=== PATIENT | female | born 1950 | race Caucasian/White ===

== ENCOUNTER → 2018-02-15 14:21 | Outpatient (CLI) | payer MEDICARE, OTHER, SELFPAY ==
[2018-02-15 14:43] LABS: Add Manual Diff / Slide Review NO; Basophils Percent Auto 0.3 % (0-2); Hematocrit 35.8 % (36-46); Hemoglobin 12.5 g/dL (12.0-16.0); Lymphocytes Percent Auto 12.2 % (25-40); Mean Corpuscular Hemoglobin 29.9 PG (26-34); Mean Corpuscular Volume 85.5 fL (80-100); Monocytes Percent Auto 3.3 % (3-14); Neutrophils Absolute Auto 7600 /uL (3000-5900); Neutrophils Percent Auto 84.2 % (50-75); Platelet Count 224 X10^3/uL (150-400); Red Blood Cell Count 4.19 X10^6/uL (4.0-5.2); Red Cell Distribution Width 15.2 % (11.6-14.8)
[2018-02-15 15:23] LABS: HEMOLYSIS < 15 (0-50); Iron 88 ug/dL (37-170)
[2018-02-15 15:34] LABS: Percent Iron Saturation 30 % (15-50); Total Iron Binding Capacity 291 ug/mL (265-497); Transferrin 241 mg/dL (206-381)
== END ==
PROVIDERS: Family Provider Internal Medicine; PCP Internal Medicine; Visit Provider Internal Medicine Hematology & Oncology
DX: D47.2 Monoclonal gammopathy (principal)
CPT/HCPCS: 36415; 82728; 83540; 83550; 85025

== ENCOUNTER 2018-03-09 08:31 | Outpatient (CLI) | payer MEDICARE, OTHER, SELFPAY ==
[2018-03-09] VITALS (13 sets, daily range): BP systolic 116–145; BP diastolic 66–88; PULSE 55–128; RESP 11–17; TEMP 36.1; O2SAT 98–100
--- NOTE | 2018-03-09 08:34 | DI.RAD.S_ITS ---
PROCEDURE: PAIN C/T INTERLAMINAR INJECT INDICATIONS: C6/7 TL DEYANIRA due to Cervical Stenosis FINDINGS: Fluoroscopic spot filming was performed to verify placement of spinal needles at the C6-7 level(s), as labeled on the films. Appropriate location(s) of the needle tip(s) was confirmed by injection of iodinated contrast. IMPRESSION: Image documentation of needle injection at the C6-7 level. Dictated by: Paulo Reza M.D. on 03/09/2018 at 16:19 Approved by: Paulo Reza M.D. on 03/09/2018 at 16:20
--- NOTE | 2018-03-09 09:08 | PM.PROC.1 ---
Procedures Date/Time Date of procedure: 03/09/18 Time of procedure: 09:08 General Procedure description: PREOP DIAGNOSIS 1. CERVICAL STENOSIS, 2. CERVICAL HNP WITH UPPER EXTREMITY RADICULAR FEATURES, POST OP DIAGNOSIS 1. CERVICAL STENOSIS, 2. CERVICAL HNP WITH UPPER EXTREMITY RADICULAR FEATURES, PROCEDURES 1. FLUORSCOPICALLY GUIDED CONTRAST CONTROLLED INTERLAMINAR EPIDURAL STEROID INJECTION - C6/7 TL DEYANIRA PHYSICIAN: Stewart Irwin, DO ABDIRASHID Helms is referred by Dr. Hauser for treatment of Cervical HNP with Upper Extremity Paresthesias. FINDINGS Cervical Stenosis due to disc deterioration and nerve root irritation and nerve root irritation DESCRIPTION OF PROCEDURE Fluoroscopically guided, contrast-controlled C6/7 translaminar epidural steroid injection with conscious sedation. Following denial of allergy and review of potential side effects and complications, including, but not necessarily limited to, infection, allergic reaction, local tissue breakdown, temporary as well as permanent nerve injury, stroke, paralysis, and possible , the patient indicated that patient understood and agreed to proceed. An informed consent document was signed by the patient, witnessed by a nurse, and placed in the patient's chart. Additionally, other treatment options including modalities, medications, and physical therapy were reviewed with the patient. Per the patient request, IV conscious sedation was administered via 5mg of Versed and 50mcg of Fentanyl to patient comfort. The patient's vital signs were monitored throughout the procedure by both the nurse and the physician without significant fluctuation. The patient remained conversant throughout the procedure. In the prone position, following sterile prep and drape of the cervical region, the C6/7 translaminar space was identified fluoroscopically. The skin was anesthetized via a 25-gauge 1.5-inch needle with 1% lidocaine solution. At this point, a 25-gauge, 2.5-inch short bevel spinal needle was atraumatically introduced and advanced under fluoroscopic guidance into epidural space at the C6/7 translaminar space. Depth was confirmed on lateral view. Radiological data, including multiple fluoroscopic views of the cervical spine, reveal a spinal needle at the C6/7 translaminar space. Lateral views then show placement of the needle in the epidural space. Subsequent views show contrast material flowing superiorly and inferiorly in the epidural space. DSA fluoroscopy with live contrast injection, once again, confirmed no vascular or intrathecal uptake. At this point, using loss of resistance technique with saline and air, the epidural space was entered. Following negative aspiration, injection of approximately 1.5 cc of Isovue-200 with live fluoroscopy in the AP view confirmed epidural flow in the epidural space without vascular or intrathecal uptake observed. Subsequently, a test dose of 1 cc of 1% lidocaine solution was injected and patient was observed for two minutes without signs or symptoms of complications, including abdominal pain, shortness of breath, bilateral upper or lower extremity weakness, nausea and vomiting, prior to steroid injection. At this point, 3 cc or 30 mg of dexamethasone was then injected without incident. The patient was then transferred to the recovery area where they were observed for an appropriate period of time after the injection. The patient reported a VAS score of 6 prior to the procedure and a post-procedure VAS of 0. Total Fluoroscopy Time: 37.0 seconds Total Conscious Time: 24min POST OP INSTRUCTIONS The patient was provided a Pain Log to continue to record their response to the target-specific procedure prior to follow-up visit with the referring provider. Additionally, specific post-injection care instructions and a contact number to our office were provided if concerns arise regarding possible complications associated with the procedure are suspected. Stewart Irwin, DO Complications: none
[2018-03-09] MEDS: MIDAZOLAM 5 MG/5 ML VIAL IV (09:30)
[2018-03-09] MEDS: DEXAMETHASONE 10 MG/ML VIAL 30 MG INJ (09:30)
[2018-03-09] MEDS: fentaNYL 100 MCG/2 ML INJ 50 MCG IV (09:30)
[2018-03-09] MEDS: LIDOCAINE 1% 20 ML INJ INJ (09:30)
[2018-03-09] MEDS: IOPAMIDOL 15 ML VIAL 3 ML INJ (09:30)
== END 2018-03-09 10:47 ==
LOC: RAD 08:33
PROVIDERS: PCP Internal Medicine; Visit Provider Physical Medicine & Rehabilitation
DX: M48.02 Spinal stenosis, cervical region (principal)
CPT/HCPCS: 62321; 99152; J1040; J1100; J2250; J3010

== ENCOUNTER → 2018-05-06 08:54 | Outpatient (CLI) | payer MEDICARE, OTHER, SELFPAY ==
--- NOTE | 2018-05-06 | DI.ECHO.S_ITS ---
[place] [facility]---------+ [facility] +---------+ : : [address] : : : : [id number] : : : : Phone: [phone] Echocardiogram Report + + :Name: MEAGAN HALL Study Date: 05/06/2018 Height: 67.5 in: :[facility] Exam Location: IS Weight: 137 lb : : Gender: Female BSA: 1.7 m2 : :: 1950 Age: 67 yrs BP: 160/80 mmHg: :Reason For Study: CERVICAL STENOSIS : :Ordering Physician: Kianna : :Murtaza Performed By: Nimo Freeman : :Referring: KIANNA MURCIA : + + Interpretation Summary The left ventricle is normal in size, wall thickness, and systolic function without any focal wall motion abnormalities. The ejection fraction is estimated to be 55-60%. Assessment of diastolic parameters indicates a relaxation abnormality of the left ventricle, consistent with normal filling pressures. The right ventricle is normal in size and function. The right ventricular systolic pressure is estimated at 24 mmHg assuming a right atrial pressure of 8 mm Hg. The left atrium is moderately dilated. The right atrium is severely dilated. There is mild to moderate pulmonic regurgitation. The ascending aorta is mildly enlarged. Procedure: A two-dimensional transthoracic echocardiogram with color flow and Doppler was performed. The study quality was technically adequate. There is no prior echocardiogram noted for this patient. The patient was in sinus bradycardia with heart rates between 48 and 58 bpm during the exam. Left Ventricle: The left ventricle is normal in size, wall thickness, and systolic function without any focal wall motion abnormalities. The ejection fraction is estimated to be 55-60%. Assessment of diastolic parameters indicates a relaxation abnormality of the left ventricle, consistent with normal filling pressures. Right Ventricle: The right ventricle is normal in size and function. Atria: The left atrium is moderately dilated. The right atrium is severely dilated. There is no Doppler evidence for an interatrial shunt. Mitral Valve: The mitral valve is normal. There is trace mitral regurgitation. Aortic Valve: The aortic valve is normal in structure and function. There is trace aortic regurgitation. Tricuspid Valve: The tricuspid valve is normal. There is trace tricuspid regurgitation. The right ventricular systolic pressure is estimated at 24 mmHg assuming a right atrial pressure of 8 mm Hg. Pulmonic Valve: The pulmonic valve leaflets are thin and pliable; valve motion is normal. There is mild to moderate pulmonic regurgitation. Great Vessels: The aortic root is normal size. The ascending aorta is mildly enlarged. The aortic arch is normal in size. The pulmonary is not well visualized. The IVC is dilated (diameter is greater than 2.1 cm) yet it collapses greater than 50% with a sniff. This suggests a right atrial pressure of 8 mm Hg. Pericardium/ Pleura There is no pericardial effusion. There is no pleural effusion. MMode/2D Measurements & Calculations LVIDd: 4.4 cm LVOT diam: 2.3 cm LVIDs: 2.7 cm Ao root diam: 3.4 cm FS: 39.7 % asc Aorta Diam: 3.8 cm EPSS: 0.80 cm Ao Arch Diam (Prox Trans): 2.9 cm IVSd: 1.0 cm LVPWd: 1.00 cm LV kilpatrick. diameter/BSA (cm/m^2): 2.6 LV sys. diameter/BSA (cm/m^2): 1.5 LA A2 area: 21.4 cm2 RA long axis: 5.6 cm LA A4 area: 24.9 cm2 RA area: 24.4 cm2 LA length (vol): 5.5 cm RA vol: 91.4 ml LA vol: 81.7 ml RA : 52.8 ml/m2 LA vol index: 47.2 ml/m2 IVC diam: 2.2 cm RVD1 (basal): 3.8 cm RVD2 (mid): 2.9 cm TAPSE: 3.0 cm Doppler Measurements & Calculations Ao V2 max: 117.0 cm/sec LVOT Max Ko: 90.6 cm/sec Ao V2 mean: 83.1 cm/sec LV V1 max P.3 mmHg Ao max P.5 mmHg LV V1 VTI: 23.6 cm Ao mean P.1 mmHg FERNANDO(I,D): 2.7 cm2 Ao V2 VTI: 35.5 cm FERNANDO(V,D): 3.1 cm2 sev ratio: 0.67 FERNANDO indexed to BSA (cm^2/m^2): 1.5 MV E max ko: 72.0 cm/sec TR max ko: 198.9 cm/sec MV A max ko: 76.8 cm/sec TR max P.8 mmHg MV E/A: 0.94 PA V2 max: 54.3 cm/sec Med Peak E' Ko: 6.8 cm/sec PA V2 mean: 42.7 cm/sec E/E' med: 10.5 PA mean P.78 mmHg Lat Peak E' Ko: 9.3 cm/sec PA pr(Accel): 2.5 mmHg E/E' lat: 7.8 E/e' average: 9.1 MV dec time: 0.22 sec MV P1/2t: 65.9 msec MV /2t max ko: 72.8 cm/sec MVA(2t): 3.3 cm2 Reading Physician:REMINGTON
--- NOTE | 2018-05-06 08:58 | DI.MRI.S_ITS ---
PROCEDURE: MR CERVICAL SPINE WO CON INDICATIONS: cervical stenosis TECHNIQUE: Noncontrast sagittal T1 spin echo and T2 fast spin echo, sagittal STIR, foraminal oblique sagittal T2 fast spin echo, and axial gradient echo or T2 fast spin echo through the cervical spine. COMPARISON: [facility], MR, C-SPINE WITHOUT CONTRAST, 03/16/2016, 7:41. FINDINGS: Image quality: Excellent. Alignment and Curvature: There is normal bony alignment. Bone Marrow: Marrow demonstrates normal overall signal. Spinal Cord: Visualized spinal cord has normal size and signal. No cerebellar tonsillar herniation. Paraspinous Soft Tissues: No paravertebral masses. Prevertebral soft tissues are normal in thickness. C2-C3: Loss of the signal. No central stenosis. No neural foraminal narrowing. C3-C4: Loss of the signal and height. Mild, diffuse disc bulge. Mild narrowing of the central canal. Mild bilateral neural foraminal narrowing. No neural impingement. C4-C5: Loss of disc signal and height. Moderate, diffuse disc bulge. Moderate to severe central canal. Mild bilateral uncovertebral joint hypertrophy. Moderate bilateral neural foraminal narrowing. No neural impingement. C5-C6: Loss of disc signal and height. Moderate, diffuse disc bulge. Moderate narrowing of the central canal. Moderate right and mild left uncovertebral joint hypertrophy. Moderate right and mild left neural foraminal narrowing. No neural impingement. C6-C7: Loss of disc signal and height. Mild, diffuse disc bulge. Mild central canal narrowing. Mild bilateral neural foraminal narrowing. No neural impingement. C7-T1: Loss of the signal. No central stenosis. No neural foraminal narrowing. No neural impingement. IMPRESSION: 1. Multilevel degenerative disease. 2. Multilevel uncovertebral joint hypertrophy. 3. Moderate to severe C4-C5 central canal narrowing. Moderate C5-C6 central canal narrowing. Mild C3-C4 and C6-C7 central canal narrowing. 4. Moderate bilateral C4-C5 neural foraminal narrowing. Moderate right and mild left C5-C6 neural foraminal narrowing. Mild bilateral C3-C4 and C6-C7 neural foraminal narrowing. Dictated by: Wendy Lee MD, PhD on 05/06/2018 at 11:13 Approved by: Wendy Lee MD, PhD on 05/06/2018 at 11:35
== END ==
PROVIDERS: Family Provider Physical Medicine & Rehabilitation; PCP Internal Medicine; Visit Provider Internal Medicine
DX: M50.31 Other cervical disc degeneration, high cervical region (principal); M48.02 Spinal stenosis, cervical region; I51.7 Cardiomegaly; I37.1 Nonrheumatic pulmonary valve insufficiency
CPT/HCPCS: 72141; 93306

== ENCOUNTER 2018-05-18 12:20 | Emergency (ER) | payer MEDICARE, OTHER, SELFPAY ==
[2018-05-18 12:40] VITALS: BP 136/78; PULSE 53; RESP 18; TEMP 36.2; O2SAT 100; BMI 21.2
--- NOTE | 2018-05-18 12:41 | ED.GENADULT ---
HPI - General Adult General Chief complaint: Weakness Stated complaint: LOW PULSE/HIGH BP Time Seen by Provider: 05/18/18 12:46 Source: patient Mode of arrival: ambulatory Limitations: no limitations History of Present Illness HPI narrative: 67-year-old female with history of hypertension here for complaint of having low blood pressure and low heart rate this morning. She was recently put on amlodipine to treat her hypertension she states she is also taking Accupril and hydrochlorothiazide to treat the blood pressure. She states that with her heart rate and blood pressure being low this morning she felt weak earlier today. She states she feels better at this time. She did talk to her primary care provider the told her to hold on the amlodipine for now until follow up with primary care. She denies any shortness of breath no chest pain. She is ambulatory into the emergency room. She denies any other concerns or complaints at this time. Related Data Home Medications Medication Instructions Recorded Confirmed VITAMIN D (Vitamin D3) 1,000 units PO QDAY #0 11/04/16 05/13/18 mfvzwkj-viooaayuwrnem-kilunoex 2 tab PO QDAY #0 11/04/16 05/13/18 [Excedrin Migraine] calcium citrate-vitamin D3 1 PO QDAY #0 11/04/16 05/13/18 [Citracal Regular] cyanocobalamin (vitamin B-12) 1,000 mcg PO QDAY #0 11/04/16 05/13/18 fluticasone [Flovent Diskus] 50 mcg INH HS #0 11/04/16 05/13/18 magnesium 1,500 mg PO QDAY #0 11/04/16 05/13/18 tizanidine 12 mg PO HS #0 11/04/16 05/13/18 vitamin B complex [B 1 tab PO QDAY #0 11/04/16 05/13/18 Complex-Vitamin B12] zinc gluconate 50 mg PO QDAY #0 11/04/16 05/13/18 quinapril [Accupril] 40 mg PO QDAY #0 11/10/16 05/13/18 denosumab [Prolia] 60 mg SQ #0 06/21/17 05/13/18 gabapentin enacarbil [Horizant] 300 mg OR QDAY #0 07/06/17 05/13/18 pantoprazole 40 mg PO BID #0 12/13/17 05/13/18 Previous Rx's Medication Instructions Recorded mirabegron [Myrbetriq] 50 mg PO Q DAY #30 tab-cap 07/08/17 estradiol [Estrace] 1 mg PO DAILY #90 tab 11/17/17 trospium 20 mg PO BID #60 tab-cap 01/27/18 meloxicam 15 mg tablet 15 mg PO DAILY #30 tab 05/13/18 Allergies Allergy/AdvReac Type Severity Reaction Status Date / Time Sulfa (Sulfonamide Allergy Intermediate don't Verified 05/13/18 08:49 Antibiotics) remember [SULFA (SULFONAMIDE ANTIBIOTICS)] tetracycline [TETRACYCLINE] Allergy Intermediate don't Verified 05/13/18 08:49 remember celecoxib [From CELEBREX] Allergy Mild Verified 05/13/18 08:49 Penicillins [PENICILLINS] Allergy Mild Hives Verified 05/13/18 08:49 Review of Systems Constitutional Denies chills, Denies fever(s), Denies lethargy and Reports weakness ENT Ears, Nose, Mouth, and Throat: Denies change in voice, Denies neck pain and Denies sore throat Cardiovascular Denies dyspnea, Denies dyspnea on exertion and Reports slow heart rate Comments: Low blood pressure Respiratory Denies cough, Denies dyspnea, Denies dyspnea on exertion and Denies wheezing Genitourinary Denies hematuria, Denies flank pain, Denies urinary incontinence and Denies urinary urgency Musculoskeletal Denies neck pain Integumentary/Breasts Denies pruritus, Denies erythema, Denies rash and Denies wounds Neurologic Denies confusion and Reports weakness Psychiatric Denies anxiety, Denies confusion, Denies depression, Denies homicidal ideation and Denies suicidal ideation Hematologic/Lymphatic Denies easy bruising Allergic/Immunologic Denies wheezing [facility] Medical History DJD (degenerative joint disease) of knee (Chronic) Greater trochanteric bursitis (Chronic) Cervical spondylosis with radiculopathy (Chronic) Cervical stenosis of spinal canal (Chronic) DDD (degenerative disc disease), cervical (Acute) Monoclonal gammopathy (Acute) Chronic pain syndrome (Acute) Generalized osteoarthritis (Acute) History of osteoporosis (Acute) Constipation (Acute) Surgical History History of tonsillectomy Status post appendectomy Status post hysterectomy Social History Smoking Status: Never smoker Exam Initial Vital Signs Initial Vital Signs: Vital Signs Temperature 97.2 F L 05/18/18 12:40 Pulse Rate 53 L 05/18/18 12:40 Respiratory Rate 18 05/18/18 12:40 Blood Pressure 136/78 H 05/18/18 12:40 Pulse Oximetry 100 05/18/18 12:40 Const General: cooperative and well developed Nutritional Appearance: well nourished Orientation: alert, awake, oriented x3 and not confused [facility] Mouth: oral mucosae normal, oropharynx normal and moist mucous membranes Eyes General: appearance normal, both eyes and all related structures Conjunctivae: conjunctivae normal Sclera: sclerae normal Pupils: PERRL EOM: EOM intact bilaterally Resp Effort & Inspection: normal respiratory effort, able to speak in complete sentences, no respiratory distress and no use of accessory muscles Auscultation: clear to auscultation bilaterally, no rales, no rhonchi and no wheezes Cardio Rate: bradycardic Rhythm: regular rhythm Heart Sounds: no click, no gallops, no murmurs and no rubs Pulses: normal peripheral pulses Skin General: no rashes or lesions noted, No jaundice and No petechiae Neuro General: alert, oriented x3, gait normal and no focal motor deficits Speech: speech normal Course Orders Ordered: ED Orders 05/18/18 12:55 B Type Natriuretic Peptide Stat Complete Blood Count AUTO DIFF Stat Comprehensive Metabolic Panel Stat Troponin & CK Cardiac Panel Stat 05/18/18 13:01 XR chest 1V Stat EKG-12 Lead Stat Vital Signs - 8 hr 05/18/18 13:47 05/18/18 14:46 Pulse Rate 54 L 59 L Respiratory Rate 14 14 Blood Pressure 123/71 H Blood Pressure [Left Arm] 129/74 H Pulse Oximetry 100 98 Medical Decision Making [facility] Narrative Medical decision making narrative: Since this morning her blood pressure normalized. Pulse was 54. CBC and Chem panel were obtained and were unremarkable. Troponin was obtained and was negative. EKG showed sinus bradycardia with no ectopy or ST elevation or depression. BNP was elevated 164 although her chest x-ray was negative for any acute findings. Believe her symptoms are due to the amlodipine and will have her hold this for now as it may be working with the tizanidine that she takes for muscle spasms and causing her to have low blood pressure and heart rate. She will follow up with primary care provider in the next couple days for re-evaluation. For any worsening symptoms return emergency room. Lab Data Result diagrams: 05/18/18 12:55 05/18/18 12:55 Lab Results 05/18/18 05/18/18 Range/Units 12:55 12:55 WBC 5.4 (4.5-11.0) X10^3/uL RBC 4.10 (4.0-5.2) X10^6/uL Hgb 12.5 (12.0-16.0) g/dL Hct 37.0 (36-46) % MCV 90.3 (80-100) fL MCH 30.4 (26-34) PG MCHC 33.6 (30-36) % RDW 13.9 (11.6-14.8) % Plt Count 232 (150-400) X10^3/uL Neut % (Auto) 63.8 (50-75) % Lymph % (Auto) 24.8 L (25-40) % Cameron % (Auto) 7.0 (3-14) % Eos % (Auto) 1.7 L (2-4) % Baso % (Auto) 2.7 H (0-2) % Neut # (Auto) 3500 (9880-3756) /uL Sodium 133 L (137-145) mmol/L Potassium 5.0 (3.4-5.1) mmol/L Chloride 94 L (98-107) mmol/L Carbon Dioxide 30 (22-32) mmol/L BUN 18 H (7-17) mg/dL Creatinine 0.70 (0.52-1.04) mg/dL Estimated GFR > 60.0 (>60) mL/min BUN/Creatinine Ratio 25.7 H (6-22) Glucose 98 (80-110) mg/dL Calcium 9.4 (8.4-10.2) mg/dL Total Bilirubin 0.6 (0.2-1.3) mg/dL AST 44 H (14-36) IU/L ALT 34 (9-52) IU/L Alkaline Phosphatase 84 (38-126) U/L Total Creatine Kinase 35 (30-135) U/L Troponin I < 0.012 (0.01-0.034) ng/mL B-Natriuretic Peptide 164.0 H (<100) Total Protein 7.8 (6.3-8.2) g/dL Albumin 4.1 (3.5-5.0) g/dL Globulin 3.7 (1.7-4.1) g/dL Albumin/Globulin Ratio 1.1 (1.0-2.8) Imaging Data Chest x-ray: Radiologist's impression: PROCEDURE: XR CHEST 1V INDICATIONS: Weakness and bradycardia TECHNIQUE: One view of the chest was acquired. COMPARISON: [facility], , ABDOMEN ACUTE SERIES, 07/04/2017, 14:07. [facility], , CHEST 1 VIEW, 08/22/2016, 13:53. FINDINGS: Surgical changes and devices: Surgical anchors right humeral head Lungs and pleura: No pleural effusions or pneumothorax. Lungs are clear. Mediastinum: Mediastinal contours appear normal. Heart size is normal. Bones and chest wall: No suspicious bony lesions. Overlying soft tissues appear unremarkable. IMPRESSION: No acute cardiopulmonary abnormality Dictated by: Paulo Reza M.D. on 05/18/2018 at 13:31 Approved by: Paulo Reza M.D. on 05/18/2018 at 13:31 ECG Data Interpretation: EKG shows sinus bradycardia no ST elevation or depression. No ectopy. Ventricular rate of 52. Pr interval of 193. QRS duration of 87. QTC of 477 Discharge Plan Departure Patient Disposition: Home, Self-Care Clinical Impression: Hypotension Discharge Date/Time: 05/18/18 14:46 Interventions: ED Discharge Assessment Last Done: 05/18/18 14:46 Instructions: Amlodipine Activity Restrictions/Additional Instructions: Laboratory results today and chest x-ray and EKG were unremarkable. Suspect that low blood pressure is due to amlodipine and use which may be working in conjunction with the tizanidine and causing low blood pressure and low heart rate. Stop taking amlodipine at this point. Follow up with her primary care provider in the next few days for re-evaluation and discussion of blood pressure medication regimen. For any worsening symptoms return to the emergency room. Prescriptions: No Action tizanidine 4 MG tablet 12 mg PO HS Qty: 0 RF: 0 cyanocobalamin (vitamin B-12) 1,000 MCG tablet extended release 1,000 mcg PO QDAY Qty: 0 RF: 0 [id number]-nlepdazfowvig-cgsdfutn [Excedrin Migraine] 1 EACH tablet 2 tab PO QDAY Qty: 0 RF: 0 vitamin B complex [B Complex-Vitamin B12] 1 EACH tablet 1 tab PO QDAY Qty: 0 RF: 0 magnesium 200 MG tablet 1,500 mg PO QDAY Qty: 0 RF: 0 calcium citrate-vitamin D3 [Citracal Regular] 250 MG/200 IU tablet 1 PO QDAY Qty: 0 RF: 0 VITAMIN D (Vitamin D3) 1,000 units PO QDAY Qty: 0 RF: 0 zinc gluconate 50 MG tablet 50 mg PO QDAY Qty: 0 RF: 0 fluticasone [Flovent Diskus] 50 MCG blister with device 50 mcg INH HS Qty: 0 RF: 0 quinapril [Accupril] 40 MG tablet 40 mg PO QDAY Qty: 0 RF: 0 denosumab [Prolia] 60 MG/1 ML syringe 60 mg SQ Qty: 0 RF: 0 gabapentin enacarbil [Horizant] 300 MG tablet extended release 300 mg OR QDAY Qty: 0 RF: 0 mirabegron [Myrbetriq] 50 MG tablet extended release 24 hr 50 mg PO Q DAY Qty: 30 RF: 5 estradiol [Estrace] 1 MG tablet 1 mg PO DAILY Qty: 90 RF: 3 pantoprazole 40 MG tablet,delayed release (DR/EC) 40 mg PO BID Qty: 0 RF: 0 trospium 20 MG tablet 20 mg PO BID Qty: 60 RF: 5 meloxicam 15 mg tablet 15 mg PO DAILY Qty: 30 RF: 2 Referrals: Liseth Hauser MD [Primary Care Provider] -
--- NOTE | 2018-05-18 13:01 | DI.RAD.S_ITS ---
PROCEDURE: XR CHEST 1V INDICATIONS: Weakness and bradycardia TECHNIQUE: One view of the chest was acquired. COMPARISON: [facility], , ABDOMEN ACUTE SERIES, 07/04/2017, 14:07. [facility], , CHEST 1 VIEW, 08/22/2016, 13:53. FINDINGS: Surgical changes and devices: Surgical anchors right humeral head Lungs and pleura: No pleural effusions or pneumothorax. Lungs are clear. Mediastinum: Mediastinal contours appear normal. Heart size is normal. Bones and chest wall: No suspicious bony lesions. Overlying soft tissues appear unremarkable. IMPRESSION: No acute cardiopulmonary abnormality Dictated by: Paulo Reza M.D. on 05/18/2018 at 13:31 Approved by: Paulo Reza M.D. on 05/18/2018 at 13:31
[2018-05-18 13:13] LABS: Add Manual Diff / Slide Review NO; Basophils Percent Auto 2.7 % (0-2); Eosinophils Percent Auto 1.7 % (2-4); Hemoglobin 12.5 g/dL (12.0-16.0); Lymphocytes Percent Auto 24.8 % (25-40); Mean Corpuscular HGB Conc 33.6 % (30-36); Mean Corpuscular Hemoglobin 30.4 PG (26-34); Mean Corpuscular Volume 90.3 fL (80-100); Neutrophils Absolute Auto 3500 /uL (3000-5900); Neutrophils Percent Auto 63.8 % (50-75); Platelet Count 232 X10^3/uL (150-400); Red Cell Distribution Width 13.9 % (11.6-14.8); White Blood Cell Count 5.4 X10^3/uL (4.5-11.0)
[2018-05-18 13:18] LABS: Alanine Aminotransferase 34 IU/L (9-52); Albumin 4.1 g/dL (3.5-5.0); Albumin Globulin Ratio 1.1 (1.0-2.8); Alkaline Phosphatase 84 U/L (38-126); Aspartate Aminotransferase 44 IU/L (14-36); BUN Creatinine Ratio 25.7 (6-22); Bilirubin Total 0.6 mg/dL (0.2-1.3); Blood Urea Nitrogen 18 mg/dL (7-17); Calcium 9.4 mg/dL (8.4-10.2); Carbon Dioxide 30 mmol/L (22-32); Chloride 94 mmol/L (98-107); Creatine Kinase 35 U/L (30-135); Estimated Glomerular Filt Rate > 60.0 mL/min (>60); Globulin 3.7 g/dL (1.7-4.1); Glucose 98 mg/dL (80-110); HEMOLYSIS < 15 (0-50); Sodium 133 mmol/L (137-145); Total Protein 7.8 g/dL (6.3-8.2)
[2018-05-18 13:30] LABS: Troponin I < 0.012 ng/mL (0.01-0.034)
[2018-05-18 13:47] VITALS: BP 129/74; PULSE 54; RESP 14; O2SAT 100
[2018-05-18 14:46] VITALS: BP 123/71; PULSE 59; RESP 14; O2SAT 98
== END 2018-05-18 14:46 | disposition home or self-care (01) ==
PROVIDERS: Emergency Provider Nurse Practitioner Family; Family Provider Physical Medicine & Rehabilitation; PCP Internal Medicine
DX: I95.9 Hypotension, unspecified (principal)
CPT/HCPCS: 71045; 80053; 82550; 82553; 83880; 84484; 85025; 93005; 93010; 93041; 99283; 99285

== ENCOUNTER → 2018-06-07 13:41 | Outpatient (CLI) | payer MEDICARE, OTHER, SELFPAY ==
--- NOTE | 2018-06-07 | DI.CT.S_ITS ---
PROCEDURE: CT CHEST WO CON INDICATIONS: DISORDER OF ARTERY AND ARTERIOLE TECHNIQUE: Noncontrast 5 mm thick sections acquired from the pulmonary apices to the posterior costophrenic angles. 7 mm thick coronal and sagittal MIP reformats were then acquired. For radiation dose reduction, the following was used: automated exposure control, adjustment of mA and/or kV according to patient size. COMPARISON: [facility], CR, XR CHEST 1V, 05/18/2018, 13:09. FINDINGS: Image quality: Excellent. Lungs and pleura: No acute air space opacities. No pleural effusions or pneumothorax. Central and peripheral airways are patent and normal in caliber. Mediastinum: Heart size is normal. No pericardial effusion. No mediastinal adenopathy by size criteria. Thoracic aorta and central pulmonary arteries are normal in size. Esophagus is normal in caliber. No hiatal hernia. Bones and chest wall: No suspicious bony lesions. No vertebral body compression fractures. No axillary or supraclavicular adenopathy by size criteria. Thyroid gland is not well-seen but appears normal where well visualized. Abdomen: Visualized upper abdominal solid organs and bowel loops appear normal in the absence of contrast. IMPRESSION: Mild to moderate atherosclerotic calcification noted of the coronary arteries. No aneurysm found. No acute pulmonary disease seen. Dictated by: Jose David Rey M.D. on 06/07/2018 at 14:21 Approved by: Jose David Rey M.D. on 06/07/2018 at 14:23
== END ==
PROVIDERS: Family Provider Physical Medicine & Rehabilitation; PCP Internal Medicine; Visit Provider Hospitalist
DX: I25.10 Atherosclerotic heart disease of native coronary artery without angina pectoris (principal); I77.9 Disorder of arteries and arterioles, unspecified
CPT/HCPCS: 71250

== ENCOUNTER 2018-06-21 10:31 | Outpatient (CLI) | payer MEDICARE, OTHER, SELFPAY ==
[2018-06-21] VITALS (11 sets, daily range): BP systolic 127–180; BP diastolic 66–82; PULSE 57–69; RESP 16–18; TEMP 36.4; O2SAT 99–100
--- NOTE | 2018-06-21 10:32 | DI.RAD.S_ITS ---
PROCEDURE: PAIN C/T FACET INJ/BLK 1ST L INDICATIONS: SPINAL STENOSIS FINDINGS: Fluoroscopic spot filming was performed to verify placement of spinal needles at the C5-C6, C6 and C7 and C7-T1 level(s), as labeled on the films. Appropriate location(s) of the needle tip(s) was confirmed by injection of iodinated contrast. IMPRESSION: Fluoroscopy for pain management. Dictated by: Kristian Lozada M.D. on 06/21/2018 at 15:16 Approved by: Kristian Lozada M.D. on 06/21/2018 at 15:16
[2018-06-21] MEDS: MIDAZOLAM 5 MG/5 ML VIAL IV (11:41)
[2018-06-21] MEDS: BUPIVACAINE 0.5% (PF) VIAL 2 ML INJ (11:52)
[2018-06-21] MEDS: IOPAMIDOL 15 ML VIAL 3 ML INJ (11:52)
[2018-06-21] MEDS: DEXAMETHASONE 10 MG/ML VIAL 30 MG INJ (11:53)
--- NOTE | 2018-06-21 11:57 | P.PCN_ITS ---
Procedures Date/Time Date of procedure: 06/21/18 Time of procedure: 11:55 General Procedure description: PREOP DIAGNOSIS 1. FACET ARTHROPATHY 2. AXIAL NECK PAIN POST OP DIAGNOSIS 1. FACET ARTHROPATHY 2. AXIAL NECK PAIN PROCEDURES 1. FLUOROSCOPICALLY GUIDED, CONTRAST-CONTROLLED RIGHT C5/6 AND C6/7 FACET JOINT INJECTIONS WITH CONSCIOUS SEDATION. PHYSICIAN: Stewart Irwin DO INDICATION: Analia is referred by Dr. Hauser for treatment of Axial Neck Pain DESCRIPTION OF PROCEDURE Fluoroscopically guided, contrast-controlled Right C5/6 and C6/7 facet joint injections with conscious sedation. Following denial of allergy and review of potential side effects and complications, including, but not necessarily limited to, infection, allergic reaction, local tissue breakdown, stroke, temporary or permanent nerve injury and paralysis, the patient indicated that the patient understood and agreed to proceed. An informed consent document was signed by the patient, witnessed by a nurse, and placed in the patient's chart. Additionally, other treatment options including medications, modalities, and physical therapy were reviewed with the patient. After review of previous anaesthesic history and IV conscious sedation the patient was deemed safe to proceed with todays procedure with IV conscious sedation as ASA class II designation. Safety time-out was performed to confirm patient ID, procedure to be performed and site of procedure. IV sedation was accomplished with a combination of 5mg was administered by the RN after DO order , titrated to patient comfort during the course of the procedure while the patient remained responsive to all verbal commands In the prone position, following sterile prep and drape of the cervical spine region, the posterior aspect of the right C5/6 and C6/7 facet joints were identified fluoroscopically. The skin was anesthetized via a 25-gauge 1.5-inch needle with 1% lidocaine solution into the corresponding facet joints. At this point, a 25-gauge 2.5-inch spinal needle was atraumatically introduced and advanced under fluoroscopic guidance into the corresponding facet joints. Following negative aspiration, injections of approximately 0.2-cc of Isovue 200 confirmed interarticular placement without vascular uptake. At this point, a total of 1 cc including 0.5 cc or 5 mg of dexamethasone combined with 0.5 cc of 1% lidocaine solution was injected without complication into each of the corresponding facet joints. The procedure tolerated the procedure well without signs or symptoms of complications prior to transfer to the recovery area continued monitoring without incident. The patient was then transferred to the recovery area where they were observed for an appropriate period of time after the injection. The patient reported a VAS score of 7 prior to the procedure and a post- procedure VAS of 0. Total Fluoroscopy Time: 20.5 seconds Total Conscious Sedation Time: 24 min POST OP INSTRUCTIONS They were provided a Pain Log to continue to record their response to the target -specific procedure prior to their follow-up visit with their referring physician. Additionally, specific post-injection care instructions and a contact number to our office were provided if concerns arise regarding possible complications associated with the procedure are suspected. Stewart Irwin, Complications: none
--- NOTE | 2018-06-22 13:20 | PC.NURSE ---
post follow up call made and pt reported not feeling very good, she is dizzy and nauseated. I let Dr. Irwin know so he is going to follow up with her.
== END 2018-06-21 13:20 ==
LOC: RAD 10:32
PROVIDERS: PCP Internal Medicine; Visit Provider Physical Medicine & Rehabilitation
DX: M47.812 Spondylosis without myelopathy or radiculopathy, cervical region (principal); M54.2 Cervicalgia
CPT/HCPCS: 64490; 64491; 99152; J1100; J2250

== ENCOUNTER → 2018-07-08 12:24 | Outpatient (CLI) | payer MEDICARE, OTHER, SELFPAY ==
[2018-07-08 14:49] LABS: Cholesterol 230 mg/dL (140-199); HDL Cholesterol 89 mg/dL (40-60); LDL Cholesterol Calculated 127 mg/dL (<100); Triglycerides 70 mg/dL (35-150)
[2018-07-08 15:46] LABS: Free T4, Direct Thyroxine 1.27 ng/dL (0.78-2.19)
[2018-07-13 14:54] LABS: Catecholamines, Total 419 pg/mL
== END ==
PROVIDERS: PCP Internal Medicine; Visit Provider Hospitalist
DX: I10 Essential (primary) hypertension (principal); E78.2 Mixed hyperlipidemia
CPT/HCPCS: 36415; 80061; 82384; 82570; 84439; 84443

== ENCOUNTER → 2018-07-14 13:24 | Outpatient (CLI) | payer MEDICARE, OTHER, SELFPAY ==
[2018-07-14 15:27] LABS: Vitamin B12 > 1000 pg/mL (239-931)
== END ==
PROVIDERS: PCP Internal Medicine; Visit Provider Internal Medicine
DX: D51.9 Vitamin B12 deficiency anemia, unspecified (principal)
CPT/HCPCS: 36415; 82607

== ENCOUNTER → 2018-07-16 09:39 | Outpatient (CLI) | payer MEDICARE, OTHER, SELFPAY ==
--- NOTE | 2018-07-16 09:41 | DI.MRI.S_ITS ---
PROCEDURE: MR KNEE LT WO CON INDICATIONS: Left knee DJD status post arthroscopy TECHNIQUE: Noncontrast sagittal PD fast spin echo and T2 fast spin echo with fat saturation, sagittal 3-D FLASH with fat saturation; coronal T1 spin echo and PD fast spin echo with fat saturation, and axial PD fast spin echo with fat saturation through the knee. COMPARISON: [facility], MR, KNEE WITH CONTRAST, 11/08/2015, 14:17. [facility], CR, XR KNEE ARTHRITIC SERIES BI, 04/19/2018, 10:54. [facility], MR, KNEE WITHOUT CONTRAST, 06/05/2015, 12:14. FINDINGS: Image quality: Excellent. Menisci: The medial and lateral menisci demonstrate moderately degenerated morphology and internal signal, more prominently at the medial than the lateral compartment. A small nondisplaced horizontally oriented linear tear involves the posterior horn of the lateral meniscus, but a medial meniscal tear is not seen. The meniscal root ligaments appear intact. Cruciate ligaments: The anterior and posterior cruciate ligaments appear intact. Medial structures: The medial collateral ligament appears intact. The posterior oblique ligament, semimembranosus tendon insertions, oblique popliteal ligament, and meniscocapsular junction appear intact. Visualized portions of the pes anserinus tendons appear normal. No abnormal bursal fluid. Lateral structures: The lateral collateral ligament, long and short heads of the biceps femoris tendon appear intact. The popliteus tendon appears normal; the popliteofibular ligament appears intact. The posterosuperior and anteroinferior popliteomeniscal fascicles appear intact. The arcuate and fabellofibular ligaments appear intact, on either side of the lateral inferior geniculate artery. Iliotibial band appears normal. Anterior structures: The quadriceps and patellar tendons appear intact. Patellar alignment is normal. No femoral trochlear dysplasia or ventral trochlear prominence. No edema in the infrapatellar fat pad. Bones and cartilage: No bone marrow contusions or fractures. The cartilage of the medial and lateral femorotibial compartments, as well as the patellofemoral compartment, appears reduced in thickness and this is most prominent at the medial compartment and present to a slightly lesser degree at the lateral compartment. It is moderately severe at the lateral facet of the patellofemoral joint and thinning of the patellar articular cartilage is associated with several areas of posterior marrow edema related to the chondromalacia present. Additionally, a previously identified ovoid 1.1 x 1.5 cm chondroid matrix lesion within the fibular head anteriorly is again seen, present on prior plain film and MR imaging without growth over time. Joint space: There is a moderate excess of knee joint fluid. There is a small posterior medial Light's cyst. Normal appearing synovial plicae are incidentally noted. IMPRESSION: 1. 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 2. Stable appearing horizontally oriented linear tear involving the posterior horn of the lateral meniscus. Moderate meniscal degeneration, no displaced meniscal fragment. 3. Small joint effusion. Small posterior medial Light's cyst without evidence of cyst rupture. 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 Dictated by: Jose David Rey M.D. on 07/18/2018 at 13:07 Approved by: Jose David Rey M.D. on 07/18/2018 at 13:18
== END ==
PROVIDERS: PCP Internal Medicine; Visit Provider Physical Medicine & Rehabilitation
DX: S83.282A Other tear of lateral meniscus, current injury, left knee, initial encounter (principal); M17.12 Unilateral primary osteoarthritis, left knee; M25.462 Effusion, left knee; M71.22 Synovial cyst of popliteal space [Baker], left knee
CPT/HCPCS: 73721

== ENCOUNTER → 2018-08-08 13:59 | Outpatient (CLI) | payer MEDICARE, OTHER, SELFPAY ==
[2018-08-08 14:34] LABS: Add Manual Diff / Slide Review NO; Basophils Percent Auto 1.5 % (0-2); Eosinophils Percent Auto 2.2 % (2-4); Hemoglobin 13.6 g/dL (12.0-16.0); Lymphocytes Percent Auto 34.7 % (25-40); Mean Corpuscular HGB Conc 33.9 % (30-36); Mean Corpuscular Hemoglobin 29.4 PG (26-34); Mean Corpuscular Volume 86.8 fL (80-100); Monocytes Percent Auto 7.3 % (3-14); Neutrophils Absolute Auto 3000 /uL (3000-5900); Neutrophils Percent Auto 54.3 % (50-75); Platelet Count 238 X10^3/uL (150-400); Red Blood Cell Count 4.61 X10^6/uL (4.0-5.2); Red Cell Distribution Width 13.8 % (11.6-14.8); White Blood Cell Count 5.5 X10^3/uL (4.5-11.0)
--- NOTE | 2018-08-08 14:43 | PC.NURSE ---
CBC stable, chemistry and immunology pending. New MD follow up on 08/18
[2018-08-10 12:57] LABS: Immunoglobulin A 133 mg/dL (81-463); Immunoglobulin G, Quantitative 1592 mg/dL (694-1618)
[2018-08-10 14:26] LABS: Free Kappa/ Lambda Ratio 0.44 (0.26-1.65); Free Lambda 38.5 mg/L (5.7-26.3)
[2018-08-10 19:27] LABS: Beta-2-Microglobulin 3.26 mg/L (< 2.52)
[2018-08-12 15:01] LABS: Abnormal Protein Band 1 0.9 g/dL (NONE DETECTED); Albumin 3.9 g/dL (3.8-4.8); Alpha 1 Globulin 0.4 g/dL (0.2-0.3); Alpha 2 Globulin 0.9 g/dL (0.5-0.9); Beta 1 Globulin 0.4 g/dL (0.4-0.6); Gamma Globulin 1.6 g/dL (0.8-1.7); Protein, Total 7.5 g/dL (6.1-8.1)
== END ==
PROVIDERS: PCP Internal Medicine; Visit Provider Internal Medicine Hematology & Oncology
DX: D47.2 Monoclonal gammopathy (principal); K58.9 Irritable bowel syndrome, unspecified
CPT/HCPCS: 36415; 82232; 82784; 83883; 84155; 84165; 85025

== ENCOUNTER 2018-10-18 10:28 | Outpatient (CLI) | payer MEDICARE, OTHER, SELFPAY ==
[2018-10-18] VITALS (7 sets, daily range): BP systolic 135–169; BP diastolic 65–77; PULSE 48–54; RESP 11–18; TEMP 36.2; O2SAT 100
--- NOTE | 2018-10-18 10:34 | DI.RAD.S_ITS ---
PROCEDURE: PAIN L/S FACET INJ/BLK 1ST SAGAR COMPARISON: None. INDICATIONS: SPONDYLOSIS FINDINGS: These images demonstrate spinal needles on the right and on the left at the L4-L5 level, as labeled on the images. Appropriate needle positions are demonstrated with injection of a small amount of iodinated contrast. IMPRESSION: Intraprocedural examination within normal limits. Dictated by: Gomez Graf M.D. on 10/19/2018 at 9:00 Approved by: Gomez Graf M.D. on 10/19/2018 at 9:01
[2018-10-18] MEDS: MIDAZOLAM 5 MG/5 ML VIAL IV (11:05)
[2018-10-18] MEDS: BUPIVACAINE 0.5% (PF) VIAL 2 ML INJ (11:13)
[2018-10-18] MEDS: IOPAMIDOL 15 ML VIAL 3 ML INJ (11:14)
[2018-10-18] MEDS: BETAMETHASONE 30 MG/5 ML MDV 12 MG INJ (11:14)
[2018-10-18] MEDS: LIDOCAINE 1% 20 ML INJ INJ (11:14)
--- NOTE | 2018-10-18 11:24 | P.PCN_ITS ---
Procedures Date/Time Date of procedure: 10/18/18 Time of procedure: 11:22 General Procedure description: PREOP DIAGNOSIS 1. FACET ARTHROPATHY 2. AXIAL LBP 3. MULTILEVEL DDD POST OP DIAGNOSIS 1. FACET ARTHROPATHY 2. AXIAL LBP 3. MULTILEVEL DDD PROCEDURES 1. FLUORSCOPICALLY GUIDED CONTRAST CONTROLLED FACET JOINT INJECTIONS BILATERAL L4/5 PHYSICIAN: Stewart Irwin, DO INDICATIONS Analia is referred by Dr. Mcconnell for treatment of Axial LBP FINDINGS Multilevel Facet Arthropathy with Clinically significant axial LBP DESCRIPTION OF PROCEDURE Fluoroscopically guided, contrast-controlled bilateral L4/5 facet joint injections. Following denial of allergy and review of potential side effects and complications, including, but not necessarily limited to, infection, allergic reaction, local tissue breakdown, stroke, temporary or permanent nerve injury, paralysis, and possible , the patient indicated that the patient understood and agreed to proceed. An informed consent document was signed by the patient, witnessed by a nurse, and placed in the patient's chart. Additionally, other treatment options including medications, modalities, and physical therapy were reviewed with the patient. After review of previous anaesthesic history and IV conscious sedation the patient was deemed safe to proceed with todays procedure with IV conscious sedation as ASA class II designation. Safety time-out was performed to confirm patient ID, procedure to be performed and site of procedure. IV sedation was accomplished with a combination of 3mg was administered by the RN after DO order , titrated to patient comfort during the course of the procedure while the patient remained responsive to all verbal commands In the prone position, following sterile prep and drape of the lumbar region, the posterior aspect of the L4/5 facet joint were identified fluoroscopically. The skin was anesthetized via a 25-gauge 1.5-inch needle with 1% lidocaine solution into the corresponding facet joints. At this point, a 22-gauge 3.5- inch spinal needle was atraumatically introduced and advanced under fluoroscopic guidance into the corresponding facet joints. Following negative aspiration, injections of approximately 0.2-cc of Isovue 200 confirmed interarticular placement without vascular uptake. The identical procedure was then performed at the L4/5 facet joint on the left. Radiological data, including multiple fluoroscopic views of the lumbosacral spine, reveal a spinal needle at the L4/5 facet joints bilaterally. Subsequent views show flow of contrast material both superiorly and inferiorly within the joint space without vascular or intrathecal uptake. At this point, a total of 0.5 cc including a mixture of 0.25cc Marcaine and 0.25cc betamethasone was injected without complication into each of the corresponding facet joints. The patient tolerated the procedure well without signs or symptoms of complications prior to transfer to the recovery area continued monitoring without incident. The patient was then transferred to the recovery area where they were observed for an appropriate period of time after the injection. The patient reported a VAS score of 7 prior to the procedure and a post- procedure VAS of 0. Total Fluoroscopy Time: 20.3 seconds Total Conscious Sedation Time: 24min POST OP INSTRUCTIONS The patient was provided a Pain Log to continue to record their response to the target-specific procedure prior to follow-up visit with their referring physician. Additionally, specific post-injection care instructions and a contact number to our office were provided if concerns arise regarding possible complications associated with the procedure are suspected. Stewart Irwin DO Complications: none
--- NOTE | 2018-10-18 11:30 | PC.NURSE ---
Procedure finished 111, pt tolerated procedure well. Able to get off table with stand by assist. Transferred pt to pre procedure room via W/C for continued monitoring with Vibha HERBERT.
--- NOTE | 2018-10-18 11:30 | PC.NURSE ---
TAKING OVER CARE IN POST PROC AREA WITH PT IN STABLE CONDITON
--- NOTE | 2018-10-19 16:27 | PC.NURSE ---
FOLLOW UP CALL MADE, MSG LEFT WITH CLINIC # FOR QUESTIONS/CONCERNS.
== END 2018-10-18 12:08 | disposition home or self-care (01) ==
LOC: RAD 10:33
PROVIDERS: Family Provider Internal Medicine; PCP Internal Medicine; Visit Provider Physical Medicine & Rehabilitation
DX: M47.816 Spondylosis without myelopathy or radiculopathy, lumbar region (principal); M51.36 Other intervertebral disc degeneration, lumbar region; M54.5 Low back pain
CPT/HCPCS: 64493; 99152; J0702; J2250

== ENCOUNTER → 2018-12-05 08:25 | Outpatient (CLI) | payer MEDICARE, OTHER, SELFPAY ==
[2018-12-05 10:39] LABS: Cortisol AM (Before 10AM) 16.6 ug/dL (4.46-22.7)
== END ==
PROVIDERS: Family Provider Internal Medicine; PCP Internal Medicine; Visit Provider Hospitalist
DX: R09.89 Other specified symptoms and signs involving the circulatory and respiratory systems (principal)
CPT/HCPCS: 36415; 82533

== ENCOUNTER 2018-12-13 09:31 | Outpatient (CLI) | payer MEDICARE, OTHER, SELFPAY ==
[2018-12-13] VITALS (10 sets, daily range): BP systolic 122–188; BP diastolic 64–82; PULSE 58–67; RESP 16–18; TEMP 36.4; O2SAT 98–100
--- NOTE | 2018-12-13 09:33 | DI.RAD.S_ITS ---
PROCEDURE: PAIN C/T INTERLAMINAR INJECT INDICATIONS: Cervical stenosis FINDINGS: Fluoroscopic spot filming was performed to verify placement of spinal needles at the C6-C7 level(s), as labeled on the films. Appropriate location(s) of the needle tip(s) was confirmed by injection of iodinated contrast. IMPRESSION: Fluoroscopy for pain management. Dictated by: Kristian Lozada M.D. on 12/13/2018 at 16:22 Approved by: Kristian Lozada M.D. on 12/13/2018 at 16:22
[2018-12-13] MEDS: MIDAZOLAM 5 MG/5 ML VIAL IV (10:50)
[2018-12-13] MEDS: DEXAMETHASONE 10 MG/ML VIAL 20 MG INJ (10:54)
[2018-12-13] MEDS: IOPAMIDOL 15 ML VIAL 3 ML INJ (10:54)
[2018-12-13] MEDS: LIDOCAINE 1% 20 ML INJ 5 ML INJ (10:54)
--- NOTE | 2018-12-13 11:00 | PC.NURSE ---
assisting pt off table and transporting to post proc area in stable condition
--- NOTE | 2018-12-13 11:05 | PM.PROC.1 ---
Procedures Date/Time Date of procedure: 12/13/18 Time of procedure: 11:05 General Procedure description: PREOP DIAGNOSIS 1. CERVICAL STENOSIS, 2. CERVICAL HNP WITH UPPER EXTREMITY RADICULAR FEATURES, POST OP DIAGNOSIS 1. CERVICAL STENOSIS, 2. CERVICAL HNP WITH UPPER EXTREMITY RADICULAR FEATURES, PROCEDURES 1. FLUORSCOPICALLY GUIDED CONTRAST CONTROLLED INTERLAMINAR EPIDURAL STEROID INJECTION - C6/7 TL DEYANIRA PHYSICIAN: Stewart Irwin, INDICATIONS Analia is referred for treatment of Cervical HNP with Upper Extremity Paresthesias. FINDINGS Cervical Stenosis due to disc deterioration and nerve root irritation and nerve root irritation DESCRIPTION OF PROCEDURE Fluoroscopically guided, contrast-controlled C6/7 translaminar epidural steroid injection with conscious sedation. Following denial of allergy and review of potential side effects and complications, including, but not necessarily limited to, infection, allergic reaction, local tissue breakdown, temporary as well as permanent nerve injury, stroke, paralysis, and possible , the patient indicated that patient understood and agreed to proceed. An informed consent document was signed by the patient, witnessed by a nurse, and placed in the patient's chart. Additionally, other treatment options including modalities, medications, and physical therapy were reviewed with the patient. After review of previous anaesthesic history and IV conscious sedation the patient was deemed safe to proceed with todays procedure with IV conscious sedation as ASA class II designation. Safety time-out was performed to confirm patient ID, procedure to be performed and site of procedure. IV sedation was accomplished with a combination of 4mg of Versed administered by the RN after DO order, titrated to patient comfort during the course of the procedure while the patient remained responsive to all verbal commands. In the prone position, following sterile prep and drape of the cervical region, the C6/7 translaminar space was identified fluoroscopically. The skin was anesthetized via a 25-gauge 1.5-inch needle with 1% lidocaine solution. At this point, a 25-gauge, 2.5-inch short bevel spinal needle was atraumatically introduced and advanced under fluoroscopic guidance into epidural space at the C6/7 translaminar space. Depth was confirmed on lateral view. Radiological data, including multiple fluoroscopic views of the cervical spine, reveal a spinal needle at the C6/7 translaminar space. Lateral views then show placement of the needle in the epidural space. Subsequent views show contrast material flowing superiorly and inferiorly in the epidural space. DSA fluoroscopy with live contrast injection, once again, confirmed no vascular or intrathecal uptake. At this point, using loss of resistance technique with saline and air, the epidural space was entered. Following negative aspiration, injection of approximately 1.5 cc of Isovue-200 with live fluoroscopy in the AP view confirmed epidural flow in the epidural space without vascular or intrathecal uptake observed. Subsequently, a test dose of 1 cc of 1% lidocaine solution was injected and patient was observed for two minutes without signs or symptoms of complications, including abdominal pain, shortness of breath, bilateral upper or lower extremity weakness, nausea and vomiting, prior to steroid injection. At this point, 2cc or 20mg of dexamethasone was then injected without incident. The patient tolerated the procedure well without signs or symptoms of complications prior to being transferred to the recovery area for further monitoring, The patient was then transferred to the recovery area where they were observed for an appropriate period of time after the injection. The patient reported a VAS score of 6 prior to the procedure and a post-procedure VAS of 0. Total Fluoroscopy Time: 37.0 seconds Total Conscious Time: 24min POST OP INSTRUCTIONS The patient was provided a Pain Log to continue to record their response to the target-specific procedure prior to follow-up visit with the referring provider. Additionally, specific post-injection care instructions and a contact number to our office were provided if concerns arise regarding possible complications associated with the procedure are suspected. Stewart Irwin DO Complications: none
--- NOTE | 2018-12-13 11:17 | PC.NURSE ---
pt returned at 1105 via wheelchair from procedure, awake and alert able to move from w/c to chair. Resumed monitoring from Vibha HERBERT.
--- NOTE | 2018-12-14 13:30 | PC.NURSE ---
Follow up call post procedure cervical translaminar epidural injection. Left message as pt did not answer the phone.
== END 2018-12-13 12:21 ==
LOC: RAD 09:33
PROVIDERS: PCP Internal Medicine; Visit Provider Physical Medicine & Rehabilitation
DX: M48.02 Spinal stenosis, cervical region (principal); M50.123 Cervical disc disorder at C6-C7 level with radiculopathy; M47.22 Other spondylosis with radiculopathy, cervical region; R20.2 Paresthesia of skin; G89.4 Chronic pain syndrome
CPT/HCPCS: 62321; 99152; J1100; J2250; J3010

== ENCOUNTER → 2019-01-04 17:02 | Outpatient (CLI) | payer MEDICARE, OTHER, SELFPAY ==
--- NOTE | 2019-01-04 | DI.MRI.S_ITS ---
PROCEDURE: MR FOOT LT WO/W CON INDICATIONS: PRIMARY OSTEOARTHRITIS ANKLE AND FOOT TECHNIQUE: Noncontrast sagittal T1 spin echo and T2 fast spin echo with fat saturation, long-axis T1 spin echo and T2 fast spin echo with fat saturation; short-axis T1 spin echo, proton density fast spin echo, and T2 fast spin echo with fat saturation through the forefoot. Post-contrast short axis, long axis, and sagittal T1 spin echo with fat saturation through the forefoot. COMPARISON: [facility], CR, XR FOOT 3+ VIEWS LEFT, 12/06/2018, 15:27. FINDINGS: Image quality: Excellent. Bones and joints: There is moderate hallux valgus. Moderate osteoarthritic changes involving first MTP joint are seen. Hammertoe deformity involving second toe is also noted. No acute fracture or dislocation. No suspicious osseous enhancement. No bone marrow contusions or metatarsal stress fractures. The sesamoid bones appear in expected positions, without internal edema. No intraosseous lesions. Soft tissues: Soft tissue swelling and edema over the dorsal aspect of midfoot and forefoot is seen. No abnormal enhancement is noted. No discrete drainable fluid collection. The visualized plantar foot muscles demonstrate normal signal and bulk. Visualized flexor and extensor tendons appear intact, without tenosynovitis. The distal insertions of the peroneus brevis and longus tendons appear intact. The principal Lisfranc ligament appears intact. No soft tissue ganglion cysts or bursal fluid collections. Sagittal images demonstrate no evidence for plantar plate tears. IMPRESSION: #1. Moderate hallux valgus deformity and moderate first MTP joint osteoarthritis. #2. Hammertoe deformity involving second toe. Mild osteoarthritic changes throughout second through fifth PIP and DIP joints. No marrow edema. No fracture or dislocation. No gross bone erosion. #3. Subcutaneous soft tissue edema and swelling over dorsum of midfoot and forefoot, which may represent mild cellulitis. No discrete drainable fluid collection. Tendons and ligaments are grossly intact. Dictated by: Devon Galeano M.D. on 01/05/2019 at 10:21 Approved by: Devon Galeano M.D. on 01/05/2019 at 11:33
== END ==
PROVIDERS: Family Provider Internal Medicine; PCP Internal Medicine; Visit Provider Internal Medicine Rheumatology
DX: M19.072 Primary osteoarthritis, left ankle and foot (principal); M20.12 Hallux valgus (acquired), left foot; M20.42 Other hammer toe(s) (acquired), left foot; R60.0 Localized edema
CPT/HCPCS: 73720; A9579

== ENCOUNTER → 2019-01-27 14:41 | Outpatient (CLI) | payer MEDICARE, OTHER, SELFPAY ==
--- NOTE | 2019-01-27 | DI.MG.S_ITS ---
BILATERAL DIGITAL SCREENING MAMMOGRAM 3D/2D WITH CAD: 01/27/2019 CLINICAL: Routine screening. Family history of breast cancer. Comparison is made to exams dated: 04/19/2017 mammogram, 05/02/2015 mammogram - [facility], and 03/21/2012 mammogram - [facility]. The tissue of both breasts is heterogeneously dense. This may lower the sensitivity of mammography. Current study was also evaluated with a Computer Aided Detection (CAD) system. No significant masses, calcifications, or other findings are seen in either breast. There has been no significant interval change. IMPRESSION: NEGATIVE There is no mammographic evidence of malignancy. A 1 year screening mammogram is recommended. This exam was interpreted at Station ID: [id number]. NOTE: For mammograms, a report in lay terms will be sent to the patient. Approximately 15% of breast malignancies will not be visualized mammographically. In the management of a palpable breast mass, a negative mammogram must not discourage biopsy of a clinically suspicious lesion. Electronically Signed By: Rubina quintana/shane:01/27/2019 16:33:28 copy to: Sheng Mason letter sent: Normal Exam ACR BI-RADS Category 1: Negative [id number]
== END ==
PROVIDERS: PCP Internal Medicine; Visit Provider Internal Medicine
DX: Z12.31 Encounter for screening mammogram for malignant neoplasm of breast (principal); Z80.3 Family history of malignant neoplasm of breast
CPT/HCPCS: 77063; 77067

== ENCOUNTER → 2019-01-30 15:44 | Outpatient (CLI) | payer MEDICARE, OTHER, SELFPAY ==
--- NOTE | 2019-01-30 15:47 | DI.MRI.S_ITS ---
PROCEDURE: MR CERVICAL SPINE WO CON INDICATIONS: Neck pain. Bilateral hand numbness TECHNIQUE: Noncontrast sagittal T1 spin echo and T2 fast spin echo, sagittal STIR, foraminal oblique sagittal T2 fast spin echo, and axial gradient echo or T2 fast spin echo through the cervical spine. COMPARISON: [facility], MR, C-SPINE WITHOUT CONTRAST, 03/16/2016, 7:41. [facility], MR, MR CERVICAL SPINE WO CON, 05/06/2018, 9:08. FINDINGS: Image quality: Diagnostic, with note made of motion artifact. Alignment and Curvature: There is straightening of the normal cervical lordosis. There is minimal retrolisthesis seen at the C4-C5, C5-C6, and C6-C7 levels. Bone Marrow: Marrow demonstrates normal overall signal. Scattered foci are seen, which are hyperintense on T1-weighted and T2-weighted imaging, which are most consistent with benign vertebral body hemangiomas. Spinal Cord: Visualized spinal cord has normal size and signal. No cerebellar tonsillar herniation. Paraspinous Soft Tissues: No paravertebral masses. Prevertebral soft tissues are normal in thickness. C2-C3: No significant abnormality is seen. C3-C4: Moderate loss of disc height is seen. Loss of disc signal is seen. Moderate generalized disc bulge is seen. Uncovertebral joint hypertrophy is seen at this level. There is moderate right-sided and minimal left-sided facet hypertrophy seen. Moderate bilateral neural foraminal narrowing is seen, right worse than left. Mild central canal narrowing is seen. These degenerative changes appear slightly progressed compared to the prior MRI. C4-C5: At least moderate loss of disc height and disc signal are seen. Moderate to prominent disc osteophyte complex is seen. There is a central/left disc osteophyte protrusion seen. Uncovertebral joint hypertrophy is seen at this level. There is moderate right-sided and mild left-sided facet hypertrophy seen. Moderate to severe bilateral neural foraminal narrowing is seen, right worse than left and at least moderate central canal narrowing is seen, with mass effect on the ventral spinal cord. When comparison is made with the prior examination, these findings are similar. C5-C6: Moderate to severe loss of disc height and disc signal are seen. Moderate generalized disc osteophyte complex is seen. Uncovertebral joint hypertrophy is seen at this level. There is moderate right-sided and at least moderate left-sided neural foraminal narrowing seen and moderate central canal narrowing is seen at this level. When comparison is made with the prior examination, these findings are similar. C6-C7: Moderate to severe loss of disc height and disc signal are seen. At least moderate disc osteophyte complex is seen. There is moderate bilateral neural foraminal narrowing seen, left worse than right. Mild central canal narrowing is seen. When comparison is made with the prior examination, these findings are similar. C7-T1: No significant abnormality is seen. IMPRESSION: Multiple levels of relatively prominent cervical spine degenerative changes are seen. These are similar to the prior MRI, yet slightly progressed at C3-C4 in the interval. Dictated by: Gomez Graf M.D. on 01/30/2019 at 16:40 Approved by: Gomez Graf M.D. on 01/30/2019 at 16:47
== END ==
PROVIDERS: Family Provider Internal Medicine; PCP Internal Medicine; Visit Provider Physical Medicine & Rehabilitation
DX: M54.2 Cervicalgia (principal); M47.22 Other spondylosis with radiculopathy, cervical region; R20.0 Anesthesia of skin
CPT/HCPCS: 72141

== ENCOUNTER → 2019-02-07 10:58 | Outpatient (REF) | payer MEDICARE, OTHER, SELFPAY ==
[2019-02-07 17:16] LABS: Add Manual Diff / Slide Review NO; Basophils Absolute Auto 100 /uL (0-100); Basophils Percent Auto 0.8 % (0-2); Eosinophils Absolute Auto 200 /uL (0-450); Eosinophils Percent Auto 2.1 % (2-4); Hematocrit 36.6 % (36-46); Hemoglobin 11.8 g/dL (12.0-16.0); Lymphocytes Absolute Auto 1900 /uL (1100-4500); Lymphocytes Percent Auto 26.1 % (25-40); Mean Corpuscular HGB Conc 32.3 % (30-36); Mean Corpuscular Hemoglobin 28.8 PG (26-34); Mean Corpuscular Volume 89.3 fL (80-100); Monocytes Absolute Auto 400 /uL (0-900); Monocytes Percent Auto 5.3 % (3-14); Neutrophils Absolute Auto 4700 /uL (1500-7000); Neutrophils Percent Auto 65.7 % (50-75); Platelet Count 233 X10^3/uL (150-400); Red Cell Distribution Width 13.9 % (11.6-14.8); White Blood Cell Count 7.2 X10^3/uL (4.5-11.0)
[2019-02-07 17:59] LABS: Alanine Aminotransferase 45 IU/L (9-52); Albumin Globulin Ratio 1.3 (1.0-2.8); Alkaline Phosphatase 76 U/L (38-126); Aspartate Aminotransferase 39 IU/L (14-36); BUN Creatinine Ratio 34.3 (6-22); Bilirubin Total 0.5 mg/dL (0.2-1.3); Blood Urea Nitrogen 24 mg/dL (7-17); Calcium 9.3 mg/dL (8.4-10.2); Carbon Dioxide 29 mmol/L (22-32); Chloride 96 mmol/L (98-107); Estimated Glomerular Filt Rate > 60.0 mL/min (>60); Globulin 3.2 g/dL (1.7-4.1); Glucose 82 mg/dL (80-110); HEMOLYSIS < 15 (0-50); Lactate Dehydrogenase 469 U/L (313-618); Potassium 3.6 mmol/L (3.4-5.1); Sodium 136 mmol/L (137-145); Total Protein 7.2 g/dL (6.3-8.2)
[2019-02-09 13:14] LABS: Beta-2-Microglobulin 3.71 mg/L (< 2.52)
[2019-02-09 13:38] LABS: Free Kappa Light Chain 19.9 mg/L (3.3-19.4); Free Lambda 40.1 mg/L (5.7-26.3)
[2019-02-09 14:16] LABS: Immunoglobulin G, Quantitative 1282 mg/dL (694-1618)
[2019-02-13 11:25] LABS: Abnormal Protein Band 1 0.7 g/dL (NONE DETECTED); Albumin 3.6 g/dL (3.8-4.8); Alpha 1 Globulin 0.4 g/dL (0.2-0.3); Alpha 2 Globulin 0.8 g/dL (0.5-0.9); Beta 1 Globulin 0.4 g/dL (0.4-0.6); Gamma Globulin 1.2 g/dL (0.8-1.7); Protein, Total 6.7 g/dL (6.1-8.1)
== END ==
LOC: LAB 10:58
PROVIDERS: Family Provider Internal Medicine; PCP Internal Medicine; Visit Provider Internal Medicine Hematology & Oncology
DX: D47.2 Monoclonal gammopathy (principal)
CPT/HCPCS: 36415; 80053; 82232; 82784; 83615; 83883; 84155; 84165; 85025; 86334

== ENCOUNTER → 2019-04-20 13:06 | Outpatient (CLI) | payer MEDICARE, OTHER, SELFPAY | PROVIDERS: Family Provider Internal Medicine; PCP Internal Medicine; Visit Provider Internal Medicine | DX: M85.88 Other specified disorders of bone density and structure, other site (principal); Z78.0 Asymptomatic menopausal state; Z82.62 Family history of osteoporosis | CPT/HCPCS: 77080 ==

== ENCOUNTER 2019-06-06 14:35 | Outpatient (CLI) | payer MEDICARE, OTHER, SELFPAY ==
[2019-06-06] VITALS (8 sets, daily range): BP systolic 109–159; BP diastolic 58–98; PULSE 64–72; RESP 16–18; TEMP 36.6; O2SAT 97–100
--- NOTE | 2019-06-06 14:38 | DI.RAD.S_ITS ---
PROCEDURE: PAIN L/S FACET INJ/BLK 1ST SAGAR COMPARISON: [facility], XA, PAIN L/S FACET INJ/BLK 1ST SAGAR, 10/18/2018, 12:13. INDICATIONS: SPONDYLOSIS FINDINGS: Intraoperative fluoroscopic images of lower lumbar spine shows needles placed posteriorly at bilateral L4, L5 and S1 levels. IMPRESSION: Fluoroscopy guidance was provided intraoperatively for bilateral L4, L5, S1 medial branch block. Dictated by: Devon Galeano M.D. on 06/06/2019 at 17:11 Approved by: Devon Galeano M.D. on 06/06/2019 at 17:12
[2019-06-06] MEDS: MIDAZOLAM 5 MG/5 ML VIAL IV (15:23)
[2019-06-06] MEDS: fentaNYL 100 MCG/2 ML INJ 50 MCG IV (15:24)
[2019-06-06] MEDS: IOPAMIDOL 15 ML VIAL 3 ML INJ (15:32)
[2019-06-06] MEDS: BUPIVACAINE 0.5% (PF) VIAL 5 ML INJ (15:33)
[2019-06-06] MEDS: LIDOCAINE 1% 20 ML 10 ML INJ (15:33)
[2019-06-06] MEDS: BETAMETHASONE 30 MG/5 ML MDV 12 MG INJ (15:33)
--- NOTE | 2019-06-06 15:37 | PC.NURSE ---
ASSISTING PT OFF TABLE AND TRANSPORTING TO POST PROC AREA IN STABLE CONDITION
--- NOTE | 2019-06-06 15:42 | P.PCN_ITS ---
Procedures Date/Time Date of procedure: 06/06/19 Time of procedure: 15:41 General Procedure description: Procedure description: 1. FACET ARTHROPATHY PROCEDURES: 1. BILATERAL- L4, L5 and S1 MB BLOCKS PHYSICIAN: DO ABDIRASHID Angelo Analia is referred by for treatment of Bilateral Axial LBP. DESCRIPTION OF PROCEDURE Fluoroscopically guided, contrast-controlled bilateral L4, L5 and S1 medial branch blocks with 0.5cc of 0.5% Marcaine. Following review of allergy and review of potential side effects and complications, including, but not necessarily limited to, infection, allergic reaction, local tissue breakdown, nerve injury, paralysis, stroke and possible , the patient indicated that the patient understood and agreed to proceed. An informed consent document was signed by the patient, witnessed by a nurse, and placed in the patient's chart. After review of previous anaesthesic history and IV conscious sedation the patient was deemed safe to proceed with todays procedure with IV conscious sedation as ASA class II designation. Safety time-out was performed to confirm patient ID, procedure to be performed and site of procedure. IV sedation was accomplished with a combination of 3mg of Versed and 50mcg of Fentanyl was administered by the RN after DO order, titrated to patient comfort during the course of the procedure while the patient remained responsive to all verbal commands In the prone position, following sterile prep and drape of the lumbar region, the right L4, L5 and S1 anatomical location of the medial branch of the dorsal ramus was identified fluoroscopically. Subsequently an anesthetic skin wheal using 1% lidocaine solution was initiated at each of the anatomical spots. Subsequently then a 22-gauge 3.5-inch spinal needle was atraumatically introduced and advanced under fluoroscopic guidance at each of the corresponding sites at the right L4, L5 and S1 MB. After negative aspiration, 0.2 cc of Isovue 200 was injected, confirming placement without vascular or intrathecal uptake. Subsequently then 0.5 cc of 0.5% Marcaine solution was injected at each of the corresponding sites at the right L4, L5 and S1 medial branch locations. The identical procedure was replicated on the left. The patient tolerated the procedure well without signs or symptoms of complications prior to transfer to the recovery area continued monitoring without incident. Post-procedure, the patient was monitored initiating provocative activities to measure the amount of relief from block of the facetogenic pain. The patient reported a VAS of 7 prior to the procedure and a post-procedure VAS of 1. It has been a pleasure to assist in the diagnostic and therapeutic care of your patient. Total Fluoroscopy Time: 24.8 seconds Total Conscious Sedation Time: 24min POST OP INSTRUCTIONS The patient was provided with a Pain Log to complete over the next several hours and subsequent days prior to the patient's follow up with the ordering physician. 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 The patient is aware, was provided, once again, with a Pain Log and will follow up with the referring physician for review and clinical correlation Stewart Irwin DO
--- NOTE | 2019-06-06 15:45 | PC.NURSE ---
Pt returned from procedure via wheelchair awake and alert and able to get from w/c to chair with standby assist. Resumed monitoring from Vibha HERBERT.
== END 2019-06-06 16:28 ==
LOC: RAD 14:36
PROVIDERS: Family Provider Internal Medicine; PCP Internal Medicine; Visit Provider Physical Medicine & Rehabilitation
DX: M47.817 Spondylosis without myelopathy or radiculopathy, lumbosacral region (principal)
CPT/HCPCS: 64493; 64494; 99152; J0702; J2250; J3010

== ENCOUNTER → 2019-06-26 12:36 | Outpatient (CLI) | payer MEDICARE, OTHER, SELFPAY ==
[2019-06-26 13:24] LABS: Add Manual Diff / Slide Review NO; Basophils Absolute Auto 100 /uL (0-100); Basophils Percent Auto 1.4 % (0-2); Eosinophils Absolute Auto 100 /uL (0-450); Eosinophils Percent Auto 1.4 % (2-4); Hematocrit 34.4 % (36-46); Lymphocytes Absolute Auto 1000 /uL (1100-4500); Lymphocytes Percent Auto 20.4 % (25-40); Mean Corpuscular HGB Conc 34.8 % (30-36); Mean Corpuscular Hemoglobin 30.3 PG (26-34); Monocytes Absolute Auto 400 /uL (0-900); Monocytes Percent Auto 7.1 % (3-14); Neutrophils Absolute Auto 3500 /uL (1500-7000); Neutrophils Percent Auto 69.7 % (50-75); Platelet Count 206 X10^3/uL (150-400); Red Blood Cell Count 3.96 X10^6/uL (4.0-5.2); Red Cell Distribution Width 14.9 % (11.6-14.8)
[2019-06-26 14:03] LABS: Alanine Aminotransferase 46 IU/L (9-52); Albumin 3.9 g/dL (3.5-5.0); Albumin Globulin Ratio 1.2 (1.0-2.8); Alkaline Phosphatase 68 U/L (38-126); Aspartate Aminotransferase 40 IU/L (14-36); BUN Creatinine Ratio 26.3 (6-22); Bilirubin Total 0.7 mg/dL (0.2-1.3); Blood Urea Nitrogen 21 mg/dL (7-17); Calcium 9.5 mg/dL (8.4-10.2); Carbon Dioxide 30 mmol/L (22-32); Chloride 99 mmol/L (98-107); Estimated Glomerular Filt Rate > 60.0 mL/min (>60); Globulin 3.3 g/dL (1.7-4.1); Glucose 95 mg/dL (80-110); HEMOLYSIS < 15 (0-50); Potassium 3.8 mmol/L (3.4-5.1); Sodium 139 mmol/L (137-145); Total Protein 7.2 g/dL (6.3-8.2)
[2019-06-26 14:53] LABS: Vitamin B12 546 pg/mL (239-931)
== END ==
PROVIDERS: PCP Internal Medicine; Visit Provider Physician Assistant
DX: L57.8 Other skin changes due to chronic exposure to nonionizing radiation (principal); X32.XXXA Exposure to sunlight, initial encounter; L71.8 Other rosacea; R23.3 Spontaneous ecchymoses; D18.01 Hemangioma of skin and subcutaneous tissue; L81.8 Other specified disorders of pigmentation
CPT/HCPCS: 36415; 80053; 82607; 85025

== ENCOUNTER → 2019-08-30 18:41 | Outpatient (ROUT) | payer MEDICARE, OTHER, SELFPAY ==
[2019-08-30 19:18] LABS: Cholesterol 165 mg/dL (140-199); HDL Cholesterol 75 mg/dL (40-60); LDL Cholesterol Calculated 68 mg/dL (<100); Triglycerides 112 mg/dL (35-150)
== END ==
PROVIDERS: PCP Internal Medicine; Visit Provider Internal Medicine
DX: E78.00 Pure hypercholesterolemia, unspecified (principal)
CPT/HCPCS: 80061

== ENCOUNTER → 2019-09-23 10:45 | Outpatient (CLI) | payer MEDICARE, OTHER, SELFPAY ==
--- NOTE | 2019-09-23 | DI.MRI.S_ITS ---
PROCEDURE: MR LUMBAR SPINE WO CON INDICATIONS: Spondylosis without myelopathy or radiculopathy, l TECHNIQUE: Noncontrast sagittal T1 spin echo and T2 fast echo, sagittal STIR, axial T1 and T2 fast spin echo through the lumbar spine. In cases with scoliosis, additional coronal T2 fast spin echo may be performed. COMPARISON: [facility], MR, L-SPINE WITHOUT CONTRAST, 03/23/2017, 9:11. [facility], MR, KNEE WITHOUT CONTRAST, 06/05/2015, 12:14. FINDINGS: Image quality: Diagnostic, with note made of motion artifact. Alignment and Curvature: There is normal bony alignment. Bone Marrow: Marrow is of normal overall signal. No acute vertebral body compression fractures. Spinal Cord: Conus medullaris terminates at the L1 level. Visualized cord demonstrates normal signal and size. Paraspinous Soft Tissues: No paravertebral masses. Bilateral renal cysts are seen, including a 2.7 cm cyst posteriorly on the left. T11-T12: Mild loss of disc height is seen. Loss of disc signal is seen. No significant neural foraminal or central canal narrowing can be seen. T12-L1: The disc height is well-preserved. Loss of disc signal is seen at this level. There is a central/right disc protrusion seen, as on series 5 image 9 and on series 2 image 7. No significant neural foraminal or central canal narrowing can be seen. L1-L2: The disc height is well-preserved. Loss of disc signal is seen at this level. L2-L3: Moderate loss of disc height is seen. Loss of disc signal is seen. Mild to moderate disc bulge is seen. Mild facet joint hypertrophy is seen. There is moderate right-sided and no left-sided neural foraminal narrowing seen. No significant central canal narrowing is seen. When comparison is made with the prior examination, these findings are similar. L3-L4: The disc height is well-preserved. Loss of disc signal is seen at this level. There is a focal annular fissure seen posteriorly. Mild generalized disc bulge is seen. No significant neural foraminal or central canal narrowing can be seen. L4-L5: Moderate loss of disc height is seen. Loss of disc signal is seen. Moderate generalized disc bulge is seen. Moderate facet joint hypertrophy is seen. There is mild right-sided and mild to moderate left-sided neural foraminal narrowing seen. No central canal narrowing is seen. When comparison is made with the prior examination, these findings are similar. L5-S1: The disc height and disc signal are relatively well-preserved. There is a faintly seen annular fissure present posteriorly, as on series 2 image 9. No significant disc bulge is seen. [id number] facet hypertrophy is seen. No significant neural foraminal or central canal narrowing can be seen. When comparison is made with the prior examination, these findings are similar. IMPRESSION: Multiple levels of lumbar spine degenerative change are seen, which are similar to the 2017 images. Dictated by: Gomez Graf M.D. on 09/25/2019 at 13:54 Approved by: Gomez Graf M.D. on 09/25/2019 at 13:59
== END ==
PROVIDERS: PCP Internal Medicine; Visit Provider Physical Medicine & Rehabilitation
DX: M47.816 Spondylosis without myelopathy or radiculopathy, lumbar region (principal)
CPT/HCPCS: 72148

== ENCOUNTER → 2019-10-16 14:44 | Outpatient (CLI) | payer MEDICARE, OTHER, SELFPAY ==
--- NOTE | 2019-10-16 | DI.CT.S_ITS ---
PROCEDURE: CT ABDOMEN WO/W CON INDICATIONS: RENAL CYST TECHNIQUE: Optional 5 mm thick noncontrast images acquired from the diaphragm to the iliac crests. After the administration of intravenous contrast, 5 mm thick images again acquired from the diaphragm to the iliac crests in the arterial and urographic phases. 5 mm thick coronal and sagittal reformats were then acquired. For radiation dose reduction, the following was used: automated exposure control, adjustment of mA and/or kV according to patient size. COMPARISON: [facility], MR, MR LUMBAR SPINE WO CON, 09/23/2019, 10:57. FINDINGS: Image quality: Excellent. Lung bases: Mild bibasilar atelectasis. Heart size is normal. Genitourinary: No obstructive uropathy. No urolithiasis. No perinephric inflammatory changes. Several subcentimeter bilateral renal hypodensities are too small to accurately characterize but likely represent cysts. There are 2 larger left renal cysts correlating with findings on recent MRI. These measure approximately 2.7 cm in size and measure fluid attenuation on both precontrast and postcontrast images. No internal solid component or septations. Findings are compatible with simple renal cysts. No suspicious solid mass lesions in the bilateral kidneys. Other solid organs: Liver is normal in size and enhancement. Small focus of focal fatty infiltration involving the anterior margin of the medial segment of the left hepatic lobe adjacent to the falciform fissure. Gallbladder is unremarkable. Biliary system is non dilated. There is moderate fatty infiltration of the pancreas. Spleen is normal in size and enhancement. No adrenal nodules. Peritoneum and bowel: Unenhanced bowel loops are normal in wall thickness and caliber. No free fluid or air. Nodes and vessels: No retroperitoneal or mesenteric adenopathy by size criteria. Aorta and inferior vena cava are normal in caliber. Bones: No suspicious bony lesions. No vertebral body compression fractures. Miscellaneous: No ventral hernias. IMPRESSION: 1. Simple left renal cysts measuring 2.7 cm in maximum dimension. These correlate with MRI findings. 2. Multiple subcentimeter bilateral renal hypodensities which are too small to accurately characterize but also likely represent renal cysts. Dictated by: Alfredo Ledesma M.D. on 10/16/2019 at 18:00 Approved by: Alfredo Ledesma M.D. on 10/16/2019 at 18:22
== END ==
PROVIDERS: PCP Internal Medicine; Visit Provider Physician Assistant
DX: N28.1 Cyst of kidney, acquired (principal)
CPT/HCPCS: 74170; Q9967

== ENCOUNTER 2019-11-21 09:14 | Emergency (ER) | payer MEDICARE, OTHER, SELFPAY ==
[2019-11-21 09:26] VITALS: BP 180/102; PULSE 93; RESP 14; TEMP 36.8; O2SAT 98; BMI 20.3
--- NOTE | 2019-11-21 09:57 | ED_ITS ---
HPI - General Adult General Chief complaint: Abdominal Pain Stated complaint: constipation Time Seen by Provider: 11/21/19 09:35 Source: patient Mode of arrival: Ambulatory Limitations: no limitations History of Present Illness HPI narrative: 69-year-old female. Has had a longstanding history of constipation. Normally takes senna at night in order to help her stay regular. She has been doing at the past couple nights but states that is not work for her. Has not had a bowel movement the past 2 and half days. She states that it feels like that she has a large stool burden down in her rectum. She feels that her abdomen is tender. No vomiting. No prior abdominal surgeries. States she cannot give herself an enema at home because of a rotator cuff issue. Related Data Home Medications Medication Instructions Recorded Confirmed Excedrin Migraine 2 tab PO QDAY #0 11/04/16 05/26/19 VITAMIN D (Vitamin D3) 1,000 units PO QDAY #0 11/04/16 02/27/19 calcium citrate-vitamin D3 1 PO QDAY #0 11/04/16 05/26/19 [Citracal Regular] magnesium 1,500 mg PO QDAY #0 11/04/16 05/26/19 tizanidine 12 mg PO BEDTIME #0 11/04/16 11/21/19 vitamin B complex [B 1 tab PO QDAY #0 11/04/16 02/27/19 Complex-Vitamin B12] zinc gluconate 50 mg PO QDAY #0 11/04/16 02/27/19 Prolia 60 mg SQ [id number] #0 06/21/17 05/26/19 pantoprazole 40 mg PO BID #0 12/13/17 05/26/19 atorvastatin 40 mg PO DAILY 08/18/18 11/21/19 cyclosporine [Restasis] 1 drp OPHTHALMIC (EYE) PRN PRN 08/18/18 05/26/19 gabapentin 600 mg PO DAILY 08/18/18 05/26/19 hydrochlorothiazide 25 mg tablet 25 mg PO DAILY 90 Days #90 tab 09/23/18 11/21/19 furosemide 20 mg PO DAILY 02/27/19 11/21/19 lisinopril 5 mg tablet 5 mg PO BID tab 05/26/19 05/26/19 cyclobenzaprine 5 mg tablet 5 - 10 mg PO TID tab 11/17/19 11/17/19 estradiol 1 mg PO DAILY 11/21/19 11/21/19 ivermectin [Soolantra] 1 applic TOPICAL DAILY 11/21/19 Previous Rx's Medication Instructions Recorded trospium 20 mg PO BID #60 tab-cap 01/27/18 Allergies Allergy/AdvReac Type Severity Reaction Status Date / Time Sulfa (Sulfonamide Allergy Intermediate don't Verified 11/21/19 09:26 Antibiotics) remember [SULFA (SULFONAMIDE ANTIBIOTICS)] tetracycline [TETRACYCLINE] Allergy Intermediate don't Verified 11/21/19 09:26 remember celecoxib [From CELEBREX] Allergy Mild Verified 11/21/19 09:26 Penicillins [PENICILLINS] Allergy Mild Hives Verified 11/21/19 09:26 Review of Systems Constitutional Constitutional: Denies fever(s) and Denies headache(s) ENT Ears, Nose, Mouth, and Throat: Denies headache(s) Cardiovascular Cardiovascular: Denies chest pain at rest Respiratory Respiratory: Denies cough Gastrointestinal Gastrointestinal: Reports abdominal pain, Reports constipation, Denies nausea and Denies vomiting Genitourinary Genitourinary: Denies dysuria Musculoskeletal Musculoskeletal: Denies myalgias and Denies arthralgias Integumentary/Breasts Skin/Breast: Denies rash Neurologic Neurologic: Denies behavioral changes and Denies headache(s) Psychiatric Psychiatric: Denies behavioral changes Hematologic/Lymphatic Hematologic/Lymphatic: Denies easy bleeding and Denies easy bruising Patient History Medical History Cervical spondylosis with radiculopathy (Chronic) Cervical stenosis of spinal canal (Chronic) Chronic pain syndrome (Acute) Constipation (Acute) DDD (degenerative disc disease), cervical (Acute) DJD (degenerative joint disease) of knee (Chronic) Generalized osteoarthritis (Acute) Greater trochanteric bursitis (Chronic) Herniated nucleus pulposus, L4-5 (Acute) History of osteoporosis (Acute) MGUS (monoclonal gammopathy of unknown significance) (Acute) Monoclonal gammopathy (Acute) Surgical History History of tonsillectomy Status post appendectomy Status post hysterectomy Social History Smoking Status: Never smoker Smoking Status: Never smoker alcohol intake frequency: holidays/special occasions only Substance Use Type: does not use Exam Initial Vital Signs Initial Vital Signs: Vital Signs Temperature 98.3 F 11/21/19 09:26 Pulse Rate 93 H 11/21/19 09:26 Respiratory Rate 14 11/21/19 09:26 Blood Pressure 180/102 H 11/21/19 09:26 Pulse Oximetry 98 11/21/19 09:26 Const General: cooperative, well developed and well groomed Limitations: mental status not altered Resp Effort & Inspection: normal respiratory effort Cardio Rate: regular rate GI Inspection: non-distended Palpation: soft and tender (Generalized tenderness) Skin Lesions: no lesions Rashes: no rashes Neuro General: alert, awake and oriented x3 Cognition: normal cognition Speech: speech normal Extrem General: normal to inspection and capillary refill normal Psych Appearance: grossly normal and well kempt Course Orders Ordered: Discontinued Medications Magnesium Citrate (Magnesium Citrate) 150 ml PO NOW ONE Stop: 11/21/19 09:58 Last Admin: 11/21/19 11:06 Dose: 150 ml Documented by: MJ Mineral Oil (Mineral Oil Enema) 1 each WA NOW ONE Stop: 11/21/19 12:06 Sodium Biphosphate/Sodium Phosphate (Fleet Enema) 1 each WA NOW ONE Stop: 11/21/19 09:58 Last Admin: 11/21/19 11:18 Dose: 1 each Documented by: MJ Vital Signs Vital signs: Vital Signs - 8 hr 11/21/19 09:26 Temperature 98.3 F Pulse Rate 93 H Respiratory Rate 14 Blood Pressure 180/102 H Pulse Oximetry 98 Medical Decision Making [facility] Narrative Medical decision making narrative: Patient received an enema and a oral Mag citrate dose. Had a small bowel movement afterwards. Her abdomen is soft. Currently I have low suspicion for I bowel obstruction given her history and physical exam. We did discuss the use of home laxatives. She initially stated that she wanted a 2nd enema however prior to its administration she decided to hold and to go home and treat this with [id number] we discussed return precautions and follow-up instructions. She expressed understanding and agreement plan. Discharge Plan Departure Patient Disposition: Home Clinical Impression: Constipation Qualifiers: Constipation type: unspecified constipation type Qualified Code(s): K59.00 - Constipation, unspecified Abdominal pain Qualifiers: Abdominal location: generalized Qualified Code(s): R10.84 - Generalized abdominal pain Instructions: Constipation (Alternative Therapy), Constipation Activity Restrictions/Additional Instructions: Take the laxatives like we discussed. Contact your primary provider for follow- up. Return to the emergency department for any new or worsening symptoms Prescriptions: No Action tizanidine 4 MG tablet 12 mg PO BEDTIME Qty: 0 RF: 0 Excedrin Migraine 1 EACH tablet 2 tab PO QDAY Qty: 0 RF: 0 vitamin B complex [B Complex-Vitamin B12] 1 EACH tablet 1 tab PO QDAY Qty: 0 RF: 0 magnesium 200 MG tablet 1,500 mg PO QDAY Qty: 0 RF: 0 calcium citrate-vitamin D3 [Citracal Regular] 250 MG/200 IU tablet 1 PO QDAY Qty: 0 RF: 0 VITAMIN D (Vitamin D3) 1,000 units PO QDAY Qty: 0 RF: 0 zinc gluconate 50 MG tablet 50 mg PO QDAY Qty: 0 RF: 0 Prolia 60 MG/1 ML syringe 60 mg SQ [id number] Qty: 0 RF: 0 pantoprazole 40 MG tablet,delayed release (DR/EC) 40 mg PO BID Qty: 0 RF: 0 trospium 20 MG tablet 20 mg PO BID Qty: 60 RF: 5 estradiol 1 mg tablet 1 mg PO DAILY RF: 0 ivermectin [Soolantra] 1 % Cream 1 applic TOPICAL DAILY RF: 0 atorvastatin 40 mg Tablet 40 mg PO DAILY RF: 0 gabapentin 100 mg Capsule 600 mg PO DAILY RF: 0 Restasis 0.05 % Dropperette 1 drp ophthalmic (eye) PRN PRN (Reason: Dry Eye(S)) RF: 0 furosemide 20 mg Tablet 20 mg PO DAILY RF: 0 hydrochlorothiazide 25 mg tablet 25 mg PO DAILY 90 Days Qty: 90 RF: 0 lisinopril 5 mg tablet 5 mg PO BID RF: 0 cyclobenzaprine 5 mg tablet 5 - 10 mg PO TID RF: 0 Referrals: Liseth Hauser MD [Primary Care Provider] -
[2019-11-21] MEDS: MAGNESIUM CITRATE 300 ML SOLUTION 150 ML PO (11:06)
[2019-11-21] MEDS: FLEETS ENEMA 1 EACH PR (11:18)
[2019-11-21] MEDS: MINERAL OIL 1 EACH ENEMA PR (13:21)
== END 2019-11-21 13:33 | disposition home or self-care (01) ==
PROVIDERS: Emergency Provider Emergency Medicine; PCP Internal Medicine
DX: K59.00 Constipation, unspecified (principal); R10.84 Generalized abdominal pain
CPT/HCPCS: 99283; 99284

== ENCOUNTER 2019-12-21 13:26 | Outpatient (CLI) | payer MEDICARE, OTHER, SELFPAY ==
[2019-12-21] VITALS (10 sets, daily range): BP systolic 127–159; BP diastolic 57–98; PULSE 53–71; RESP 16; TEMP 36.2; O2SAT 98–100
--- NOTE | 2019-12-21 13:27 | DI.RAD.S_ITS ---
PROCEDURE: PAIN L INTERLAMINAR/CAUDAL INJ INDICATIONS: INTERVERTEBRAL DISC DISPLACEMENT FINDINGS: Fluoroscopic spot filming was performed to verify placement of spinal needles at the L4-L5 level(s), as labeled on the films. Appropriate location(s) of the needle tip(s) was confirmed by injection of iodinated contrast. IMPRESSION: Fluoroscopy foca management. Dictated by: Kristian Lozada M.D. on 12/21/2019 at 18:57 Approved by: Kristian Lozada M.D. on 12/21/2019 at 18:57
[2019-12-21] MEDS: MIDAZOLAM 5 MG/5 ML VIAL IV (14:12)
[2019-12-21] MEDS: fentaNYL 100 MCG/2 ML INJ 50 MCG IV (14:12)
[2019-12-21] MEDS: BUPIVACAINE 0.25% (PF) VIAL 2 ML INJ (14:14)
[2019-12-21] MEDS: BETAMETHASONE 30 MG/5 ML MDV 6 MG INJ (14:15)
[2019-12-21] MEDS: DEXAMETHASONE 10 MG/ML VIAL 20 MG INJ (14:15)
[2019-12-21] MEDS: IOPAMIDOL 15 ML VIAL 3 ML INJ (14:15)
--- NOTE | 2019-12-21 14:17 | PC.NURSE ---
ASSISTING PT OFF TABLE AND TRANSPORTING TO POST PROC AREA IN STABLE CONDITION. PASSING RN CARE OF PT OFF TO ROSALBA Elliott RN.
--- NOTE | 2019-12-21 14:22 | P.PCN_ITS ---
Procedures Date/Time Date of procedure: 12/21/19 Time of procedure: 14:22 General Procedure description: PROVIDER: Stewart Irwin DO Operative Note PREOP DIAGNOSIS 1. HNP WITH RADICULAR FEATURES, 2. MULTILEVEL CENTRAL STENOSIS, POST OP DIAGNOSIS 1. HNP WITH RADICULAR FEATURES, 2. MULTILEVEL CENTRAL STENOSIS PROCEDURES 1. FLUORSCOPICALLY GUIDED CONTRAST CONTROLLED INTERLAMINAR EPIDURAL STEROID INJECTION -L4/5 PHYSICIAN: Stewart Irwin DO INDICATIONS: Analia is referred by for treatment of Bilateral Foraminal Stenosis R>L LE symptoms. FINDINGS Multilevel Central Spinal Stenosis with Nerve Root Compression DESCRIPTION OF PROCEDURE Fluoroscopically guided, contrast-controlled L4/5 translaminar epidural steroid injection. Following review of allergy and review of potential side effects and complications, including, but not necessarily limited to, infection, allergic reaction, local tissue breakdown, temporary as well as permanent nerve injury, paralysis, stroke and possible , the patient indicated that the patient understood and agreed to proceed. An informed consent document was signed by the patient, witnessed by a nurse, and placed in the patient's chart. Additionally, other treatment options including modalities, medications, and physical therapy were reviewed with the patient. After review of previous anaesthesic history and IV conscious sedation the patient was deemed safe to proceed with todays procedure with IV conscious sedation as ASA class II designation. Safety time-out was performed to confirm patient ID, procedure to be performed and site of procedure. IV sedation was acc omplished with a combination of 2mg of Versed and 50mcg of Fentanyl was administered by the RN after DO order, titrated to patient comfort during the course of the procedure while the patient remained responsive to all verbal commands In the prone position, following sterile prep and drape of the lumbar region, the L4/5 translaminar space was identified fluoroscopically. The skin was anesthetized via a 25-gauge, 1.5-inch needle with 1% lidocaine solution. At this point, a 22-gauge short bevel spinal needle was atraumatically introduced and advanced under fluoroscopic guidance into the region of the L4/5 translaminar space. Depth was confirmed on lateral view. Radiological data, including multiple fluoroscopic views of the lumbar spine, reveal a spinal needle at the L4/5 translaminar space. Lateral views then show placement of the needle in the epidural space. Subsequent views show contrast material flowing superiorly and inferiorly in the epidural space. No vascular or intrathecal uptake is observed. At this point, using loss of resistance technique with saline and air, the epidural space was entered. This was confirmed following negative aspiration with injection of approximately 1.5 cc of Isovue 200, showing excellent epidural flow without vascular or intrathecal uptake. At this point, 1 cc of 1% lidocaine solution combined with 3cc or 20mg of dexamethasone and 6mg betamethasone was injected without incident. The patient tolerated the procedure well without signs or symptoms of complications prior to transfer to the recovery area continued monitoring wit hout incident. The patient was then transferred to the recovery area where they were observed for an appropriate period of time after the injection. The patient reported a VAS score of 6 prior to the procedure and a post- procedure VAS of 0. Total Fluoroscopy Time: 6sec Total Conscious Sedation Time: 24min POST OP INSTRUCTIONS The patient was provided a Pain Log to continue to record their response to the target-specific procedure prior to follow-up visit with their referring physician. Additionally, specific post-injection care instructions and a contact number to our office were provided if concerns arise regarding possible complications associated with the procedure are suspected. Stewart Irwin DO Complications: none
== END 2019-12-21 14:52 | disposition home or self-care (01) ==
LOC: RAD 13:27
PROVIDERS: PCP Internal Medicine; Referring Provider Internal Medicine; Visit Provider Physical Medicine & Rehabilitation
DX: M51.16 Intervertebral disc disorders with radiculopathy, lumbar region (principal); M48.061 Spinal stenosis, lumbar region without neurogenic claudication
CPT/HCPCS: 62323; 99152; J0702; J1100; J2250; J3010

== ENCOUNTER → 2020-06-01 12:12 | Outpatient (CLI) | payer MEDICARE, OTHER, SELFPAY ==
--- NOTE | 2020-06-01 12:14 | DI.RAD.S_ITS ---
PROCEDURE: XR HIP W PEL IF DONE LT MIN 4V INDICATIONS: hip djd TECHNIQUE: AP pelvis with lateral view(s) of both hip(s). COMPARISON: None. FINDINGS: Bones: No fractures or dislocations. Pelvic ring appears intact. No suspicious bony lesions. There is nqci-hs-lpeycdyz superior joint space narrowing seen of both hips, with associated remodeling changes with subchondral sclerosis and osteophyte formation. Soft tissues: The visualized bowel gas pattern is normal. No suspicious soft tissue calcifications. IMPRESSION: Jicn-ej-kpvgmsmt degenerative change can be seen of both hips. Dictated by: Gomez Graf M.D. on 06/01/2020 at 11:37 Approved by: Gomez Graf M.D. on 06/01/2020 at 11:38
== END ==
PROVIDERS: PCP Internal Medicine; Referring Provider Physical Medicine & Rehabilitation; Visit Provider Physical Medicine & Rehabilitation
DX: M16.9 Osteoarthritis of hip, unspecified (principal); M25.559 Pain in unspecified hip; G89.29 Other chronic pain
CPT/HCPCS: 73522

== ENCOUNTER → 2020-06-10 09:43 | Outpatient (CLI) | payer MEDICARE, OTHER, SELFPAY ==
--- NOTE | 2020-06-10 10:17 | DI.MG.S_ITS ---
Patient Name: MEAGAN HALL date: 1950 Sex: F Attending Physician: Leona Indications: Date: 06/10/2020 10:13 At the request of: NENA PATEL Procedure: MM screening mammo BI BILATERAL DIGITAL SCREENING MAMMOGRAM 3D/2D WITH CAD: 06/10/2020 CLINICAL: Routine screening. Family history of breast cancer. Comparison is made to exams dated: 01/27/2019 mammogram, 04/19/2017 mammogram, and 05/02/2015 mammogram - [facility]. The tissue of both breasts is heterogeneously dense. This may lower the sensitivity of mammography. Current study was also evaluated with a Computer Aided Detection (CAD) system. There are multiple new high density/ calcified axillary nodes in both axillae. No significant masses, calcifications, or other findings are seen in either breast. IMPRESSION: INCOMPLETE: NEEDS ADDITIONAL IMAGING EVALUATION Development of bilateral high density/ calcified axillary nodes in the setting of otherwise negative mammograms is of uncertain origin. Clinical correlation recommended. Further imaging of the chest such as with CT may be useful. This exam was interpreted at Station ID: [id number]. NOTE: For mammograms, a report in lay terms will be sent to the patient. Approximately 15% of breast malignancies will not be visualized mammographically. In the management of a palpable breast mass, a negative mammogram must not discourage biopsy of a clinically suspicious lesion. Electronically Signed By: Darling islas/:06/10/2020 10:58:43 letter sent: Clinical Evaluation ACR BI-RADS Category 0: Incomplete [id number]
== END ==
PROVIDERS: PCP Student in an Organized Health Care Education/Training Program; Referring Provider Student in an Organized Health Care Education/Training Program; Visit Provider Student in an Organized Health Care Education/Training Program
DX: Z12.31 Encounter for screening mammogram for malignant neoplasm of breast (principal); Z80.3 Family history of malignant neoplasm of breast; Z13.820 Encounter for screening for osteoporosis; M85.88 Other specified disorders of bone density and structure, other site; Z78.0 Asymptomatic menopausal state; Z82.62 Family history of osteoporosis
CPT/HCPCS: 77063; 77067; 77080

== ENCOUNTER → 2020-06-19 13:09 | Outpatient (CLI) | payer MEDICARE, OTHER, SELFPAY ==
--- NOTE | 2020-06-19 13:10 | DI.CT.S_ITS ---
PROCEDURE: CT CHEST WO CON INDICATIONS: abnormal mammogram TECHNIQUE: Noncontrast 5 mm thick sections acquired from the pulmonary apices to the posterior costophrenic angles. 1 mm lung window, 5 mm thick coronal and sagittal and 7 mm axial MIP reformats were then acquired. For radiation dose reduction, the following was used: automated exposure control, adjustment of mA and/or kV according to patient size. COMPARISON: [facility], CT, CT CHEST WO CON, 06/07/2018, 13:41. FINDINGS: Image quality: Excellent. Lungs and pleura: No acute air space opacities. Note is made of a small angular radiodensity at the anterior border of the right lower lobe, previously present in May of [address] scanning at that time, 4 x 5 mm in maximal dimension, requiring no follow-up. No pleural effusions or pneumothorax. Central and peripheral airways are patent and normal in caliber. Mediastinum: Heart size is normal. No pericardial effusion. No mediastinal adenopathy by size criteria. Thoracic aorta and central pulmonary arteries are normal in size. Esophagus is normal in caliber. No hiatal hernia. Bones and chest wall: No suspicious bony lesions. No vertebral body compression fractures. No axillary or supraclavicular adenopathy by size criteria. Several bilateral small partially calcified axillary lymph nodes can be seen, nonspecific Thyroid gland is not well visualized by this noncontrast technique but no fibroid mass is suspected.. Abdomen: Visualized upper abdominal solid organs and bowel loops appear normal in the absence of contrast. IMPRESSION: 1. Small previously present 4 x 5 mm anterior lateral right lower lobe angular lung radiodensity is present, seen also in 2018, requiring no follow-up. 2. Several small scattered partially calcified lymph nodes are seen at each axilla. No enlarged nodes are found. Dictated by: Jose David Rey M.D. on 06/19/2020 at 17:16 Approved by: Jose David Rey M.D. on 06/19/2020 at 17:20
== END ==
PROVIDERS: PCP Student in an Organized Health Care Education/Training Program; Referring Provider Student in an Organized Health Care Education/Training Program; Visit Provider Student in an Organized Health Care Education/Training Program
DX: R92.8 Other abnormal and inconclusive findings on diagnostic imaging of breast (principal); R91.8 Other nonspecific abnormal finding of lung field
CPT/HCPCS: 71250

== ENCOUNTER → 2020-08-03 13:11 | Outpatient (CLI) | payer MEDICARE, OTHER, SELFPAY ==
[2020-08-05 01:58] LABS: COVID19 Sendout Not Detected (Not Detect)
== END ==
PROVIDERS: PCP Student in an Organized Health Care Education/Training Program; Visit Provider Student in an Organized Health Care Education/Training Program
DX: Z11.59 Encounter for screening for other viral diseases (principal)
CPT/HCPCS: 87635

== ENCOUNTER 2020-08-06 12:27 | Outpatient (CLI) | payer MEDICARE, OTHER, SELFPAY ==
[2020-08-06] VITALS (9 sets, daily range): BP systolic 121–171; BP diastolic 63–83; PULSE 50–59; RESP 13–32; O2SAT 97–100
--- NOTE | 2020-08-06 12:33 | DI.RAD.S_ITS ---
PROCEDURE: PAIN SI JOINT INJECTION INDICATIONS: SACROCOCCYGEAL DISORDER COMPARISON: None. FINDINGS: Fluoroscopic spot filming was performed to verify placement of spinal needles at the inferior right SI joint level(s), as labeled on the films. Appropriate location(s) of the needle tip(s) was confirmed by injection of iodinated contrast. IMPRESSION: Right SI joint inferior margin needle tip localization for steroid injection. Dictated by: Jose David Rey M.D. on 08/06/2020 at 13:59 Approved by: Jose David Rey M.D. on 08/06/2020 at 13:59
[2020-08-06] MEDS: fentaNYL 100 MCG/2 ML INJ 50 MCG IV (13:23)
[2020-08-06] MEDS: MIDAZOLAM 5 MG/5 ML VIAL IV (13:23)
[2020-08-06] MEDS: IOPAMIDOL 15 ML VIAL 3 ML INJ (13:26)
[2020-08-06] MEDS: BUPIVACAINE 0.5% (PF) VIAL 2 ML INJ (13:26)
[2020-08-06] MEDS: BETAMETHASONE 30 MG/5 ML MDV 6 MG INJ (13:26)
--- NOTE | 2020-08-06 13:39 | PM.PROC.IR.1 ---
Date/Time/Diagnoses Date of procedure: 08/06/20 Time of procedure: 13:39 Pre-procedure diagnosis: Sacroiliac joint pain/DJD Post-procedure diagnosis: same Procedure Notes Procedure: Fluoroscopically guided contrast controlled right sacroiliac joint injection Indications: Analia is referred by Dr. Delgadillo for treatment of right sacroiliac joint DJD Physician: Stewart Irwin Total Fluoroscopy time (seconds): 8 Total sedation minutes: 9 Complications: none Procedure in detail & Post-procedure care: DESCRIPTION OF PROCEDURE Fluoroscopically guided, contrast controlled right sacroiliac joint injection Following review of allergies and review of potential side effects and complications, including, but not necessarily limited to, infection, allergic reaction, local tissue breakdown, temporary as well as permanent nerve injury, paralysis, stroke and possible , the patient indicated that they understood and agreed to proceed. An informed consent was signed by the patient, witnessed by a nurse, and placed in the patient's chart. Additionally, other treatment options including modalities, medications, and physical therapy were reviewed with the patient. After review of previous anaesthesic history and IV conscious sedation the patient was deemed safe to proceed with today?s procedure with IV conscious sedation as ASA class II designation. Safety time-out was performed to confirm patient ID, procedure to be performed and site of procedure. IV sedation was accomplished with a combination of 2mg of Versed and 50mcg of Fentanyl was administered by the RN after DO order, titrated to patient comfort during the course of the procedure while the patient remained responsive to all verbal commands In the prone position following sterile prep and drape of the pelvic region, the hyper lucency on in the inferior aspect of the sacroiliac joint was identified fluoroscopically the skin was anesthetized be a 25 gauge 1 eventual with approximately 2cc of 1% lidocaine solution. At this point, a 22 gauge 3in spinal needle was atraumatically introduced and advanced under fluoroscopic guidance into the inferior aspect of the right sacroiliac joint. Following negative aspiration, approximately 0.3cc of Isovue-300 was injected confirming intra-articular placement without vascular uptake. Radiographic data, including multiple fluoroscopic views of the pelvis, reveals a spinal needle in the sacroiliac joint hyper lucent zone. Subsequent view show flow contrast tear superiorly and inferiorly within the joint capsule without vascular intrathecal uptake. At this point a total of 1cc of 0.5% Marcaine was combined with 1cc of 6mg of betamethasone was injected without incident. The procedure tolerated the procedure well without signs or symptoms of complications prior to transfer to the recovery area continued monitoring without incident. The patient was then transferred to the recovery area with a bur observed for an appropriate time after the injection. The patient reverted a vas score of 7 prior to the procedure and post-procedure vas of 1. POSTOP INSTRUCTIONS The patient was provided with a pain like to continue to record the patient's response to the target specific procedure prior to the patient's follow-up visit with the referring physician. Additionally, specific post injection care instructions and a contact number to our office were provided if concerns arise regarding the possible complications associated with procedure are suspected.
== END 2020-08-06 13:55 | disposition home or self-care (01) ==
PROVIDERS: PCP Student in an Organized Health Care Education/Training Program; Referring Provider Physical Medicine & Rehabilitation; Visit Provider Physical Medicine & Rehabilitation
DX: M53.3 Sacrococcygeal disorders, not elsewhere classified (principal); M46.1 Sacroiliitis, not elsewhere classified
CPT/HCPCS: 27096; J0702; J2250; J3010

== ENCOUNTER 2020-09-26 12:15 | Outpatient (RCR) | payer MEDICARE, OTHER, SELFPAY ==
--- NOTE | 2020-09-23 15:36 | PT.OIE ---
Current Diagnoses Impacted cerumen, bilateral (09/23/20) Sensorineural hearing loss, bilateral (09/23/20) Sicca syndrome, unspecified (09/23/20) Other abnormalities of gait and mobility (09/23/20) Past Medical History (Last Updated 07/31/20 @ 13:22 by Stewart Irwin DO) Bursitis Cervical spondylosis with radiculopathy Cervical stenosis of spinal canal Chicken pox Chronic back pain Chronic hip pain Chronic pain syndrome Constipation DDD (degenerative disc disease), cervical DJD (degenerative joint disease) of knee Endometriosis (~1979) Fibromyalgia Generalized osteoarthritis GERD (gastroesophageal reflux disease) Greater trochanteric bursitis Hearing loss Herniated nucleus pulposus, L4-5 History of osteoporosis Irritable bowel syndrome Measles MGUS (monoclonal gammopathy of unknown significance) Monoclonal gammopathy Osteoarthritis Osteopenia Osteoporosis Rosacea Sacral back pain Shoulder pain Sjogren's syndrome Tendinitis Tinnitus Vision disorder Past Surgical History (Last Updated 06/11/20 @ 19:32 by Lata Real) Anesthesia History of elbow surgery History of repair of right rotator cuff History of tonsillectomy Status post appendectomy Status post hysterectomy Visit Care Team Role Provider Type Fawad Delgadillo MD Primary Care Provider Physician Specialty: Internal Medicine Address: [address] [place] [address], [facility] Email: [email or web address] Frankie Mccoy MD Attending Provider Physician Referring Provider Specialty: Ear, Nose, Throat Address: [address] [place] [address], [facility] Email: [email or web address] Physical Therapy Initial Evaluation PT-OP-A Visit Information Start: 09/23/20 07:28 Freq: Status: Active Protocol: Document 09/23/20 10:31 MB (Rec: 09/23/20 10:56 MB [id number]) Out-Patient Physical Therapy Visit Information Visit Information Visit Type Initial Evaluation Visit Start Time 10:31 Visit Stop Time 11:15 Total Visit Minutes 44 Visit Number 1 Evaluation Information Evaluation Date 09/23/20 PT-OP-B Current Condition Start: 09/23/20 07:28 Freq: Status: Active Protocol: Document 09/23/20 10:31 MB (Rec: 09/23/20 10:56 MB [id number]) Current Condition History of Current Condition Onset Date Many years Current Complaints Imbalance and running into things History of Current Condition Pt does not have dizziness. She had a routine appointment with Dr. Mccoy and one or two nights before, she ran into the door jam hard. She runs into it a lot. She injured her right elbow and it bled a lot . She always runs into things and always have. Her last fall was a couple of years ago. Pt has trouble when she closes her eyes in the shower. It causes imbalance. Pt's DHI score is very low. She states that she has always had severe sickness and difficulty with heights and looking up. She had motion sickness in the car. Pt has left knee, calf, ankle, spine and right hip and shoulder pain. She has had many surgeries. She needs reverse shoulder replacement on the right shoulder. 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 She has a blood disorder that could be a precursor to myeloma but it is not myeloma. She has prisms in her glasses. She will see double or stacked double without glasses. Pt complains of being off balance. Pt reports: numbness/tingling in hands and feet going on for a while, vision changes, weakness d/t OA and fibromyalgia, hearing change and she wears hearing aides, sinus/allergy issues, trouble swallowing and pt states that testing was negative, roaring/ ringing in the ears long-term, TMJ on left and she wears overnight babysitter and headaches ( chronic) Pt denies: ear pressure, history of concussion, whiplash, performance of sit- ups, anemia, recent overhead lifting, B12 deficiency, eye pressure changes, chiropractor care Prior Treatments and Tests Left knee injection 1 week ago and pt reports she is supposed to have a MRI of her left knee Treatment Goals Patient/Caregiver Goals To learn tactics to help me stop running into things PT-OP-C Subjective Start: 09/23/20 07:28 Freq: Status: Active Protocol: Document 09/23/20 10:31 MB (Rec: 09/23/20 10:56 MB [id number]) OP-PT Subjective Patient Comments Patient Comments See history of current condition PT-OP-D Balance Start: 09/23/20 07:30 Freq: Status: Active Protocol: Document 09/23/20 10:31 MB (Rec: 09/23/20 15:35 MB [id number]) Balance Tests Other Other Balance Tests Performed CTSIB positions: Romberg EO stable surface normal; Romberg EC stable surface, LOB posterior after 5 sec; Romberg EO unstable surface no LOB, increased sway; Romberg EC unstable surface LOB posterior to the right within 2 seconds PT-OP-G Mobility & Gait Start: 09/23/20 07:30 Freq: Status: Active Protocol: Document 09/23/20 10:31 MB (Rec: 09/23/20 15:35 MB [id number]) OP Gait Assessment Gait Gait Assistance Required: Independent Distance (Feet) 75 Able to Maintain Weight Bearing Status Yes During Gait Assistive Devices Assistive Device None Orthotic/Prosthetic Devices or Brace: No Gait Deviations General Gait Pattern Antalgic,Decreased Stride Length,Decreased Feet Clearance,Step-to Gait Factors Limiting Gait Function Factors Limiting Gait Function Decreased Strength,Limited Range of Motion,Pain,Poor Balance Comments Gait Comments Pt with slow, antalgic gait favoring her left knee, decreased step-length and foot clearance PT-OP-K Range of Motion Start: 09/23/20 07:28 Freq: Status: Active Protocol: Document 09/23/20 10:31 MB (Rec: 09/23/20 15:35 MB [id number]) Cervical Spine Range of Motion Cervical Spine Active Testing Position Sitting Flexion 30 Extension 29 Rotation Left 50 Rotation Right 36 Shoulder Goniometric Range of Motion Shoulder Left Active Shoulder ROM WFL Yes Testing Position Sitting Right Active Shoulder ROM WFL No Testing Position Sitting Flexion 20 Comments Pt states that she cannot more her right shoulder d/t changes and need for further surgery and she does not want to flare up her shoulder with further ROM testing PT-OP-O Vestibular Start: 09/23/20 07:30 Freq: Status: Active Protocol: Document 09/23/20 10:31 MB (Rec: 09/23/20 15:35 MB [id number]) Vestibular Assessment Visual Testing Smooth Pursuits Horizontal Smooth movement, but trouble looking outward, greater right eye Smooth Pursuits Vertical As above Saccades Horizontal Mostly normal Saccades Vertical Mostly normal Gaze Evoked Nystagmus With Fixation Negative Thrust Head Pt startle Comments Vestibular Comments Pt does not tolerate VOR head thrust today. She has trouble with rapid supination and pronation, greater with the right hand d/t reports of right shoulder issues PT-OP-Q Treatments Start: 09/23/20 07:28 Freq: Status: Active Protocol: Document 09/23/20 10:31 MB (Rec: 09/23/20 13:42 MB [id number]) Self-Care/Home Management Treatment Education Other Education Role of PT for vestibular assessment and rehab and provided [employer] vestibular sig handouts for Why See a PT for Dizziness, How the Balance System Works and PT and the VOR. Ed in plan to perform further VOR testing and provide HEP and then defer future PT to after she gets her left knee pain addressed given it's contributions to her balance issues PT-OP-T Assessment and Plan Start: 09/23/20 07:28 Freq: Status: Active Protocol: Document 09/23/20 10:31 MB (Rec: 09/23/20 13:45 MB [id number]) Physical Therapy Assessment Rehab Potential Rehabilitation Potential Fair Evaluation Complexity Number of Personal Factors/Comorbidities 3 or More Number of Body Systems Impaired 3 Clinical Presentation at Evaluation Evolving Impairments Impairments Activity Tolerance,Balance, Coordination,Functional Activities,Functional Mobility ,Gait,Pain,Posture,ROM, Sensation,Soft Tissue Mobility ,Strength,Vestibular,Visual Motor Other Impairments Personal factors include low vision. Body systems affected include musculoskeletal, vision, vestibular. Her clinical presentation is evolving in setting of multiple medical co- morbidities. Other Concerns Fall Risk Yes Goals 1 Custodial Goal (LTG) Pt will perform progressive HEP with I including self- massage, cervical ROM and VOR exercises to improve imbalance by 10/10/2020. LTG Duration 4 weeks Assessment Summary Assessment Pt is a 69 y/o female presenting with antalgic gait, decreased balance, history of running into objects and falls, pain and multiple medical comorbidities. Pt routinely has her ears cleaned by Dr. Mccoy but has not received any vestibular/VOR testing with ENT. Today, she has trouble tolerating VOR head thrust, presents with B pupils with decreased reactivity to pen light, poor balance and limited shoulder and cervical ROM. She has trouble performing rapid supination and pronation d/t chronic right shoulder changes . Oculomotor screen (eye ROM) is abnormal in setting of cranial nerve palsy per pt and she states that her glasses have prisms in them. Pt reports that she is awaiting a MRI for her left knee. Since her LE presentation affects her balance and tolerance for balance exercises, will initiate 2 PT treatments to further assess VOR with DVA eye chart testing and provide eye chart exercise and gentle postural/self-myofascial exercises for her neck. Will defer any further balance treatment to a later PT course after her left knee pain/ injury is address. Her clinical presentation is difficult given many medical co-morbidities and chronicity of symptoms. Physical Therapy Plan Frequency and Duration Frequency of Treatment 2 treatments Duration of Treatment 2 weeks Plan of Care Start Date 09/23/20 Plan of Care End Date 10/10/20 Therapeutic Interventions Therapeutic Interventions Balance Training,Canalithic Repositioning,Gait Training, Home Exercise Program, Neuromuscular Re-education, Patient/Caregiver Education, Self-Care/Home Management,Soft Tissue Mobilization, Therapeutic Exercises, Vestibular Rehabilitation Modalities Cold Pack/Ice Massage,Electric Stimulation,Hot Packs, Ultrasound Next Visit Focus/Plan Next Note Type Treatment Note Next Visit Plan DVA testing for the VOR, consider racquet ball massage
--- NOTE | 2020-09-23 15:36 | PT.OPPOC ---
Physical, Occupational & Speech Therapy At [facility] Current Diagnoses Impacted cerumen, bilateral (09/23/20) Sensorineural hearing loss, bilateral (09/23/20) Sicca syndrome, unspecified (09/23/20) Other abnormalities of gait and mobility (09/23/20) Visit Care Team Role Provider Type Fawad Delgadillo MD Primary Care Provider Physician Specialty: Internal Medicine Address: [address] [place] [address], [address], [place], [address] Email: [email or web address] Frankie Mccoy MD Attending Provider Physician Referring Provider Specialty: Ear, Nose, Throat Address: [address] [place] [address], [id number] Email: [email or web address] Plan Of Care PT-OP-T Assessment and Plan Start: 09/23/20 07:28 Freq: Status: Active Protocol: Document 09/23/20 10:31 MB (Rec: 09/23/20 13:45 MB [id number]) Physical Therapy Assessment Rehab Potential Rehabilitation Potential Fair Evaluation Complexity Number of Personal Factors/Comorbidities 3 or More Number of Body Systems Impaired 3 Clinical Presentation at Evaluation Evolving Impairments Impairments Activity Tolerance,Balance, Coordination,Functional Activities,Functional Mobility ,Gait,Pain,Posture,ROM, Sensation,Soft Tissue Mobility ,Strength,Vestibular,Visual Motor Other Impairments Personal factors include low vision. Body systems affected include musculoskeletal, vision, vestibular. Her clinical presentation is evolving in setting of multiple medical co- morbidities. Other Concerns Fall Risk Yes Goals 1 Prison Goal (LTG) Pt will perform progressive HEP with I including self- massage, cervical ROM and VOR exercises to improve imbalance by 10/10/2020. LTG Duration 4 weeks Assessment Summary Assessment Pt is a 69 y/o female presenting with antalgic gait, decreased balance, history of running into objects and falls, pain and multiple medical comorbidities. Pt routinely has her ears cleaned by Dr. Mccoy but has not received any vestibular/VOR testing with ENT. Today, she has trouble tolerating VOR head thrust, presents with B pupils with decreased reactivity to pen light, poor balance and limited shoulder and cervical ROM. She has trouble performing rapid supination and pronation d/t chronic right shoulder changes . Oculomotor screen (eye ROM) is abnormal in setting of cranial nerve palsy per pt and she states that her glasses have prisms in them. Pt reports that she is awaiting a MRI for her left knee. Since her LE presentation affects her balance and tolerance for balance exercises, will initiate 2 PT treatments to further assess VOR with DVA eye chart testing and provide eye chart exercise and gentle postural/self-myofascial exercises for her neck. Will defer any further balance treatment to a later PT course after her left knee pain/ injury is address. Her clinical presentation is difficult given many medical co-morbidities and chronicity of symptoms. Physical Therapy Plan Frequency and Duration Frequency of Treatment 2 treatments Duration of Treatment 2 weeks Plan of Care Start Date 09/23/20 Plan of Care End Date 10/10/20 Therapeutic Interventions Therapeutic Interventions Balance Training,Canalithic Repositioning,Gait Training, Home Exercise Program, Neuromuscular Re-education, Patient/Caregiver Education, Self-Care/Home Management,Soft Tissue Mobilization, Therapeutic Exercises, Vestibular Rehabilitation Modalities Cold Pack/Ice Massage,Electric Stimulation,Hot Packs, Ultrasound Next Visit Focus/Plan Next Note Type Treatment Note Next Visit Plan DVA testing for the VOR, consider racquet ball massage Plan of Care Dates Plan of Care Start Date 09/23/20 Plan of Care End Date 10/10/20 Electronically Signed by: Nimo Blanco, PT 09/23/20 [id number] Please Sign and Return: I have reviewed this Plan of Care and certify that the skilled therapy services above are required to meet the patient?s needs. Physician Signature Date Printed Name and Credentials Clinical Instructor Signature Printed Name and Credentials
--- NOTE | 2020-09-26 13:10 | PT.OTN ---
Current Diagnoses Impacted cerumen, bilateral (09/26/20) Sensorineural hearing loss, bilateral (09/26/20) Sicca syndrome, unspecified (09/26/20) Other abnormalities of gait and mobility (09/26/20) Physical Therapy Treatment Note PT-OP-A Visit Information Start: 09/23/20 07:28 Freq: Status: Active Protocol: Document 09/26/20 12:24 MB (Rec: 09/26/20 13:10 MB [id number]) Out-Patient Physical Therapy Visit Information Visit Information Visit Type Treatment Note Visit Note Pt arrives late to appointment Visit Start Time 12:24 Visit Stop Time 13:02 Total Visit Minutes 38 Visit Number 2 PT-OP-B Current Condition Start: 09/23/20 07:28 Freq: Status: Active Protocol: Document 09/23/20 10:31 MB (Rec: 09/23/20 10:56 MB [id number]) Current Condition History of Current Condition Onset Date Many years Current Complaints Imbalance and running into things History of Current Condition Pt does not have dizziness. She had a routine appointment with Dr. Mccoy and one or two nights before, she ran into the door jam hard. She runs into it a lot. She injured her right elbow and it bled a lot . She always runs into things and always have. Her last fall was a couple of years ago. Pt has trouble when she closes her eyes in the shower. It causes imbalance. Pt's DHI score is very low. She states that she has always had severe sickness and difficulty with heights and looking up. She had motion sickness in the car. Pt has left knee, calf, ankle, spine and right hip and shoulder pain. She has had many surgeries. She needs reverse shoulder replacement on the right shoulder. 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 She has a blood disorder that could be a precursor to myeloma but it is not myeloma. She has prisms in her glasses. She will see double or stacked double without glasses. Pt complains of being off balance. Pt reports: numbness/tingling in hands and feet going on for a while, vision changes, weakness d/t OA and fibromyalgia, hearing change and she wears hearing aides, sinus/allergy issues, trouble swallowing and pt states that testing was negative, roaring/ ringing in the ears long-term, TMJ on left and she wears night assistant and headaches ( chronic) Pt denies: ear pressure, history of concussion, whiplash, performance of sit- ups, anemia, recent overhead lifting, B12 deficiency, eye pressure changes, chiropractor care Prior Treatments and Tests Left knee injection 1 week ago and pt reports she is supposed to have a MRI of her left knee Treatment Goals Patient/Caregiver Goals To learn tactics to help me stop running into things PT-OP-C Subjective Start: 09/23/20 07:28 Freq: Status: Active Protocol: Document 09/26/20 12:24 MB (Rec: 09/26/20 13:10 MB [id number]) OP-PT Subjective Patient Comments Patient Comments Pt got left knee MRI scheduled for 09/28/2020. PT-OP-D Balance Start: 09/23/20 07:30 Freq: Status: Active Protocol: Document 09/23/20 10:31 MB (Rec: 09/23/20 15:35 MB [id number]) Balance Tests Other Other Balance Tests Performed CTSIB positions: Romberg EO stable surface normal; Romberg EC stable surface, LOB posterior after 5 sec; Romberg EO unstable surface no LOB, increased sway; Romberg EC unstable surface LOB posterior to the right within 2 seconds PT-OP-G Mobility & Gait Start: 09/23/20 07:30 Freq: Status: Active Protocol: Document 09/23/20 10:31 MB (Rec: 09/23/20 15:35 MB [id number]) OP Gait Assessment Gait Gait Assistance Required: Independent Distance (Feet) 75 Able to Maintain Weight Bearing Status Yes During Gait Assistive Devices Assistive Device None Orthotic/Prosthetic Devices or Brace: No Gait Deviations General Gait Pattern Antalgic,Decreased Stride Length,Decreased Feet Clearance,Step-to Gait Factors Limiting Gait Function Factors Limiting Gait Function Decreased Strength,Limited Range of Motion,Pain,Poor Balance Comments Gait Comments Pt with slow, antalgic gait favoring her left knee, decreased step-length and foot clearance PT-OP-K Range of Motion Start: 09/23/20 07:28 Freq: Status: Active Protocol: Document 09/23/20 10:31 MB (Rec: 09/23/20 15:35 MB [id number]) Cervical Spine Range of Motion Cervical Spine Active Testing Position Sitting Flexion 30 Extension 29 Rotation Left 50 Rotation Right 36 Shoulder Goniometric Range of Motion Shoulder Left Active Shoulder ROM WFL Yes Testing Position Sitting Right Active Shoulder ROM WFL No Testing Position Sitting Flexion 20 Comments Pt states that she cannot more her right shoulder d/t changes and need for further surgery and she does not want to flare up her shoulder with further ROM testing PT-OP-O Vestibular Start: 09/23/20 07:30 Freq: Status: Active Protocol: Document 09/23/20 10:31 MB (Rec: 09/23/20 15:35 MB [id number]) Vestibular Assessment Visual Testing Smooth Pursuits Horizontal Smooth movement, but trouble looking outward, greater right eye Smooth Pursuits Vertical As above Saccades Horizontal Mostly normal Saccades Vertical Mostly normal Gaze Evoked Nystagmus With Fixation Negative Thrust Head Pt startle Comments Vestibular Comments Pt does not tolerate VOR head thrust today. She has trouble with rapid supination and pronation, greater with the right hand d/t reports of right shoulder issues PT-OP-Q Treatments Start: 09/23/20 07:28 Freq: Status: Active Protocol: Document 09/26/20 12:24 MB (Rec: 09/26/20 13:10 MB [id number]) Therapeutic Exercises Standing Exercises Children's ball for thoracic mobilization, grade I Comments Behind thoracic spine and gentle mobility over the ball PT demonstrates racquet ball massage Side right Comments Pt states that she does not think she can tolerate at home , did not give Neuro Re-Education Treatment Vestibular Rehabilitation DVA Eye Chart testing and exercise Comments DVA eye chart testing: pt cannot tolerate PT moving her head right and left and up and down and so she performs by herself. She wears her prism bifocals and can read to line 9 with changes with head turns and up and down. Provided pt eye chart and she to use this at home. She has touble performing head turns right and left d/t double letter. Tried letter E second line from bottom. Tried letter A and still hard, pt to con't at home PT-OP-T Assessment and Plan Start: 09/23/20 07:28 Freq: Status: Active Protocol: Document 09/26/20 12:24 MB (Rec: 09/26/20 13:10 MB [id number]) Physical Therapy Assessment Rehab Potential Rehabilitation Potential Fair Evaluation Complexity Number of Personal Factors/Comorbidities 3 or More Number of Body Systems Impaired 3 Clinical Presentation at Evaluation Evolving Impairments Impairments Activity Tolerance,Balance, Coordination,Functional Activities,Functional Mobility ,Gait,Pain,Posture,ROM, Sensation,Soft Tissue Mobility ,Strength,Vestibular,Visual Motor Other Impairments Personal factors include low vision. Body systems affected include musculoskeletal, vision, vestibular. Her clinical presentation is evolving in setting of multiple medical co- morbidities. Other Concerns Fall Risk Yes Goals 1 Naval Architect Goal (LTG) Pt will perform progressive HEP with I including self- massage, cervical ROM and VOR exercises to improve imbalance by 10/10/2020. LTG Duration Met Progress Towards Goals Progress Towards Goals Goals Met Assessment Summary Assessment Pt arrives for treatment to initiate VOR testing and HEP. Provided eye chart for VOR exercise and pt experiences double vision within a few seconds of vertical and horizontal head turns with smaller and then larger letters on the eye chart. This may be related to her vision changes as well as a VOR hypofunction. She cannot tolerate racquet ball massage d/t fibromyalgia but does tolerate gentle thoracic mobs with light [employer]'s Walldress ball. Performing this at home may help decrease pain and improve cervical and thoracic mobility. Pt is awaiting left knee MRI 09/28/2020 and then may have further recommendations from orthopedist. PT ed pt that this therapist can assist her with balance and gentle exercise and Counterstrain as needed in the future in order to further help decrease her falls. PT verbalizes understanding. Will d/c PT at this time as pt verbalizes understanding of exercises. Physical Therapy Plan Frequency and Duration Frequency of Treatment 2 treatments Duration of Treatment 2 weeks Plan of Care Start Date 09/23/20 Plan of Care End Date 10/10/20 Therapeutic Interventions Therapeutic Interventions Balance Training,Canalithic Repositioning,Gait Training, Home Exercise Program, Neuromuscular Re-education, Patient/Caregiver Education, Self-Care/Home Management,Soft Tissue Mobilization, Therapeutic Exercises, Vestibular Rehabilitation Modalities Cold Pack/Ice Massage,Electric Stimulation,Hot Packs, Ultrasound Discharge Physical Therapy Discharge Reasons Goals Met
== END 2020-09-27 13:06 | disposition home or self-care (01) ==
LOC: PHYS 12:15
PROVIDERS: PCP Student in an Organized Health Care Education/Training Program; Referring Provider Otolaryngology; Visit Provider Otolaryngology
DX: R26.89 Other abnormalities of gait and mobility (principal); H61.23 Impacted cerumen, bilateral; H90.3 Sensorineural hearing loss, bilateral; M35.00 Sjogren syndrome, unspecified
CPT/HCPCS: 97110; 97112; 97162; 97535

== ENCOUNTER → 2020-09-28 08:46 | Outpatient (CLI) | payer MEDICARE, OTHER, SELFPAY ==
--- NOTE | 2020-09-28 | DI.MRI.S_ITS ---
PROCEDURE: MR KNEE LT WO CON INDICATIONS: Unspecified internal derangement of left knee TECHNIQUE: Noncontrast sagittal PD fast spin echo and T2 fast spin echo with fat saturation, sagittal 3-D FLASH with fat saturation; coronal T1 spin echo and PD fast spin echo with fat saturation, and axial PD fast spin echo with fat saturation through the knee. COMPARISON: [facility], MR, MR KNEE LT WO CON, 07/16/2018, 9:48. FINDINGS: Image quality: Excellent. Menisci: There is linear oblique high signal intensity traversing the medial meniscal body and posterior horn, demonstrating inferior articular surface extension. Amorphous high signal intensity within the lateral meniscal body is present, demonstrating superior and inferior articular surface extension. Cruciate ligaments: The anterior and posterior cruciate ligaments appear intact. Medial structures: The medial collateral ligament appears intact. Visualized portions of the pes anserinus tendons appear normal. No abnormal bursal fluid. Lateral structures: The lateral collateral ligament demonstrates mild T2 signal elevation at the femoral origin. deana and short heads of the biceps femoris tendon appear intact. The popliteus tendon appears normal. Iliotibial band appears normal. Anterior structures: The quadriceps and patellar tendons appear intact. There is moderate lateral patellar subluxation. No femoral trochlear dysplasia or ventral trochlear prominence. Moderate edema in the superolateral aspect the infrapatellar fat pad. Bones and cartilage: No bone marrow contusions or fractures. The mixed high and low T2 intensity focus within the fibular head measuring roughly 14 mm is unchanged. There is moderate ill-defined T2 signal elevation within the posterior nonweightbearing aspect of the lateral femoral condyle. Subchondral cysts and intraosseous ganglia within the patellar apex and lateral facet as well as the central and lateral femoral trochlea. There is moderate tricompartmental periarticular osteophyte formation. There is moderate articular cartilage loss diffusely overlying the weight-bearing aspects of the medial femoral condyle and medial tibial plateau. Severe articular cartilage loss overlies the weight-bearing aspects of the lateral femoral condyle and lateral tibial plateau. Severe articular cartilage loss overlies the lateral patellar facet and lateral apex. Severe articular cartilage loss overlies the lateral femoral trochlea. Joint space: There is a small knee joint effusion and a small Light's cyst. Normal appearing synovial plicae are incidentally noted. IMPRESSION: 1. Tricompartmental osteoarthritis with associated articular cartilage loss. 2. Findings consistent with lateral patellofemoral friction syndrome in the appropriate clinical setting. 3. Medial and lateral meniscal tearing. 4. Knee joint effusion and Light's cyst. 5. Low-grade partial thickness lateral collateral ligament tear. 6. Contusion within the lateral femoral condyle posteriorly. No displaced fracture. 7. No change in low-grade cartilaginous lesion within the fibular head. Dictated by: Tanmay García M.D. on 09/30/2020 at 8:54 Approved by: Tanmay García M.D. on 09/30/2020 at 9:26
== END ==
PROVIDERS: PCP Student in an Organized Health Care Education/Training Program; Referring Provider Orthopaedic Surgery; Visit Provider Orthopaedic Surgery
DX: S83.242A Other tear of medial meniscus, current injury, left knee, initial encounter (principal); S83.282A Other tear of lateral meniscus, current injury, left knee, initial encounter; S83.422A Sprain of lateral collateral ligament of left knee, initial encounter; S80.02XA Contusion of left knee, initial encounter; M17.12 Unilateral primary osteoarthritis, left knee; M25.462 Effusion, left knee; M71.22 Synovial cyst of popliteal space [Baker], left knee
CPT/HCPCS: 73721

== ENCOUNTER → 2020-11-04 12:28 | Outpatient (CLI) | payer MEDICARE, OTHER, SELFPAY ==
[2020-11-04 13:10] LABS: Add Manual Diff / Slide Review NO; Basophils Absolute Auto 0 /uL (0-100); Basophils Percent Auto 0.3 % (0-2); Eosinophils Absolute Auto 100 /uL (0-450); Eosinophils Percent Auto 1.6 % (2-4); Hematocrit 36.1 % (36-46); Hemoglobin 11.4 g/dL (12.0-16.0); Lymphocytes Absolute Auto 600 /uL (1100-4500); Lymphocytes Percent Auto 7.6 % (25-40); Mean Corpuscular HGB Conc 31.7 % (30-36); Mean Corpuscular Hemoglobin 27.2 PG (26-34); Mean Corpuscular Volume 85.8 fL (80-100); Monocytes Absolute Auto 500 /uL (0-900); Neutrophils Absolute Auto 6600 /uL (1500-7000); Neutrophils Percent Auto 84.5 % (50-75); Platelet Count 196 X10^3/uL (150-400); Red Blood Cell Count 4.21 X10^6/uL (4.0-5.2); Red Cell Distribution Width 14.6 % (11.6-14.8); White Blood Cell Count 7.9 X10^3/uL (4.5-11.0)
[2020-11-04 13:28] LABS: Carbon Dioxide 32 mmol/L (22-32); Chloride 100 mmol/L (98-107); HEMOLYSIS < 15 (0-50); Sodium 135 mmol/L (137-145)
[2020-11-04 14:11] LABS: Hemoglobin A1C% w Est Avg Glu 5.4 % (4.0-6.0)
== END ==
PROVIDERS: PCP Student in an Organized Health Care Education/Training Program; Referring Provider Orthopaedic Surgery Adult Reconstructive Orthopaedic Surgery; Visit Provider Orthopaedic Surgery Adult Reconstructive Orthopaedic Surgery
DX: Z01.818 Encounter for other preprocedural examination (principal); R73.9 Hyperglycemia, unspecified; Z01.812 Encounter for preprocedural laboratory examination
CPT/HCPCS: 36415; 80051; 83036; 85025; 93005

== ENCOUNTER → 2020-11-18 14:23 | Outpatient (CLI) | payer MEDICARE, OTHER, SELFPAY ==
[2020-11-18 16:25] LABS: COVID19 -Nasal RAPID Negative (Negative)
== END ==
PROVIDERS: PCP Student in an Organized Health Care Education/Training Program; Visit Provider Physician Assistant
DX: Z01.812 Encounter for preprocedural laboratory examination (principal); Z20.822 Contact with and (suspected) exposure to COVID-19
CPT/HCPCS: 87635; C9803

== ENCOUNTER 2020-11-22 11:00 | Observation (INO) | payer MEDICARE, OTHER, SELFPAY ==
[2020-11-20] VITALS (16 sets, daily range): BP systolic 95–145; BP diastolic 51–75; PULSE 55–71; RESP 11–20; TEMP 36.4–37.4; O2SAT 94–99; BMI 20.5
--- NOTE | 2020-11-20 | DI.RAD.S_ITS ---
PROCEDURE: XR KNEE LT 1TO2V INDICATIONS: LEFT TOTAL KNEE TECHNIQUE: 2 views of the knee acquired. COMPARISON: [facility], CR, XR KNEE ARTHRITIC SERIES LT, 10/15/2020, 15:00. FINDINGS: Bones: Patient is status post knee joint arthroplasty. Hardware components are in expected positions. Visualized bony structures are intact. Probable enchondroma noted in the fibular head. Soft tissues: Overlying postoperative changes are noted. IMPRESSION: Status post left total knee arthroplasty with expected postoperative findings. Dictated by: Ryan Stark M.D. on 11/20/2020 at 13:09 Approved by: Ryan Stark M.D. on 11/20/2020 at 13:10
[2020-11-20] MEDS: LACTATED RINGERS 1,000 ML 42 ML IV (10:47)
[2020-11-20] MEDS: CEFAZOLIN 2 GM/100 ML FROZ.PIGGY IV ×2 (10:51→18:27)
--- NOTE | 2020-11-20 11:17 | SUR.OPER ---
Supine on padded OR bed. Pillow under head, arms secured on padded armboards <90 degree abduction. Safety belt across torso. Non-operative leg secured with tape over blanket over lower leg. Foam padded brace at thigh of operative leg under control of surgeon.
[2020-11-20] MEDS: ROPIVACAINE 0.5% PF 5 MG/ML 20ML VIAL 40 ML INJ (11:24)
[2020-11-20] MEDS: KETOROLAC 30 MG/ML VIAL INJ (11:25)
[2020-11-20] MEDS: MORPHINE 4 MG/ML INJ INJ (11:25)
[2020-11-20] MEDS: SODIUM CHLORIDE IRRIG SOLUTION 250 ML, POVIDONE-IODINE SPONGE STICKS 1 APPLIC IRR (11:33)
--- NOTE | 2020-11-20 12:32 | PM.PREOP ---
Pre-operative Note COVID-19 COVID-19 status: Negative Result date/Date tested (Pos, Neg/Pending): 11/18/20 Interval Note History & Physical reviewed/Exam performed by Physician: Yes Changes to H&P: No H&P completed within 30 days and has changed as indicated here:: Plan for left TKA
--- NOTE | 2020-11-20 12:39 | P.OP_ITS ---
Operative Date/Time/Diagnoses Date of procedure: 11/20/20 Time of procedure: 12:39 Pre-op diagnosis: left knee OA Post-op diagnosis: same Procedure & Clinicians Procedure: Left total knee arthroplasty Same procedure as scheduled: Yes Indications: Left knee osteoarthritis Surgeon: Saad Lopez Manager [employer]: Mervin Ruby Anesthesia Type: General and Spinal Operative Notes Findings: Valgus deformity of the left knee with osteoarthritis mainly affecting the lateral compartment and patellofemoral compartments. Closure Type: primary Prosthetic devices, grafts, tissues, transplants, or devices: Dia and nephew Journey 2 size 5 left CR femur Size 5 left Journey a tibial base plate 29 mm oval Lydia 2 patellar button Size 5-6 left 9 mm thick Journey 2 deep dished polyethylene Estimated Blood Loss (mL): 100 Tourniquet time (min): 52 Procedure in detail: Patient was met in the preoperative holding area where the site and side of surgery were marked by . Informed consent had been reviewed and signed in clinic but was also reviewed the preoperative holding area. All last minute questions were answered. Patient was then brought back in the operating room where she received a set spinal anesthetic. She was then placed supine on operating room table and received general anesthetic. A nonsterile tourniquet was then placed on the left thigh and the left lower extremity then prepped and draped in normal sterile fashion. Surgical time-out was performed verifying site and side of surgery as well as the name of the patient. The left lower extremity was exsanguinated using an Esmarch. The tourniquet was inflated to 250 mm of mercury. A longitudinal incision over the anterior aspect for knee was made with a 10. Blade. Medial lateral flaps were then elevated with a new 10. Blade. A medial parapatellar arthrotomy was then performed. Hoffa's fat pad was then removed and a medial peel was then performed. The ACL was then removed and Whitesides line was then marked. A drill was then used to enter the femoral canal and the tibial canal. The intramedullary sam for the femur was then placed in the jig was placed and pinned in the proper alignment. This was then initially cut at to less than neutral however this was not enough bone we went back and took 2 more. We then placed intramedullary guide inside the femur at the tibial guide was then placed and pinned to the tibia drop sam was used to verify varus valgus. Tibial cut was then made using oscillating saw making sure to preserve the PCL. Bony fragment was then removed. The knee was then brought into full extension and extension block was then used to verify gap balance as well as extension space. The knee was brought into flexion gap ice cream machine operator was then used to bettye rotation this was then compared against Whitesides line and the epicondylar axis. This femur sized to size 5. This was then pinned into place and the 5 in 1 cutting block was then used to make the cuts. A size 4 tibia base plate with a 9 mm thick polyethylene was then used and the knee was brought through range of motion with good balance throughout. We used a floating technique 2 marked the tibial rotation. At this point I then freehand cut the tibia marked to size 29 mm patella button. This was then drilled and a trial patella button was placed. The knee was brought through range of motion no patellar liftoff was noted. At this point the trial components removed the tibial base plate was placed back onto the tibia and externally rotated to our anderson. It was noted that the tibia could accommodate a size 5 tibial base plate and this was selected. The tibia was then pinned into place and the keel drill and punch were then used. Bone fragments then placed inside the tibial canal as well as the femoral canal. Local anesthetic was infiltrated into the periarticular soft tissues including the back of the knee. The cut surface of the knee were then pulse lavaged with copious normal saline. The cut surfaces were then thoroughly dried. Cement was then finger packed onto the cut surface of the tibia as well as into the keel hole. As well as being placed on the back of the tibial tray. This was then malleted into place excess cement was then removed. Cement was then finger packed onto the cut surfaces of the femur with exception of the posterior condylar cut. Cement was placed on the femoral component feet. This was malleted into place and excess cement was removed. A 9 mm thick polyethylene was then selected and placed the knee was brought into full extension ankles hold internal rotation. Cement was then placed onto the cut surface of the patella as well as between the pegs on the patellar button and this was clamped into place and excess cement was removed. Betadine solution was then placed into the knee and the tourniquet was let down at 52 minutes of time. The cement was allowed to fully cure with the knee in full extension prior to moving the knee after several minutes the Betadine was then pulse lavage away with copious normal saline. Hemostasis was achieved using electrocautery. The trial was then removed and a size 5-6 left deep dished articular insert was then selected and placed verifying the medial lateral tabs were seated. The medial parapatellar arthrotomy was then closed using 1. Vicryl interrupted fashion followed by running Quill suture followed by 2-0 Vicryl in the subcutaneous layer followed by 3-0 Stratafix in the subcuticular layer followed by Dermabond and Aquacel dressing.. Complications: none Post-operative Condition: stable Disposition: PACU Plan for aftercare: 24 hours post-op abx, ASA 81mg BID for 6 weeks for DVT prophylaixs, WBAT LLE
[2020-11-20] MEDS: LACTATED RINGERS 1,000 ML 100 ML IV (14:54)
[2020-11-20] MEDS: ACETAMINOPHEN 325 MG TABLET 650 MG PO ×2 (14:55→20:27)
[2020-11-20] MEDS: ONDANSETRON 4 MG/2 ML INJ IV ×2 (14:57→20:27)
[2020-11-20 15:07] LABS: Add Manual Diff / Slide Review NO; Basophils Absolute Auto 100 /uL (0-100); Basophils Percent Auto 1.1 % (0-2); Eosinophils Absolute Auto 100 /uL (0-450); Eosinophils Percent Auto 0.9 % (2-4); Hematocrit 34.7 % (36-46); Hemoglobin 11.1 g/dL (12.0-16.0); Lymphocytes Absolute Auto 700 /uL (1100-4500); Lymphocytes Percent Auto 9.6 % (25-40); Mean Corpuscular Hemoglobin 27.7 PG (26-34); Mean Corpuscular Volume 86.7 fL (80-100); Monocytes Absolute Auto 100 /uL (0-900); Monocytes Percent Auto 1.4 % (3-14); Neutrophils Absolute Auto 6300 /uL (1500-7000); Platelet Count 227 X10^3/uL (150-400); Red Cell Distribution Width 14.3 % (11.6-14.8); White Blood Cell Count 7.2 X10^3/uL (4.5-11.0)
--- NOTE | 2020-11-20 15:40 | PT.IIE ---
Current Diagnoses Unilateral primary osteoarthritis, left knee (11/20/20) Surgery Performed Operation Date: 11/20/20 10:45 Actual Procedures p Total Knee Arthroplasty(Left) - Saad Lopez MD Surgical History (Last Updated 11/19/20 @ 07:22 by Amairani Friedman, RN) Anesthesia History of elbow surgery History of repair of right rotator cuff History of tonsillectomy S/P epidural steroid injection Status post appendectomy Status post hysterectomy Medical History (Last Updated 11/19/20 @ 09:47 by Amairani Friedman, RN) Bursitis Cervical spondylosis with radiculopathy Cervical stenosis of spinal canal Chicken pox DDD (degenerative disc disease), cervical DJD (degenerative joint disease) of knee Endometriosis (~1979) Esophagitis Fibromyalgia GERD (gastroesophageal reflux disease) Greater trochanteric bursitis Headache, migraine Hearing loss Herniated nucleus pulposus, L4-5 Hypertension Internal derangement of left knee Irritable bowel syndrome Leg edema Measles MGUS (monoclonal gammopathy of unknown significance) Osteoarthritis Osteoporosis Primary osteoarthritis of left knee Rosacea Sacral back pain Shoulder pain, right Sjogren's syndrome Spinal stenosis Tendinitis Tortuous colon Vision disorder Physical Therapy Inpatient Evaluation/Re-Eval M1 PT/OT-IP Prior Functional Status Start: 11/20/20 16:19 Freq: NEEDED Status: Active Protocol: Document 11/20/20 15:40 AB (Rec: 11/20/20 16:52 AB [id number]) Medical Review Prior Functional Status Medical History Reviewed Yes Communication able to make needs known Mobility and Gait pt stated that she is independent with all mobilities and ambulation without AD Social History Household Members none Living Arrangements House Number of Floors (Floors) One Floor Number of Stairs To Enter/Railing? 1 step to enter has 1 step to get into the bed Home Environment Standard Height Toilet,Walk in Shower Home Equipment Front Wheel Walker,Four Wheel Walker,Raised Toilet Seat w/ Armrests,Grab Bars Near Toilet Employment Status Retired Additional Social History Comment pt stated that she will have Nahomi South (friend's friend) to stay with her for 48 hours but can stay longer if needed and ~ 5 hours afterwards to check on her but can be longer as well if needed M2 PT-IP Current Condition Start: 11/20/20 16:19 Freq: NEEDED Status: Active Protocol: Document 11/20/20 15:40 AB (Rec: 11/20/20 16:52 [id number]) Physical Therapy Current Condition Current Condition Evaluation Date 11/20/20 Treatment Diagnosis s/p L TKA; difficulty in walking Onset Date 11/20/20 Weight Bearing Status Weight Bearing Status Weight Bear as Tolerated Allowed Weight Bearing Amount (enter % LLE WBAT or #) (%) M3 PT-IP Subjective Start: 11/20/20 16:19 Freq: NEEDED Status: Active Protocol: Document 11/20/20 15:40 AB (Rec: 11/20/20 16:52 [id number]) Subjective Physical Therapy Visit Type Type Initial Evaluation Visit Start Time 15:40 Visit Stop Time 16:15 Total Visit Minutes 35 Number of ANODIC OPERATOR Visits 0 Physical Therapy Visit Comments Patient Comments pt is agreeable to do PT but c /o nausea Therapy Pain Assessment Pain When Pain Assessed At Rest Pain Present Pain Present Pain Reported Location Lower Knee Intensity 4 Scale Used Numeric (0 - 10) Pain Management Techniques Apply Cold,Modification of Treatment,Re-positioning, Timing of Activity with Medications M4 PT-IP Mobility and Gait Start: 11/20/20 16:19 Freq: NEEDED Status: Active Protocol: Document 11/20/20 15:40 AB (Rec: 11/20/20 16:52 [id number]) PT-Bed Mobility Assessment Supine to Sit Supine to Sit Standby Assistance Sit to Supine Sit to Supine Standby Assistance PT-Transfer Assessment Sit to and From Stand Sit to and from Stand Moderate Assistance,1 Person Assistance,Use of Upper Extremities Equipment Transfer Assistive Device Gait Belt,Front Wheeled Walker Orthotic/Prosthetic Devices or Brace: No Comments Mobility Comments c/o nausea but agreed to do PT . BP in supine: 125/73. completed heel slides prior to mobility. completed supine to sit SBA. pt was able to sit on EOB SBA. completed sit to stand mod A and cues. c/o dizziness. instructed to take side steps to get closer to HOB and completed using FWW mod A and cues. completed sit to supine SBA. positioned in bed. BP checked again: 138/75. call light and table placed within reach. ice pack provided. pt stated that she has a step stool to get up to to get into the bed. asked pt for dimensions and stated that she will ask her friend to measure. Gait Assessment Gait Gait Assistance Required: Moderate Assistance Distance (Feet) 2 Able to Maintain Weight Bearing Status Yes During Gait Assistive Devices Assistive Device Gait Belt,Front Wheeled Walker Orthotic/Prosthetic Devices or Brace: No Gait Deviations General Gait Pattern Antalgic,Decreased Stride Length,Decreased Feet Clearance Factors Limiting Gait Function Factors Limiting Gait Function Decreased Activity Tolerance, Decreased Strength,Limited Range of Motion,Pain,Poor Balance,Poor Safety Awareness Comments Gait Comments side steppping to position to HOB PT-Balance Assessment Sitting Balance and Reactions Static Sitting Balance Ability Good Dynamic Sitting Balance Ability Good Standing Balance and Reactions Static Standing Balance Ability Fair Dynamic Standing Balance Ability Fair Device Used FWW M5 PT-IP Objective Assessments Start: 11/20/20 16:19 Freq: NEEDED Status: Active Protocol: Document 11/20/20 15:40 AB (Rec: 11/20/20 16:52 AB [id number]) Orientation Orientation/Cognition Level of Alertness Alert Orientation Name,Place,Situation Language Function Ability No Deficits Noted Safety Awareness Decreased Safety Awareness Gross Range of Motion Lower Extremity ROM Assessment Left Impaired Impairments L knee flexion: ~ 70 degrees Strength Lower Extremity Strength Assessment Left Impaired Knee 4-/5 Coordination Assessment Gross Coordination Gross Coordination WNL Muscle Tone Muscle Tone WNL Yes M6 PT-IP Treatment Start: 11/20/20 16:19 Freq: NEEDED Status: Active Protocol: Document 11/20/20 15:40 AB (Rec: 11/20/20 16:52 AB [id number]) Physical Therapy Treatment Exercises Exercises Heel Slides Education Education Provided Precautions,Weight Bearing Status,Post-Op Packet,Safety M7 PT-IP Assessment and Plan Start: 11/20/20 16:19 Freq: NEEDED Status: Active Protocol: Document 11/20/20 15:40 AB (Rec: 11/20/20 16:52 AB [id number]) PT Summary Assessment and Plan Potential Rehabilitation Potential Good Status of Condition at Evaluation Evolving Summary Impairments Pain,ROM,Strength,Balance, Coordination,Sensation, Cognition,Bed Mobility, Transfers,Gait,Activity Tolerance Assessment Summary pt requiring mod A with mobility ad unable to tolerate much due to c/o nausea/ dizziness. pt plans to go home with assist at home and is set up for outpt PT. will conduct caregiver training when appropriate as well as stair climbing. will continue to assess progress. Goals Bed Mobility Goal Independent Transfer Goal Independent,Front Wheeled Walker Gait Goal Independent,Front Wheel Walker Gait Distance 150 Other Goals up/down 1 step using FWW to enter the house up/down 1 step stool to get to bed Days to Meet Goals 5 Frequency of Treatment Frequency Of Treatment Twice a Day Treatment Plan Physical Therapy Treatment Plan Bed Mobility Training,Transfer Training,Gait Training, Therapeutic Exercise,Balance Retraining,Post Op Education, Discharge Planning,Hot or Cold Pack,Neuromuscular Re-ed, Coordination Retraining,Manual Therapy Recommendations To Nursing Amount of Assist Needed 1 Person Assist Discharge Recommendations PT Discharge Recommendations Home with Assistance, Outpatient PT Transportation Needs at Discharge Private Vehicle
[2020-11-20] MEDS: NALOXONE 0.4 MG/ML VIAL IV (18:35)
[2020-11-20] MEDS: DOCUSATE 100 MG CAPSULE PO (20:27)
[2020-11-20] MEDS: SENNOSIDES 8.6 MG TABLET 43 MG PO (20:27)
[2020-11-20] MEDS: ASPIRIN EC 81 MG TABLET PO (20:28)
[2020-11-20] MEDS: NAPROXEN 250 MG TABLET PO (20:29)
[2020-11-21] VITALS (8 sets, daily range): BP systolic 120–140; BP diastolic 66–77; PULSE 54–67; RESP 14–18; TEMP 36.1–37.1; O2SAT 94–99
--- NOTE | 2020-11-21 00:03 | PC.NURSE ---
Addendum entered by Alena Dorantes R.N. 11/21/20 04:09: Patient states pain is currently 6/10 and is reluctant to take the narcotic pain medications or Vistaril so medicated with a.m. dose of Tylenol. Original Note: patient is alert and oriented. Breath sounds CTA with RA sat of 98%; on continuous oximetry HRR with rate in 40's-50's; patient states she typically has low HR. Slight nausea but states is much better than earlier. BT present but denies flatus. Denies dysuria, frequency or urgency with urination. Able to move herself in bed. Up to [facility] with walker and 1 assist. Complains of 5/10 left knee pain but declines offer of pain meds or Vistaril so ice packs applied. Aquacel dressing covered with vanessa wrap to left knee is CDI. CMS is intact. Wearing bilateral calf SCD's. Reports having fallen in past 3 months so fall risk score is high and bed alarm is activated although patient does call appropriately.
[2020-11-21] MEDS: CEFAZOLIN 2 GM/100 ML FROZ.PIGGY IV (02:50)
[2020-11-21] MEDS: LACTATED RINGERS 1,000 ML 100 ML IV (02:52)
[2020-11-21] MEDS: ACETAMINOPHEN 325 MG TABLET 650 MG PO ×3 (04:07→20:51)
[2020-11-21 05:22] LABS: Hematocrit 31.6 % (36-46); Hemoglobin 10.1 g/dL (12.0-16.0)
[2020-11-21] MEDS: PANTOPRAZOLE 20 MG TABLET PO (05:54)
--- NOTE | 2020-11-21 09:11 | CM.DANOTE ---
Addendum entered by Jolie Roca LPN 11/22/20 13:54: Checked in today and noted pt was still here. She had ongoing nausea yesterday afternoon, the d/c was cancelled, she had another PT session today and left for home early afternoon. Addendum entered by Jolie Roca LPN 11/21/20 12:30: Met with pt as planned and introduced self and role. Was joined by Ortho JACOB Ruby and CIARAN Nielsen as pt was unclear re the information she had received from Dr. Lopez and his office nurse Nancy. Mervin stated that pt did not need [facility]. She has her paid caregiver in place (friend Nahomi Dia). He encouraged Nahomi to be part of a PT session before pt went home and that other than the exercises PT will give her to do at home she would not need OUTPT therapy until she is post op day 10. Pt said she was planning OUTPT PT at and was set up for 14 days from now. She will call to see is she can get in earlier. Mervin stated that would be fine. P: d/c order is in place with pt expected to d/c home later this afternoon after a final PT session to include Nahomi. Pt expressed thankfulness to Mervin for clarifying her d/c plan needs, noting I must have misunderstood what Dr. Lopez was telling me. She says that in addition to Nahomi she has lots of others who are offering help and would drive her to OUTPT PT is she cannot drive herself. Original Note: Discharge Planning/Care Management DCP: assessment: case received, ERM reviewed. PT is a 70 year old female who admitted yesterday for a scheduled L TKA. Surgeon: Dr. Lopez PCP: Fawad Delgadillo Payer: Medicare and [employer] D Admission status: SDC: confirmed by UR RN PT did see pt yesterday and noted she was proceeding toward her goal of home with OUTPT PT. P: discuss further in Team Rounds, meet with pt and follow prn for any d/c needs that may arise. CM Discharge Assessment Start: 11/21/20 09:09 Freq: Status: Active Protocol: Document 11/21/20 09:09 ITV (Rec: 11/21/20 09:10 ITV [id number]) Discharge Planning Assessment Advance Directives? Yes Advance Directives on File Yes History Provided By Medical Record Prior Living Arrangements House Household Members none Independent with ADL's Yes Is patient alert and oriented? Yes Community Services used prior to Physical Therapy admission: Comment at OUTPT Therapy clinic Review Status In Process Pre-Anesthesia Assessment Start: 11/19/20 07:19 Freq: Status: Complete Protocol: Document 11/19/20 07:19 MEGAN (Rec: 11/19/20 07:43 [facility] [id number]) Pre-Anesthesia Assessment Preferred Name Analia Patient Information Reviewed Via Chart Review,Phone Assessment Assessment Completed With Patient H&P Completed Within 30 Days Yes Diagnostic Results BMP/CMP,CBC,EKG,Other Comment A1c, Covid negative 11/18/20 Primary Care Provider Fawad Delgadillo Seen Specialist in Last 12 Months Yes Specialist Seen ENT,Orthopedist,Other Comment Rheumatology Primary Language Russian Preferred Language Russian Inspector Watch Train Required No Height 170.18 cm Hearing Ability Use of Hearing Aid Visual Assist Glasses Barriers to Learning Auditory,Visual Other Aids No Hx Anesthesia Reactions Yes: Extremely sick for 3 days, N&V, headache; Additional comment desires spinal Hx Family Anesthesia Reaction No Hx Malignant Hyperthermia No Hx Blood Transfusions No Hx Blood Transfusion Reaction No Anesthesia Review Requested No Surveyor No alcohol intake current alcohol intake frequency holidays/special occasions only Smoking Status Never smoker Substance Use Type does not use Pain Present Pain Reported Comment Multiple joints/fibromyalgia/ severe arthritis Musculoskeletal Symptoms Abnormal Gait,Back Pain, Difficulty Walking,Joint Pain, Joint Stiffness,Joint Swelling ,Limited Range of Motion, Muscle Cramps,Muscle Spasms, Muscle Weakness,Neck Pain, Numbness,Tingling History of Falling (Recent or History of No ) Comment numbness/tingling in hand & feet depending on position Patient is completely paralyzed or No completely immobile Ambulatory Aid None/bed rest/nurse assist Gait/Transferring Normal/bedrest/immobile Mental Status Oriented to own ability Comment Walks 6 miles/day Is patient on oxygen? No Does patient have HENRY/SOB No Hx Sleep Apnea No CPAP/BIPAP use not prescribed Currently Taking a Beta Ghazala No Can You Climb a Flight of Stairs Without No: knee pain prohibitive; pt SOB unsure Hx Chest Pain No Hx SOB No Hx Syncope or Dizziness No Anti-Coagulant Therapy No Has a Retail Support Specialist Yes: Ghazenfari r/t murmur Hx Pacemaker/ICD No Cardiac Clearance Received Not Applicable Diet Type At Home Gluten Free,Low Sodium, Vegetarian,Other Gastrointestinal Symptoms Constipation,Reflux Comment lactose intolerant, gluten sensitive, FODMAP diet Bladder Pattern Nocturia Urinary Catheter Present No Hx Urinary Self Catheterization No Diabetes No HgbA1C 5.4 Date 11/04/20 Patient No Lactating No Hx Drug Resistant Organism No 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 Are you experiencing any of these No symptoms symptoms? Evaluation/Screening for possible COVID- Yes 19 infection completed? Comment Covid negative 11/18/20 Marital Status / Lives With none Prior Living Arrangements House Number of Floors (Floors) One Floor Number of Stairs To Enter/Railing? 1 step into house Support System Friend(s) Does the Patient Have Assistance After Yes Surgery Patient Discharge Plan Description Return Home Feels Safe in Current Environment Yes Been Physically Hurt or Threatened By a No Person in Current Environment Do you have thoughts of harming yourself None or others? Are you currently considering suicide? No Do you have a plan to hurt yourself or No Plan others? Do You Have Any Spiritual Beliefs That No May Affect Your HC Choices? Do You Have Any Cultural Practices That No May Affect Your HC Choices? Who Can We Speak to About Patient's Care Family & Friends Identifying Code for Release of Patient Declined Information Health Care Proxy/Next of Kin Friend Barry Fierro Health Care Proxy Emergency Contact Name Friend Barry Fierro Emergency Contact Advance Directives? Yes Requested Patient Bring Advanced Yes Directives DOS Power of Legal Department Manager Yes Power of Legal Department Manager Name Friend Barry Fierro Power of Legal Department Manager PAC Instructions Assistance for 24 hours post- op,Do not shave/clip surgical site,Durable medical equipment ,Medications to take/avoid, Nasal antibiotic,No ETOH/ petroleum product on skin DOS, NPO,Post-op transportation,Pre -op antibiotic,Pre-surgical wash,Sensory aids,Sturdy shoes /comfortable clothes,Do not bring valuables and remove jewelry
[2020-11-21] MEDS: OXYCODONE IR 5 MG TABLET PO (09:50)
[2020-11-21] MEDS: NAPROXEN 250 MG TABLET PO ×2 (09:54→20:51)
[2020-11-21] MEDS: PANTOPRAZOLE 40 MG TABLET PO (09:54)
[2020-11-21] MEDS: ASPIRIN EC 81 MG TABLET PO ×2 (09:54→20:51)
[2020-11-21] MEDS: estradioL 1 MG TABLET PO (09:54)
[2020-11-21] MEDS: lisinopriL 5 MG TABLET PO (09:54)
[2020-11-21] MEDS: hydroCHLOROthiazide 25 MG TABLET PO (09:54)
[2020-11-21] MEDS: ATORVASTATIN 20 MG TABLET 40 MG PO (09:55)
[2020-11-21] MEDS: FUROSEMIDE 20 MG TABLET PO (09:55)
[2020-11-21] MEDS: LORATADINE 10 MG TABLET PO (09:55)
--- NOTE | 2020-11-21 10:42 | P.DS_ITS ---
History of Present Illness History of Present Illness Date Patient Seen: 11/21/20 Time Patient Seen: 10:42 Chief complaint: LEFT TKA *OPB* Narrative: Patient's pain is [id number]. Denies fever or chills. No nausea or vomiting. Patient does live alone but is ranged the caregiver to be home with her for least 48 hours if needed they can stay longer. Otherwise without complaints. Discharge Providers Provider Discharge Date: 11/21/20 Primary care physician: Fawad Delgadillo MD Consults: 11/20/20 13:44 Consult to Discharge Planning Routine Comment: Consult to Physical Therapy Evaluate & Treat Comment: Physician Instructions: postop TKA protocol Consult to Respiratory Therapy Evaluate & Treat Comment: Physician Instructions: Evaluate and treat Discharge provider: Mervin Ruby PA-C Summary Hospital Course Discharge Diagnosis: left knee OA Hospital Course: Left total knee arthroplasty Same procedure as scheduled: Yes Indications: Left knee osteoarthritis Surgeon: Saad Lopez Shipping Coordinator: Mervin Ruby Anesthesia Type: General and Spinal Operative Notes Findings: Valgus deformity of the left knee with osteoarthritis mainly affecting the lateral compartment and patellofemoral compartments. Closure Type: primary Prosthetic devices, grafts, tissues, transplants, or devices: Dia and nephew Journey 2 size 5 left CR femur Size 5 left Journey a tibial base plate 29 mm oval Lydia 2 patellar button Size 5-6 left 9 mm thick Journey 2 deep dished polyethylene Estimated Blood Loss (mL): 100 Tourniquet time (min): 52 Patient admitted to the hospital for left total knee arthroplasty. Patient consented to the same. Patient taken the operating room underwent left total knee arthroplasty yesterday. Patient back in her room recovering well as in stable condition. Patient was able to walk down the camp with physical therapy. Discharge home today in stable condition. Status at Discharge Cognitive/behavioral status at discharge: at baseline, oriented Functional status at discharge: uses cane/walker Overall status at discharge: patient is progressing back to baseline Time Spent with Patient Time spent: Less than 30 minutes Exam Vital Signs (past 8 hours): - 11/21/20 03:00 11/21/20 07:58 11/21/20 09:54 Temperature 97.0 F L 97.9 F Pulse Rate 54 L 54 L Respiratory Rate 16 18 Blood Pressure 140/77 128/69 128/69 Pulse Oximetry 98 99 Oxygen Delivery Method Room Air Oxygen Flow Rate 0 Narrative Exam Narrative: 70-year-old female resting comfortably in bed in no apparent distress. Dressing is clean, dry and intact. Motor functions intact distally. Sensation grossly intact to light touch bilateral lower extremities. Patient later working with physical therapy walking down the camp in no apparent distress. Objective Labs Result Diagrams: 11/21/20 05:09 Labs: Laboratory Results - last 24 hr 11/20/20 11/21/20 14:28 05:09 WBC 7.2 RBC 4.00 Hgb 11.1 L 10.1 L Hct 34.7 L 31.6 L MCV 86.7 MCH 27.7 MCHC 32.0 RDW 14.3 Plt Count 227 Neut % (Auto) 87.0 H Lymph % (Auto) 9.6 L [place] % (Auto) 1.4 L Eos % (Auto) 0.9 L Baso % (Auto) 1.1 Neut # (Auto) 6300 Lymph # (Auto) 700 L [place] # (Auto) 100 Eos # (Auto) 100 Baso # (Auto) 100 PFSH Medical History Bursitis Cervical spondylosis with radiculopathy Cervical stenosis of spinal canal Chicken pox DDD (degenerative disc disease), cervical DJD (degenerative joint disease) of knee Endometriosis (~1979) Esophagitis Fibromyalgia GERD (gastroesophageal reflux disease) Greater trochanteric bursitis Headache, migraine Hearing loss Herniated nucleus pulposus, L4-5 Hypertension Internal derangement of left knee Irritable bowel syndrome Leg edema Measles MGUS (monoclonal gammopathy of unknown significance) Osteoarthritis Osteoporosis Primary osteoarthritis of left knee Rosacea Sacral back pain Shoulder pain, right Sjogren's syndrome Spinal stenosis Tendinitis Tortuous colon Vision disorder Surgical History Anesthesia History of elbow surgery History of repair of right rotator cuff History of tonsillectomy S/P epidural steroid injection Status post appendectomy Status post hysterectomy Family History Father Heart disease Grandfather Heart disease Grandmother Stroke Mother Cancer Heart disease Hypertension Mental health problem Social History household members: none Smoking Status: Never smoker alcohol intake: current Discharge Assessment & Plan Assessment and Plan Assessment: Patient progressing as expected status post left total knee arthroplasty. Plan of Treatment: Discharge home today in stable condition. Discharge Plan Discharge Plan Patient Disposition: Home Discharge orders & Medications Discharge Orders: Discharge (Order); Ordered 11/21/20 Ordered By: Mervin Ruby Prescriptions: New acetaminophen 325 mg Tablet 650 mg PO TID Qty: 60 RF: 0 aspirin 81 mg Tablet,Delayed Release (Dr/Ec) 81 mg PO BID Qty: 60 RF: 0 polyethylene glycol 3350 17 gram Powder In Packet 17 gm PO DAILY PRN (Reason: Constipation) Qty: 20 RF: 0 oxycodone 5 mg Tablet 5 mg PO Q3HR PRN (Reason: Pain, Moderate (4-6)) Qty: 30 RF: 0 Continued vitamin B complex [B Complex-Vitamin B12] 1 EACH tablet 1 tab PO QDAY Qty: 0 RF: 0 magnesium 200 MG tablet 1,500 mg PO QDAY Qty: 0 RF: 0 calcium citrate-vitamin D3 [Citracal Regular] 250 MG/200 IU tablet 1 tab PO QDAY Qty: 0 RF: 0 VITAMIN D (Vitamin D3) 1,000 units PO QDAY Qty: 0 RF: 0 zinc gluconate 50 MG tablet 50 mg PO QDAY Qty: 0 RF: 0 lisinopril 5 mg tablet 5 mg PO DAILY Qty: 90 RF: 1 pantoprazole 40 mg tablet,delayed release (DR/EC) 40 mg PO DAILY Qty: 90 RF: 3 Prolia 60 mg/mL syringe 60 mg SUBCUT [id number] Qty: 1 RF: 1 estradiol 1 mg tablet 1 mg PO DAILY Qty: 90 RF: 3 ivermectin [Soolantra] 1 % Cream 1 applic TOPICAL BID RF: 0 lansoprazole [Prevacid] 15 mg Capsule,Delayed Release(Dr/Ec) 15 mg PO DAILY RF: 0 tizanidine 4 mg Capsule 0.25 mg PO SEEINSTR RF: 0 loratadine [Claritin] 10 mg Tablet 10 mg PO DAILY RF: 0 sennosides 8.6 mg Tablet 43 mg PO BEDTIME RF: 0 atorvastatin 40 mg Tablet 40 mg PO DAILY RF: 0 Restasis 0.05 % Dropperette 1 drp ophthalmic (eye) Q12H PRN (Reason: Dry Eye(S)) RF: 0 furosemide 20 mg Tablet 20 mg PO DAILY RF: 0 hydrochlorothiazide 25 mg tablet 25 mg PO DAILY 90 Days Qty: 90 RF: 0 naproxen sodium [Aleve] 220 mg capsule 220 mg PO Q8H RF: 0 Discontinued Excedrin Extra Strength 250-250-65 mg Tablet 2 tab PO QAM RF: 0 Follow up/Referrals: Fawad Delgadillo MD [Primary Care Provider] - Saad Lopez MD [Physician] - (2 weeks) Diet/Activity/Treatments Diet: Diet as Tolerated Activity: WBAT Cold/Heat Therapy: ice as needed Skin/Wound/Dressing Care Report to your healthcare provider any signs of infection, such as:: chills, fever, increased pain, unusual drainage and unusual redness Dressing: keep clean and dry Visit Report/Discharge Packet Instructions: DI for Knee Replacement Stand Alone Forms: Surgery Discharge Discharge Data Primary Care Provider: Fawad Delgadillo Attending Provider: Saad Lopez Quality VTE Deep Vein Thrombosis/Pulmonary Embolism Present on Admission: No
--- NOTE | 2020-11-21 10:50 | PT.IPTN ---
Current Diagnoses Unilateral primary osteoarthritis, left knee (11/20/20) Surgery Performed Operation Date: 11/20/20 10:45 Actual Procedures p Total Knee Arthroplasty(Left) - Saad Lopez MD Physical Therapy Treatment Note M2 PT-IP Current Condition Start: 11/20/20 16:19 Freq: NEEDED Status: Active Protocol: Document 11/20/20 15:40 AB (Rec: 11/20/20 16:52 AB [id number]) Physical Therapy Current Condition Current Condition Evaluation Date 11/20/20 Treatment Diagnosis s/p L TKA; difficulty in walking Onset Date 11/20/20 Weight Bearing Status Weight Bearing Status Weight Bear as Tolerated Allowed Weight Bearing Amount (enter % LLE WBAT or #) (%) M3 PT-IP Subjective Start: 11/20/20 16:19 Freq: NEEDED Status: Active Protocol: Document 11/21/20 12:38 CLB (Rec: 11/21/20 12:58 CLB [id number]) Subjective Physical Therapy Visit Type Type Treatment Note Visit Start Time 10:17 Visit Stop Time 10:50 Total Visit Minutes 33 Number of ORDER TRACER Visits 1 Physical Therapy Visit Comments Patient Comments Pt willing to get up with therapy. Therapy Pain Assessment Pain When Pain Assessed At Rest Pain Present Pain Present Pain Reported M4 PT-IP Mobility and Gait Start: 11/20/20 16:19 Freq: NEEDED Status: Active Protocol: Document 11/21/20 12:38 CLB (Rec: 11/21/20 12:58 CLB [id number]) PT-Bed Mobility Assessment Supine to Sit Supine to Sit Standby Assistance Sit to Supine Sit to Supine Standby Assistance PT-Transfer Assessment Sit to and From Stand Sit to and from Stand Contact Guard Assistance,1 Person Assistance,Use of Upper Extremities Equipment Transfer Assistive Device Gait Belt,Front Wheeled Walker Orthotic/Prosthetic Devices or Brace: No Comments Mobility Comments Pt in bed needing to use toilet. Pt required SBA to EOB and CGA for sit-stand, pt ambulated into BR SBA and with use of wall rail sat on toilet SBA. After toileting pt ambulated to sink requiring SBA for standing balance while washing hands. Pt ambulated in camp ~150ft w/FWW/SBA with good step length. Pt c/o minor nausea and needing to get back to bed but was able to perform supine ther ex. Left pt in bed with alarm on, and all needs within reach. Pt to call CG to come in afternoon for CG training. Gait Assessment Gait Gait Assistance Required: Standby Assistance,1 Person Assist Distance (Feet) 150 Able to Maintain Weight Bearing Status Yes During Gait Assistive Devices Assistive Device Gait Belt,Front Wheeled Walker Orthotic/Prosthetic Devices or Brace: No Gait Deviations General Gait Pattern Antalgic,Decreased Stride Length,Decreased Feet Clearance Factors Limiting Gait Function Factors Limiting Gait Function Decreased Activity Tolerance, Decreased Strength,Limited Range of Motion,Pain,Poor Balance,Poor Safety Awareness M5 PT-IP Objective Assessments Start: 11/20/20 16:19 Freq: NEEDED Status: Active Protocol: Document 11/20/20 15:40 AB (Rec: 11/20/20 16:52 AB [id number]) Orientation Orientation/Cognition Level of Alertness Alert Orientation Name,Place,Situation Language Function Ability No Deficits Noted Safety Awareness Decreased Safety Awareness Gross Range of Motion Lower Extremity ROM Assessment Left Impaired Impairments L knee flexion: ~ 70 degrees Strength Lower Extremity Strength Assessment Left Impaired Knee 4-/5 Coordination Assessment Gross Coordination Gross Coordination WNL Muscle Tone Muscle Tone WNL Yes M6 PT-IP Treatment Start: 11/20/20 16:19 Freq: NEEDED Status: Active Protocol: Document 11/21/20 12:38 CLB (Rec: 11/21/20 12:58 CLB [id number]) Physical Therapy Treatment Exercises Exercises Ankle Pumps,Quad Sets,Heel Slides,Straight Leg Raises, Short Arc Quads,Passive Knee Extension Hang,Seated Knee Flexion/Extension Knee ROM Measurement 0-40 Education Education Provided Precautions,Weight Bearing Status,Post-Op Packet,Safety M7 PT-IP Assessment and Plan Start: 11/20/20 16:19 Freq: NEEDED Status: Active Protocol: Document 11/21/20 12:38 CLB (Rec: 11/21/20 12:58 CLB [id number]) PT Summary Assessment and Plan Potential Rehabilitation Potential Good Status of Condition at Evaluation Evolving Summary Impairments Pain,ROM,Strength,Balance, Coordination,Sensation, Cognition,Bed Mobility, Transfers,Gait,Activity Tolerance Progress Towards Goals Progressing Toward Goals Assessment Summary Pt continues to c/o nausea with mobility but didn't feel she would vomit. Pt is SBA for all mobility today and ambulated ~150ft w/FWW/SBA. Pt will require CG training with Nahomi her friend before d/c. Goals Bed Mobility Goal Independent Transfer Goal Independent,Front Wheeled Walker Gait Goal Independent,Front Wheel Walker Gait Distance 150 Other Goals up/down 1 step using FWW to enter the house up/down 1 step stool to get to bed Days to Meet Goals 5 Frequency of Treatment Frequency Of Treatment Twice a Day Treatment Plan Physical Therapy Treatment Plan Bed Mobility Training,Transfer Training,Gait Training, Therapeutic Exercise,Balance Retraining,Post Op Education, Discharge Planning,Hot or Cold Pack,Neuromuscular Re-ed, Coordination Retraining,Manual Therapy Other Recommendations and Next Treatment CG training this afternoon: Focus stairs and stool to get into bed. Recommendations To Nursing Amount of Assist Needed 1 Person Assist Discharge Recommendations PT Discharge Recommendations Home with Assistance, Outpatient PT
[2020-11-21] MEDS: ONDANSETRON 4 MG ODT PO (14:46)
--- NOTE | 2020-11-21 15:21 | PT.IPTN ---
Current Diagnoses Unilateral primary osteoarthritis, left knee (11/20/20) Surgery Performed Operation Date: 11/20/20 10:45 Actual Procedures p Total Knee Arthroplasty(Left) - Saad Lopez MD Physical Therapy Treatment Note M2 PT-IP Current Condition Start: 11/20/20 16:19 Freq: NEEDED Status: Active Protocol: Document 11/20/20 15:40 AB (Rec: 11/20/20 16:52 AB [id number]) Physical Therapy Current Condition Current Condition Evaluation Date 11/20/20 Treatment Diagnosis s/p L TKA; difficulty in walking Onset Date 11/20/20 Weight Bearing Status Weight Bearing Status Weight Bear as Tolerated Allowed Weight Bearing Amount (enter % LLE WBAT or #) (%) M3 PT-IP Subjective Start: 11/20/20 16:19 Freq: NEEDED Status: Active Protocol: Document 11/21/20 13:28 CLB (Rec: 11/21/20 15:47 CLB [id number]) Subjective Physical Therapy Visit Type Type Treatment Note Visit Start Time 13:28 Visit Stop Time 15:21 Total Visit Minutes 52 Notes Split treat [id number]/returned to room for platform stair training [id number] Number of AEROSPACE PHYSIOLOGICAL TECHNICIAN Visits 2 Physical Therapy Visit Comments Patient Comments Pt willing to get up with therapy. Pt friend Nahomi present for CG training. Therapy Pain Assessment Pain When Pain Assessed At Rest Pain Present Pain Present Pain Reported M4 PT-IP Mobility and Gait Start: 11/20/20 16:19 Freq: NEEDED Status: Active Protocol: Document 11/21/20 13:28 CLB (Rec: 11/21/20 15:47 CLB [id number]) PT-Bed Mobility Assessment Supine to Sit Supine to Sit Standby Assistance Sit to Supine Sit to Supine Standby Assistance PT-Transfer Assessment Sit to and From Stand Sit to and from Stand Standby Assistance,1 Person Assistance,Use of Upper Extremities Equipment Transfer Assistive Device Gait Belt,Front Wheeled Walker Orthotic/Prosthetic Devices or Brace: No Comments Mobility Comments Pt performed ther ex in supine . Pt got out of bed with bed raised and use of stool. Pt then ambulated to BR able to sit with wall rail SBA. Pt then stated she was nauseous and needed to go back to bed. AEROSPACE PHYSIOLOGICAL TECHNICIAN educated and demonstrated climbing platform stair. Pt continued to c/o nausea and refused stair climbing. RN notified and after patient was given Zofran and Tylenol this AEROSPACE PHYSIOLOGICAL TECHNICIAN returned to pt room, pt able to get to EOB with assist of friend Nahomi and ambulated to platform stair at foot of bed, pt climbed one step with FWW CGA then refused further ambulation. Pt continues to c/ o nausea, Informed RN. Gait Assessment Gait Gait Assistance Required: Standby Assistance,1 Person Assist Distance (Feet) 30 Able to Maintain Weight Bearing Status Yes During Gait Assistive Devices Assistive Device Gait Belt,Front Wheeled Walker Orthotic/Prosthetic Devices or Brace: No Gait Deviations General Gait Pattern Antalgic,Decreased Stride Length,Decreased Feet Clearance Factors Limiting Gait Function Factors Limiting Gait Function Decreased Activity Tolerance, Decreased Strength,Limited Range of Motion,Pain,Poor Balance,Poor Safety Awareness Comments Gait Comments Pt ambulates in room w/FWW/SBA ~30ft. Stair Climbing Assessment Evaluation Level of Assist On Stairs Contact Guard Assistance Devices Stair Climbing Assistive Devices Front Wheel Walker Technique/Endurance Stair Climbing Direction Ascend and Descend Stair Climbing Technique Step to Step Number of Steps Climbed 1 Stair Climbing Set # Repetitions (reps) 1 Comments Stair Climbing Comments Pt able to climb one platform step CGA with FWW. M5 PT-IP Objective Assessments Start: 11/20/20 16:19 Freq: NEEDED Status: Active Protocol: Document 11/20/20 15:40 AB (Rec: 11/20/20 16:52 AB [id number]) Orientation Orientation/Cognition Level of Alertness Alert Orientation Name,Place,Situation Language Function Ability No Deficits Noted Safety Awareness Decreased Safety Awareness Gross Range of Motion Lower Extremity ROM Assessment Left Impaired Impairments L knee flexion: ~ 70 degrees Strength Lower Extremity Strength Assessment Left Impaired Knee 4-/5 Coordination Assessment Gross Coordination Gross Coordination WNL Muscle Tone Muscle Tone WNL Yes M6 PT-IP Treatment Start: 11/20/20 16:19 Freq: NEEDED Status: Active Protocol: Document 11/21/20 13:28 CLB (Rec: 11/21/20 15:47 CLB [id number]) Physical Therapy Treatment Exercises Exercises Ankle Pumps,Quad Sets,Heel Slides,Straight Leg Raises, Short Arc Quads Knee ROM Measurement 0-40 Education Education Provided Precautions,Weight Bearing Status,Post-Op Packet,Safety M7 PT-IP Assessment and Plan Start: 02/10/21 16:19 Freq: NEEDED Status: Active Protocol: Document 11/21/20 13:28 CLB (Rec: 11/21/20 15:47 CLB [id number]) PT Summary Assessment and Plan Potential Rehabilitation Potential Good Status of Condition at Evaluation Evolving Summary Impairments Pain,ROM,Strength,Balance, Coordination,Sensation, Cognition,Bed Mobility, Transfers,Gait,Activity Tolerance Progress Towards Goals Progressing Toward Goals Assessment Summary Pt continues to c/o nausea even 30 minutes after taking Zofran. Pt is SBA for all mobility with CGA for climbing platform step. Pt states she will have her friend Nahomi to assist her at home for a few days. Nahomi is able to assist pt with bed mobility, gait and toilet use. Goals Bed Mobility Goal Independent Transfer Goal Independent,Front Wheeled Walker Gait Goal Independent,Front Wheel Walker Gait Distance 150 Other Goals up/down 1 step using FWW to enter the house up/down 1 step stool to get to bed Days to Meet Goals 5 Frequency of Treatment Frequency Of Treatment Twice a Day Treatment Plan Physical Therapy Treatment Plan Bed Mobility Training,Transfer Training,Gait Training, Therapeutic Exercise,Balance Retraining,Post Op Education, Discharge Planning,Hot or Cold Pack,Neuromuscular Re-ed, Coordination Retraining,Manual Therapy Recommendations To Nursing Amount of Assist Needed 1 Person Assist Discharge Recommendations PT Discharge Recommendations Home with Assistance, Outpatient PT Transportation Needs at Discharge Private Vehicle
[2020-11-21] MEDS: OXYCODONE IR 10 MG TABLET PO ×3 (16:06→22:20)
[2020-11-21] MEDS: HYDROMORPHONE 0.5 MG INJ 0.2 MG IV (20:51)
[2020-11-21] MEDS: ONDANSETRON 4 MG/2 ML INJ IV (20:51)
[2020-11-22 04:15] VITALS: BP 139/87; PULSE 81; RESP 16; TEMP 36.7; O2SAT 97
[2020-11-22] MEDS: OXYCODONE IR 10 MG TABLET PO (05:40)
[2020-11-22] MEDS: hydrOXYzine pamoate 25 MG CAPSULE PO (05:40)
[2020-11-22] MEDS: PANTOPRAZOLE 20 MG TABLET PO (05:41)
[2020-11-22 08:01] VITALS: BP 126/72; PULSE 63; RESP 14; TEMP 36.4; O2SAT 96
--- NOTE | 2020-11-22 09:21 | PT.IPTN ---
Current Diagnoses Unilateral primary osteoarthritis, left knee (11/22/20) Surgery Performed Operation Date: 11/20/20 10:45 Actual Procedures p Total Knee Arthroplasty(Left) - Saad Lopez MD Physical Therapy Treatment Note M2 PT-IP Current Condition Start: 11/20/20 16:19 Freq: NEEDED Status: Active Protocol: Document 11/20/20 15:40 AB (Rec: 11/20/20 16:52 AB [id number]) Physical Therapy Current Condition Current Condition Evaluation Date 11/20/20 Treatment Diagnosis s/p L TKA; difficulty in walking Onset Date 11/20/20 Weight Bearing Status Weight Bearing Status Weight Bear as Tolerated Allowed Weight Bearing Amount (enter % LLE WBAT or #) (%) M3 PT-IP Subjective Start: 11/20/20 16:19 Freq: NEEDED Status: Active Protocol: Document 11/22/20 08:54 CLB (Rec: 11/22/20 11:53 CLB [id number]) Subjective Physical Therapy Visit Type Type Treatment Note Visit Start Time 08:54 Visit Stop Time 09:21 Total Visit Minutes 27 Number of PLANNING TECHNICIAN Visits 3 Physical Therapy Visit Comments Patient Comments Pt willing to get up with therapy. Therapy Pain Assessment Pain When Pain Assessed After Treatment Pain Present Pain Present Pain Reported Location Left Knee Intensity 6 Scale Used Numeric (0 - 10) Description Sharp Pain Behaviors Wincing Pain Management Techniques Apply Cold,Modification of Treatment,Timing of Activity with Medications M4 PT-IP Mobility and Gait Start: 11/20/20 16:19 Freq: NEEDED Status: Active Protocol: Document 11/22/20 08:54 CLB (Rec: 11/22/20 11:53 CLB [id number]) PT-Bed Mobility Assessment Supine to Sit Supine to Sit Standby Assistance Sit to Supine Sit to Supine Standby Assistance PT-Transfer Assessment Sit to and From Stand Sit to and from Stand Standby Assistance,Use of Upper Extremities Equipment Transfer Assistive Device Gait Belt,Front Wheeled Walker Orthotic/Prosthetic Devices or Brace: No Transfers Transfer Destination Bed,Toilet Transfer Technique Stand Step Pivot Transfer Ability Level of Assist Standby Assistance Comments Mobility Comments Pt used cane to assist with getting LLE off and on bed. Pt stood SBA and ambulated SBA to BR. Pt able to perform sit< >stand with use of wall rail SBA. Pt then ambulated in camp ~200ft w/FWW/SBA and climbed platform step with FWW. Pt returned to bed and performed ther ex. Left pt in bed with all needs within reach and alarm on. Informed RN of pt mobility. Gait Assessment Gait Gait Assistance Required: Standby Assistance,1 Person Assist Distance (Feet) 200 Able to Maintain Weight Bearing Status Yes During Gait Assistive Devices Assistive Device Gait Belt,Front Wheeled Walker Orthotic/Prosthetic Devices or Brace: No Gait Deviations General Gait Pattern Antalgic,Decreased Stride Length,Decreased Feet Clearance Factors Limiting Gait Function Factors Limiting Gait Function Decreased Activity Tolerance, Decreased Strength,Limited Range of Motion,Pain,Poor Balance,Poor Safety Awareness Comments Gait Comments Ambulated w/FWW/SBA ~200ft with antalgic gait. Stair Climbing Assessment Evaluation Level of Assist On Stairs Standby Assistance Devices Stair Climbing Assistive Devices Front Wheel Walker Technique/Endurance Stair Climbing Direction Ascend and Descend Stair Climbing Technique Step to Step Number of Steps Climbed 1 Stair Climbing Set # Repetitions (reps) 1 Comments Stair Climbing Comments Pt able to climb one platform step SBA with FWW. M5 PT-IP Objective Assessments Start: 11/20/20 16:19 Freq: NEEDED Status: Active Protocol: Document 11/20/20 15:40 AB (Rec: 11/20/20 16:52 AB [id number]) Orientation Orientation/Cognition Level of Alertness Alert Orientation Name,Place,Situation Language Function Ability No Deficits Noted Safety Awareness Decreased Safety Awareness Gross Range of Motion Lower Extremity ROM Assessment Left Impaired Impairments L knee flexion: ~ 70 degrees Strength Lower Extremity Strength Assessment Left Impaired Knee 4-/5 Coordination Assessment Gross Coordination Gross Coordination WNL Muscle Tone Muscle Tone WNL Yes M6 PT-IP Treatment Start: 11/20/20 16:19 Freq: NEEDED Status: Active Protocol: Document 11/22/20 08:54 CLB (Rec: 11/22/20 11:53 CLB [id number]) Physical Therapy Treatment Exercises Exercises Ankle Pumps,Quad Sets,Heel Slides,Straight Leg Raises, Short Arc Quads,Passive Knee Extension Hang Education Education Provided Precautions,Weight Bearing Status,Post-Op Packet,Safety M7 PT-IP Assessment and Plan Start: 11/20/20 16:19 Freq: NEEDED Status: Active Protocol: Document 11/22/20 08:54 CLB (Rec: 11/22/20 11:53 CLB [id number]) PT Summary Assessment and Plan Potential Rehabilitation Potential Good Status of Condition at Evaluation Evolving Summary Impairments Pain,ROM,Strength,Balance, Coordination,Sensation, Cognition,Bed Mobility, Transfers,Gait,Activity Tolerance Progress Towards Goals Progressing Toward Goals Assessment Summary Pt is SBA for all mobility including gait and stair climbing. Pt with no c/o nausea today was able to improve activity tolerance. Pt will d/c home with assist of friend. Goals Bed Mobility Goal Independent Transfer Goal Independent,Front Wheeled Walker Gait Goal Independent,Front Wheel Walker Gait Distance 150 Other Goals up/down 1 step using FWW to enter the house up/down 1 step stool to get to bed Days to Meet Goals 5 Frequency of Treatment Frequency Of Treatment Twice a Day Treatment Plan Physical Therapy Treatment Plan Bed Mobility Training,Transfer Training,Gait Training, Therapeutic Exercise,Balance Retraining,Post Op Education, Discharge Planning,Hot or Cold Pack,Neuromuscular Re-ed, Coordination Retraining,Manual Therapy Recommendations To Nursing Amount of Assist Needed 1 Person Assist Discharge Recommendations PT Discharge Recommendations Home with Assistance, Outpatient PT Transportation Needs at Discharge Private Vehicle
[2020-11-22] MEDS: DOCUSATE 100 MG CAPSULE PO (09:29)
[2020-11-22] MEDS: hydroCHLOROthiazide 25 MG TABLET PO (09:29)
[2020-11-22] MEDS: LORATADINE 10 MG TABLET PO (09:29)
[2020-11-22] MEDS: lisinopriL 5 MG TABLET PO (09:29)
[2020-11-22] MEDS: estradioL 1 MG TABLET PO (09:29)
[2020-11-22] MEDS: FUROSEMIDE 20 MG TABLET PO (09:30)
[2020-11-22] MEDS: NAPROXEN 250 MG TABLET PO (09:30)
[2020-11-22] MEDS: ATORVASTATIN 20 MG TABLET 40 MG PO (09:30)
[2020-11-22] MEDS: OXYCODONE IR 5 MG TABLET PO (09:30)
[2020-11-22] MEDS: ACETAMINOPHEN 325 MG TABLET 650 MG PO (09:30)
[2020-11-22] MEDS: PANTOPRAZOLE 40 MG TABLET PO (09:30)
[2020-11-22] MEDS: SODIUM CHLORIDE 0.9% FLUSH 10 ML IV (09:31)
[2020-11-22] MEDS: ASPIRIN EC 81 MG TABLET PO (09:31)
[2020-11-22 12:30] VITALS: BP 114/66; PULSE 66; RESP 16; TEMP 36.6; O2SAT 100
--- NOTE | 2020-11-22 12:57 | PC.NURSE ---
Assess- Patient is discharging to home, her dressing to knee is cdi. She has worked with physical therapy and given pain medication. Patient had a shower and will be going home shortly.
== END 2020-11-22 13:45 | disposition home or self-care (01) ==
LOC: OR 11:47 → AC 11:47
PROVIDERS: Admitting Provider Physician Assistant Medical; PCP Student in an Organized Health Care Education/Training Program; Referring Provider Orthopaedic Surgery Adult Reconstructive Orthopaedic Surgery; Visit Provider Orthopaedic Surgery Adult Reconstructive Orthopaedic Surgery
PROC: 0SRD0JZ Replacement of Left Knee Joint with Synthetic Substitute, Open Approach (ICD-10-PCS; CPT 27447; principal; 2020-11-20 10:45)
DX: M17.12 Unilateral primary osteoarthritis, left knee (principal); R11.0 Nausea
CPT/HCPCS: 27447; 36415; 73560; 85014; 85018; 85025; 97110; 97116; 97162; 97530; C1776; G0378; J0690; J1100; J1170; J1885; J2250; J2270; J2274; J2310; J2405; J2704; J3010

== ENCOUNTER → 2020-12-03 15:32 | Outpatient (CLI) | payer MEDICARE, OTHER, SELFPAY ==
[2020-11-20 14:02] VITALS: BMI 20.5
== END ==
PROVIDERS: PCP Student in an Organized Health Care Education/Training Program; Referring Provider Physician Assistant Surgical; Visit Provider Physician Assistant Surgical
DX: Z53.9 Procedure and treatment not carried out, unspecified reason (principal)

== ENCOUNTER → 2020-12-04 15:31 | Outpatient (CLI) | payer MEDICARE, OTHER, SELFPAY ==
[2020-11-20 14:02] VITALS: BMI 20.5
--- NOTE | 2020-12-04 15:34 | DI.US.S_ITS ---
PROCEDURE: US PERIPH VENOUS LOW EXTREM LT INDICATIONS: PRIMARY OSTEOARTHRITIS LEFT KNEE TECHNIQUE: Real-time imaging, as well as color and pulse Doppler interrogation, were performed of the lower extremity deep veins from the inguinal ligament to the popliteal fossa. COMPARISON: None. FINDINGS: The common femoral, femoral and popliteal veins are normally compressible, and free of intraluminal thrombus. Color and pulse Doppler demonstrate normal phasic intraluminal flow. There is normal augmentation response to distal compression maneuver. IMPRESSION: No deep venous thrombosis identified within the left lower extremity. Dictated by: Zachary Monsalve [facility] Interpreted: Devon Galeano MD on 12/04/2020 at 16:43 Approved by: Devon Galeano M.D. on 12/04/2020 at 16:56
== END ==
PROVIDERS: PCP Student in an Organized Health Care Education/Training Program; Referring Provider Physician Assistant Surgical; Visit Provider Physician Assistant Surgical
DX: M17.12 Unilateral primary osteoarthritis, left knee (principal)
CPT/HCPCS: 93971

== ENCOUNTER → 2021-01-03 15:04 | Outpatient (CLI) | payer MEDICARE, OTHER, SELFPAY ==
[2020-11-20 14:02] VITALS: BMI 20.5
--- NOTE | 2021-01-03 15:05 | DI.RAD.S_ITS ---
PROCEDURE: XR LUMBAR SPINE MIN 4V INDICATIONS: Lumbar rasdiculopathy TECHNIQUE: 5 views of the lumbar spine were acquired, including bilateral oblique views. COMPARISON: None. FINDINGS: Bones: 5 nonrib-bearing vertebrae are present. There is normal bony alignment. No vertebral body compression fractures. No suspicious bony lesions. Moderate L2-L3 and L4-L5 degenerative disc disease. Mild L4-L5 and L5-S1 facet arthropathy. Soft tissues: Overlying bowel gas pattern is normal. No suspicious soft tissue calcifications. Oblique images: No pars defects. IMPRESSION: 1. Multilevel degenerative disease. 2. Multilevel facet arthropathy. 3. No fracture. No acute osseous lesion. If symptoms and/or clinical suspicion for pathology persists, evaluation with MRI should be considered for further assessment. Dictated by: Wendy Lee MD, PhD on 01/03/2021 at 16:22 Approved by: Wendy Lee MD, PhD on 01/03/2021 at 16:23
== END ==
PROVIDERS: PCP Student in an Organized Health Care Education/Training Program; Referring Provider Physical Medicine & Rehabilitation; Visit Provider Physical Medicine & Rehabilitation
DX: M51.16 Intervertebral disc disorders with radiculopathy, lumbar region (principal); M47.26 Other spondylosis with radiculopathy, lumbar region; M47.27 Other spondylosis with radiculopathy, lumbosacral region
CPT/HCPCS: 72110

== ENCOUNTER 2021-01-07 13:00 | Outpatient (RCR) | payer MEDICARE, OTHER, SELFPAY ==
[2020-11-20 14:02] VITALS: BMI 20.5
--- NOTE | 2020-12-04 07:27 | PT-OP ANOTE ---
PT notes that pt had US scheduled yesterday and there are no results. Pt calls pt who states that she had calf pain before and after surgery and the doctor ordered the US after her follow-up yesterday. She went for it but could not wait and so did not get it done. She was given a muscle relaxer and took it last night and her calf may feel better. She does not think it is a blood clot. She would like to come to PT eval today and will reschedule US if PT thinks is necessary. PT will see patient and will also encourage US since the doctor ordered it.
--- NOTE | 2020-12-04 15:35 | PT.OIE ---
Current Diagnoses Unilateral primary osteoarthritis, left knee (12/04/20) Past Medical History (Last Reviewed 11/21/20 @ 10:45 by Mervin Ruby PA-C) Bursitis Cervical spondylosis with radiculopathy Cervical stenosis of spinal canal Chicken pox DDD (degenerative disc disease), cervical DJD (degenerative joint disease) of knee Endometriosis (~1979) Esophagitis Fibromyalgia GERD (gastroesophageal reflux disease) Greater trochanteric bursitis Headache, migraine Hearing loss Herniated nucleus pulposus, L4-5 Hypertension Internal derangement of left knee Irritable bowel syndrome Leg edema Measles MGUS (monoclonal gammopathy of unknown significance) Osteoarthritis Osteoporosis Primary osteoarthritis of left knee Rosacea Sacral back pain Shoulder pain, right Sjogren's syndrome Spinal stenosis Tendinitis Tortuous colon Vision disorder Past Surgical History (Last Reviewed 11/21/20 @ 10:45 by Mervin Ruby PA-C) Anesthesia History of elbow surgery History of repair of right rotator cuff History of tonsillectomy S/P epidural steroid injection Status post appendectomy Status post hysterectomy Visit Care Team Role Provider Type Fawad Delgadillo MD Primary Care Provider Physician Specialty: Internal Medicine Address: [address] [place] [address], [address], [address] Email: [email or web address] Saad Lopez MD Attending Provider Physician Referring Provider Specialty: Orthopedic Surgery Address: [address] [place] [address], [id number] Email: [email or web address] Physical Therapy Initial Evaluation PT-OP-A Visit Information Start: 12/02/20 08:56 Freq: Status: Active Protocol: Document 12/04/20 12:16 MB (Rec: 12/04/20 12:32 MB [id number]) Out-Patient Physical Therapy Visit Information Visit Information Visit Type Initial Evaluation Visit Note Medicare Visit Start Time 12:16 Visit Stop Time 13:00 Total Visit Minutes 44 Visit Number 1 Evaluation Information Evaluation Date 12/04/20 Precautions Precautions Easy bruising, fibromyaglia and stenosis and pt is very concerned about not flaring up her right piriformis and sciatica syndrome, right shoulder limitations d/t rotator cuff damage, pt taking a lot of NSAIDs a day PT-OP-B Current Condition Start: 12/02/20 08:56 Freq: Status: Active Protocol: Document 12/04/20 12:16 MB (Rec: 12/04/20 12:32 MB [id number]) Current Condition History of Current Condition Onset Date 11/20/20 Current Complaints L knee pain and multi-joint pain, imbalance History of Current Condition Pt is s/p left TKR 11/20/20. Pt has a history of imbalance, stenosis, fibromyalgia, left calf discomfort. She was ordered to have LE US and went for it yesterday and did not want to wait for it. She did not get it. She states that she will follow-up about getting the doppler. Pt reports neuropathy in her feet , OP. Pt reports 4/10 posterior neck pain, 6/10 right scapular pain, 6/10 LBP and 6/10 lateral right pain. Pt reports history of sciatica right leg and she does not want to exacerbate it, 7/10 left anterior and posterior knee pain. Pt taking a lot of NSAIDs and has trouble with opioids. She has a torturous bowel. She is taking a muscle relaxer before bed. Treatment Goals Patient/Caregiver Goals To decrease pain and improve walking PT-OP-C Subjective Start: 12/02/20 08:56 Freq: Status: Active Protocol: Document 12/04/20 12:16 MB (Rec: 12/04/20 12:32 MB [id number]) OP-PT Subjective Patient Comments Patient Comments See history of current complaints PT-OP-D Balance Start: 12/02/20 08:56 Freq: Status: Active Protocol: Document 12/04/20 12:16 MB (Rec: 12/04/20 15:35 MB [id number]) OP-PT Balance Assessment Sitting Balance Static Sitting Balance Ability Good Dynamic Sitting Balance Ability Good Standing Balance Static Standing Balance Ability Good Dynamic Standing Balance Ability Fair Standing Balance Comments Pt cannot tolerate further balance testing today Matthew Fall Scale Copyright Permission PT-OP-G Mobility & Gait Start: 12/02/20 08:56 Freq: Status: Active Protocol: Document 12/04/20 12:16 MB (Rec: 12/04/20 15:35 MB [id number]) OP Gait Assessment Gait Gait Assistance Required: Independent Distance (Feet) 75 Able to Maintain Weight Bearing Status No During Gait Assistive Devices Assistive Device None Orthotic/Prosthetic Devices or Brace: No Gait Deviations General Gait Pattern Antalgic,Decreased Stride Length,Flexed Trunk,Narrow Based Gait Factors Limiting Gait Function Factors Limiting Gait Function Decreased Strength,Pain,Poor Balance Comments Gait Comments Increased left knee flexion with gait, slow ruddy, narrow NARCISO. Pt holds herself gingerly in that she had pain in many areas of her body PT-OP-J Posture/Palpation/Skin Start: 12/02/20 08:56 Freq: Status: Active Protocol: Document 12/04/20 12:16 MB (Rec: 12/04/20 15:35 MB [id number]) Posture Evaluation Comments Posture Comments Socks and no shoes: Narrow NARCISO , rounded shoulders, right shoulder higher than the left, right thoracic convexity, increased thoracic kyphosis, left iliac crest mildly higher than the right, right knee valgus > left, left foot overpronation, left AC joint is 1/2 in front of left tragus. Pt wears hearing aides . Edema left calf, lateral malleolus, distal LE. Pt reports history of hyperextension and can hyperextend her wrists. Pt has TKR incision left knee with steri strips intact and not a lot of bruising noted. Skin Assessment Incisional Assessment Incision Appearance/Comments Steri strips intact over left total knee Other Assessments Skin Assessment Comments Edema distal left LE PT-OP-K Range of Motion Start: 12/02/20 08:56 Freq: Status: Active Protocol: Document 12/04/20 12:16 MB (Rec: 12/04/20 15:35 MB [id number]) Knee Goniometric Range of Motion Knee Left Patient Position Supine Flexion Active (degrees) 110 Extension Active (degrees) 9 Right Patient Position Supine Flexion Active (degrees) 125 Extension Active (degrees) 0 Ankle and Foot Goniometric Range of Motion Ankle and Foot ROM Limitations Comments Pt has edema and coolness to LLE and edema is great at lateral malleolus and this limits comfortable AROM ankle. Pt also reports calf tenderness with SLR. PT-OP-M Strength Start: 12/02/20 08:56 Freq: Status: Active Protocol: Document 12/04/20 12:16 MB (Rec: 12/04/20 15:35 MB [id number]) Hip Strength Hip Manual Muscle Testing Left Flexion (L2) 3- Fair- Abduction 3 Fair Right Comments Pt defers right hip and knee MMT d/t fear that her right sciatica may flare up Knee Strength Knee Manual Muscle Testing Left Flexion (S2) 3+ Fair+ Extension (L3) 4 Good Right Comments Pt defers right hip and knee MMT d/t fear that her right sciatica may flare up Ankle/Foot Strength Ankle and Foot Manual Muscle Testing Left Dorsiflexion (L4) 5 Normal Inversion 4 Good Eversion (S1) 4 Good Right Dorsiflexion (L4) 4 Good Inversion 4 Good Eversion (S1) 4 Good Toe Strength Toe Manual Muscle Testing Left Great Toe Extension 5 Normal Right Great Toe Extension 4 Good PT-OP-Q Treatments Start: 12/02/20 08:56 Freq: Status: Active Protocol: Document 12/04/20 12:16 MB (Rec: 12/04/20 15:35 MB [id number]) Therapeutic Exercises Supine Exercises AP, HS, QS, SAQ, LAQ, sitting HS, leg dangle Side left Comments Pt demonstrates supine exercises and PT verbally reviews others, has handou Self-Care/Home Management Treatment Education Other Education Use of Tubagrip, need to go ahead and get LLE US done per doctor order, ice and heat, elevation, benefits of AD, don 't pull steri strips off PT-OP-T Assessment and Plan Start: 12/02/20 08:56 Freq: Status: Active Protocol: Document 12/04/20 12:16 MB (Rec: 12/04/20 15:35 MB [id number]) Physical Therapy Assessment Rehab Potential Rehabilitation Potential Good Evaluation Complexity Number of Personal Factors/Comorbidities 1-2 Number of Body Systems Impaired 1-2 Clinical Presentation at Evaluation Evolving Impairments Impairments Activity Tolerance,Balance, Edema,Gait,Integument,Pain, Posture,ROM,Sensation,Soft Tissue Mobility,Strength, Vestibular Other Impairments Personal factors include pt lives at home alone and has some friend support only, multiple areas of pain and fear of provoking old right sciatic symptoms. Body systems affected include musculoskeletal, metabolic and vestibular (history imbalance and hearing loss). Other Concerns Fall Risk Yes Goals 4 Fdc Goal (LTG) Pt will gait train 1500 feet without AD in 6 minutes to improve community ambulation by 02/01/21. LTG Duration 8 weeks 3 Fdc Goal (LTG) Pt will perform reciprocal gait for 4 steps with use of rail to improve community ambulation by 02/01/21. LTG Duration 8 weeks 2 Air Plant Engineer Goal (LTG) Pt will perform progressive HEP with I including ROM, flexibility, strengthening, gait and balance exercises to improve strength and I by 02/01. LTG Duration 8 weeks 1 Air Plant Engineer Goal (LTG) Pt will present with improved AROM left knee 0-125 deg to improve functional range for sit to stands and gait by 02/01. LTG Duration 8 weeks Assessment Summary Assessment Pt is a 70 y/o female presenting s/p left TKR . Pt has a recent history of imbalance and referral to PT from ENT. She has a history of multi-joint pain, OP, fibromyalgia, right sciatica and stenosis. Pt is fearful of reproducing any right-sided pain with PT and so PT will keep this in mind during PT course and adjust treatment as needed. Her AROM left knee is pretty good today as far as first PT visit post-op: 9-110 deg. Pt will benefit from PT to improve ROM, strength, balance and gait. Barriers include multiple areas of pain and resulting self-limiting responses. Physical Therapy Plan Frequency and Duration Frequency of Treatment 2x/Week Duration of Treatment 8 weeks Plan of Care Start Date 12/04/20 Plan of Care End Date 02/03/21 Therapeutic Interventions Therapeutic Interventions Aquatic Therapy,Balance Training,Canalithic Repositioning,Gait Training, Home Exercise Program,Joint Mobilizations,Manual Therapy, Neuromuscular Re-education, Patient/Caregiver Education, Self-Care/Home Management,Soft Tissue Mobilization,Taping, Therapeutic Activities, Therapeutic Exercises Modalities Cold Pack/Ice Massage,Electric Stimulation,Hot Packs, Ultrasound Next Visit Focus/Plan Next Note Type Treatment Note Next Visit Plan Initiate stepper or bike, further exercises and consider Counterstrain
--- NOTE | 2020-12-04 15:35 | PT.OPPOC ---
Addendum entered and electronically signed by Nimo Blanco PT 12/04/20 15:35: Send to Dr. Lopez Original Note: Physical, Occupational & Speech Therapy At [facility] Current Diagnoses Unilateral primary osteoarthritis, left knee (12/04/20) Visit Care Team Role Provider Type Fawad Delgadillo MD Primary Care Provider Physician Specialty: Internal Medicine Address: [address] [place] [address], [address], [address] Email: [email or web address] Saad Lopez MD Attending Provider Physician Referring Provider Specialty: Orthopedic Surgery Address: [address] [place] [address], [id number] Email: [email or web address] Plan Of Care PT-OP-T Assessment and Plan Start: 12/02/20 08:56 Freq: Status: Active Protocol: Document 12/04/20 12:16 MB (Rec: 12/04/20 15:35 MB [id number]) Physical Therapy Assessment Rehab Potential Rehabilitation Potential Good Evaluation Complexity Number of Personal Factors/Comorbidities 1-2 Number of Body Systems Impaired 1-2 Clinical Presentation at Evaluation Evolving Impairments Impairments Activity Tolerance,Balance, Edema,Gait,Integument,Pain, Posture,ROM,Sensation,Soft Tissue Mobility,Strength, Vestibular Other Impairments Personal factors include pt lives at home alone and has some friend support only, multiple areas of pain and fear of provoking old right sciatic symptoms. Body systems affected include musculoskeletal, metabolic and vestibular (history imbalance and hearing loss). Other Concerns Fall Risk Yes Goals 4 Alf Goal (LTG) Pt will gait train 1500 feet without AD in 6 minutes to improve community ambulation by 02/01/21. LTG Duration 8 weeks 3 Wash Box Operator Goal (LTG) Pt will perform reciprocal gait for 4 steps with use of rail to improve community ambulation by 02/01/21. LTG Duration 8 weeks 2 Alf Goal (LTG) Pt will perform progressive HEP with I including ROM, flexibility, strengthening, gait and balance exercises to improve strength and I by 02/01. LTG Duration 8 weeks 1 Wash Box Operator Goal (LTG) Pt will present with improved AROM left knee 0-125 deg to improve functional range for sit to stands and gait by 02/01. LTG Duration 8 weeks Assessment Summary Assessment Pt is a 70 y/o female presenting s/p left TKR . Pt has a recent history of imbalance and referral to PT from ENT. She has a history of multi-joint pain, OP, fibromyalgia, right sciatica and stenosis. Pt is fearful of reproducing any right-sided pain with PT and so PT will keep this in mind during PT course and adjust treatment as needed. Her AROM left knee is pretty good today as far as first PT visit post-op: 9-110 deg. Pt will benefit from PT to improve ROM, strength, balance and gait. Barriers include multiple areas of pain and resulting self-limiting responses. Physical Therapy Plan Frequency and Duration Frequency of Treatment 2x/Week Duration of Treatment 8 weeks Plan of Care Start Date 12/04/20 Plan of Care End Date 02/03/21 Therapeutic Interventions Therapeutic Interventions Aquatic Therapy,Balance Training,Canalithic Repositioning,Gait Training, Home Exercise Program,Joint Mobilizations,Manual Therapy, Neuromuscular Re-education, Patient/Caregiver Education, Self-Care/Home Management,Soft Tissue Mobilization,Taping, Therapeutic Activities, Therapeutic Exercises Modalities Cold Pack/Ice Massage,Electric Stimulation,Hot Packs, Ultrasound Next Visit Focus/Plan Next Note Type Treatment Note Next Visit Plan Initiate stepper or bike, further exercises and consider Counterstrain Plan of Care Dates Plan of Care Start Date 12/04/20 Plan of Care End Date 02/03/21 Electronically Signed by: Nimo Blanco PT 12/04/20 [id number] Please Sign and Return: I have reviewed this Plan of Care and certify that the skilled therapy services above are required to meet the patient?s needs. Physician Signature Date Printed Name and Credentials Clinical Instructor Signature Printed Name and Credentials
--- NOTE | 2020-12-17 14:00 | PT.OTN ---
Current Diagnoses Unilateral primary osteoarthritis, left knee (12/17/20) Physical Therapy Treatment Note PT-OP-A Visit Information Start: 12/02/20 08:56 Freq: Status: Active Protocol: Document 12/17/20 12:58 MB (Rec: 12/17/20 13:59 MB [id number]) Out-Patient Physical Therapy Visit Information Visit Information Visit Type Treatment Note Visit Note Medicare Visit Start Time 12:58 Visit Stop Time 13:55 Total Visit Minutes 57 Visit Number 2 Precautions Precautions Easy bruising, fibromyaglia and stenosis and pt is very concerned about not flaring up her right piriformis and sciatica syndrome, right shoulder limitations d/t rotator cuff damage, pt taking a lot of NSAIDs a day PT-OP-B Current Condition Start: 12/02/20 08:56 Freq: Status: Active Protocol: Document 12/04/20 12:16 MB (Rec: 12/04/20 12:32 MB [id number]) Current Condition History of Current Condition Onset Date 11/20/20 Current Complaints L knee pain and multi-joint pain, imbalance History of Current Condition Pt is s/p left TKR 11/20/20. Pt has a history of imbalance, stenosis, fibromyalgia, left calf discomfort. She was ordered to have LE US and went for it yesterday and did not want to wait for it. She did not get it. She states that she will follow-up about getting the doppler. Pt reports neuropathy in her feet , OP. Pt reports 4/10 posterior neck pain, 6/10 right scapular pain, 6/10 LBP and 6/10 lateral right pain. Pt reports history of sciatica right leg and she does not want to exacerbate it, 7/10 left anterior and posterior knee pain. Pt taking a lot of NSAIDs and has trouble with opioids. She has a torturous bowel. She is taking a muscle relaxer before bed. Treatment Goals Patient/Caregiver Goals To decrease pain and improve walking PT-OP-C Subjective Start: 12/02/20 08:56 Freq: Status: Active Protocol: Document 12/17/20 12:58 MB (Rec: 12/17/20 13:59 MB [id number]) OP-PT Subjective Patient Comments Patient Comments Pt states that her left knee keeps her up at night. Her left foot is still swelling. She is wearing knee high compression hose. Her left knee is swollen. Pt states that her left calf is tight and hurts and occ spasms. PT-OP-D Balance Start: 12/02/20 08:56 Freq: Status: Active Protocol: Document 12/04/20 12:16 MB (Rec: 12/04/20 15:35 MB [id number]) OP-PT Balance Assessment Sitting Balance Static Sitting Balance Ability Good Dynamic Sitting Balance Ability Good Standing Balance Static Standing Balance Ability Good Dynamic Standing Balance Ability Fair Standing Balance Comments Pt cannot tolerate further balance testing today Matthew Fall Scale Copyright Permission PT-OP-G Mobility & Gait Start: 12/02/20 08:56 Freq: Status: Active Protocol: Document 12/04/20 12:16 MB (Rec: 12/04/20 15:35 MB [id number]) OP Gait Assessment Gait Gait Assistance Required: Independent Distance (Feet) 75 Able to Maintain Weight Bearing Status No During Gait Assistive Devices Assistive Device None Orthotic/Prosthetic Devices or Brace: No Gait Deviations General Gait Pattern Antalgic,Decreased Stride Length,Flexed Trunk,Narrow Based Gait Factors Limiting Gait Function Factors Limiting Gait Function Decreased Strength,Pain,Poor Balance Comments Gait Comments Increased left knee flexion with gait, slow ruddy, narrow NARCISO. Pt holds herself gingerly in that she had pain in many areas of her body PT-OP-J Posture/Palpation/Skin Start: 12/02/20 08:56 Freq: Status: Active Protocol: Document 12/04/20 12:16 MB (Rec: 12/04/20 15:35 MB [id number]) Posture Evaluation Comments Posture Comments Socks and no shoes: Narrow NARCISO , rounded shoulders, right shoulder higher than the left, right thoracic convexity, increased thoracic kyphosis, left iliac crest mildly higher than the right, right knee valgus > left, left foot overpronation, left AC joint is 1/2 in front of left tragus. Pt wears hearing aides . Edema left calf, lateral malleolus, distal LE. Pt reports history of hyperextension and can hyperextend her wrists. Pt has TKR incision left knee with steri strips intact and not a lot of bruising noted. Skin Assessment Incisional Assessment Incision Appearance/Comments Steri strips intact over left total knee Other Assessments Skin Assessment Comments Edema distal left LE PT-OP-K Range of Motion Start: 12/02/20 08:56 Freq: Status: Active Protocol: Document 12/04/20 12:16 MB (Rec: 12/04/20 15:35 MB [id number]) Knee Goniometric Range of Motion Knee Left Patient Position Supine Flexion Active (degrees) 110 Extension Active (degrees) 9 Right Patient Position Supine Flexion Active (degrees) 125 Extension Active (degrees) 0 Ankle and Foot Goniometric Range of Motion Ankle and Foot ROM Limitations Comments Pt has edema and coolness to LLE and edema is great at lateral malleolus and this limits comfortable AROM ankle. Pt also reports calf tenderness with SLR. PT-OP-M Strength Start: 12/02/20 08:56 Freq: Status: Active Protocol: Document 12/04/20 12:16 MB (Rec: 12/04/20 15:35 MB [id number]) Hip Strength Hip Manual Muscle Testing Left Flexion (L2) 3- Fair- Abduction 3 Fair Right Comments Pt defers right hip and knee MMT d/t fear that her right sciatica may flare up Knee Strength Knee Manual Muscle Testing Left Flexion (S2) 3+ Fair+ Extension (L3) 4 Good Right Comments Pt defers right hip and knee MMT d/t fear that her right sciatica may flare up Ankle/Foot Strength Ankle and Foot Manual Muscle Testing Left Dorsiflexion (L4) 5 Normal Inversion 4 Good Eversion (S1) 4 Good Right Dorsiflexion (L4) 4 Good Inversion 4 Good Eversion (S1) 4 Good Toe Strength Toe Manual Muscle Testing Left Great Toe Extension 5 Normal Right Great Toe Extension 4 Good PT-OP-Q Treatments Start: 12/02/20 08:56 Freq: Status: Active Protocol: Document 12/17/20 12:58 MB (Rec: 12/17/20 13:59 MB [id number]) Manual Therapy Treatment Other Other Manual Treatments Pt agrees to Counterstrain to assess and treat fascial tension. Pt presents with tension in the following fascial systems: standard row lymphatic venous, lymphatic spinal medullary, right ALL, LF, distal viscera. PT treats stacks in the lymphatic venous system and she tolerates well . Pt scans PLAN 1 left LE and followed standard chain up the body after treated spinal medullary. Pt reports improved pain after treatment. PT-OP-T Assessment and Plan Start: 12/02/20 08:56 Freq: Status: Active Protocol: Document 03/09/21 12:58 MB (Rec: 12/17/20 13:59 MB [id number]) Physical Therapy Assessment Rehab Potential Rehabilitation Potential Good Evaluation Complexity Number of Personal Factors/Comorbidities 1-2 Number of Body Systems Impaired 1-2 Clinical Presentation at Evaluation Evolving Impairments Impairments Activity Tolerance,Balance, Edema,Gait,Integument,Pain, Posture,ROM,Sensation,Soft Tissue Mobility,Strength, Vestibular Other Impairments Personal factors include pt lives at home alone and has some friend support only, multiple areas of pain and fear of provoking old right sciatic symptoms. Body systems affected include musculoskeletal, metabolic and vestibular (history imbalance and hearing loss). Other Concerns Fall Risk Yes Goals 4 Barrel Rifler Broach Goal (LTG) Pt will gait train 1500 feet without AD in 6 minutes to improve community ambulation by 02/01/21. LTG Duration 8 weeks 3 Barrel Rifler Broach Goal (LTG) Pt will perform reciprocal gait for 4 steps with use of rail to improve community ambulation by 02/01/21. LTG Duration 8 weeks 2 Chcf Goal (LTG) Pt will perform progressive HEP with I including ROM, flexibility, strengthening, gait and balance exercises to improve strength and I by 02/01. LTG Duration 8 weeks 1 Chcf Goal (LTG) Pt will present with improved AROM left knee 0-125 deg to improve functional range for sit to stands and gait by 02/01. LTG Duration 8 weeks Assessment Summary Assessment Doppler LLE was negative for DVT. Pt only tried big Tubagrip and did not try the smaller one. Ed her to try it. PT ed pt to not wear knee high compression hose. Edema is a problem. Counterstrain for the lymphatic venous system today. Will monitor response. Physical Therapy Plan Frequency and Duration Frequency of Treatment 2x/Week Duration of Treatment 8 weeks Plan of Care Start Date 12/04/20 Plan of Care End Date 02/03/21 Therapeutic Interventions Therapeutic Interventions Aquatic Therapy,Balance Training,Canalithic Repositioning,Gait Training, Home Exercise Program,Joint Mobilizations,Manual Therapy, Neuromuscular Re-education, Patient/Caregiver Education, Self-Care/Home Management,Soft Tissue Mobilization,Taping, Therapeutic Activities, Therapeutic Exercises Modalities Cold Pack/Ice Massage,Electric Stimulation,Hot Packs, Ultrasound Next Visit Focus/Plan Next Note Type Treatment Note Next Visit Plan Initiate recumbent stepper or bike, further exercises and consider further Counterstrain
--- NOTE | 2020-12-19 13:47 | PT.OTN ---
Current Diagnoses Unilateral primary osteoarthritis, left knee (12/19/20) Physical Therapy Treatment Note PT-OP-A Visit Information Start: 12/02/20 08:56 Freq: Status: Active Protocol: Document 12/19/20 13:05 MB (Rec: 12/19/20 13:29 MB [id number]) Out-Patient Physical Therapy Visit Information Visit Information Visit Type Treatment Note Visit Note Medicare Visit Start Time 13:05 Visit Stop Time 13:45 Total Visit Minutes 40 Visit Number 3 Precautions Precautions Easy bruising, fibromyaglia and stenosis and pt is very concerned about not flaring up her right piriformis and sciatica syndrome, right shoulder limitations d/t rotator cuff damage, pt taking a lot of NSAIDs a day PT-OP-B Current Condition Start: 12/02/20 08:56 Freq: Status: Active Protocol: Document 12/04/20 12:16 MB (Rec: 12/04/20 12:32 MB [id number]) Current Condition History of Current Condition Onset Date 11/20/20 Current Complaints L knee pain and multi-joint pain, imbalance History of Current Condition Pt is s/p left TKR 11/20/20. Pt has a history of imbalance, stenosis, fibromyalgia, left calf discomfort. She was ordered to have LE US and went for it yesterday and did not want to wait for it. She did not get it. She states that she will follow-up about getting the doppler. Pt reports neuropathy in her feet , OP. Pt reports 4/10 posterior neck pain, 6/10 right scapular pain, 6/10 LBP and 6/10 lateral right pain. Pt reports history of sciatica right leg and she does not want to exacerbate it, 7/10 left anterior and posterior knee pain. Pt taking a lot of NSAIDs and has trouble with opioids. She has a torturous bowel. She is taking a muscle relaxer before bed. Treatment Goals Patient/Caregiver Goals To decrease pain and improve walking PT-OP-C Subjective Start: 12/02/20 08:56 Freq: Status: Active Protocol: Document 12/19/20 13:05 MB (Rec: 12/19/20 13:29 MB [id number]) OP-PT Subjective Patient Comments Patient Comments It helped for a little while. Pt reports that Counterstrain was helpful and her left ankle edema is not improved though the Tubagrip helps her left knee. PT-OP-D Balance Start: 12/02/20 08:56 Freq: Status: Active Protocol: Document 12/04/20 12:16 MB (Rec: 12/04/20 15:35 MB [id number]) OP-PT Balance Assessment Sitting Balance Static Sitting Balance Ability Good Dynamic Sitting Balance Ability Good Standing Balance Static Standing Balance Ability Good Dynamic Standing Balance Ability Fair Standing Balance Comments Pt cannot tolerate further balance testing today Matthew Fall Scale Copyright Permission PT-OP-G Mobility & Gait Start: 12/02/20 08:56 Freq: Status: Active Protocol: Document 12/04/20 12:16 MB (Rec: 12/04/20 15:35 MB [id number]) OP Gait Assessment Gait Gait Assistance Required: Independent Distance (Feet) 75 Able to Maintain Weight Bearing Status No During Gait Assistive Devices Assistive Device None Orthotic/Prosthetic Devices or Brace: No Gait Deviations General Gait Pattern Antalgic,Decreased Stride Length,Flexed Trunk,Narrow Based Gait Factors Limiting Gait Function Factors Limiting Gait Function Decreased Strength,Pain,Poor Balance Comments Gait Comments Increased left knee flexion with gait, slow ruddy, narrow NARCISO. Pt holds herself gingerly in that she had pain in many areas of her body PT-OP-J Posture/Palpation/Skin Start: 12/02/20 08:56 Freq: Status: Active Protocol: Document 12/04/20 12:16 MB (Rec: 12/04/20 15:35 MB [id number]) Posture Evaluation Comments Posture Comments Socks and no shoes: Narrow NARCISO , rounded shoulders, right shoulder higher than the left, right thoracic convexity, increased thoracic kyphosis, left iliac crest mildly higher than the right, right knee valgus > left, left foot overpronation, left AC joint is 1/2 in front of left tragus. Pt wears hearing aides . Edema left calf, lateral malleolus, distal LE. Pt reports history of hyperextension and can hyperextend her wrists. Pt has TKR incision left knee with steri strips intact and not a lot of bruising noted. Skin Assessment Incisional Assessment Incision Appearance/Comments Steri strips intact over left total knee Other Assessments Skin Assessment Comments Edema distal left LE PT-OP-K Range of Motion Start: 12/02/20 08:56 Freq: Status: Active Protocol: Document 12/04/20 12:16 MB (Rec: 12/04/20 15:35 MB [id number]) Knee Goniometric Range of Motion Knee Left Patient Position Supine Flexion Active (degrees) 110 Extension Active (degrees) 9 Right Patient Position Supine Flexion Active (degrees) 125 Extension Active (degrees) 0 Ankle and Foot Goniometric Range of Motion Ankle and Foot ROM Limitations Comments Pt has edema and coolness to LLE and edema is great at lateral malleolus and this limits comfortable AROM ankle. Pt also reports calf tenderness with SLR. PT-OP-M Strength Start: 12/02/20 08:56 Freq: Status: Active Protocol: Document 12/04/20 12:16 MB (Rec: 12/04/20 15:35 MB [id number]) Hip Strength Hip Manual Muscle Testing Left Flexion (L2) 3- Fair- Abduction 3 Fair Right Comments Pt defers right hip and knee MMT d/t fear that her right sciatica may flare up Knee Strength Knee Manual Muscle Testing Left Flexion (S2) 3+ Fair+ Extension (L3) 4 Good Right Comments Pt defers right hip and knee MMT d/t fear that her right sciatica may flare up Ankle/Foot Strength Ankle and Foot Manual Muscle Testing Left Dorsiflexion (L4) 5 Normal Inversion 4 Good Eversion (S1) 4 Good Right Dorsiflexion (L4) 4 Good Inversion 4 Good Eversion (S1) 4 Good Toe Strength Toe Manual Muscle Testing Left Great Toe Extension 5 Normal Right Great Toe Extension 4 Good PT-OP-Q Treatments Start: 12/02/20 08:56 Freq: Status: Active Protocol: Document 12/19/20 13:05 MB (Rec: 12/19/20 13:29 MB [id number]) Therapeutic Exercises Sitting Exercises AAROM left knee flexion Comments See range findings today Manual Therapy Treatment Other Other Manual Treatments Lavage left foot to ankle, calf, knee and thigh to help with swelling Self-Care/Home Management Treatment Education Other Education PT measures pt for compression hose 42 cm left thigh, 32 cm left calf and 21 cm left ankle : Pt presents with globalized LLE edema, worse in the foot and greater today than previous treatment date. Pt presents with coolness left LE compared to the right. Ed pt to not get more than 20-25 mmHg today, benefits of thigh high compression and closed toe. Keep compression no more than those numbers d/t problems with her hands PT-OP-T Assessment and Plan Start: 12/02/20 08:56 Freq: Status: Active Protocol: Document 12/19/20 13:05 MB (Rec: 12/19/20 13:29 MB [id number]) Physical Therapy Assessment Rehab Potential Rehabilitation Potential Good Evaluation Complexity Number of Personal Factors/Comorbidities 1-2 Number of Body Systems Impaired 1-2 Clinical Presentation at Evaluation Evolving Impairments Impairments Activity Tolerance,Balance, Edema,Gait,Integument,Pain, Posture,ROM,Sensation,Soft Tissue Mobility,Strength, Vestibular Other Impairments Personal factors include pt lives at home alone and has some friend support only, multiple areas of pain and fear of provoking old right sciatic symptoms. Body systems affected include musculoskeletal, metabolic and vestibular (history imbalance and hearing loss). Other Concerns Fall Risk Yes Goals 4 Acquisition Advisor Goal (LTG) Pt will gait train 1500 feet without AD in 6 minutes to improve community ambulation by 02/01/21. LTG Duration 8 weeks 3 Acquisition Advisor Goal (LTG) Pt will perform reciprocal gait for 4 steps with use of rail to improve community ambulation by 02/01/21. LTG Duration 8 weeks 2 Acquisition Advisor Goal (LTG) Pt will perform progressive HEP with I including ROM, flexibility, strengthening, gait and balance exercises to improve strength and I by 02/01. LTG Duration 8 weeks 1 Prison Goal (LTG) Pt will present with improved AROM left knee 0-125 deg to improve functional range for sit to stands and gait by 02/01. 12/19/20: Sitting AAROM left knee flexion to 111 deg LTG Duration 8 weeks Assessment Summary Assessment Pt con't with edema and coolness in left LE and she will call Dr. Delgadillo's and ortho office. Lavage today to assist and re-ed on compression hose. Con't to monitor. Physical Therapy Plan Frequency and Duration Frequency of Treatment 2x/Week Duration of Treatment 8 weeks Plan of Care Start Date 12/04/20 Plan of Care End Date 02/03/21 Therapeutic Interventions Therapeutic Interventions Aquatic Therapy,Balance Training,Canalithic Repositioning,Gait Training, Home Exercise Program,Joint Mobilizations,Manual Therapy, Neuromuscular Re-education, Patient/Caregiver Education, Self-Care/Home Management,Soft Tissue Mobilization,Taping, Therapeutic Activities, Therapeutic Exercises Modalities Cold Pack/Ice Massage,Electric Stimulation,Hot Packs, Ultrasound Next Visit Focus/Plan Next Note Type Treatment Note Next Visit Plan Initiate recumbent stepper or bike, further exercises and consider further Counterstrain
--- NOTE | 2020-12-24 13:54 | PT.OTN ---
Current Diagnoses Unilateral primary osteoarthritis, left knee (12/24/20) Physical Therapy Treatment Note PT-OP-A Visit Information Start: 12/02/20 08:56 Freq: Status: Active Protocol: Document 12/24/20 13:02 MB (Rec: 12/24/20 13:14 MB [id number]) Out-Patient Physical Therapy Visit Information Visit Information Visit Type Treatment Note Visit Note Medicare Visit Start Time 13:02 Visit Stop Time 13:45 Total Visit Minutes 43 Visit Number 4 Precautions Precautions Easy bruising, fibromyaglia and stenosis and pt is very concerned about not flaring up her right piriformis and sciatica syndrome, right shoulder limitations d/t rotator cuff damage, pt taking a lot of NSAIDs a day PT-OP-B Current Condition Start: 12/02/20 08:56 Freq: Status: Active Protocol: Document 12/04/20 12:16 MB (Rec: 12/04/20 12:32 MB [id number]) Current Condition History of Current Condition Onset Date 11/20/20 Current Complaints L knee pain and multi-joint pain, imbalance History of Current Condition Pt is s/p left TKR 11/20/20. Pt has a history of imbalance, stenosis, fibromyalgia, left calf discomfort. She was ordered to have LE US and went for it yesterday and did not want to wait for it. She did not get it. She states that she will follow-up about getting the doppler. Pt reports neuropathy in her feet , OP. Pt reports 4/10 posterior neck pain, 6/10 right scapular pain, 6/10 LBP and 6/10 lateral right pain. Pt reports history of sciatica right leg and she does not want to exacerbate it, 7/10 left anterior and posterior knee pain. Pt taking a lot of NSAIDs and has trouble with opioids. She has a torturous bowel. She is taking a muscle relaxer before bed. Treatment Goals Patient/Caregiver Goals To decrease pain and improve walking PT-OP-C Subjective Start: 12/02/20 08:56 Freq: Status: Active Protocol: Document 12/24/20 13:02 MB (Rec: 12/24/20 13:14 MB [id number]) OP-PT Subjective Patient Comments Patient Comments Better. Pt states that she returned to Dr. Delgadillo and he told her that the anesthesia and medications may have messed up her GI system. She stopped ibuprofen and muscle relaxor and several other prescriptions and supplements. Her pain was worse last night . PT-OP-D Balance Start: 12/02/20 08:56 Freq: Status: Active Protocol: Document 12/04/20 12:16 MB (Rec: 12/04/20 15:35 MB [id number]) OP-PT Balance Assessment Sitting Balance Static Sitting Balance Ability Good Dynamic Sitting Balance Ability Good Standing Balance Static Standing Balance Ability Good Dynamic Standing Balance Ability Fair Standing Balance Comments Pt cannot tolerate further balance testing today Matthew Fall Scale Copyright Permission PT-OP-G Mobility & Gait Start: 12/02/20 08:56 Freq: Status: Active Protocol: Document 12/04/20 12:16 MB (Rec: 12/04/20 15:35 MB [id number]) OP Gait Assessment Gait Gait Assistance Required: Independent Distance (Feet) 75 Able to Maintain Weight Bearing Status No During Gait Assistive Devices Assistive Device None Orthotic/Prosthetic Devices or Brace: No Gait Deviations General Gait Pattern Antalgic,Decreased Stride Length,Flexed Trunk,Narrow Based Gait Factors Limiting Gait Function Factors Limiting Gait Function Decreased Strength,Pain,Poor Balance Comments Gait Comments Increased left knee flexion with gait, slow ruddy, narrow NARCISO. Pt holds herself gingerly in that she had pain in many areas of her body PT-OP-J Posture/Palpation/Skin Start: 12/02/20 08:56 Freq: Status: Active Protocol: Document 12/04/20 12:16 MB (Rec: 12/04/20 15:35 MB [id number]) Posture Evaluation Comments Posture Comments Socks and no shoes: Narrow NARCISO , rounded shoulders, right shoulder higher than the left, right thoracic convexity, increased thoracic kyphosis, left iliac crest mildly higher than the right, right knee valgus > left, left foot overpronation, left AC joint is 1/2 in front of left tragus. Pt wears hearing aides . Edema left calf, lateral malleolus, distal LE. Pt reports history of hyperextension and can hyperextend her wrists. Pt has TKR incision left knee with steri strips intact and not a lot of bruising noted. Skin Assessment Incisional Assessment Incision Appearance/Comments Steri strips intact over left total knee Other Assessments Skin Assessment Comments Edema distal left LE PT-OP-K Range of Motion Start: 12/02/20 08:56 Freq: Status: Active Protocol: Document 12/04/20 12:16 MB (Rec: 12/04/20 15:35 MB [id number]) Knee Goniometric Range of Motion Knee Left Patient Position Supine Flexion Active (degrees) 110 Extension Active (degrees) 9 Right Patient Position Supine Flexion Active (degrees) 125 Extension Active (degrees) 0 Ankle and Foot Goniometric Range of Motion Ankle and Foot ROM Limitations Comments Pt has edema and coolness to LLE and edema is great at lateral malleolus and this limits comfortable AROM ankle. Pt also reports calf tenderness with SLR. PT-OP-M Strength Start: 12/02/20 08:56 Freq: Status: Active Protocol: Document 12/04/20 12:16 MB (Rec: 12/04/20 15:35 MB [id number]) Hip Strength Hip Manual Muscle Testing Left Flexion (L2) 3- Fair- Abduction 3 Fair Right Comments Pt defers right hip and knee MMT d/t fear that her right sciatica may flare up Knee Strength Knee Manual Muscle Testing Left Flexion (S2) 3+ Fair+ Extension (L3) 4 Good Right Comments Pt defers right hip and knee MMT d/t fear that her right sciatica may flare up Ankle/Foot Strength Ankle and Foot Manual Muscle Testing Left Dorsiflexion (L4) 5 Normal Inversion 4 Good Eversion (S1) 4 Good Right Dorsiflexion (L4) 4 Good Inversion 4 Good Eversion (S1) 4 Good Toe Strength Toe Manual Muscle Testing Left Great Toe Extension 5 Normal Right Great Toe Extension 4 Good PT-OP-Q Treatments Start: 12/02/20 08:56 Freq: Status: Active Protocol: Document 12/24/20 13:02 MB (Rec: 12/24/20 13:14 MB [id number]) Manual Therapy Treatment Other Other Manual Treatments Lavage left foot to ankle, calf, knee and thigh to help with swelling. AAROM left knee flexion and extension, resisted abduction and adduction in supine PT-OP-T Assessment and Plan Start: 12/02/20 08:56 Freq: Status: Active Protocol: Document 12/24/20 13:02 MB (Rec: 12/24/20 13:14 MB [id number]) Physical Therapy Assessment Rehab Potential Rehabilitation Potential Good Evaluation Complexity Number of Personal Factors/Comorbidities 1-2 Number of Body Systems Impaired 1-2 Clinical Presentation at Evaluation Evolving Impairments Impairments Activity Tolerance,Balance, Edema,Gait,Integument,Pain, Posture,ROM,Sensation,Soft Tissue Mobility,Strength, Vestibular Other Impairments Personal factors include pt lives at home alone and has some friend support only, multiple areas of pain and fear of provoking old right sciatic symptoms. Body systems affected include musculoskeletal, metabolic and vestibular (history imbalance and hearing loss). Other Concerns Fall Risk Yes Goals 4 Rn Transport Goal (LTG) Pt will gait train 1500 feet without AD in 6 minutes to improve community ambulation by 02/01/21. LTG Duration 8 weeks 3 Rn Transport Goal (LTG) Pt will perform reciprocal gait for 4 steps with use of rail to improve community ambulation by 02/01/21. LTG Duration 8 weeks 2 Rn Transport Goal (LTG) Pt will perform progressive HEP with I including ROM, flexibility, strengthening, gait and balance exercises to improve strength and I by 02/01. LTG Duration 8 weeks 1 Rn Transport Goal (LTG) Pt will present with improved AROM left knee 0-125 deg to improve functional range for sit to stands and gait by 02/01. 12/19/20: Sitting AAROM left knee flexion to 111 deg LTG Duration 8 weeks Assessment Summary Assessment More manual work today as her leg is improving and her tape is falling off. Pt tolerates well. Pt reports that Dr. Delgadillo was not concerned about her LLE edema and it does look better today. Her nausea is better after stopping medication and she woke up hungry today. Physical Therapy Plan Frequency and Duration Frequency of Treatment 2x/Week Duration of Treatment 8 weeks Plan of Care Start Date 12/04/20 Plan of Care End Date 02/03/21 Therapeutic Interventions Therapeutic Interventions Aquatic Therapy,Balance Training,Canalithic Repositioning,Gait Training, Home Exercise Program,Joint Mobilizations,Manual Therapy, Neuromuscular Re-education, Patient/Caregiver Education, Self-Care/Home Management,Soft Tissue Mobilization,Taping, Therapeutic Activities, Therapeutic Exercises Modalities Cold Pack/Ice Massage,Electric Stimulation,Hot Packs, Ultrasound Next Visit Focus/Plan Next Note Type Treatment Note Next Visit Plan Initiate recumbent stepper or bike, further exercises and consider further Counterstrain
--- NOTE | 2020-12-26 13:50 | PT.OTN ---
Current Diagnoses Unilateral primary osteoarthritis, left knee (12/26/20) Physical Therapy Treatment Note PT-OP-A Visit Information Start: 12/02/20 08:56 Freq: Status: Active Protocol: Document 12/26/20 13:00 MB (Rec: 12/26/20 13:13 MB [id number]) Out-Patient Physical Therapy Visit Information Visit Information Visit Type Treatment Note Visit Note Medicare Visit Start Time 13:00 Visit Stop Time 13:45 Total Visit Minutes 45 Visit Number 5 Precautions Precautions Easy bruising, fibromyaglia and stenosis and pt is very concerned about not flaring up her right piriformis and sciatica syndrome, right shoulder limitations d/t rotator cuff damage, pt taking a lot of NSAIDs a day PT-OP-B Current Condition Start: 12/02/20 08:56 Freq: Status: Active Protocol: Document 12/04/20 12:16 MB (Rec: 12/04/20 12:32 MB [id number]) Current Condition History of Current Condition Onset Date 11/20/20 Current Complaints L knee pain and multi-joint pain, imbalance History of Current Condition Pt is s/p left TKR 11/20/20. Pt has a history of imbalance, stenosis, fibromyalgia, left calf discomfort. She was ordered to have LE US and went for it yesterday and did not want to wait for it. She did not get it. She states that she will follow-up about getting the doppler. Pt reports neuropathy in her feet , OP. Pt reports 4/10 posterior neck pain, 6/10 right scapular pain, 6/10 LBP and 6/10 lateral right pain. Pt reports history of sciatica right leg and she does not want to exacerbate it, 7/10 left anterior and posterior knee pain. Pt taking a lot of NSAIDs and has trouble with opioids. She has a torturous bowel. She is taking a muscle relaxer before bed. Treatment Goals Patient/Caregiver Goals To decrease pain and improve walking PT-OP-C Subjective Start: 12/02/20 08:56 Freq: Status: Active Protocol: Document 12/26/20 13:00 MB (Rec: 12/26/20 13:13 MB [id number]) OP-PT Subjective Patient Comments Patient Comments Pt feels that left leg is better after treatment but worse without Aleve. PT-OP-D Balance Start: 12/02/20 08:56 Freq: Status: Active Protocol: Document 12/04/20 12:16 MB (Rec: 12/04/20 15:35 MB [id number]) OP-PT Balance Assessment Sitting Balance Static Sitting Balance Ability Good Dynamic Sitting Balance Ability Good Standing Balance Static Standing Balance Ability Good Dynamic Standing Balance Ability Fair Standing Balance Comments Pt cannot tolerate further balance testing today Matthew Fall Scale Copyright Permission PT-OP-G Mobility & Gait Start: 12/02/20 08:56 Freq: Status: Active Protocol: Document 12/04/20 12:16 MB (Rec: 12/04/20 15:35 MB [id number]) OP Gait Assessment Gait Gait Assistance Required: Independent Distance (Feet) 75 Able to Maintain Weight Bearing Status No During Gait Assistive Devices Assistive Device None Orthotic/Prosthetic Devices or Brace: No Gait Deviations General Gait Pattern Antalgic,Decreased Stride Length,Flexed Trunk,Narrow Based Gait Factors Limiting Gait Function Factors Limiting Gait Function Decreased Strength,Pain,Poor Balance Comments Gait Comments Increased left knee flexion with gait, slow ruddy, narrow NARCISO. Pt holds herself gingerly in that she had pain in many areas of her body PT-OP-J Posture/Palpation/Skin Start: 12/02/20 08:56 Freq: Status: Active Protocol: Document 12/04/20 12:16 MB (Rec: 12/04/20 15:35 MB [id number]) Posture Evaluation Comments Posture Comments Socks and no shoes: Narrow NARCISO , rounded shoulders, right shoulder higher than the left, right thoracic convexity, increased thoracic kyphosis, left iliac crest mildly higher than the right, right knee valgus > left, left foot overpronation, left AC joint is 1/2 in front of left tragus. Pt wears hearing aides . Edema left calf, lateral malleolus, distal LE. Pt reports history of hyperextension and can hyperextend her wrists. Pt has TKR incision left knee with steri strips intact and not a lot of bruising noted. Skin Assessment Incisional Assessment Incision Appearance/Comments Steri strips intact over left total knee Other Assessments Skin Assessment Comments Edema distal left LE PT-OP-K Range of Motion Start: 12/02/20 08:56 Freq: Status: Active Protocol: Document 12/04/20 12:16 MB (Rec: 12/04/20 15:35 MB [id number]) Knee Goniometric Range of Motion Knee Left Patient Position Supine Flexion Active (degrees) 110 Extension Active (degrees) 9 Right Patient Position Supine Flexion Active (degrees) 125 Extension Active (degrees) 0 Ankle and Foot Goniometric Range of Motion Ankle and Foot ROM Limitations Comments Pt has edema and coolness to LLE and edema is great at lateral malleolus and this limits comfortable AROM ankle. Pt also reports calf tenderness with SLR. PT-OP-M Strength Start: 12/02/20 08:56 Freq: Status: Active Protocol: Document 12/04/20 12:16 MB (Rec: 12/04/20 15:35 MB [id number]) Hip Strength Hip Manual Muscle Testing Left Flexion (L2) 3- Fair- Abduction 3 Fair Right Comments Pt defers right hip and knee MMT d/t fear that her right sciatica may flare up Knee Strength Knee Manual Muscle Testing Left Flexion (S2) 3+ Fair+ Extension (L3) 4 Good Right Comments Pt defers right hip and knee MMT d/t fear that her right sciatica may flare up Ankle/Foot Strength Ankle and Foot Manual Muscle Testing Left Dorsiflexion (L4) 5 Normal Inversion 4 Good Eversion (S1) 4 Good Right Dorsiflexion (L4) 4 Good Inversion 4 Good Eversion (S1) 4 Good Toe Strength Toe Manual Muscle Testing Left Great Toe Extension 5 Normal Right Great Toe Extension 4 Good PT-OP-Q Treatments Start: 12/02/20 08:56 Freq: Status: Active Protocol: Document 12/26/20 13:00 MB (Rec: 12/26/20 13:13 MB [id number]) Manual Therapy Treatment Other Other Manual Treatments Focus on left plantar flexors today. Lavage left foot to ankle, calf, knee and thigh to help with swelling. AAROM left knee flexion and extension, resisted abduction and adduction in supine PT-OP-T Assessment and Plan Start: 12/02/20 08:56 Freq: Status: Active Protocol: Document 12/26/20 13:00 MB (Rec: 12/26/20 13:13 MB [id number]) Physical Therapy Assessment Rehab Potential Rehabilitation Potential Good Evaluation Complexity Number of Personal Factors/Comorbidities 1-2 Number of Body Systems Impaired 1-2 Clinical Presentation at Evaluation Evolving Impairments Impairments Activity Tolerance,Balance, Edema,Gait,Integument,Pain, Posture,ROM,Sensation,Soft Tissue Mobility,Strength, Vestibular Other Impairments Personal factors include pt lives at home alone and has some friend support only, multiple areas of pain and fear of provoking old right sciatic symptoms. Body systems affected include musculoskeletal, metabolic and vestibular (history imbalance and hearing loss). Other Concerns Fall Risk Yes Goals 4 Crushing Foreman Goal (LTG) Pt will gait train 1500 feet without AD in 6 minutes to improve community ambulation by 02/01/21. LTG Duration 8 weeks 3 Crushing Foreman Goal (LTG) Pt will perform reciprocal gait for 4 steps with use of rail to improve community ambulation by 02/01/21. LTG Duration 8 weeks 2 Prison Goal (LTG) Pt will perform progressive HEP with I including ROM, flexibility, strengthening, gait and balance exercises to improve strength and I by 02/01. LTG Duration 8 weeks 1 Crushing Foreman Goal (LTG) Pt will present with improved AROM left knee 0-125 deg to improve functional range for sit to stands and gait by 02/01. 12/19/20: Sitting AAROM left knee flexion to 111 deg LTG Duration 8 weeks Assessment Summary Assessment Manual work today really improves myofascial tension in plantar flexors today. Physical Therapy Plan Frequency and Duration Frequency of Treatment 2x/Week Duration of Treatment 8 weeks Plan of Care Start Date 12/04/20 Plan of Care End Date 02/03/21 Therapeutic Interventions Therapeutic Interventions Aquatic Therapy,Balance Training,Canalithic Repositioning,Gait Training, Home Exercise Program,Joint Mobilizations,Manual Therapy, Neuromuscular Re-education, Patient/Caregiver Education, Self-Care/Home Management,Soft Tissue Mobilization,Taping, Therapeutic Activities, Therapeutic Exercises Modalities Cold Pack/Ice Massage,Electric Stimulation,Hot Packs, Ultrasound Next Visit Focus/Plan Next Note Type Treatment Note Next Visit Plan Initiate recumbent stepper or bike, further exercises and consider further Counterstrain
--- NOTE | 2021-01-02 15:11 | PT.OTN ---
Current Diagnoses Unilateral primary osteoarthritis, left knee (01/02/21) Physical Therapy Treatment Note PT-OP-A Visit Information Start: 12/02/20 08:56 Freq: Status: Active Protocol: Document 01/02/21 14:31 MB (Rec: 01/02/21 14:57 MB [id number]) Out-Patient Physical Therapy Visit Information Visit Information Visit Type Treatment Note Visit Note Medicare Visit Start Time 14:31 Visit Stop Time 15:01 Total Visit Minutes 30 Visit Number 6 Precautions Precautions Easy bruising, fibromyaglia and stenosis and pt is very concerned about not flaring up her right piriformis and sciatica syndrome, right shoulder limitations d/t rotator cuff damage, pt taking a lot of NSAIDs a day PT-OP-B Current Condition Start: 12/02/20 08:56 Freq: Status: Active Protocol: Document 12/04/20 12:16 MB (Rec: 12/04/20 12:32 MB [id number]) Current Condition History of Current Condition Onset Date 11/20/20 Current Complaints L knee pain and multi-joint pain, imbalance History of Current Condition Pt is s/p left TKR 11/20/20. Pt has a history of imbalance, stenosis, fibromyalgia, left calf discomfort. She was ordered to have LE US and went for it yesterday and did not want to wait for it. She did not get it. She states that she will follow-up about getting the doppler. Pt reports neuropathy in her feet , OP. Pt reports 4/10 posterior neck pain, 6/10 right scapular pain, 6/10 LBP and 6/10 lateral right pain. Pt reports history of sciatica right leg and she does not want to exacerbate it, 7/10 left anterior and posterior knee pain. Pt taking a lot of NSAIDs and has trouble with opioids. She has a torturous bowel. She is taking a muscle relaxer before bed. Treatment Goals Patient/Caregiver Goals To decrease pain and improve walking PT-OP-C Subjective Start: 12/02/20 08:56 Freq: Status: Active Protocol: Document 01/02/21 14:31 MB (Rec: 01/02/21 14:57 MB [id number]) OP-PT Subjective Patient Comments Patient Comments Pt returned to see Dr. Lopez and he is happy with her ROM. She ate some take out last night that had a lot of sodium and her eye, leg and throat swelled up. PT-OP-D Balance Start: 12/02/20 08:56 Freq: Status: Active Protocol: Document 12/04/20 12:16 MB (Rec: 12/04/20 15:35 MB [id number]) OP-PT Balance Assessment Sitting Balance Static Sitting Balance Ability Good Dynamic Sitting Balance Ability Good Standing Balance Static Standing Balance Ability Good Dynamic Standing Balance Ability Fair Standing Balance Comments Pt cannot tolerate further balance testing today Matthew Fall Scale Copyright Permission PT-OP-G Mobility & Gait Start: 12/02/20 08:56 Freq: Status: Active Protocol: Document 12/04/20 12:16 MB (Rec: 12/04/20 15:35 MB [id number]) OP Gait Assessment Gait Gait Assistance Required: Independent Distance (Feet) 75 Able to Maintain Weight Bearing Status No During Gait Assistive Devices Assistive Device None Orthotic/Prosthetic Devices or Brace: No Gait Deviations General Gait Pattern Antalgic,Decreased Stride Length,Flexed Trunk,Narrow Based Gait Factors Limiting Gait Function Factors Limiting Gait Function Decreased Strength,Pain,Poor Balance Comments Gait Comments Increased left knee flexion with gait, slow ruddy, narrow NARCISO. Pt holds herself gingerly in that she had pain in many areas of her body PT-OP-J Posture/Palpation/Skin Start: 12/02/20 08:56 Freq: Status: Active Protocol: Document 12/04/20 12:16 MB (Rec: 12/04/20 15:35 MB [id number]) Posture Evaluation Comments Posture Comments Socks and no shoes: Narrow NARCISO , rounded shoulders, right shoulder higher than the left, right thoracic convexity, increased thoracic kyphosis, left iliac crest mildly higher than the right, right knee valgus > left, left foot overpronation, left AC joint is 1/2 in front of left tragus. Pt wears hearing aides . Edema left calf, lateral malleolus, distal LE. Pt reports history of hyperextension and can hyperextend her wrists. Pt has TKR incision left knee with steri strips intact and not a lot of bruising noted. Skin Assessment Incisional Assessment Incision Appearance/Comments Steri strips intact over left total knee Other Assessments Skin Assessment Comments Edema distal left LE PT-OP-K Range of Motion Start: 12/02/20 08:56 Freq: Status: Active Protocol: Document 12/04/20 12:16 MB (Rec: 12/04/20 15:35 MB [id number]) Knee Goniometric Range of Motion Knee Left Patient Position Supine Flexion Active (degrees) 110 Extension Active (degrees) 9 Right Patient Position Supine Flexion Active (degrees) 125 Extension Active (degrees) 0 Ankle and Foot Goniometric Range of Motion Ankle and Foot ROM Limitations Comments Pt has edema and coolness to LLE and edema is great at lateral malleolus and this limits comfortable AROM ankle. Pt also reports calf tenderness with SLR. PT-OP-M Strength Start: 12/02/20 08:56 Freq: Status: Active Protocol: Document 12/04/20 12:16 MB (Rec: 12/04/20 15:35 MB [id number]) Hip Strength Hip Manual Muscle Testing Left Flexion (L2) 3- Fair- Abduction 3 Fair Right Comments Pt defers right hip and knee MMT d/t fear that her right sciatica may flare up Knee Strength Knee Manual Muscle Testing Left Flexion (S2) 3+ Fair+ Extension (L3) 4 Good Right Comments Pt defers right hip and knee MMT d/t fear that her right sciatica may flare up Ankle/Foot Strength Ankle and Foot Manual Muscle Testing Left Dorsiflexion (L4) 5 Normal Inversion 4 Good Eversion (S1) 4 Good Right Dorsiflexion (L4) 4 Good Inversion 4 Good Eversion (S1) 4 Good Toe Strength Toe Manual Muscle Testing Left Great Toe Extension 5 Normal Right Great Toe Extension 4 Good PT-OP-Q Treatments Start: 12/02/20 08:56 Freq: Status: Active Protocol: Document 01/02/21 14:31 MB (Rec: 01/02/21 14:57 MB [id number]) Therapeutic Exercises Supine Exercises Hip rotator stretches Side bilateral Comments 30 sec hold, keep lower on left leg Hamstring stretch with APs Side bilateral Comments 30 sec hold and pt pumps ankle x20 reps, knee flexion opposite Lumbar rotation Side bilateral Comments 10 reps slowly SLR Side left Comments 3 reps slowly with toes up and pt reports concern about her LB AP, HS, QS, SAQ, LAQ, sitting HS, leg dangle Comments HS, AP, QS today left leg Gait Training Gait Activity 1 Description Gait without AD in hallway and stairs in gym Comments Left leg appears heavy and pt with functional leg length/ pelvic alignment difference with gait and her steps are long and slow. She is able to ascend and descend short and standard steps in gym with use of two rails and reciprocal gait PT-OP-T Assessment and Plan Start: 12/02/20 08:56 Freq: Status: Active Protocol: Document 01/02/21 14:31 MB (Rec: 01/02/21 14:57 MB [id number]) Physical Therapy Assessment Rehab Potential Rehabilitation Potential Good Evaluation Complexity Number of Personal Factors/Comorbidities 1-2 Number of Body Systems Impaired 1-2 Clinical Presentation at Evaluation Evolving Impairments Impairments Activity Tolerance,Balance, Edema,Gait,Integument,Pain, Posture,ROM,Sensation,Soft Tissue Mobility,Strength, Vestibular Other Impairments Personal factors include pt lives at home alone and has some friend support only, multiple areas of pain and fear of provoking old right sciatic symptoms. Body systems affected include musculoskeletal, metabolic and vestibular (history imbalance and hearing loss). Other Concerns Fall Risk Yes Goals 4 Long-Term Goal (LTG) Pt will gait train 1500 feet without AD in 6 minutes to improve community ambulation by 02/01/21. LTG Duration 8 weeks 3 Clearing Distribution Clerk Goal (LTG) Pt will perform reciprocal gait for 4 steps with use of rail to improve community ambulation by 02/01/21. 01/02/21: Met LTG Duration Met 2 Clearing Distribution Clerk Goal (LTG) Pt will perform progressive HEP with I including ROM, flexibility, strengthening, gait and balance exercises to improve strength and I by 02/01. LTG Duration 8 weeks 1 Clearing Distribution Clerk Goal (LTG) Pt will present with improved AROM left knee 0-125 deg to improve functional range for sit to stands and gait by 02/01. 12/19/20: Sitting AAROM left knee flexion to 111 deg LTG Duration 8 weeks Assessment Summary Assessment Pt states that the manual work on her left calf was too much and so she would not like to do that again today. Exercises today to improve strengthening and flexibility and pt has concern about her back and history of sciatica with each exercise. She agrees to try hamstring stretch and hip rotator stretch at home. PT and pt agree that less may be more with her given history of fibromyalgia, multi-joint pain, back trouble and sciatica. Will assess 6MWT next treatment date and consider balance test and then may keep PT course short. Physical Therapy Plan Frequency and Duration Frequency of Treatment 2x/Week Duration of Treatment 8 weeks Plan of Care Start Date 12/04/20 Plan of Care End Date 02/03/21 Therapeutic Interventions Therapeutic Interventions Aquatic Therapy,Balance Training,Canalithic Repositioning,Gait Training, Home Exercise Program,Joint Mobilizations,Manual Therapy, Neuromuscular Re-education, Patient/Caregiver Education, Self-Care/Home Management,Soft Tissue Mobilization,Taping, Therapeutic Activities, Therapeutic Exercises Modalities Cold Pack/Ice Massage,Electric Stimulation,Hot Packs, Ultrasound Next Visit Focus/Plan Next Note Type Treatment Note Next Visit Plan Balance testing/exercise and 6MWT, consider addressing other goal of AROM as well and consider further Counterstrain
--- NOTE | 2021-01-07 13:57 | PT.OTN ---
Current Diagnoses Unilateral primary osteoarthritis, left knee (01/07/21) Physical Therapy Treatment Note PT-OP-A Visit Information Start: 12/02/20 08:56 Freq: Status: Active Protocol: Document 01/07/21 13:12 MB (Rec: 01/07/21 13:57 MB [id number]) Out-Patient Physical Therapy Visit Information Visit Information Visit Type Treatment Note Visit Note Medicare Pt is late to appointment Visit Start Time 13:12 Visit Stop Time 12:50 Total Visit Minutes 38 Visit Number 7 Precautions Precautions Easy bruising, fibromyaglia and stenosis and pt is very concerned about not flaring up her right piriformis and sciatica syndrome, right shoulder limitations d/t rotator cuff damage, pt taking a lot of NSAIDs a day PT-OP-B Current Condition Start: 12/02/20 08:56 Freq: Status: Active Protocol: Document 12/04/20 12:16 MB (Rec: 12/04/20 12:32 MB [id number]) Current Condition History of Current Condition Onset Date 11/20/20 Current Complaints L knee pain and multi-joint pain, imbalance History of Current Condition Pt is s/p left TKR 11/20/20. Pt has a history of imbalance, stenosis, fibromyalgia, left calf discomfort. She was ordered to have LE US and went for it yesterday and did not want to wait for it. She did not get it. She states that she will follow-up about getting the doppler. Pt reports neuropathy in her feet , OP. Pt reports 4/10 posterior neck pain, 6/10 right scapular pain, 6/10 LBP and 6/10 lateral right pain. Pt reports history of sciatica right leg and she does not want to exacerbate it, 7/10 left anterior and posterior knee pain. Pt taking a lot of NSAIDs and has trouble with opioids. She has a torturous bowel. She is taking a muscle relaxer before bed. Treatment Goals Patient/Caregiver Goals To decrease pain and improve walking PT-OP-C Subjective Start: 12/02/20 08:56 Freq: Status: Active Protocol: Document 01/07/21 13:12 MB (Rec: 01/07/21 13:57 MB [id number]) OP-PT Subjective Patient Comments Patient Comments Pt is late to appointment. She wants to ask about her compression hose. She states she likes the snugness but they do not help the swelling. She is holding back on walking d/t worried about her piriformis flaring up. Overall , the jury is out about the compression hose being helpful . Her schedule is back to normal. She is worried about the sciatic pain getting flared up by further progressive PT exercises. PT-OP-D Balance Start: 12/02/20 08:56 Freq: Status: Active Protocol: Document 12/04/20 12:16 MB (Rec: 12/04/20 15:35 MB [id number]) OP-PT Balance Assessment Sitting Balance Static Sitting Balance Ability Good Dynamic Sitting Balance Ability Good Standing Balance Static Standing Balance Ability Good Dynamic Standing Balance Ability Fair Standing Balance Comments Pt cannot tolerate further balance testing today Matthew Fall Scale Copyright Permission PT-OP-G Mobility & Gait Start: 12/02/20 08:56 Freq: Status: Active Protocol: Document 12/04/20 12:16 MB (Rec: 12/04/20 15:35 MB [id number]) OP Gait Assessment Gait Gait Assistance Required: Independent Distance (Feet) 75 Able to Maintain Weight Bearing Status No During Gait Assistive Devices Assistive Device None Orthotic/Prosthetic Devices or Brace: No Gait Deviations General Gait Pattern Antalgic,Decreased Stride Length,Flexed Trunk,Narrow Based Gait Factors Limiting Gait Function Factors Limiting Gait Function Decreased Strength,Pain,Poor Balance Comments Gait Comments Increased left knee flexion with gait, slow ruddy, narrow NARCISO. Pt holds herself gingerly in that she had pain in many areas of her body PT-OP-J Posture/Palpation/Skin Start: 12/02/20 08:56 Freq: Status: Active Protocol: Document 12/04/20 12:16 MB (Rec: 12/04/20 15:35 MB [id number]) Posture Evaluation Comments Posture Comments Socks and no shoes: Narrow NARCISO , rounded shoulders, right shoulder higher than the left, right thoracic convexity, increased thoracic kyphosis, left iliac crest mildly higher than the right, right knee valgus > left, left foot overpronation, left AC joint is 1/2 in front of left tragus. Pt wears hearing aides . Edema left calf, lateral malleolus, distal LE. Pt reports history of hyperextension and can hyperextend her wrists. Pt has TKR incision left knee with steri strips intact and not a lot of bruising noted. Skin Assessment Incisional Assessment Incision Appearance/Comments Steri strips intact over left total knee Other Assessments Skin Assessment Comments Edema distal left LE PT-OP-K Range of Motion Start: 12/02/20 08:56 Freq: Status: Active Protocol: Document 12/04/20 12:16 MB (Rec: 12/04/20 15:35 MB [id number]) Knee Goniometric Range of Motion Knee Left Patient Position Supine Flexion Active (degrees) 110 Extension Active (degrees) 9 Right Patient Position Supine Flexion Active (degrees) 125 Extension Active (degrees) 0 Ankle and Foot Goniometric Range of Motion Ankle and Foot ROM Limitations Comments Pt has edema and coolness to LLE and edema is great at lateral malleolus and this limits comfortable AROM ankle. Pt also reports calf tenderness with SLR. PT-OP-M Strength Start: 12/02/20 08:56 Freq: Status: Active Protocol: Document 12/04/20 12:16 MB (Rec: 12/04/20 15:35 MB [id number]) Hip Strength Hip Manual Muscle Testing Left Flexion (L2) 3- Fair- Abduction 3 Fair Right Comments Pt defers right hip and knee MMT d/t fear that her right sciatica may flare up Knee Strength Knee Manual Muscle Testing Left Flexion (S2) 3+ Fair+ Extension (L3) 4 Good Right Comments Pt defers right hip and knee MMT d/t fear that her right sciatica may flare up Ankle/Foot Strength Ankle and Foot Manual Muscle Testing Left Dorsiflexion (L4) 5 Normal Inversion 4 Good Eversion (S1) 4 Good Right Dorsiflexion (L4) 4 Good Inversion 4 Good Eversion (S1) 4 Good Toe Strength Toe Manual Muscle Testing Left Great Toe Extension 5 Normal Right Great Toe Extension 4 Good PT-OP-Q Treatments Start: 12/02/20 08:56 Freq: Status: Active Protocol: Document 01/07/21 13:12 MB (Rec: 01/07/21 13:57 MB [id number]) Gait Training Gait Activity Stair training Comments Pt is able to ascend and descend 4 steps with sliding both hands on the rails, reciprocal gait 6MWT Comments Pt gait trains 922 feet in 6 minutes and reports some left knee pain Neuro Re-Education Treatment Balance Activities Corner balance testing Comments Romberg is normal, partial tandem is somewhat challenging and pt progresses position and PT provides handout and pt to con't at home Self-Care/Home Management Treatment Education Other Education Ongoing use of compression hose, ask Dr. Delgadillo about what to do about re-adding supplements, importance of balance exercises for ankle strategy and control, con't AROM exercises until left knee moves similar to the right PT-OP-T Assessment and Plan Start: 12/02/20 08:56 Freq: Status: Active Protocol: Document 01/07/21 13:12 MB (Rec: 01/07/21 13:57 MB [id number]) Physical Therapy Assessment Rehab Potential Rehabilitation Potential Good Evaluation Complexity Number of Personal Factors/Comorbidities 1-2 Number of Body Systems Impaired 1-2 Clinical Presentation at Evaluation Evolving Impairments Impairments Activity Tolerance,Balance, Edema,Gait,Integument,Pain, Posture,ROM,Sensation,Soft Tissue Mobility,Strength, Vestibular Other Impairments Personal factors include pt lives at home alone and has some friend support only, multiple areas of pain and fear of provoking old right sciatic symptoms. Body systems affected include musculoskeletal, metabolic and vestibular (history imbalance and hearing loss). Other Concerns Fall Risk Yes Goals 4 Care Home Goal (LTG) Pt will gait train 1500 feet without AD in 6 minutes to improve community ambulation by 02/01/21. 01/07/21: Pt gait trains 922 feet in 6 minutes. She reports pain in her left knee, not rated LTG Duration Partially met 3 Care Home Goal (LTG) Pt will perform reciprocal gait for 4 steps with use of rail to improve community ambulation by 02/01/21. 01/07/21: Able to perform again today LTG Duration Met 2 Program Arranger Goal (LTG) Pt will perform progressive HEP with I including ROM, flexibility, strengthening, gait and balance exercises to improve strength and I by 02/01. 01/07/21: Pt is able to perform simple AROM exercises only and added a balance exercise today LTG Duration Partially met 1 Care Home Goal (LTG) Pt will present with improved AROM left knee 0-125 deg to improve functional range for sit to stands and gait by 02/01. 01/07/21: Supine left knee flexion to 111 deg LTG Duration Partially met Assessment Summary Assessment Pt has met stair goal since starting PT. She has progressed towards 6MWT, HEP and ROM goals. Given pt's fibromyaglia, sciatica, swelling and fear of flaring up any of these issues, her PT course has been simple and short with the idea that less is more for her. She will con' t to increase walking as able and this will help her range and muscle pump to help the edema in her left leg. It has been a chronic issue and she may benefit from following up with Dr. Delgadillo about any other visceral components to it. Will send this d/c note to Dr. Lopez and Dr. Delgadillo. Physical Therapy Plan Frequency and Duration Frequency of Treatment 2x/Week Duration of Treatment 8 weeks Plan of Care Start Date 12/04/20 Plan of Care End Date 02/03/21 Therapeutic Interventions Therapeutic Interventions Aquatic Therapy,Balance Training,Canalithic Repositioning,Gait Training, Home Exercise Program,Joint Mobilizations,Manual Therapy, Neuromuscular Re-education, Patient/Caregiver Education, Self-Care/Home Management,Soft Tissue Mobilization,Taping, Therapeutic Activities, Therapeutic Exercises Modalities Cold Pack/Ice Massage,Electric Stimulation,Hot Packs, Ultrasound Discharge Physical Therapy Discharge Reasons Plateau in Progress
== END 2021-01-15 09:08 | disposition home or self-care (01) ==
LOC: PHYS 13:00
PROVIDERS: PCP Student in an Organized Health Care Education/Training Program; Referring Provider Orthopaedic Surgery Adult Reconstructive Orthopaedic Surgery; Visit Provider Orthopaedic Surgery Adult Reconstructive Orthopaedic Surgery
DX: M17.12 Unilateral primary osteoarthritis, left knee (principal)
CPT/HCPCS: 97110; 97112; 97116; 97140; 97161; 97535

== ENCOUNTER → 2021-01-31 07:00 | Outpatient (CLI) | payer MEDICARE, OTHER, SELFPAY ==
[2020-11-20 14:02] VITALS: BMI 20.5
[2021-02-03 12:43] LABS: COVID19 -Nasal RAPID Negative (Negative)
== END ==
PROVIDERS: PCP Student in an Organized Health Care Education/Training Program; Visit Provider Physical Medicine & Rehabilitation
DX: Z20.822 Contact with and (suspected) exposure to COVID-19 (principal)
CPT/HCPCS: 87635

== ENCOUNTER 2021-02-04 12:31 | Outpatient (CLI) | payer MEDICARE, OTHER, SELFPAY ==
[2020-11-20 14:02] VITALS: BMI 20.5
[2021-02-04] VITALS (8 sets, daily range): BP systolic 117–165; BP diastolic 70–86; PULSE 61–119; RESP 10–19; TEMP 36.7; O2SAT 94–100
--- NOTE | 2021-02-04 12:34 | DI.RAD.S_ITS ---
PROCEDURE: PAIN SI JOINT INJECTION INDICATIONS: SACROILIAC JOINT DYSFUNCTION COMPARISON: [facility], , PAIN SI JOINT INJECTION, 08/06/2020, 13:25. FINDINGS: Fluoroscopic spot filming was performed to verify placement of spinal needles at the inferior right sacroiliac joint level, as labeled on the films. Appropriate location(s) of the needle tip(s) was confirmed by injection of iodinated contrast. IMPRESSION: Expected spinal needle tip localization for inferior right SI joint steroid injection. Dictated by: Jose David Rey M.D. on 02/04/2021 at 14:07 Approved by: Jose David Rey M.D. on 02/04/2021 at 14:08
[2021-02-04] MEDS: MIDAZOLAM 5 MG/5 ML VIAL IV (13:09)
[2021-02-04] MEDS: fentaNYL 100 MCG/2 ML INJ 50 MCG IV (13:09)
[2021-02-04] MEDS: IOPAMIDOL 15 ML VIAL 3 ML INJ (13:14)
[2021-02-04] MEDS: BUPIVACAINE 0.5% (PF) VIAL 2 ML INJ (13:14)
[2021-02-04] MEDS: BETAMETHASONE 30 MG/5 ML MDV 12 MG INJ (13:14)
--- NOTE | 2021-02-04 13:24 | PM.PROC.IR.1 ---
Date/Time/Diagnoses Date of procedure: 02/04/21 Time of procedure: 13:24 Pre-procedure diagnosis: Sacroiliac joint pain/DJD Post-procedure diagnosis: same Procedure Notes Procedure: Fluoroscopically guided contrast controlled right sacroiliac joint injection Indications: Analia is referred by Dr. Delgadillo for treatment of right sacroiliac joint DJD Physician: Stewart Irwin Total Fluoroscopy time (seconds): 7 Total sedation minutes: 11 Complications: none Procedure in detail & Post-procedure care: DESCRIPTION OF PROCEDURE Fluoroscopically guided, contrast controlled right sacroiliac joint injection Following review of allergies and review of potential side effects and complications, including, but not necessarily limited to, infection, allergic reaction, local tissue breakdown, temporary as well as permanent nerve injury, paralysis, stroke and possible , the patient indicated that they understood and agreed to proceed. An informed consent was signed by the patient, witnessed by a nurse, and placed in the patient's chart. Additionally, other treatment options including modalities, medications, and physical therapy were reviewed with the patient. After review of previous anaesthesic history and IV conscious sedation the patient was deemed safe to proceed with today?s procedure with IV conscious sedation as ASA class II designation. Safety time-out was performed to confirm patient ID, procedure to be performed and site of procedure. IV sedation was accomplished with a combination of 2mg of Versed and 50mcg of Fentanyl was administered by the RN after DO order, titrated to patient comfort during the course of the procedure while the patient remained responsive to all verbal commands In the prone position following sterile prep and drape of the pelvic region, the hyper lucency on in the inferior aspect of the sacroiliac joint was identified fluoroscopically the skin was anesthetized be a 25 gauge 1 eventual with approximately 2 cc of 1% lidocaine solution. At this point, a 22 gauge 3 in spinal needle was atraumatically introduced and advanced under fluoroscopic guidance into the inferior aspect of the right sacroiliac joint. Following negative aspiration, approximately 0.3cc of Isovue-300 was injected confirming intra-articular placement without vascular uptake. Radiographic data, including multiple fluoroscopic views of the pelvis, reveals a spinal needle in the sacroiliac joint hyper lucent zone. Subsequent view show flow contrast tear superiorly and inferiorly within the joint capsule without vascular intrathecal uptake. At this point a total of 1 of 0.5% Marcaine was combined with 1cc of 6 mg of betamethasone was injected without incident. The procedure tolerated the procedure well without signs or symptoms of complications prior to transfer to the recovery area continued monitoring without incident. The patient was then transferred to the recovery area with a bur observed for an appropriate time after the injection. The patient reverted a vas score of 7 prior to the procedure and post-procedure vas of 1. POSTOP INSTRUCTIONS The patient was provided with a pain like to continue to record the patient's response to the target specific procedure prior to the patient's follow-up visit with the referring physician. Additionally, specific post injection care instructions and a contact number to our office were provided if concerns arise regarding the possible complications associated with procedure are suspected.
== END 2021-02-04 13:40 | disposition home or self-care (01) ==
PROVIDERS: PCP Student in an Organized Health Care Education/Training Program; Referring Provider Physical Medicine & Rehabilitation; Visit Provider Physical Medicine & Rehabilitation
DX: M53.3 Sacrococcygeal disorders, not elsewhere classified (principal)
CPT/HCPCS: 27096; 99152; J0702; J2250; J3010

== ENCOUNTER 2021-02-23 17:07 | Emergency (ER) | payer MEDICARE, OTHER, SELFPAY ==
[2020-11-20 14:02] VITALS: BMI 20.5
[2021-02-23 17:12] VITALS: BP 179/77; PULSE 77; RESP 16; TEMP 36.9; O2SAT 98
[2021-02-23] MEDS: TET,DIPH,PERTUSS(ACELL),VAC/PF 0.5 ML SYRINGE IM (17:18)
--- NOTE | 2021-02-23 17:24 | ED.WOUNDLAC ---
HPI - Wound/Laceration General Chief Complaint: Wound/Laceration Stated Complaint: Laceration on Left Thumb Time Seen by Provider: 02/23/21 17:11 Source: patient Mode of arrival: Ambulatory History of Present Illness HPI narrative: 70-year-old female nonsmoker with history of hyperlipidemia presents with a chief complaint of an accidental laceration to the tip of her left thumb while preparing dinner this evening. She was using a new sharp knife and cut just the tip of her thumb. It has been bleeding and she was unable to control it at home. She denies any other injury and is otherwise well and free of complaint. She denies numbness, tingling or weakness. She will need her tetanus updated. Onset (ago): minute(s) Place: home Patient tetanus UTD: No Context: accidental Associated symptoms: pain Treatments prior to arrival: cold therapy and bandage Related Data Home Medications Medication Instructions Recorded Confirmed VITAMIN D (Vitamin D3) 1,000 units PO QDAY #0 11/04/16 01/08/21 calcium citrate-vitamin D3 1 tab PO QDAY #0 11/04/16 01/31/21 [Citracal Regular] Restasis 1 drp OPHTHALMIC (EYE) Q12H PRN 08/18/18 01/08/21 atorvastatin 40 mg PO DAILY 08/18/18 01/08/21 hydrochlorothiazide 25 mg tablet 25 mg PO DAILY 90 Days #90 tab 09/23/18 01/08/21 ivermectin [Soolantra] 1 applic TOPICAL BID 11/21/19 01/08/21 loratadine [Claritin] 10 mg PO DAILY 11/19/20 01/08/21 acetaminophen 500 mg tablet 1,000 mg PO Q6H PRN 12/23/20 01/08/21 naproxen 375 mg tablet 375 mg PO QID PRN tab 01/31/21 01/31/21 Previous Rx's Medication Instructions Recorded denosumab 60 mg/mL subcutaneous 60 mg SUBCUT [id number] #1 ml 06/06/20 syringe estradiol 1 mg tablet 1 mg PO DAILY #90 tab 10/30/20 pantoprazole 40 mg tablet,delayed 40 mg PO DAILY #90 tab 11/05/20 release tizanidine 2 mg tablet 1 mg PO BEDTIME PRN #45 tab 01/31/21 Allergies Allergy/AdvReac Type Severity Reaction Status Date / Time Penicillins [PENICILLINS] Allergy Intermediate Hives Verified 01/08/21 15:41 Sulfa (Sulfonamide Allergy Intermediate don't Verified 01/08/21 15:41 Antibiotics) remember [SULFA (SULFONAMIDE ANTIBIOTICS)] tetracycline [TETRACYCLINE] Allergy Intermediate don't Verified 01/08/21 15:41 remember tizanidine AdvReac Intermediate Hallucinati Verified 01/08/21 15:41 ons Review of Systems Constitutional Constitutional: Denies chills, Denies fatigue, Denies fever(s), Denies frequent falls, Denies lethargy and Denies weakness Eyes Eyes: Denies change in vision, Denies eye discharge, Denies irritation and Denies loss of vision ENT Ears, Nose, Mouth, and Throat: Denies change in voice, Denies dizziness, Denies neck pain, Denies sore throat and Denies throat swelling Cardiovascular Cardiovascular: Denies chest pain, Denies irregular heart rhythm, Denies lightheadedness, Denies palpitations, Denies dyspnea, Denies dyspnea on exertion and Denies orthopnea Respiratory Respiratory: Denies cough, Denies dyspnea, Denies dyspnea on exertion and Denies wheezing Gastrointestinal Gastrointestinal: Denies abdominal pain, Denies change in bowel habits, Denies diarrhea, Denies nausea and Denies vomiting Musculoskeletal Musculoskeletal: Denies neck pain and Denies numbness Integumentary/Breasts Skin/Breast: Denies pruritus, Denies erythema, Denies rash and Reports wounds Neurologic Neurologic: Denies behavioral changes, Denies confusion, Denies dizziness, Denies frequent falls, Denies loss of vision, Denies numbness and Denies weakness Psychiatric Psychiatric: Denies anxiety, Denies behavioral changes, Denies confusion, Denies depression, Denies homicidal ideation and Denies suicidal ideation Endocrine Endocrine: Denies fatigue, Denies flushing and Denies palpitations Hematologic/Lymphatic Hematologic/Lymphatic: Denies easy bruising Allergic/Immunologic Allergic/Immunologic: Denies urticaria, Denies throat swelling and Denies wheezing Patient History Medical History Bursitis Cervical spondylosis with radiculopathy Cervical stenosis of spinal canal Chicken pox DDD (degenerative disc disease), cervical DJD (degenerative joint disease) of knee Endometriosis (~1979) Esophagitis Fibromyalgia GERD (gastroesophageal reflux disease) Greater trochanteric bursitis Headache, migraine Hearing loss Herniated nucleus pulposus, L4-5 Hypertension Internal derangement of left knee Irritable bowel syndrome Leg edema Measles MGUS (monoclonal gammopathy of unknown significance) Osteoarthritis Osteoporosis Primary osteoarthritis of left knee Rosacea Sacral back pain Shoulder pain, right Sjogren's syndrome Spinal stenosis Tendinitis Tortuous colon Vision disorder Surgical History Anesthesia History of elbow surgery History of repair of right rotator cuff History of tonsillectomy S/P epidural steroid injection Status post appendectomy Status post hysterectomy Family History Father Heart disease Grandfather Heart disease Grandmother Stroke Mother Cancer Heart disease Hypertension Mental health problem Social History household members: none Smoking Status: Never smoker alcohol intake: current Smoking Status: Never smoker alcohol intake frequency: holidays/special occasions only Substance Use Type: does not use Exam Narrative Exam Narrative: GEN: AOx3 and in mild distress EYES: Pupils are equal, round, and reactive to light and accommodation. Extraoccular muscles are intact bilaterally. There is no subconjunctival hemorrhage or exudate. CHEST: Lungs are clear to auscultation bilaterally and free of wheezes, rales, or rhonchi. Heart rate is regular rhythm, there are no murmurs, clicks, rubs, or gallops. There is no chest wall tenderness. ABD: Abdomen is soft and nontender. There is no guarding or rebound. Bowel sounds are normal in all 4 quadrants. There is no mass or organomegaly. EXT: Small avulsion type laceration to the tip of her left thumb with active bleeding. No nail bed or nail fold involvement, no foreign body, no bone noted. Full painless ROM of all extremities with no loss of sensation or strength. SKIN: Warm, pink, and dry. No erythema or rash Initial Vital Signs Initial Vital Signs: Vital Signs Temperature 98.5 F 02/23/21 17:12 Pulse Rate 77 02/23/21 17:12 Respiratory Rate 16 02/23/21 17:12 Blood Pressure 179/77 H 02/23/21 17:12 Pulse Oximetry 98 02/23/21 17:12 Procedures Laceration Repair Laceration 1: Site: upper extremity Side (If applicable): left Size (cm): 0.5 Description: flap Depth: simple, single layer Pre-repair: wound explored Skin layer closed with: nylon Size (cm): 4-0 Number of sutures: 1 (For hemostasis only) Technique: simple, interrupted Course Orders Ordered: Discontinued Medications Diphtheria/Tetanus/Acell Pertussis (Tet,Diph,Pertuss(Acell),Vac/Pf 0.5 Ml Syringe) 0.5 ml IM .ONCE ONE Stop: 02/23/21 17:16 Last Admin: 02/23/21 17:18 Dose: 0.5 ml Documented by: SUPRIYA Lidocaine/Sodium Bicarbonate (Lido 1%/Sod Bicarb 8.4% (10ml) 10 Ml Syringe) 10 ml INJ NOW ONE Stop: 02/23/21 17:16 Vital Signs Vital signs: Vital Signs - 8 hr 02/23/21 17:12 Temperature 98.5 F Pulse Rate 77 Respiratory Rate 16 Blood Pressure 179/77 H Pulse Oximetry 98 Discharge Plan Departure Patient Disposition: Home Clinical Impression: Laceration of thumb Qualifiers: Encounter type: initial encounter Damage to nail status: without damage Foreign body presence: without foreign body Laterality: left Qualified Code(s): S61.012A - Laceration without foreign body of left thumb without damage to nail, initial encounter Instructions: DI for Laceration Repair Activity Restrictions/Additional Instructions: Please keep the wound clean and dry to the best of your ability. Please monitor for signs of infection such as redness to the skin or increasing pain. Have the sutures removed by your doctor in about 7 days. If you are unable to get into your doctor, we would be happy to remove the sutures in that same timeframe. Prescriptions: No Action calcium citrate-vitamin D3 [Citracal Regular] 250 MG/200 IU tablet 1 tab PO QDAY Qty: 0 RF: 0 Hold Instructions: nausea VITAMIN D (Vitamin D3) 1,000 units PO QDAY Qty: 0 RF: 0 pantoprazole 40 mg tablet,delayed release (DR/EC) 40 mg PO DAILY Qty: 90 RF: 3 naproxen 375 mg tablet 375 mg PO QID PRNRF: 0 tizanidine 2 mg tablet 1 mg PO BEDTIME PRN (Reason: muscle spasticity) Qty: 45 RF: 3 Prolia 60 mg/mL syringe 60 mg SUBCUT [id number] Qty: 1 RF: 1 estradiol 1 mg tablet 1 mg PO DAILY Qty: 90 RF: 3 acetaminophen 500 mg tablet 1,000 mg PO Q6H PRNRF: 0 ivermectin [Soolantra] 1 % Cream 1 applic TOPICAL BID RF: 0 loratadine [Claritin] 10 mg Tablet 10 mg PO DAILY RF: 0 atorvastatin 40 mg Tablet 40 mg PO DAILY RF: 0 Hold Instructions: Nausea Restasis 0.05 % Dropperette 1 drp ophthalmic (eye) Q12H PRN (Reason: Dry Eye(S)) RF: 0 hydrochlorothiazide 25 mg tablet 25 mg PO DAILY 90 Days Qty: 90 RF: 0 Referrals: Fawad Delgadillo MD [Primary Care Provider] -
== END 2021-02-23 17:31 | disposition home or self-care (01) ==
PROVIDERS: Emergency Provider Emergency Medicine; PCP Student in an Organized Health Care Education/Training Program
DX: S61.012A Laceration without foreign body of left thumb without damage to nail, initial encounter (principal); W26.0XXA Contact with knife, initial encounter; Z23 Encounter for immunization
CPT/HCPCS: 12001; 90471; 99283; 90715

== ENCOUNTER → 2021-09-22 14:03 | Outpatient (CLI) | payer MEDICARE, OTHER, SELFPAY ==
[2020-11-20 14:02] VITALS: BMI 20.5
--- NOTE | 2021-09-22 14:05 | DI.RAD.S_ITS ---
PROCEDURE: XR DEXA AXIAL SKELETON INDICATIONS: Osteoporosis monitoring COMPARISON: [facility], CR, XR DEXA AXIAL SKELETON, 06/10/2020, 10:07. FINDINGS: This blank DEXA report has been sent in error by the PACS system. The correct and complete report will be forthcoming in 1-2 days. Thank you for your patience and understanding. Dictated by: Wendy Lee MD, PhD on 09/22/2021 at 17:15 Approved by: Wendy Lee MD, PhD on 09/22/2021 at 17:15
== END ==
PROVIDERS: PCP Student in an Organized Health Care Education/Training Program; Referring Provider Student in an Organized Health Care Education/Training Program; Visit Provider Student in an Organized Health Care Education/Training Program
DX: Z78.0 Asymptomatic menopausal state (principal); M85.88 Other specified disorders of bone density and structure, other site; Z82.62 Family history of osteoporosis
CPT/HCPCS: 77080

== ENCOUNTER → 2021-10-18 11:31 | Outpatient (CLI) | payer MEDICARE, OTHER, SELFPAY ==
[2020-11-20 14:02] VITALS: BMI 20.5
--- NOTE | 2021-10-18 11:35 | DI.MG.S_ITS ---
BILATERAL DIGITAL SCREENING MAMMOGRAM 3D/2D WITH CAD: 10/18/2021 CLINICAL: Routine screening. Family history of breast cancer. Comparison is made to exams dated: 06/10/2020 mammogram, 01/27/2019 mammogram, and 04/19/2017 mammogram - [facility]. There are scattered fibroglandular elements in both breasts. Current study was also evaluated with a Computer Aided Detection (CAD) system. No significant masses, calcifications, or other findings are seen in either breast. There has been no significant interval change. IMPRESSION: NEGATIVE There is no mammographic evidence of malignancy. A 1 year screening mammogram is recommended. This exam was interpreted at Station ID: [id number]. NOTE: For mammograms, a report in lay terms will be sent to the patient. Approximately 15% of breast malignancies will not be visualized mammographically. In the management of a palpable breast mass, a negative mammogram must not discourage biopsy of a clinically suspicious lesion. Electronically Signed By: Alfredo vargas/shane:10/20/2021 01:48:56 letter sent: Normal Exam ACR BI-RADS Category 1: Negative [id number]
== END ==
PROVIDERS: PCP Student in an Organized Health Care Education/Training Program; Referring Provider Student in an Organized Health Care Education/Training Program; Visit Provider Student in an Organized Health Care Education/Training Program
DX: Z12.31 Encounter for screening mammogram for malignant neoplasm of breast (principal); Z80.3 Family history of malignant neoplasm of breast
CPT/HCPCS: 77063; 77067

== ENCOUNTER → 2021-12-30 10:41 | Outpatient (CLI) | payer MEDICARE, OTHER, SELFPAY ==
[2020-11-20 14:02] VITALS: BMI 20.5
[2021-12-30 11:59] LABS: COVID19 -Nasal RAPID Negative (Negative)
== END ==
PROVIDERS: PCP Student in an Organized Health Care Education/Training Program; Visit Provider Physical Medicine & Rehabilitation
DX: Z20.822 Contact with and (suspected) exposure to COVID-19 (principal)
CPT/HCPCS: 87635; C9803

== ENCOUNTER 2022-01-01 15:04 | Outpatient (CLI) | payer MEDICARE, OTHER, SELFPAY ==
[2020-11-20 14:02] VITALS: BMI 20.5
[2022-01-01] VITALS (9 sets, daily range): BP systolic 137–164; BP diastolic 69–91; PULSE 55–64; RESP 10–20; TEMP 36.6; O2SAT 98–100
--- NOTE | 2022-01-01 15:05 | DI.RAD.S_ITS ---
PROCEDURE: PAIN L/S TRANSFORAMINAL INJECT INDICATIONS: SPONDYLOSIS COMPARISON: [facility], MR, MR LUMBAR SPINE WITHOUT CONTRAST, 08/06/2021, 18:11. FINDINGS: Fluoroscopic spot filming was performed to verify placement of a spinal needle at the L4-L5 level, as labeled on the films. Appropriate location of the needle tip was confirmed by injection of iodinated contrast. IMPRESSION: Intraprocedural examination within normal limits. Dictated by: Gomez Graf M.D. on 01/01/2022 at 15:14 Approved by: Gomez Graf M.D. on 01/01/2022 at 15:14
[2022-01-01] MEDS: MIDAZOLAM 2 MG/2 ML VIAL IV (15:39)
[2022-01-01] MEDS: DEXAMETHASONE 10 MG/ML VIAL 20 MG INJ (15:43)
[2022-01-01] MEDS: BUPIVACAINE 0.25% (PF) VIAL 2 ML INJ (15:43)
[2022-01-01] MEDS: BETAMETHASONE 30 MG/5 ML MDV 6 MG INJ (15:43)
[2022-01-01] MEDS: IOPAMIDOL 15 ML VIAL 3 ML INJ (15:43)
--- NOTE | 2022-01-01 15:59 | P.PCN_ITS ---
Date/Time/Diagnoses Date of procedure: 01/01/22 Time of procedure: 15:59 Pre-procedure diagnosis: 1. FORAMINAL STENOSIS WITH LE SYMPTOMS Post-procedure diagnosis: same Procedure Notes Procedure: 1. FLUOROSCOPICALLY GUIDED CONTRAST CONTROLLED TRANSFORAMINAL EPIDURAL STEROID INJECTION - RIGHT L4/5 TFESI Indications: Analia is referred by Dr. Delgadillo for treatment of Foraminal Stenosis with Right LE Symptoms Physician: Stewart Irwin Total Fluoroscopy time (seconds): 7 Total sedation minutes: 11 Complications: none Procedure in detail & Post-procedure care: FINDINGS Foraminal Nerve Root Compression secondary to disc disease and facet hypertrophy DESCRIPTION OF PROCEDURE Following review of allergy and review of potential side effects and complications, including, but not necessarily limited to, infection, allergic reaction, local tissue breakdown, stroke, temporary or permanent nerve injury, paralysis, and possible , the patient indicated that the patient understood and agreed to proceed. An informed consent document was signed by the patient, witnessed by a nurse, and placed in the patient's chart. Additionally, other treatment options including medications, modalities, and physical therapy were reviewed with the patient. After review of previous anaesthesic history and IV conscious sedation the patient was deemed safe to proceed with today?s procedure with IV conscious sedation as ASA class II designation. Safety time-out was performed to confirm patient ID, procedure to be performed and site of procedure. IV sedation was accomplished with a combination of 2mg of Versed was administered by the RN after DO order, titrated to patient comfort during the course of the procedure while the patient remained responsive to all verbal commands In the prone position following sterile prep and drape of the lumbar region, the right L4/5 posterior neuroforamen was identified fluoroscopically. The skin was anesthetized via a 25-gauge 1.5-inch needle with 1% lidocaine solution. At this point, a 25-gauge 3.5-inch spinal needle was atraumatically introduced and advanced under fluoroscopic guidance through the posterior right L4/5 neuroforamen to approximately the anterior aspect of the canal. Depth was confirmed on lateral view. Following negative aspiration, injection of approximately 1.5cc of Isovue 200 under live fluoroscopy in the AP view conf irmed excellent flow along the nerve root, into the epidural space without vascular or intrathecal uptake observed Radiological data, including multiple fluoroscopic views of the lumbosacral spine, reveal a spinal needle at the right L4/5 posterior neuroforamen. Subsequent views show flow of contrast material flowing superiorly and inferiorly along the nerve root confirming epidural flow. Subsequently, a test dose of 1.5 cc of 1% lidocaine solution was administered and patient was observed for two minutes for signs or symptoms of complications, including abdominal pain, shortness of breath, bilateral upper or lower extremity weakness, nausea and vomiting, prior to steroid injection. At this point, a total of 3cc or 20mg of dexamethasone and 6mg of betamethasone was injected without incident. The procedure tolerated the procedure well without signs or symptoms of complications prior to transfer to the recovery area continued monitoring without incident. The patient was then transferred to the recovery area where they were observed for an appropriate time after the injection. The patient reported a VAS score of 7 prior to the procedure and a post- procedure VAS of 2. POST OP INSTRUCTIONS The patient was provided a Pain Log to continue to record their response to the target-specific procedure prior to follow-up visit with their referring ph ysician. Additionally, specific post-injection care instructions and a contact number to our office were provided if concerns arise regarding possible complications associated with the procedure are suspected.
== END 2022-01-01 16:31 | disposition home or self-care (01) ==
LOC: RAD 15:05
PROVIDERS: PCP Student in an Organized Health Care Education/Training Program; Referring Provider Physical Medicine & Rehabilitation; Visit Provider Physical Medicine & Rehabilitation
DX: M48.061 Spinal stenosis, lumbar region without neurogenic claudication (principal); M51.16 Intervertebral disc disorders with radiculopathy, lumbar region
CPT/HCPCS: 64483; 99152; J0702; J1100; J2250; J3010

== ENCOUNTER → 2022-03-10 14:01 | Outpatient (CLI) | payer MEDICARE, OTHER, SELFPAY ==
[2020-11-20 14:02] VITALS: BMI 20.5
--- NOTE | 2022-03-10 | DI.MRI.S_ITS ---
PROCEDURE: MR SHOULDER LT WO CON INDICATIONS: Pain in left shoulder TECHNIQUE: Noncontrast oblique coronal T2 fast spin echo with fat saturation, oblique sagittal T1 spin echo and T2 fast spin echo with fat saturation, axial T1 spin echo and T2 fast spin echo with fat saturation through the shoulder. COMPARISON: [facility], , SHOULDER WITHOUT CONTRAST, 04/05/2017, 8:25. FINDINGS: Image quality: Excellent: Rotator cuff: There is full-thickness rupture involving most anterior fibers of distal supraspinatus at its insertion on the humeral head with up to 1.5 cm medial retraction of torn tendon fibers. Tendinosis and moderate grade articular surface partial-thickness tear involving mid to posterior fibers of distal supraspinatus and distal infraspinatus at their insertion on the humeral head is seen extending to musculotendinous junction. Distal subscapularis tendon is intact. Sagittal images demonstrate mild to moderate supraspinatus muscle atrophy. Bones and bursae: No bone marrow contusions or fractures. Moderate acromioclavicular joint osteoarthritic changes are seen with downward osteophyte formation depressing the musculotendinous junction of supraspinatus. Moderate glenohumeral joint osteoarthritic changes also noted. There is moderate amount of subacromial subdeltoid bursal fluid. Capsule and soft tissues: Signal abnormality and contour irregularity involving superior anterior labrum at 12 to 1 o'clock position is seen. Similar signal abnormality involving inferior labrum at 5 to 7 o'clock position is also noted. The long head of the biceps tendon demonstrates normal location and morphology. The rotator interval appears normal, without fibrosis. The coracohumeral ligament is normal in thickness. IMPRESSION: 1. Full-thickness rupture involving most anterior fibers of distal supraspinatus at its insertion on the humeral head with up to 1.5 cm medial retraction of torn tendon fibers. Tendinosis and moderate grade articular surface partial-thickness tear involving mid to posterior fibers of distal supraspinatus and distal infraspinatus extending to musculotendinous junction. Mild to moderate supraspinatus muscle atrophy. 2. Moderate acromioclavicular joint and glenohumeral joint osteoarthritis. Moderate amount of joint effusion and subacromial subdeltoid bursal fluid. No fracture or dislocation. 3. Suggestion of superior anterior labral tear at 12 to 1 o'clock position and inferior labral tear at 5 to 7 o'clock position. Dictated by: Devon Galeano M.D. on 03/10/2022 at 17:22 Approved by: Devon Galeano M.D. on 03/10/2022 at 17:25
== END ==
PROVIDERS: PCP Student in an Organized Health Care Education/Training Program; Referring Provider Orthopaedic Surgery; Visit Provider Orthopaedic Surgery
DX: M25.512 Pain in left shoulder (principal); S46.012A Strain of muscle(s) and tendon(s) of the rotator cuff of left shoulder, initial encounter; M62.512 Muscle wasting and atrophy, not elsewhere classified, left shoulder; M19.012 Primary osteoarthritis, left shoulder; M25.412 Effusion, left shoulder
CPT/HCPCS: 73221

== ENCOUNTER → 2022-04-06 10:58 | Outpatient (CLI) | payer MEDICARE, OTHER, SELFPAY ==
[2020-11-20 14:02] VITALS: BMI 20.5
[2022-04-06 12:20] LABS: COVID19 -Nasal RAPID Negative (Negative)
== END ==
PROVIDERS: PCP Student in an Organized Health Care Education/Training Program; Visit Provider Physical Medicine & Rehabilitation
DX: Z20.822 Contact with and (suspected) exposure to COVID-19 (principal)
CPT/HCPCS: 87635; C9803

== ENCOUNTER 2022-04-07 12:28 | Outpatient (CLI) | payer MEDICARE, OTHER, SELFPAY ==
[2020-11-20 14:02] VITALS: BMI 20.5
[2022-04-07] VITALS (9 sets, daily range): BP systolic 139–184; BP diastolic 64–84; PULSE 50–55; RESP 12–20; TEMP 36.1; O2SAT 97–100
--- NOTE | 2022-04-07 12:29 | DI.RAD.S_ITS ---
PROCEDURE: PAIN L/S FACET INJ/BLK 1ST SAGAR COMPARISON: None. INDICATIONS: spondylosis FINDINGS: Access needles at the bilateral L4, L5 and S1 pedicles. Injection of small amount of contrast material demonstrates the needle tips are extra thecal. IMPRESSION: Access needles at the bilateral L4, L5 and S1 pedicles for bilateral L4, L5 and S1 medial branch blocks. Dictated by: Wendy Lee MD, PhD on 04/07/2022 at 16:34 Approved by: Wendy Lee MD, PhD on 04/07/2022 at 16:35
[2022-04-07] MEDS: BUPIVACAINE 0.5% (PF) VIAL 6 ML INJ (13:56)
[2022-04-07] MEDS: LIDOCAINE 1% 20 ML 5 ML INJ (13:57)
[2022-04-07] MEDS: IOPAMIDOL 15 ML VIAL 3 ML INJ (13:58)
[2022-04-07] MEDS: MIDAZOLAM 2 MG/2 ML VIAL 4 MG IV (13:59)
--- NOTE | 2022-04-07 14:12 | P.PCN_ITS ---
Date/Time/Diagnoses Date of procedure: 04/07/22 Time of procedure: 14:12 Pre-procedure diagnosis: 1. FACET ARTHROPATHY Post-procedure diagnosis: same Procedure Notes Procedure: 1. BILATERAL- L4, L5 and S1 DIAGNOSTIC MB BLOCKS with SA Anesthetic Indications: Analia is referred by Dr. Delgadillo for treatment of Bilateral Axial LBP. Physician: Stewart Irwin Total Fluoroscopy time (seconds): 16 Total sedation minutes: 20 Complications: none Procedure in detail & Post-procedure care: DESCRIPTION OF PROCEDURE Fluoroscopically guided, contrast-controlled bilateral L4, L5 and S1 medial branch blocks with 0.5cc of 2% Lidocaine. Following review of allergy and review of potential side effects and complications, including, but not necessarily limited to, infection, allergic reaction, local tissue breakdown, nerve injury, paralysis, stroke and possible , the patient indicated that the patient understood and agreed to proceed. An informed consent document was signed by the patient, witnessed by a nurse, and placed in the patient's chart. After review of previous anaesthesic history and IV conscious sedation the patient was deemed safe to proceed with today's procedure with IV conscious sedation as ASA class II designation. Safety time-out was performed to confirm patient ID, procedure to be performed and site of procedure. IV sedation was accomplished with a combination of 4mg of Versed was administered by the RN after DO order, titrated to patient comfort during the course of the procedure while the patient remained responsive to all verbal commands In the prone position, following sterile prep and drape of the lumbar region, the right L4, L5 and S1 anatomical location of the medial branch of the dorsal ramus was identified fluoroscopically. Subsequently an anesthetic skin wheal us ing 1% lidocaine solution was initiated at each of the anatomical spots. Subsequently then a 22-gauge 3.5-inch spinal needle was atraumatically introduced and advanced under fluoroscopic guidance at each of the corresponding sites at the right L4, L5 and S1 MB. After negative aspiration, 0.2cc of Isovue 200 was injected, confirming placement without vascular or intrathecal uptake. Subsequently then 0.5cc of 2% Lidocaine solution was injected at each of the corresponding sites at the right L4, L5 and S1 medial branch locations. The identical procedure was replicated on the left. The patient tolerated the procedure well without signs or symptoms of complications prior to transfer to the recovery area continued monitoring without incident. Post-procedure, the patient was monitored initiating provocative activities to measure the amount of relief from block of the facetogenic pain. The patient reported a VAS of 7 prior to the procedure and a post-procedure VAS of 1. It has been a pleasure to assist in the diagnostic and therapeutic care of your patient. POST OP INSTRUCTIONS The patient was provided with a Pain Log to complete over the next several hours and subsequent days prior to the patient's follow up with the ordering physician. If the patient has benzene worker relief to the solution applied, then they may be a candidate for medial branch rhizotomy. The patient is aware, was provided, once again, with a Pain Log and will follow up with the referring physician for review and clinical correlation
== END 2022-04-07 14:30 | disposition home or self-care (01) ==
LOC: RAD 12:29
PROVIDERS: PCP Student in an Organized Health Care Education/Training Program; Referring Provider Physical Medicine & Rehabilitation; Visit Provider Physical Medicine & Rehabilitation
DX: M47.816 Spondylosis without myelopathy or radiculopathy, lumbar region (principal); M47.817 Spondylosis without myelopathy or radiculopathy, lumbosacral region
CPT/HCPCS: 64493; 64494; 99152; J2250

== ENCOUNTER → 2022-05-28 13:41 | Outpatient (CLI) | payer MEDICARE, OTHER, SELFPAY ==
[2020-11-20 14:02] VITALS: BMI 20.5
--- NOTE | 2022-05-28 13:44 | DI.RAD.S_ITS ---
PROCEDURE: XR RIBS LT MIN 3V W CXR1V INDICATIONS: Injury. Pain. TECHNIQUE: 2 views of the left ribs were acquired, along with a single view chest. COMPARISON: None. FINDINGS: Surgical changes and devices: A radiopaque marker overlies the area of clinical concern. Surgical anchors project over the right humeral head. Bones and chest wall: No fractures or dislocations. No suspicious bony lesions. Overlying soft tissues appear unremarkable. Lungs and pleura: No pleural effusions or pneumothorax. Lungs appear clear. Mediastinum: Mediastinal contours appear normal. Heart size is normal. IMPRESSION: 1. No acute displaced rib fracture visualized radiographically. If clinically indicated, CT of the chest could be obtained for further evaluation. 2. No pneumothorax. Dictated by: Ryan Gonsalez M.D. on 05/28/2022 at 15:02 Approved by: Ryan Gonsalez M.D. on 05/28/2022 at 15:09
== END ==
PROVIDERS: PCP Student in an Organized Health Care Education/Training Program; Referring Provider Nurse Practitioner Critical Care Medicine; Visit Provider Nurse Practitioner Critical Care Medicine
DX: R07.81 Pleurodynia (principal)
CPT/HCPCS: 71101

== ENCOUNTER 2022-06-16 12:04 | Outpatient (CLI) | payer MEDICARE, OTHER, SELFPAY ==
[2020-11-20 14:02] VITALS: BMI 20.5
[2022-06-16] VITALS (9 sets, daily range): BP systolic 114–185; BP diastolic 64–88; PULSE 49–60; RESP 13–22; TEMP 36.7; O2SAT 98–100
--- NOTE | 2022-06-16 12:10 | DI.RAD.S_ITS ---
PROCEDURE: PAIN L/S TRANSFORAM INJECT SAGAR COMPARISON: None. INDICATIONS: SPONDYLOSIS FINDINGS: Six intraprocedural fluoroscopic images obtained demonstrating bilateral L4-L5 transforaminal injection. IMPRESSION: Intraprocedural fluoroscopy was provided for guidance and anatomical localization. Please see the procedure report for further details. Dictated by: Ryan Gonsalez M.D. on 06/16/2022 at 15:30 Approved by: Ryan Gonsalez M.D. on 06/16/2022 at 15:32
[2022-06-16 13:01] LABS: COVID19 -Nasal RAPID Negative (Negative)
[2022-06-16] MEDS: MIDAZOLAM 2 MG/2 ML VIAL 4 MG IV (13:54)
[2022-06-16] MEDS: IOPAMIDOL 15 ML VIAL 3 ML INJ (13:58)
[2022-06-16] MEDS: DEXAMETHASONE 10 MG/ML VIAL 20 MG INJ (13:59)
[2022-06-16] MEDS: BUPIVACAINE 0.25% (PF) VIAL 2 ML INJ (14:00)
[2022-06-16] MEDS: BETAMETHASONE 30 MG/5 ML MDV 12 MG INJ (14:00)
--- NOTE | 2022-06-16 14:06 | PM.PROC.IR.1 ---
Date/Time/Diagnoses Date of procedure: 06/16/22 Time of procedure: 14:06 Pre-procedure diagnosis: 1. FORAMINAL STENOSIS WITH LE SYMPTOMS Procedure Notes Procedure: 1. FLUOROSCOPICALLY GUIDED CONTRAST CONTROLLED TRANSFORAMINAL EPIDURAL STEROID INJECTION - BILATERAL L4/5 TFESI Indications: Analia is referred by Dr. Delgadillo for treatment of Foraminal Stenosis with bilateral LE Symptoms Physician: Stewart Irwin Total Fluoroscopy time (seconds): 11 Total sedation minutes: 14 Complications: none Procedure in detail & Post-procedure care: FINDINGS Foraminal Nerve Root Compression secondary to disc disease and facet hypertrophy DESCRIPTION OF PROCEDURE Following review of allergy and review of potential side effects and complications, including, but not necessarily limited to, infection, allergic reaction, local tissue breakdown, stroke, temporary or permanent nerve injury, paralysis, and possible , the patient indicated that the patient understood and agreed to proceed. An informed consent document was signed by the patient, witnessed by a nurse, and placed in the patient's chart. Additionally, other treatment options including medications, modalities, and physical therapy were reviewed with the patient. After review of previous anaesthesic history and IV conscious sedation the patient was deemed safe to proceed with today?s procedure with IV conscious sedation as ASA class II designation. Safety time-out was performed to confirm patient ID, procedure to be performed and site of procedure. IV sedation was accomplished with a combination of 4mg of Versed was administered by the RN after DO order, titrated to patient comfort during the course of the procedure while the patient remained responsive to all verbal commands In the prone position following sterile prep and drape of the lumbar region, the right L4/5 posterior neuroforamen was identified fluoroscopically. The skin was anesthetized via a 25-gauge 1.5-inch needle with 1% lidocaine solution. At this point, a 25-gauge 3.5-inch spinal needle was atraumatically introduced and advanced under fluoroscopic guidance through the posterior right L4/5 neuroforamen to approximately the anterior aspect of the canal. Depth was confirmed on lateral view. Following negative aspiration, injection of approximately 1.5cc of Isovue 200 under live fluoroscopy in the AP view confirmed excellent flow along the nerve root, into the epidural space without vascular or intrathecal uptake observed Radiological data, including multiple fluoroscopic views of the lumbosacral spine, reveal a spinal needle at the right L4/5 posterior neuroforamen. Subsequent views show flow of contrast material flowing superiorly and inferiorly along the nerve root confirming epidural flow. Subsequently, a test dose of 1.5cc of 1% lidocaine solution was administered and patient was observed for two minutes for signs or symptoms of complications, including abdominal pain, shortness of breath, bilateral upper or lower extremity weakness, nausea and vomiting, prior to steroid injection. At this point, a total of 3cc or 20mg of dexamethasone and 6mg betamethasone was injected without incident. Attention was then refocused to the left L4/5 level where the identical procedure was replicated. The procedure tolerated the procedure well without signs or symptoms of complications prior to transfer to the recovery area continued monitoring without incident. The patient was then transferred to the recovery area where they were observed for an appropriate time after the injection. The patient reported a VAS score of 7 prior to the procedure and a post-procedure VAS of 0. POST OP INSTRUCTIONS The patient was provided a Pain Log to continue to record their response to the target-specific procedure prior to follow-up visit with their referring physician. Additionally, specific post-injection care instructions and a contact number to our office were provided if concerns arise regarding possible complications associated with the procedure are suspected.
--- NOTE | 2022-06-16 16:04 | PC.NURSE ---
Patient was steady on feet, able to walking in place.
== END 2022-06-16 14:45 | disposition home or self-care (01) ==
PROVIDERS: PCP Student in an Organized Health Care Education/Training Program; Referring Provider Physical Medicine & Rehabilitation; Visit Provider Physical Medicine & Rehabilitation
DX: M47.816 Spondylosis without myelopathy or radiculopathy, lumbar region (principal); M47.27 Other spondylosis with radiculopathy, lumbosacral region; M51.26 Other intervertebral disc displacement, lumbar region; Z20.822 Contact with and (suspected) exposure to COVID-19
CPT/HCPCS: 64483; 87635; 99152; J0702; J1100; J2250; J3490

== ENCOUNTER → 2022-06-18 13:16 | Outpatient (CLI) | payer MEDICARE, OTHER, SELFPAY ==
[2020-11-20 14:02] VITALS: BMI 20.5
--- NOTE | 2022-06-18 | DI.MRI.S_ITS ---
PROCEDURE: MR LOWER LEG LT WO CON COMPARISON: None. INDICATIONS: Pain in left lower leg Technique: Multiplanar and multisequence MR images of left lower leg were obtained without IV contrast. FINDINGS: Bones and joints: Patient is status post left knee arthroplasty with susceptibility artifacts. No gross marrow edema. No fracture or dislocation. No evidence of stress related injury involving tibial or fibular shafts. No suspicious intraosseous lesion. Soft tissues: Diffuse soft tissue swelling and edema surrounding distal lower leg and ankle joint is seen. No discrete drainable fluid collection. No lower leg muscle signal abnormality. No discrete soft tissue mass. IMPRESSION: 1. Distal lower leg and ankle soft tissue swelling and edema. No discrete drainable fluid collection is seen. 2. No lower leg muscle or tendon signal abnormality. 3. Prior left knee arthroplasty with postsurgical changes. No marrow edema. No fracture or dislocation. No suspicious intraosseous lesion. Dictated by: Devon Galeano M.D. on 06/18/2022 at 16:01 Approved by: Devon Galeano M.D. on 06/18/2022 at 16:03
== END ==
PROVIDERS: PCP Student in an Organized Health Care Education/Training Program; Referring Provider Orthopaedic Surgery; Visit Provider Orthopaedic Surgery
DX: M79.662 Pain in left lower leg (principal); R60.0 Localized edema
CPT/HCPCS: 73718

== ENCOUNTER → 2022-09-02 10:13 | Outpatient (CLI) | payer MEDICARE, OTHER, SELFPAY ==
[2020-11-20 14:02] VITALS: BMI 20.5
--- NOTE | 2022-09-02 10:16 | DI.MG.S_ITS ---
BILATERAL DIGITAL DIAGNOSTIC MAMMOGRAM 3D/2D: 09/02/2022 CLINICAL: Right breast lump. Comparison is made to exams dated: 10/18/2021 mammogram, 06/10/2020 mammogram, and 01/27/2019 mammogram - [facility]. There are scattered areas of fibroglandular density in both breasts (category b / 25%-50% glandular tissue). No significant masses, calcifications, or other findings are seen in either breast. IMPRESSION: INCOMPLETE: NEEDS ADDITIONAL IMAGING EVALUATION There is no mammographic abnormality seen in the right breast to correspond with the pain, however, targeted ultrasound of the right breast is recommended and will be performed immediately following this exam. Based on the Tyrer Cuzick model (a risk assessment model) the patient's lifetime risk is 3.0% and her 10 year risk is 2.2%. According to the ACR, ACS, and NCCN guidelines, an annual breast MRI exam along with mammogram is recommended if the patient's lifetime risk is 20% or greater. This exam was interpreted at Station ID: [id number]. NOTE: For mammograms, a report in lay terms will be sent to the patient. Approximately 15% of breast malignancies will not be visualized mammographically. In the management of a palpable breast mass, a negative mammogram must not discourage biopsy of a clinically suspicious lesion. Electronically Signed By: Rubina Mcmillan M.D. lk/:09/02/2022 10:45:23 ACR BI-RADS Category 0: Incomplete 3340F
--- NOTE | 2022-09-02 10:16 | DI.US.S_ITS ---
ULTRASOUND OF RIGHT BREAST: 09/02/2022 CLINICAL: Palpable right breast lump. Focal right breast pain. Comparison is made to exams dated: 09/02/2022 mammogram, 10/18/2021 mammogram, and 06/10/2020 mammogram - [facility]. Ultrasound of the right breast was performed on the area of interest. Langston scale images of the real-time examination were reviewed. IMPRESSION: NEGATIVE There is no sonographic evidence of malignancy. There is no mammographic or sonographic abnormality seen in the right breast to correspond with the pain, however, clinical followup is recommended. Return to annual mammogram screening schedule is recommended. This exam was interpreted at Station ID: [id number]. Electronically Signed By: Rubina quintana/:09/02/2022 11:04:37 letter sent: Clinical Evaluation Ultrasound BI-RADS: 1 Negative
== END ==
PROVIDERS: PCP Student in an Organized Health Care Education/Training Program; Referring Provider Student in an Organized Health Care Education/Training Program; Visit Provider Student in an Organized Health Care Education/Training Program
DX: N64.4 Mastodynia (principal); R92.2 Inconclusive mammogram
CPT/HCPCS: 76642; 77066; 99214; G0279

== ENCOUNTER 2022-09-17 08:45 | Outpatient (CLI) | payer MEDICARE, OTHER, SELFPAY ==
[2020-11-20 14:02] VITALS: BMI 20.5
[2022-09-17] VITALS (10 sets, daily range): BP systolic 114–166; BP diastolic 60–81; PULSE 51–57; RESP 13–20; TEMP 36.2; O2SAT 52–100
--- NOTE | 2022-09-17 08:46 | DI.RAD.S_ITS ---
PROCEDURE: PAIN C/T INTERLAMINAR INJECT INDICATIONS: SPINAL STENOSIS COMPARISON: [facility], , PAIN C/T INTERLAMINAR INJECT, 12/13/2018, 10:51. FINDINGS: Fluoroscopic spot filming was performed to verify placement of a spinal needle at the C5-C6 level. Appropriate location of the needle tip was confirmed by injection of iodinated contrast. IMPRESSION: No significant intraprocedural abnormality. Dictated by: Gomez Graf M.D. on 09/17/2022 at 10:54 Approved by: Gomez Graf M.D. on 09/17/2022 at 10:55
[2022-09-17] MEDS: BUPIVACAINE 0.25% (PF) VIAL 5 ML SUBCUT (09:33)
[2022-09-17] MEDS: IOPAMIDOL 15 ML VIAL 3 ML INJ (09:34)
[2022-09-17] MEDS: DEXAMETHASONE 10 MG/ML VIAL 30 MG INJ (09:34)
[2022-09-17] MEDS: MIDAZOLAM 2 MG/2 ML VIAL 3 MG IV (09:37)
--- NOTE | 2022-09-17 09:52 | P.PCN_ITS ---
Date/Time/Diagnoses Date of procedure: 09/17/22 Time of procedure: 09:52 Pre-procedure diagnosis: 1. CERVICAL STENOSIS, 2. CERVICAL HNP WITH UPPER EXTREMITY RADICULAR FEATURES Post-procedure diagnosis: same Procedure Notes Procedure: 1. FLUORSCOPICALLY GUIDED CONTRAST CONTROLLED INTERLAMINAR EPIDURAL STEROID INJECTION - C6/7 TL DEYANIRA Indications: Analia is referred by Dr. Delgadillo for treatment of Cervical HNP with Upper Extremity Paresthesias. Physician: Stewart Irwin Total Fluoroscopy time (seconds): 32 Total sedation minutes: 17 Complications: none Procedure in detail & Post-procedure care: FINDINGS Cervical Stenosis due to disc deterioration and nerve root irritation and nerve root irritation DESCRIPTION OF PROCEDURE Fluoroscopically guided, contrast-controlled C6/7 translaminar epidural steroid injection with conscious sedation. Following review of allergy and review of potential side effects and complications, including, but not necessarily limited to, infection, allergic reaction, local tissue breakdown, temporary as well as permanent nerve injury, stroke, paralysis, and possible , the patient indicated that patient understood and agreed to proceed. An informed consent document was signed by the patient, witnessed by a nurse, and placed in the patient's chart. Additionally, other treatment options including modalities, medications, and physical therapy were reviewed with the patient. After review of previous anaesthesic history and IV conscious sedation the patient was deemed safe to proceed with today?s procedure with IV conscious sedation as ASA class II designation. Safety time-out was performed to confirm patient ID, procedure to be performed and site of procedure. IV sedation was accomplished with a combination of 3mg of Versed administered by the RN after DO order, titrated to patient comfort during the course of the procedure while the patient remained responsive to all verbal commands. In the prone position, following sterile prep and drape of the cervical region, the C6/7 translaminar space was identified fluoroscopically. The skin was anesthetized via a 25-gauge 1.5-inch needle with 1% lidocaine solution. At this point, a 25-gauge, 2.5-inch short bevel spinal needle was atraumatically introduced and advanced under fluoroscopic guidance into epidural space at the C6/7 translaminar space. Depth was confirmed on lateral view. Radiological data, including multiple fluoroscopic views of the cervical spine, reveal a spinal needle at the C6/7 translaminar space. Lateral views then show placement of the needle in the epidural space. Subsequent views show contrast material flowing superiorly and inferiorly in the epidural space. DSA fluoroscopy with live contrast injection, once again, confirmed no vascular or intrathecal uptake. At this point, using loss of resistance technique with saline and air, the epidural space was entered. Following negative aspiration, injection of approximately 1.5 cc of Isovue-200 with live fluoroscopy in the AP view confirmed epidural flow in the epidural space without vascular or intrathecal uptake observed. Subsequently, a test dose of 1 cc of 1% lidocaine solution was injected and patient was observed for two minutes without signs or symptoms of complications, including abdominal pain, shortness of breath, bilateral upper or lower extremity weakness, nausea and vomiting, prior to steroid injection. At this point, 3cc or 30mg of dexamethasone was then injected without incident. The patient tolerated the procedure well without signs or symptoms of complica tions prior to being transferred to the recovery area for further monitoring, The patient was then transferred to the recovery area where they were observed for an appropriate period of time after the injection. The patient reported a VAS score of 6 prior to the procedure and a post-procedure VAS of 0. POST OP INSTRUCTIONS The patient was provided a Pain Log to continue to record their response to the target-specific procedure prior to follow-up visit with the referring provider. Additionally, specific post-injection care instructions and a contact number to our office were provided if concerns arise regarding possible complications associated with the procedure are suspected.
== END 2022-09-17 10:18 | disposition home or self-care (01) ==
LOC: RAD 08:46
PROVIDERS: PCP Student in an Organized Health Care Education/Training Program; Referring Provider Physical Medicine & Rehabilitation; Visit Provider Physical Medicine & Rehabilitation
DX: M48.02 Spinal stenosis, cervical region (principal); M50.123 Cervical disc disorder at C6-C7 level with radiculopathy
CPT/HCPCS: 62321; 99152; J1100; J2250; J3490

== ENCOUNTER → 2022-10-28 14:34 | Outpatient (CLI) | payer MEDICARE, OTHER, SELFPAY ==
[2020-11-20 14:02] VITALS: BMI 20.5
== END ==
PROVIDERS: PCP Student in an Organized Health Care Education/Training Program; Referring Provider Student in an Organized Health Care Education/Training Program; Visit Provider Student in an Organized Health Care Education/Training Program
DX: Z78.0 Asymptomatic menopausal state (principal); M85.88 Other specified disorders of bone density and structure, other site; K92.9 Disease of digestive system, unspecified; Z79.83 Long term (current) use of bisphosphonates; Z90.710 Acquired absence of both cervix and uterus
CPT/HCPCS: 77080

== ENCOUNTER → 2022-11-13 16:15 | Outpatient (CLI) | payer MEDICARE, OTHER, SELFPAY ==
[2020-11-20 14:02] VITALS: BMI 20.5
--- NOTE | 2022-11-13 16:16 | DI.MRI.S_ITS ---
PROCEDURE: MR HAND RT WO CON INDICATIONS: Rupture of extensor tendons, right hand TECHNIQUE: Noncontrast coronal T1 spin echo and T2 fast spin echo with fat saturation, axial proton density fast spin echo and T2 fast spin echo with fat saturation, sagittal T1 spin echo and STIR through the hand and fingers. COMPARISON: [facility] [place], CR, XR HAND 3+ VIEWS BILATERAL, 10/29/2022, 13:42. FINDINGS: Image quality: Excellent. Bones: Osteoarthritic changes are noted throughout right hand and wrist joints with joint space narrowing and subchondral sclerosis more notably at 1st CMC joint. No acute fracture or dislocation. No marrow edema. Nonspecific intraosseous cyst formation involving distal shaft and neck of 3rd metacarpal bone. Similar intraosseous cyst formation involving 2nd proximal phalangeal base is also seen. No gross bony erosive changes are seen. Interphalangeal joint(s): The accessory and proper collateral ligaments appear intact. The volar plate demonstrates normal morphology. The extensor central slips appear intact on sagittal images. Metacarpophalangeal joint(s): There is suggestion of moderate grade partial-thickness tear involving proximal radial collateral ligaments of 2nd MCP joint. The ulnar collateral ligaments are intact. There is suggestion of ruptured lateral sagittal band of 2nd MCP joint. Extensor apparatus: The central slips insert normally on the middle phalangeal base. The conjoint and terminal tendons insert normally on the distal phalangeal bases. Moderate grade partial-thickness tear involving radial portion of extensor tendon of 2nd digit at the level of 2nd metacarpal head with significant amount of surrounding fluid and attenuated appearing tendon. Flexor apparatus: The flexor digitorum superficialis and profundus tendons both appear intact. All annular and cruciform pulleys appear intact, without adjacent soft tissue edema. Soft tissues: Visualized muscles demonstrate normal bulk and internal signal. No intramuscular masses identified. No ganglion cysts. IMPRESSION: 1. Finding is suggestive of moderate grade partial-thickness tear involving radial portion extensor tendon of 2nd digit with surrounding fluid and edema. No definite full-thickness extensor tendon rupture. 2. Suggestion of low to moderate grade partial-thickness tear involving proximal radial collateral ligaments of 2nd MCP joint and possible ruptured radial sagittal band of the 2nd MCP joint. 3. Right hand and wrist joint osteoarthritis. No fracture or dislocation. Nonspecific intraosseous cyst formation in 3rd metacarpal head and 2nd proximal phalangeal base. Dictated by: Devon Galeano M.D. on 11/16/2022 at 9:47 Approved by: Devon Galeano M.D. on 11/16/2022 at 10:04
== END ==
PROVIDERS: PCP Student in an Organized Health Care Education/Training Program; Referring Provider Orthopaedic Surgery; Visit Provider Orthopaedic Surgery
DX: M66.241 Spontaneous rupture of extensor tendons, right hand (principal); M19.041 Primary osteoarthritis, right hand; M85.441 Solitary bone cyst, right hand
CPT/HCPCS: 73218

== ENCOUNTER → 2022-12-19 13:42 | Outpatient (CLI) | payer MEDICARE, OTHER, SELFPAY ==
[2020-11-20 14:02] VITALS: BMI 20.5
--- NOTE | 2022-12-19 13:45 | DI.RAD.S_ITS ---
PROCEDURE: XR CERVICAL SPINE 4V OR 5V INDICATIONS: NECK PAIN TECHNIQUE: 5 views of the cervical spine acquired. COMPARISON: None. FINDINGS: Bones: No fractures or dislocations to the T1 level. Oblique images demonstrate no bony foraminal stenoses. Degenerative disc disease at C3-4, C4-5, C5-6, and C6-7. Anterior osteophytes at these levels. Soft tissues: No prevertebral soft tissue swelling. IMPRESSION: 1. No acute abnormality. 2. Multilevel degenerative disc disease. Dictated by: Alex Reyes M.D. on 12/19/2022 at 14:58 Approved by: Alex Reyes M.D. on 12/19/2022 at 14:59
== END ==
PROVIDERS: PCP Student in an Organized Health Care Education/Training Program; Referring Provider Physical Medicine & Rehabilitation; Visit Provider Physical Medicine & Rehabilitation
DX: M47.22 Other spondylosis with radiculopathy, cervical region (principal); M48.02 Spinal stenosis, cervical region; M50.11 Cervical disc disorder with radiculopathy, high cervical region
CPT/HCPCS: 72050

== ENCOUNTER 2023-01-31 18:13 | Emergency (ER) | payer MEDICARE, OTHER, SELFPAY ==
[2020-11-20 14:02] VITALS: BMI 20.5
[2023-01-31 18:27] VITALS: BP 180/75; PULSE 57; RESP 16; O2SAT 95; BMI 20.7
[2023-01-31 18:32] VITALS: PULSE 61; O2SAT 97
--- NOTE | 2023-01-31 18:42 | ED_ITS ---
HPI - Fall <Barry Pat PA-C - Last Filed: 01/31/23 19:27> General Chief Complaint: Fall Stated Complaint: fell/facial lac Time Seen by Provider: 01/31/23 18:26 Mode of arrival: Ambulatory History of Present Illness HPI Narrative: This is a 72-year-old female presents emergency department due to tripping and falling while looking at home number feeders. She is unsure if she landed on her head or if she will end did not some how the glasses caused the cut above her left eyebrow. She is not on blood thinners. She would not lose consciousness. She is also reporting mild abrasions to her left wrist and left hand. She denies any dizziness, nausea, vomiting, slurred speech, focal weakness or any other concerning signs or symptoms after the incident.. Related Data Home Medications Medication Instructions Recorded Confirmed VITAMIN D (Vitamin D3) 1,000 units PO QDAY ##0 11/04/16 01/11/23 calcium citrate 250 mg 1 tab PO QDAY ##0 11/04/16 01/11/23 calcium-vitamin D3 5 mcg (200 unit) tablet (Citracal Regular) cyclosporine 0.05 % eye drops in a 1 drp ophthalmic (eye) Q12H PRN 08/18/18 01/11/23 dropperette (Restasis) Dry Eye(S) ivermectin 1 % topical cream 1 applic topical BID Rosacea 11/21/19 01/11/23 (Soolantra) loratadine 10 mg tablet (Claritin) 10 mg PO DAILY 11/19/20 01/11/23 gabapentin 300 mg capsule 300 mg PO BEDTIME 12/21/22 01/11/23 Previous Rx's Medication Instructions Recorded hydrochlorothiazide 25 mg tablet 25 mg PO DAILY 90 days #90 tabs 05/28/22 tizanidine 2 mg tablet 1 mg PO BEDTIME PRN muscle 08/04/22 spasticity #45 tabs estradiol 1 mg tablet 1 mg PO DAILY #90 tabs 08/14/22 pantoprazole 40 mg tablet,delayed 40 mg PO DAILY #90 tabs 11/02/22 release diazepam 10 mg tablet (Valium) 10 mg PO .COMPLEX PRN 1-2 prior to 12/21/22 MRI and for possible steroid flare #10 tabs denosumab 60 mg/mL subcutaneous 60 mg SUBCUT [id number] #1 mL 01/11/23 syringe (Prolia) Allergies Allergy/AdvReac Type Severity Reaction Status Date / Time Penicillins [PENICILLINS] Allergy Intermediate Hives Verified 01/11/23 15:13 Sulfa (Sulfonamide Allergy Intermediate don't Verified 01/11/23 15:13 Antibiotics) remember [SULFA (SULFONAMIDE ANTIBIOTICS)] tetracycline [TETRACYCLINE] Allergy Intermediate don't Verified 01/11/23 15:13 remember Review of Systems <Barry Pat PA-C - Last Filed: 01/31/23 19:27> Review of Systems Narrative: GENERAL: Denies chills, fatigue, malaise, fever, sweats. HEENT: Denies sinus pain, ear pain, sore throat, difficulty swallowing, dizziness. RESPIRATORY: Denies dyspnea, cough, wheezing, hemoptysis, sputum. CARDIOVASCULAR: Denies chest pain, palpitations, orthopnea, edema, GASTROINTESTINAL: Denies nausea, vomiting, abdominal pain, diarrhea, constipation, melena. : Denies dysuria, frequency, incontinence, hematuria, urinary retention. MUSCULOSKELETAL: denies weakness, joint pain, or bony pain SKIN: Left eyebrow laceration, abrasions to left upper extremity NEUROLOGIC: Denies weakness, headache, numbness, change in speech, confusion, seizures, incoordination. PSYCHIATRIC: No concerning psychosocial issues. 12 point review of systems is negative except for those stated above Patient History <Barry Pat PA-C - Last Filed: 01/31/23 19:27> Medical History (Updated 01/31/23 @ 18:51 by Barry Pat PA-C) Bursitis Cervical spondylosis with radiculopathy Cervical stenosis of spinal canal Chicken pox DDD (degenerative disc disease), cervical DJD (degenerative joint disease) of knee Endometriosis (~1979) Esophagitis Facet arthropathy, lumbar Fibromyalgia GERD (gastroesophageal reflux disease) Greater trochanteric bursitis Headache, migraine Hearing loss Herniated nucleus pulposus, L4-5 Hypertension Internal derangement of left knee Irritable bowel syndrome Leg edema Measles MGUS (monoclonal gammopathy of unknown significance) Osteoarthritis Osteoporosis Pain in left knee Primary osteoarthritis of left knee Rosacea Sacral back pain Shoulder pain, right Sjogren's syndrome Spinal stenosis Tendinitis Tortuous colon Vision disorder Surgical History (Updated 01/16/23 @ 07:51 by Fawad Delgadillo MD) Anesthesia History of elbow surgery History of repair of right rotator cuff History of tonsillectomy History of total left knee replacement S/P arthroscopic surgery of left knee S/P epidural steroid injection Status post appendectomy Status post hysterectomy Family History Father Heart disease Grandfather Heart disease Grandmother Stroke Mother Cancer Heart disease Hypertension Mental health problem Social History household members: none Smoking Status: Never smoker alcohol intake: current Smoking Status: Never smoker alcohol intake frequency: holidays/special occasions only Substance Use Type: does not use Exam <Barry Pat PA-C - Last Filed: 01/31/23 19:27> Narrative Exam Narrative: GENERAL: Well-developed patient, in mild distress. HEAD: Atraumatic. Normocephalic. EYES: Pupils equal round and reactive. Extraocular motions intact. No scleral icterus. No injection or drainage. ENT: Nose without bleeding, purulent drainage. Throat without erythema, tonsillar hypertrophy or exudate. Airway patent. NECK: Trachea midline. Non tender EXTREMITIES: No edema or joint tenderness. BACK: Nontender without deformity or crepitance. No flank tenderness. NEURO: AOx3. Cranial nerves 2-12 intact SKIN: Approximately 2 cm long laceration just above the left eyebrow. Minimal oozing bleeding. No surrounding erythema or discharge. Superficial abrasions to the left palm as well as left wrist. Initial Vital Signs Initial Vital Signs: Vital Signs Pulse Rate 57 L 01/31/23 18:27 Respiratory Rate 16 01/31/23 18:27 Blood Pressure 180/75 H 01/31/23 18:27 Pulse Oximetry 95 01/31/23 18:27 Oxygen Delivery Method Room Air 01/31/23 18:27 <Bre Lang DO - Last Filed: 02/01/23 07:33> Initial Vital Signs Initial Vital Signs: Vital Signs Pulse Rate 57 L 01/31/23 18:27 Respiratory Rate 16 01/31/23 18:27 Blood Pressure 180/75 H 01/31/23 18:27 Pulse Oximetry 95 01/31/23 18:27 Oxygen Delivery Method Room Air 01/31/23 18:27 Procedures <STEWART Ching Last Filed: 01/31/23 19:27> Laceration Repair Laceration 1: Time of procedure: 19:18 Site: face (Left eyebrow) Size (cm): 2 Description: linear Depth: simple, single layer Local Anesthetic: lidocaine 2% and with epi Amount of anesthesia used (mL): 4 Pre-repair: irrigated extensively Skin layer closed with: nylon Skin layer suture size: 5-0 Number of sutures: 5 Technique: simple, interrupted Course <Barry Pat PA-C - Last Filed: 01/31/23 19:27> Orders Ordered: Discontinued Medications Bacitracin (Bacitracin Oint 0.9 Gm Pckt) 1 applic TOP NOW ONE Stop: 01/31/23 19:35 Last Admin: 01/31/23 20:00 Dose: 1 applic Documented By: BRETT Lidocaine/Epinephrine (Lidocaine 1% W/Epi) 4 ml INJ INTRA-OP ONE Stop: 01/31/23 18:42 Last Admin: 01/31/23 19:07 Dose: Not Given Documented By: NR Vital Signs Vital signs: Vital Signs - 8 hr 01/31/23 18:27 Pulse Rate 57 L Respiratory Rate 16 Blood Pressure 180/75 H Pulse Oximetry 95 Oxygen Delivery Method Room Air <Bre Lang DO - Last Filed: 02/01/23 07:33> Orders Ordered: Discontinued Medications Bacitracin (Bacitracin Oint 0.9 Gm Pckt) 1 applic TOP NOW ONE Stop: 01/31/23 19:35 Last Admin: 01/31/23 20:00 Dose: 1 applic Documented By: BRETT Lidocaine/Epinephrine (Lidocaine 1% W/Epi) 4 ml INJ INTRA-OP ONE Stop: 01/31/23 18:42 Last Admin: 01/31/23 19:07 Dose: Not Given Documented By: NR Vital Signs Vital signs: Vital Signs - 8 hr 01/31/23 18:27 Pulse Rate 57 L Respiratory Rate 16 Blood Pressure 180/75 H Pulse Oximetry 95 Oxygen Delivery Method Room Air MDM - Fall <Barry Pat PA-C - Last Filed: 01/31/23 19:27> MDM Narrative Medical decision making narrative: MDM * differential diagnosis includes but not limited to laceration soft tissue, facial fracture, intracranial bleed * Prior records reviewed: Patient was seen here 2 years ago for laceration to the left thumb. History of hyperlipidemia. Tetanus was updated. * My lab interpretation: None obtained * My imgaing interpretation: None obtained * Clinical Decision Rules/Scores evaluated: None * Independent discussions with: None ED Course: This is a 72-year-old female presents to the emergency department due to tripping and falling and sustaining a laceration to her left eyebrow. This was closed without complications as noted above in the procedure note. Patient's tetanus was up-to-date. Wound was extensively irrigated and no antibiotics prescribed but precautions given. Patient also had superficial abrasions to the left upper extremity which did not need further treatment. Recommended she follow up in walk-in clinic or with the primary care provider for suture removal. Patient did hit her head but she did not lose consciousness and noted no other symptoms. Neuro exam was also very reassuring. Low concern for intracranial bleed but ED precautions given. Shared Decision Making: Discussed plan with the patient who is comfortable with the plan. Social Considerations: None Disposition: Discharged to home Discharge Plan Departure Patient Disposition: Home Clinical Impression: Fall from ground level, Face lacerations Activity Restrictions/Additional Instructions: Thank you for coming to the [facility] Emergency Department today. I am glad that we were able to close up the laceration to your left eyebrow. Please follow up with the primary care clinic or walk-in clinic for suture removal in 5 -7 days. Please monitor the wound for any spreading redness or purulent discharge for signs of infection. I hope you feel better soon. Prescriptions: No Action calcium citrate-vitamin D3 [Citracal Regular] 250 MG/200 IU tablet 1 tab PO QDAY Qty: 0 Hold Instructions: nausea VITAMIN D (Vitamin D3) 1,000 units PO QDAY Qty: 0 hydrochlorothiazide 25 mg tablet 25 mg PO DAILY 90 Days Qty: 90 2RF tizanidine 2 mg tablet 1 mg PO BEDTIME PRN (Reason: muscle spasticity) Qty: 45 5RF estradiol 1 mg tablet 1 mg PO DAILY Qty: 90 2RF pantoprazole 40 mg tablet,delayed release (DR/EC) 40 mg PO DAILY Qty: 90 2RF Prolia 60 mg/mL syringe 60 mg SUBCUT [id number] Qty: 1 1RF ivermectin [Soolantra] 1 % Cream 1 applic TOPICAL BID loratadine [Claritin] 10 mg Tablet 10 mg PO DAILY Restasis 0.05 % Dropperette 1 drp ophthalmic (eye) Q12H PRN (Reason: Dry Eye(S)) Rx Instructions: into affected eye(s) gabapentin 300 mg capsule 300 mg PO BEDTIME diazepam [Valium] 10 mg tablet 10 mg PO .COMPLEX MDD 3 tabs PRN (Reason: 1-2 prior to MRI and for possible steroid flare) Qty: 10 0RF Rx Instructions: 10 mg PO PRN; Referrals: Fawad Delgadillo MD [Primary Care Provider] - Stand Alone Forms: Patient Portal/API <Bre Lang DO - Last Filed: 02/01/23 07:33> Cosign ED Attending Cosignature Attestation: I was immediately available in the department for consultation. Documentation has been reviewed.
[2023-01-31] MEDS: LIDOCAINE 2% W/EPI INJ 20 ML (18:47)
[2023-01-31 19:00] VITALS: PULSE 57; O2SAT 99
[2023-01-31 19:30] VITALS: BP 163/70; PULSE 55; O2SAT 100
[2023-01-31] MEDS: BACITRACIN OINT 0.9 GM PCKT 1 APPLIC TOP (20:00)
== END 2023-01-31 20:03 | disposition home or self-care (01) ==
PROVIDERS: Emergency Provider Physician Assistant Medical; PCP Student in an Organized Health Care Education/Training Program
DX: S01.81XA Laceration without foreign body of other part of head, initial encounter (principal); W18.30XA Fall on same level, unspecified, initial encounter
CPT/HCPCS: 12011; 99282; 99283

== ENCOUNTER 2023-02-18 14:29 | Outpatient (CLI) | payer MEDICARE, OTHER, SELFPAY ==
[2020-11-20 14:02] VITALS: BMI 20.5
[2023-02-18] VITALS (7 sets, daily range): BP systolic 130–169; BP diastolic 66–80; PULSE 54–60; RESP 12–20; TEMP 36.8; O2SAT 98–100
--- NOTE | 2023-02-18 14:30 | DI.RAD.S_ITS ---
PROCEDURE: PAIN GENICULAR NERVE BLOCK LT INDICATIONS: LEFT KNEE PAIN POST REPLACEMENT COMPARISON: [facility] [place], CR, XR KNEE 4+ VIEWS LEFT, 10/14/2021, 14:44. FINDINGS: Sargents are placed along the medial and lateral aspects of the distal femur as well as along the medial aspect of the proximal tibia. A small amount of iodinated contrast was injected, confirming the appropriate positions of the needle tips. IMPRESSION: Intraprocedural examination within normal limits. Dictated by: Gomez Graf M.D. on 02/23/2023 at 12:37 Approved by: Gomez Graf M.D. on 02/23/2023 at 12:38
[2023-02-18] MEDS: MIDAZOLAM 2 MG/2 ML VIAL IV (15:21)
[2023-02-18] MEDS: BUPIVACAINE 0.5% (PF) 30 ML VIAL 5 ML INJ (15:25)
[2023-02-18] MEDS: IOPAMIDOL 15 ML VIAL 3 ML INJ (15:25)
[2023-02-18] MEDS: LIDOCAINE 1% (PF) 5 ML INJ (15:26)
--- NOTE | 2023-02-18 15:37 | PM.PROC.IR.1 ---
Date/Time/Diagnoses Date of procedure: 02/18/23 Time of procedure: 15:37 Pre-procedure diagnosis: 1. Chronic left knee pain Post-procedure diagnosis: same Procedure Notes Procedure: 1. Geniculate nerve blocks including superior lateral and medial as well as inferior medial nerve blocks Indications: Analia is referred by Dr. Delgadillo for treatment of chronic left knee pain. Physician: Stewart Irwin Total Fluoroscopy time (seconds): 10 Total sedation minutes: 10 Complications: none Procedure in detail & Post-procedure care: DESCRIPTION OF PROCEDURE Fluoroscopically guided, contrast-controlled left superior lateral, superior medial and inferior medial geniculate blocks with 2cc of 0.5% Marcaine. Following review of allergy and review of potential side effects and complications, including, but not necessarily limited to, infection, allergic reaction, local tissue breakdown, nerve injury, paralysis, stroke and possible , the patient indicated that the patient understood and agreed to proceed. An informed consent document was signed by the patient, witnessed by a nurse, and placed in the patient's chart. After review of previous anaesthesic history and IV conscious sedation the patient was deemed safe to proceed with today?s procedure with IV conscious sedation as ASA class II designation. Safety time-out was performed to confirm patient ID, procedure to be performed and site of procedure. IV sedation was accomplished with a combination of 2mg of Versed was administered by the RN after DO order, titrated to patient comfort during the course of the procedure while the patient remained responsive to all verbal commands A time-out was taken to identify the correct patient, procedure and side prior to starting the procedure. With the patient lying in the supine position, the patient was prepped and draped in usual sterile fashion using chlorhexadine scrub and a fenestrated drape. Local anesthetic was given by raising a skin wheal and going down to the hub of a 25 gauge 1/2 inch needle. In an AP fluoroscopic view, a 20 gauge needle with was introduced through the anesthetic skin and down to the junction of the femoral diaphysis and the medial femoral condyle, then another needle to the femoral diaphysis on the lateral femoral condyle and the 3rd medial to the tibial diaphysis and the medial tibial condyle. Place of the of all 3 needles was confirmed with lateral fluoroscopic view. After negative aspirate to make sure there was no intravascular placement, trace contrast was infiltrated to confirm neurogram as well as lack of vascular uptake. After placement, 2 mL of 0.5% Marcaine was injected slowly and each of the 3 sites without incident. The needle was withdrawn and sites cleaned and dressed. The patient tolerated the procedure well without signs or symptoms of complications. The patient tolerated the procedure well without signs or symptoms of complications prior to transfer to the recovery area continued monitoring without incident. Post-procedure, the patient was monitored initiating provocative activities to measure the amount of relief from her chronic knee pain. The patient reported a VAS of 7 prior to the procedure and a post-procedure VAS of 1. POST OP INSTRUCTIONS The patient was provided with a Pain Log to complete over the next several hours and subsequent days prior to the patient's follow up with the ordering physician. If the patient has maintenance groundskeeper relief to the solution applied, then they may be a candidate for geniculate nerve radiofrequency ablation. The patient is aware, was provided, once again, with a Pain Log and will follow up with the referring physician for review and clinical correlation.
== END 2023-02-18 15:52 | disposition home or self-care (01) ==
LOC: RAD 14:30
PROVIDERS: PCP Student in an Organized Health Care Education/Training Program; Referring Provider Physical Medicine & Rehabilitation; Visit Provider Physical Medicine & Rehabilitation
DX: M25.562 Pain in left knee (principal)
CPT/HCPCS: 64454; 99152; J2250

== ENCOUNTER → 2023-03-19 14:21 | Outpatient (CLI) | payer MEDICARE, OTHER, SELFPAY ==
[2023-03-03 13:47] VITALS: BMI 20.5
--- NOTE | 2023-03-19 14:23 | DI.RAD.S_ITS ---
PROCEDURE: XR LUMBAR SPINE MIN 4V INDICATIONS: BACK PAIN TECHNIQUE: 5 views of the lumbar spine were acquired, including bilateral oblique views. COMPARISON: [facility], , XR LUMBAR SPINE MIN 4V, 01/03/2021, 15:13. FINDINGS: Bones: 5 nonrib-bearing vertebrae are present. Trace anterolisthesis of L5 on S1. Very mild levocurvature centered at L2. Lower lumbar facet arthropathy. No vertebral body compression fractures. No suspicious bony lesions. Soft tissues: Overlying bowel gas pattern is normal. No suspicious soft tissue calcifications. Oblique images: No pars defects. IMPRESSION: Lower lumbar degenerative change. No evidence acute bony abnormality. If clinical suspicion and/or symptoms persist, further assessment with repeat plain films, or advanced imaging (e.g., CT, MRI, or bone scan) may be helpful for further assessment. Dictated by: Robb Jerome M.D. on 03/19/2023 at 15:25 Approved by: Robb Jerome M.D. on 03/19/2023 at 15:26
--- NOTE | 2023-03-19 14:23 | DI.RAD.S_ITS ---
PROCEDURE: XR HIP W PEL IF DONE SAGAR MIN 4V INDICATIONS: RIGHT HIP PAIN TECHNIQUE: AP pelvis with lateral view(s) of the bilateral hip(s). COMPARISON: [facility], , XR HIP W PEL IF DONE SAGAR 3TO4V, 06/01/2020, 12:06. FINDINGS: Bones: No fractures or dislocations. Pelvic ring appears intact. No suspicious bony lesions. Bilateral hip arthritis with osteophytes present. On the right, there is severe axial joint space loss. On the left there is moderate to severe axial joint space loss. Soft tissues: The visualized bowel gas pattern is normal. No suspicious soft tissue calcifications. IMPRESSION: Bilateral arthritic change of the hips. On the right there is severe axial joint space loss. Dictated by: Robb Jerome M.D. on 03/19/2023 at 15:23 Approved by: Robb Jerome M.D. on 03/19/2023 at 15:25
== END ==
PROVIDERS: PCP Pediatrics; Referring Provider Physical Medicine & Rehabilitation; Visit Provider Physical Medicine & Rehabilitation
DX: M47.816 Spondylosis without myelopathy or radiculopathy, lumbar region (principal); M47.817 Spondylosis without myelopathy or radiculopathy, lumbosacral region; M16.0 Bilateral primary osteoarthritis of hip; M25.551 Pain in right hip
CPT/HCPCS: 72110; 73522

== ENCOUNTER → 2023-05-10 13:42 | Outpatient (CLI) | payer MEDICARE, OTHER, SELFPAY ==
[2023-03-03 13:47] VITALS: BMI 20.5
--- NOTE | 2023-05-10 13:43 | DI.ECHO.S_ITS ---
[facility] +---------+ : : [address] [address] : : : : [id number] : : : : Phone: [phone]+ Echocardiogram Report + + :Name: MEAGAN HALL Study Date: 05/10/2023 Height: 67 in : :[facility] ReadingLocation: Weight: 131 lb : : Gender: Female BSA: 1.7 m2 : :: 1950 Age: 72 yrs BP: 149/79 mmHg: :Reason For Study: RA, MURMUR : :Ordering Physician: ALFRED, : :LORENA Farmer Performed By: Ofelia Singh : :Referring: LORENA SIMON : + + Interpretation Summary The left ventricle is normal in size.Left ventricular systolic function is normal. The ejection fraction is estimated to be 55-60%. The right ventricle is at the upper limits of normal in size.The right ventricular systolic function is normal. Mild MR and AR. There is mild to moderate tricuspid regurgitation. Compared to the prior echo exam, there has been an increase in TR severity. The right ventricular systolic pressure is estimated to be at least 28 mmHg based on an estimated right atrial pressure of 3 mm Hg. Procedure: A two-dimensional transthoracic echocardiogram with color flow and Doppler was performed. The study quality was technically adequate. Comparison is made with the echocardiogram of 05/06/2018. The patient was in sinus bradycardia with heart rates between 47-55 bpm during the exam. Left Ventricle: The left ventricle is normal in size. Proximal septal thickening is noted. There is no thrombus. The ejection fraction is estimated to be 55-60%. Left ventricular systolic function is normal. There are no focal wall motion abnormalities. Diastolic parameters suggest a relaxation abnormality of the left ventricle, consistent with probable normal filling pressures. Right Ventricle: The right ventricle is at the upper limits of normal in size. The right ventricular systolic function is normal. Atria: The left atrium has mildly decreased in size since the prior echo exam. The left atrium is mildly dilated. Right atrial size is normal. There is no Doppler evidence for an interatrial shunt. Mitral Valve: The mitral valve leaflets appear borderline thickened, but open well. There is mild mitral regurgitation. Aortic Valve: The aortic valve is trileaflet. The aortic valve opens well. There is no aortic valve stenosis. There is mild aortic regurgitation. Tricuspid Valve: The tricuspid valve is normal. There is mild to moderate tricuspid regurgitation. The right ventricular systolic pressure is estimated to be at least 28 mmHg based on an estimated right atrial pressure of 3 mm Hg. Compared to the prior echo exam, there has been an increase in TR severity. Pulmonic Valve: The pulmonic valve leaflets are thin and pliable; valve motion is normal. There is mild pulmonic regurgitation. Great Vessels: The aortic root is normal size. The dimensions of the ascending aorta are normal. The IVC is of normal diameter and collapses greater than 50% with a sniff. This suggests a low right atrial pressure of 3 mm Hg. Pericardium/ Pleura There is no pericardial effusion. There is no pleural effusion. MMode/2D Measurements & Calculations LVIDd: 4.5 cm LVOT diam: 2.2 cm LVIDs: 2.9 cm Ao root diam: 3.5 cm FS: 35.6 % asc Aorta Diam: 3.7 cm EPSS: 0.79 cm Ao Arch Diam (Prox Trans): 2.4 cm IVSd: 0.61 cm LVPWd: 0.73 cm LV kilpatrick. diameter/BSA (cm/m^2): 2.7 LV sys. diameter/BSA (cm/m^2): 1.7 LA A2 area: 16.8 cm2 RA long axis: 5.7 cm LA A4 area: 19.5 cm2 RA area: 18.8 cm2 LA length (vol): 5.1 cm RA vol: 53.1 ml LA vol: 55.1 ml RA : 31.5 ml/m2 LA vol index: 32.6 ml/m2 IVC diam: 1.4 cm RVD1 (basal): 4.2 cm RVD2 (mid): 3.4 cm TAPSE: 2.2 cm Doppler Measurements & Calculations Ao V2 max: 120.0 cm/sec LVOT Max Ko: 89.2 cm/sec Ao V2 mean: 90.4 cm/sec LV V1 max P.2 mmHg Ao max P.8 mmHg LV V1 VTI: 17.4 cm Ao mean P.5 mmHg FERNANOD(I,D): 2.0 cm2 Ao V2 VTI: 32.4 cm FERNANDO(V,D): 2.7 cm2 sev ratio: 0.54 FERNANDO indexed to BSA (cm^2/m^2): 1.2 MV E max ko: 65.7 cm/sec TR max ko: 249.1 cm/sec MV A max ko: 74.6 cm/sec TR max P.8 mmHg MV E/A: 0.88 PA V2 max: 80.5 cm/sec Med Peak E' Ko: 4.9 cm/sec PA V2 mean: 58.0 cm/sec E/E' med: 13.3 PA mean P.5 mmHg Lat Peak E' Ko: 5.5 cm/sec PA pr(Accel): 1.9 mmHg E/E' lat: 11.9 E/e' average: 12.6 MV dec time: 0.20 sec SV(LVOT): 63.3 ml Reading Physician:05:26 PM
== END ==
PROVIDERS: PCP Pediatrics; Referring Provider Pediatrics; Visit Provider Pediatrics
DX: M06.9 Rheumatoid arthritis, unspecified (principal); M79.7 Fibromyalgia; R00.2 Palpitations; I08.3 Combined rheumatic disorders of mitral, aortic and tricuspid valves
CPT/HCPCS: 93306

== ENCOUNTER → 2023-06-26 12:44 | Outpatient (CLI) | payer MEDICARE, OTHER, SELFPAY ==
[2023-05-27 11:01] VITALS: BMI 20.5
--- NOTE | 2023-06-26 12:46 | DI.CT.S_ITS ---
PROCEDURE: CT CHEST HIGH RESOLUTION INDICATIONS: dyspnea TECHNIQUE: Noncontrast 1.0 and 5.0 mm thick contiguous axial sections from the pulmonary apex to the posterior costophrenic angles, with 7 mm thick coronal and sagittal MIP reformats. 1 mm thick dynamic expiratory images acquired through the upper, mid, and lower lungs. 1.0 mm thick axial sections acquired from the lucinda to the posterior costophrenic angles in the prone end-inspiration position. For radiation dose reduction, the following was used: automated exposure control, adjustment of mA and/or kV according to patient size. COMPARISON: [facility], CT, CT ABDOMEN WO/W CON, 10/16/2019, 14:48. [facility], CT, PE STUDY (CTA CHEST), 08/22/2016, 17:03. [facility], CT, CT CHEST WO CON, 06/07/2018, 13:41. [facility], CT, CT CHEST WO CON, 06/19/2020, 13:12. FINDINGS: Image quality: Excellent. Lungs: There is a stable right lower lobe pulmonary nodule. No additional pulmonary nodules are seen. No focal infiltrates are seen. Minimal dependent atelectasis can be seen. No pulmonary fibrotic change is seen. Negative for bronchiectasis. On axial tear images, no findings of air trapping can be seen. Pleura: No pleural effusions or pneumothorax. Mediastinum: Heart size is normal. No pericardial effusion. Thoracic aorta and central pulmonary arteries are normal in size. Esophagus is normal in caliber. Moderate coronary artery calcification is seen. Bones and chest wall: No suspicious bony lesions. No vertebral body compression fractures. Postoperative change of the right shoulder can be seen. Age-appropriate bony degenerative changes are seen. Accentuated thoracic kyphosis is seen. Abdomen: There is a hyperdense cyst seen involving the right kidney, 8 mm. A 3 mm nonobstructing right-sided kidney stone can be seen. The visualized portions of the upper abdominal structures are otherwise unremarkable for imaging technique. IMPRESSION: No significant pulmonary abnormality is seen. There is a stable right lower lobe pulmonary nodule, which is considered to be benign. No specific imaging follow-up is recommended. Additional findings: Moderate coronary artery calcification Stable right Kidney hyperdense cyst Nonobstructing right-sided kidney stone Dictated by: Gomez Graf M.D. on 06/26/2023 at 14:57 Approved by: Gomez Graf M.D. on 06/26/2023 at 15:01
== END ==
PROVIDERS: PCP Pediatrics; Referring Provider Internal Medicine; Visit Provider Internal Medicine
DX: R06.00 Dyspnea, unspecified (principal); R91.1 Solitary pulmonary nodule; I25.10 Atherosclerotic heart disease of native coronary artery without angina pectoris; N20.0 Calculus of kidney; N28.1 Cyst of kidney, acquired
CPT/HCPCS: 71250

== ENCOUNTER → 2023-09-17 16:01 | Outpatient (CLI) | payer MEDICARE, OTHER, SELFPAY ==
[2023-05-27 11:01] VITALS: BMI 20.5
[2023-09-17 17:25] LABS: Hemoglobin 11.4 g/dL (12.0-16.0); Mean Corpuscular HGB Conc 34.6 % (30-36); Mean Corpuscular Hemoglobin 29.3 PG (26-34); Mean Corpuscular Volume 84.7 fL (80-100); Platelet Count 190 X10^3/uL (150-400); Red Blood Cell Count 3.89 X10^6/uL (4.0-5.2); Red Cell Distribution Width 15.7 % (11.6-14.8); White Blood Cell Count 4.1 X10^3/uL (4.5-11.0)
[2023-09-17 17:43] LABS: Alanine Aminotransferase 23 IU/L (<35); Albumin 3.8 g/dL (3.5-5.0); Alkaline Phosphatase 62 U/L (38-126); Aspartate Aminotransferase 31 IU/L (14-36); BUN Creatinine Ratio 25.8 (6-22); Bilirubin Total 0.4 mg/dL (0.2-1.3); Blood Urea Nitrogen 23 mg/dL (7-17); Calcium 9.4 mg/dL (8.4-10.2); Carbon Dioxide 32 mmol/L (22-32); Chloride 100 mmol/L (98-107); Cholesterol 158 mg/dL (140-199); Estimated Glomerular Filt Rate > 60 mL/min (>60); Globulin 3.8 g/dL (1.7-4.1); Glucose 100 mg/dL (80-110); HDL Cholesterol 71 mg/dL (40-60); HEMOLYSIS < 15 (0-50); LDL Cholesterol Calculated 55 mg/dL (<100); Potassium 3.6 mmol/L (3.4-5.1); Sodium 138 mmol/L (137-145); Total Protein 7.6 g/dL (6.3-8.2); Triglycerides 162 mg/dL (35-150)
[2023-09-17 18:11] LABS: TSH w/ Reflex to FT4 1.24 uIU/mL (0.47-4.68)
[2023-09-22 14:08] LABS: Immunoglobulin A, Serum 140 mg/dL (64-422); Immunoglobulin G,Serum 1552 mg/dL (586-1602); Immunoglobulin M, Serum 212 mg/dL (26-217)
== END ==
PROVIDERS: PCP Internal Medicine; Referring Provider Internal Medicine; Visit Provider Internal Medicine
DX: I10 Essential (primary) hypertension (principal); E78.2 Mixed hyperlipidemia; M06.9 Rheumatoid arthritis, unspecified; D47.2 Monoclonal gammopathy
CPT/HCPCS: 36415; 80053; 80061; 82784; 84155; 84443; 85027; 86334

== ENCOUNTER → 2023-09-29 14:47 | Outpatient (CLI) | payer MEDICARE, OTHER, SELFPAY ==
[2023-05-27 11:01] VITALS: BMI 20.5
--- NOTE | 2023-09-29 | DI.MG.S_ITS ---
BILATERAL DIGITAL SCREENING MAMMOGRAM 3D/2D WITH CAD: 09/29/2023 CLINICAL: Routine screening. Family history of breast cancer. Comparison is made to exams dated: 09/02/2022 mammogram, 10/18/2021 mammogram, 06/10/2020 mammogram, 04/19/2017 mammogram, and 01/27/2019 mammogram - [facility]. There are scattered areas of fibroglandular density in both breasts (category b / 25%-50% glandular tissue). Current study was also evaluated with a Computer Aided Detection (CAD) system. No significant masses, calcifications, or other findings are seen in either breast. There has been no significant interval change. IMPRESSION: NEGATIVE There is no mammographic evidence of malignancy. A 1 year screening mammogram is recommended. Based on the Tyrer Cuzick model (a risk assessment model) the patient's lifetime risk is 2.8% and her 10 year risk is 2.3%. According to the ACR, ACS, and NCCN guidelines, an annual breast MRI exam along with mammogram is recommended if the patient's lifetime risk is 20% or greater. This exam was interpreted at Station ID: [id number]. NOTE: For mammograms, a report in lay terms will be sent to the patient. Approximately 15% of breast malignancies will not be visualized mammographically. In the management of a palpable breast mass, a negative mammogram must not discourage biopsy of a clinically suspicious lesion. Electronically Signed By: Wes valles/shane:09/29/2023 17:42:40 letter sent: Normal Exam ACR BI-RADS Category 1: Negative [id number]
== END ==
PROVIDERS: PCP Internal Medicine; Referring Provider Internal Medicine; Visit Provider Internal Medicine
DX: Z12.31 Encounter for screening mammogram for malignant neoplasm of breast (principal); Z80.3 Family history of malignant neoplasm of breast
CPT/HCPCS: 77063; 77067

== ENCOUNTER → 2023-10-29 10:17 | Outpatient (CLI) | payer MEDICARE, OTHER, SELFPAY ==
[2023-05-27 11:01] VITALS: BMI 20.5
--- NOTE | 2023-10-30 00:58 | DI.NM.S_ITS ---
DATE OF SERVICE: 10/29/2023 PROCEDURE: Pharmacological perfusion study. INDICATIONS: Chest pain with underlying coronary artery calcification. RADIOPHARMACEUTICAL: 24.9 mCi technetium-99m Myoview IV was injected at stress and 12.8 mCi technetium-99m Myoview IV was injected at rest. CARDIAC STRESS: Patient received IV Lexiscan as per standard Lexiscan protocol. She received IV Lexiscan under the supervision of an attending staff. She remained hemodynamically stable. Baseline blood pressure 128/80 mmHg. Baseline rhythm was sinus with mild sinus bradycardia and underlying right bundle branch block, as well as left anterior fascicular block. During Lexiscan, patient had minimal nausea and dyspnea. No chest discomfort. During stress, no convincing new ischemic EKG changes seen. No new significant arrhythmias. RAW DATA: Breast shadow was seen. GATED STUDY: Stress LV ejection fraction 80 and resting LV ejection fraction 73% without any obvious wall motion abnormalities. Resting end- diastolic volume 92 mL. TID ratio 1.11, which is within normal limits. Lung/heart ratio 0.28, which is within normal limits. MYOCARDIAL PERFUSION SCAN: Please note, this patient does not have any stress prone images. Patient was scanned with right arm down due to bilateral shoulder injuries. Stress supine and resting supine images were compared to each other. Stress supine and resting supine images revealed predominantly fixed, small size, mildly decreased perfusion of distal anterior wall without any significant reversibility. Summed rest score and summed stress score is zero. CONCLUSION: 1. No obvious significant reversible ischemia. 2. Predominantly fixed small size, mildly decreased perfusion of distal anterior wall. This patient does not have any stress prone images. On raw data, breast shadow seen. On gated study, no wall motion abnormalities and anterior wall as well as anterior apex moving well. Summed stress score and summed rest score is zero. Hence, most likely we are dealing with breast tissue attenuation artifact rather than a small distal anterior wall myocardial infarction. Overall, low- risk myocardial perfusion scan. Correlate clinically. MichaelAnalia - COTTON WRINGER/fn/ec doc#: [id number]/job#: [id number] dd: 10/29/2023 16:43:00 dt: 10/30/2023 00:43:00 DICTATING MD/COPIES TO: Дмитрий Mario MD COPIES MNE: CINDY;
== END ==
LOC: NUCM 10:18
PROVIDERS: PCP Internal Medicine; Referring Provider Internal Medicine Cardiovascular Disease; Visit Provider Internal Medicine Cardiovascular Disease
DX: I25.10 Atherosclerotic heart disease of native coronary artery without angina pectoris (principal); R07.9 Chest pain, unspecified
CPT/HCPCS: 78452; 93017; A9502; J2785

== ENCOUNTER → 2023-12-12 12:36 | Outpatient (CLI) | payer MEDICARE, OTHER, SELFPAY ==
[2023-05-27 11:01] VITALS: BMI 20.5
--- NOTE | 2023-12-12 | DI.CT.S_ITS ---
PROCEDURE: CT SINUS SCREEN WO CON INDICATIONS: Chronic pansinusitis TECHNIQUE: Noncontrast 3.0 mm axial images acquired from the frontal sinuses to the mid-sella, with coronal and sagittal reformats. For radiation dose reduction, the following was used: automated exposure control, adjustment of mA and/or kV according to patient size. COMPARISON: None. FINDINGS: Image quality: Excellent. Maxillary Sinuses: No bony remodeling or destruction. Sinuses are clear. Ethmoid Air Cells: No bony remodeling or destruction. Sinuses are clear. Sphenoid Sinuses: No bony remodeling or destruction. Sinuses are clear. Frontal Sinuses: No bony remodeling or destruction. Sinuses are clear. Ostiomeatal Complexes: Ostiomeatal complexes are patent. No Tahir cells. Miscellaneous: Dural-based lesion within the left posterior fossa measuring 2.1 cm by 0.9 cm. Visualized intra-orbital contents are normal. Bilateral virginia bullosa, left greater than right. No paradoxical turbinate curvature. Mild rightward nasal septal deviation. IMPRESSION: 1. The paranasal sinuses are clear. 2. Dural-based lesion within the left posterior fossa with associated calcification measuring 2.1 x 0.8 cm, favored to represent a meningioma. Dictated by: Juan Li M.D. on 12/12/2023 at 13:39 Approved by: Juan Li M.D. on 12/12/2023 at 13:42
== END ==
LOC: CT 12:37
PROVIDERS: PCP Internal Medicine; Referring Provider Otolaryngology; Visit Provider Otolaryngology
DX: J32.4 Chronic pansinusitis (principal); R09.82 Postnasal drip; J34.89 Other specified disorders of nose and nasal sinuses; G44.89 Other headache syndrome
CPT/HCPCS: 70486

== ENCOUNTER → 2023-12-14 15:09 | Outpatient (CLI) | payer MEDICARE, OTHER, SELFPAY ==
[2023-05-27 11:01] VITALS: BMI 20.5
--- NOTE | 2023-12-14 15:30 | DI.MRI.S_ITS ---
PROCEDURE: MR HEAD/BRAIN WO CON INDICATIONS: Follow-up sinus CT possible meningioma TECHNIQUE: Non-contrast axial T1 spin echo, axial T2 fast spin echo, sagittal and axial FLAIR, coronal T2 fast spin echo, axial gradient echo, axial diffusion and ADC through the brain. COMPARISON: [facility], CT, CT SINUS SCREEN WO CON, 12/12/2023, 12:54. FINDINGS: Image quality: Excellent. CSF spaces: Ventricles appear symmetric in size and shape. Basal cisterns are patent. No extra-axial fluid collections. Brain: In this patient with this given history, scrutiny is given to the area of the recent sinus CT abnormality. Within this region, no masses are seen. No intracranial bleeds or mass effects. There is cerebral volume loss for age. There are periventricular and deep white matter chronic small vessel ischemic changes. Brainstem appears normal. Diffusion-weighted images show no acute infarct. No chronic ischemic insults. Normal intravascular flow voids are present. Skull and face: Calvarial bone marrow is normal in signal. Orbits are normal. Sinuses: Sinuses and mastoids are clear. IMPRESSION: No masses can be seen at this site of the recent prior CT abnormality. Although this study is limited by lack of IV contrast, the CT appearance is now attributed to artifact. Dictated by: Gomez Graf M.D. on 12/14/2023 at 15:45 Approved by: Gomez Graf M.D. on 12/14/2023 at 16:01
== END ==
PROVIDERS: PCP Internal Medicine; Referring Provider Physical Medicine & Rehabilitation; Visit Provider Physical Medicine & Rehabilitation
DX: D32.9 Benign neoplasm of meninges, unspecified (principal)
CPT/HCPCS: 70551

== ENCOUNTER 2024-02-10 09:24 | Outpatient (CLI) | payer MEDICARE, OTHER, SELFPAY ==
[2023-05-27 11:01] VITALS: BMI 20.5
[2024-02-10] VITALS (8 sets, daily range): BP systolic 103–165; BP diastolic 53–84; PULSE 53–73; RESP 13–20; TEMP 36.7; O2SAT 99–100
--- NOTE | 2024-02-10 09:45 | DI.RAD.S_ITS ---
PROCEDURE: PAIN C/T INTERLAMINAR INJECT INDICATIONS: C6/7 TL DEYANIRA COMPARISON: [facility], , PAIN C/T INTERLAMINAR INJECT, 09/17/2022, 10:33. FINDINGS: Fluoroscopic spot filming was performed to verify placement of spinal needles at the C6-C7 level(s), as labeled on the films. Appropriate location(s) of the needle tip(s) was confirmed by injection of iodinated contrast. IMPRESSION: Intra procedural examination demonstrating appropriate positions of the needles. Dictated by: Juan Li M.D. on 02/10/2024 at 11:29 Approved by: Juan Li M.D. on 02/10/2024 at 11:30
[2024-02-10] MEDS: MIDAZOLAM 2 MG/2 ML VIAL IV (10:28)
[2024-02-10] MEDS: BUPIVACAINE 0.25% (PF) VIAL 2 ML INJ (10:33)
[2024-02-10] MEDS: iopamidoL 15 ML VIAL 3 ML INJ (10:34)
[2024-02-10] MEDS: DEXAMETHASONE 10 MG/ML VIAL 20 MG INJ (10:35)
--- NOTE | 2024-02-10 11:05 | P.PCN_ITS ---
Date/Time/Diagnoses Date of procedure: 02/10/24 Time of procedure: 11:05 Pre-procedure diagnosis: 1. CERVICAL STENOSIS, 2. CERVICAL HNP WITH UPPER EXTREMITY RADICULAR FEATURES Post-procedure diagnosis: same Procedure Notes Procedure: 1. FLUORSCOPICALLY GUIDED CONTRAST CONTROLLED INTERLAMINAR EPIDURAL STEROID INJECTION - C6/7 TL DEYANIRA Indications: Analia is referred by Dr. Foster for treatment of Cervical HNP with Upper Extremity Paresthesias. Physician: Stewart Irwin Total Fluoroscopy time (seconds): 31 Total sedation minutes: 15 Complications: none Procedure in detail & Post-procedure care: FINDINGS Cervical Stenosis due to disc deterioration and nerve root irritation and nerve root irritation DESCRIPTION OF PROCEDURE Fluoroscopically guided, contrast-controlled C6/7 translaminar epidural steroid injection with conscious sedation. Following review of allergy and review of potential side effects and complications, including, but not necessarily limited to, infection, allergic reaction, local tissue breakdown, temporary as well as permanent nerve injury, stroke, paralysis, and possible , the patient indicated that patient understood and agreed to proceed. An informed consent document was signed by the patient, witnessed by a nurse, and placed in the patient's chart. Additionally, other treatment options including modalities, medications, and physical therapy were reviewed with the patient. After review of previous anaesthesic history and IV conscious sedation the patient was deemed safe to proceed with today?s procedure with IV conscious sedation as ASA class II designation. Safety time-out was performed to confirm patient ID, procedure to be performed and site of procedure. IV sedation was accomplished with a combination of 2mg of Versed administered by the RN after DO order, titrated to patient comfort during the course of the procedure while the patient remained responsive to all verbal commands. In the prone position, following sterile prep and drape of the cervical region, the C6/7 translaminar space was identified fluoroscopically. The skin was anesthetized via a 25-gauge 1.5-inch needle with 1% lidocaine solution. At this point, a 25-gauge, 2.5-inch short bevel spinal needle was atraumatically introduced and advanced under fluoroscopic guidance into epidural space at the C6/7 translaminar space. Depth was confirmed on lateral view. Radiological data, including multiple fluoroscopic views of the cervical spine, reveal a spinal needle at the C6/7 translaminar space. Lateral views then show placement of the needle in the epidural space. Subsequent views show contrast material flowing superiorly and inferiorly in the epidural space. DSA fluoroscopy with live contrast injection, once again, confirmed no vascular or intrathecal uptake. At this point, using loss of resistance technique with saline and air, the epidural space was entered. Following negative aspiration, injection of approximately 1.5 cc of Isovue-200 with live fluoroscopy in the AP view confirmed epidural flow in the epidural space without vascular or intrathecal uptake observed. Subsequently, a test dose of 1 cc of 1% lidocaine solution was injected and patient was observed for two minutes without signs or symptoms of complications, including abdominal pain, shortness of breath, bilateral upper or lower extremity weakness, nausea and vomiting, prior to steroid injection. At this point, 2cc or 20mg of dexamethasone was then injected without incident. The patient tolerated the procedure well without signs or symptoms of complica tions prior to being transferred to the recovery area for further monitoring, The patient was then transferred to the recovery area where they were observed for an appropriate period of time after the injection. The patient reported a VAS score of 7 prior to the procedure and a post-procedure VAS of 1. POST OP INSTRUCTIONS The patient was provided a Pain Log to continue to record their response to the target-specific procedure prior to follow-up visit with the referring provider. Additionally, specific post-injection care instructions and a contact number to our office were provided if concerns arise regarding possible complications associated with the procedure are suspected.
== END 2024-02-10 11:10 | disposition home or self-care (01) ==
PROVIDERS: PCP Internal Medicine; Referring Provider Physical Medicine & Rehabilitation; Visit Provider Physical Medicine & Rehabilitation
DX: M48.02 Spinal stenosis, cervical region (principal); M50.123 Cervical disc disorder at C6-C7 level with radiculopathy
CPT/HCPCS: 62321; 99152; J1100; J2250; J3490

== ENCOUNTER → 2024-02-26 12:42 | Outpatient (CLI) | payer MEDICARE, OTHER, SELFPAY ==
[2023-05-27 11:01] VITALS: BMI 20.5
[2024-02-26 14:29] LABS: Cholesterol 173 mg/dL (140-199); HDL Cholesterol 80 mg/dL (40-60); LDL Cholesterol Calculated 68 mg/dL (<100); Triglycerides 123 mg/dL (35-150)
== END ==
PROVIDERS: PCP Internal Medicine; Referring Provider Internal Medicine Cardiovascular Disease; Visit Provider Internal Medicine Cardiovascular Disease
DX: E78.5 Hyperlipidemia, unspecified (principal); I25.10 Atherosclerotic heart disease of native coronary artery without angina pectoris
CPT/HCPCS: 36415; 80061

== ENCOUNTER → 2024-04-05 14:20 | Outpatient (CLI) | payer MEDICARE, OTHER, SELFPAY ==
[2024-03-09 16:23] VITALS: BMI 20.5
[2024-04-05 17:07] LABS: Vitamin D 25 Hydroxy (D3) 39.7 ng/mL (30.0-100.0)
[2024-04-07 04:09] LABS: Calcium 9.5 mg/dL (8.7-10.3); Parathyroid Hormone, Intact 64 pg/mL (15-65)
== END ==
PROVIDERS: PCP Internal Medicine; Referring Provider Internal Medicine; Visit Provider Internal Medicine
DX: M85.859 Other specified disorders of bone density and structure, unspecified thigh (principal); Z01.812 Encounter for preprocedural laboratory examination
CPT/HCPCS: 36415; 82306; 82310; 83970

== ENCOUNTER 2024-05-18 13:22 | Outpatient (CLI) | payer MEDICARE, OTHER, SELFPAY ==
[2024-03-09 16:23] VITALS: BMI 20.5
[2024-05-18] VITALS (9 sets, daily range): BP systolic 119–166; BP diastolic 60–72; PULSE 45–68; RESP 12–20; TEMP 36.5; O2SAT 95–100
--- NOTE | 2024-05-18 14:00 | DI.RAD.S_ITS ---
PROCEDURE: PAIN SI JOINT INJECTION SAGAR INDICATIONS: Bilateral SI joint injection COMPARISON: None. FINDINGS: Fluoroscopic spot filming was performed to verify placement of spinal needles at the bilateral SI joints level(s), as labeled on the films. Appropriate location(s) of the needle tip(s) was confirmed by injection of iodinated contrast. IMPRESSION: Bilateral SI joint injection. Please see procedure report for details. Dictated by: Vangie Coley M.D. on 05/19/2024 at 16:41 Approved by: Vangie Coley M.D. on 05/19/2024 at 16:41
[2024-05-18] MEDS: MIDAZOLAM 2 MG/2 ML VIAL 1 MG IV ×2 (14:27→14:31)
[2024-05-18] MEDS: BETAMETHASONE 30 MG/5 ML MDV 12 MG INJ (14:29)
[2024-05-18] MEDS: iopamidoL 15 ML VIAL 3 ML INJ (14:29)
[2024-05-18] MEDS: BUPIVACAINE 0.5% (PF) 10 ML VIAL 5 ML INJ (14:30)
--- NOTE | 2024-05-18 14:49 | P.PCN_ITS ---
Date/Time/Diagnoses Date of procedure: 05/18/24 Time of procedure: 14:49 Pre-procedure diagnosis: Sacroiliac joint pain/DJD Post-procedure diagnosis: same Procedure Notes Procedure: Fluoroscopic guided contrast controlled bilateral sacroiliac joint injection Indications: Analia is referred by Dr. Foster for treatment of bilateral sacroiliac joint DJD Physician: Stewart Irwin Total Fluoroscopy time (seconds): 8 Total sedation minutes: 16 Complications: none Procedure in detail & Post-procedure care: Description of procedure Fluoroscopic guided, contrast controlled bilateral sacroiliac joint injection Following review of allergies and review of potential side effects and complications, including, but not necessarily limited to, infection, allergic reaction, local tissue breakdown, temporary as well as permanent nerve injury, paralysis, stroke and possible , the patient indicated that they understood and agreed to proceed. An informed consent was signed by the patient, witnessed by a nurse, and placed in the patient's chart. Additionally, other treatment options including modalities, medications, and physical therapy were reviewed with the patient. After review of previous anaesthesic history and IV conscious sedation the patient was deemed safe to proceed with today?s procedure with IV conscious sedation as ASA class II designation. Safety time-out was performed to confirm patient ID, procedure to be performed and site of procedure. IV sedation was accomplished with a combination of 2mg Versed were administered by the RN after DO order, titrated to patient comfort during the course of the procedure while the patient remained responsive to all verbal commands In the prone position following sterile prep and drape of the pelvic region, the hyper lucency on in the inferior aspect of the sacroiliac joint was identified fluoroscopically the skin was anesthetized be a 25 gauge 1.5 inch needle with approximately 2cc of 1% lidocaine solution. At this point, a 22 gauge 3 in spin al needle was atraumatically introduced and advanced under fluoroscopic guidance into the inferior aspect of the right sacroiliac joint. Following negative aspiration, approximately 0.3cc of Isovue-300 was injected confirming intra- articular placement without vascular uptake. Radiographic data, including multiple fluoroscopic views of the pelvis, reveals a spinal needle in the sacroiliac joint hyper lucent zone. Subsequent view show flow contrast tear superiorly and inferiorly within the joint capsule without vascular intrathecal uptake. At this point a total of 1cc of 0.5% Marcaine was combined with 1cc of 6mg of betamethasone was injected without incident. Attention was then refocused the left sacroiliac joint where the procedure was replicated. The procedure tolerated the procedure well without signs or symptoms of complications prior to transfer to the recovery area continued monitoring without incident. The patient was then transferred to the recovery area with a bur observed for an appropriate time after the injection. The patient reverted a vas score of 7 prior to the procedure and post-procedure vas of 1. Postop instructions The patient was provided with a pain like to continue to record the patient's response to the target specific procedure prior to the patient's follow-up visit with the referring physician. Additionally, specific post injection care instructions and a contact number to our office were provided if concerns arise regarding the possible complications associated with procedure are suspected.
--- NOTE | 2024-05-18 14:58 | EKG_ITS ---
[facility] [address] [address] Test Date: 2024-05-18 Pat Name: Analia Rodriguez Department: [facility] Room: Gender: Female Front Desk Host: CHEIKH : 1950 Requested By: Order Number: [id number] Reading MD: Vincent Aburto MD Measurements Intervals Ralph Rate: 47 P: 49 PA: 210 QRS: 208 QRSD: 140 T: 16 QT: 526 QTc: 465 Interpretive Statements Sinus bradycardia with 1st degree AV block Right bundle branch block Electronically Signed On 05-18-2024 16:35:03 PDT by Vincent Aburto MD
--- NOTE | 2024-05-18 15:18 | PC.NURSE ---
Low HR/Rhythm Patient to pain recovery with report of bradycardia during procedure. Patient states that this hasn't happened before. Patient denies cardiac symptoms at this time. Patient placed on loan coordinator and this RN observed BBB on the monitor. Patient states that she has never been told about a heart block before. Rhythm strip printed and shown to Dr. Irwin by Tamera Vasquez RN. Dr. Irwin ordered a stat EKG. EKG done at chairside by RT. EKG report states Bradycardia with Right BBB with 1st degree AV block. Dr. Irwin shown EKG report by Tamera Vasquez RN. Dr. Irwin okay with patient going home and following up with Dr. Foster and Cardiology. Patient states that she will call cardiology today and Dr. Foster's office to follow-up. Patient denies chest pain, SOB. Patient states that she has been very tired lately and sometimes wakes up with a racing heart. Patient verbalizes understanding of returning to ER if she is having SOB, chest pain, Dizziness or any other symptoms of concern. Patient discharged home via wheelchair to her ride Luisa.
== END 2024-05-18 15:25 | disposition home or self-care (01) ==
LOC: RAD 13:22
PROVIDERS: PCP Internal Medicine; Referring Provider Physical Medicine & Rehabilitation; Visit Provider Physical Medicine & Rehabilitation
DX: R00.1 Bradycardia, unspecified (principal); M53.3 Sacrococcygeal disorders, not elsewhere classified; M46.1 Sacroiliitis, not elsewhere classified
CPT/HCPCS: 27096; 77002; 93005; 93010; 99152; J0702; J2250

== ENCOUNTER → 2024-07-22 12:23 | Outpatient (CLI) | payer MEDICARE, OTHER, SELFPAY ==
[2024-03-09 16:23] VITALS: BMI 20.5
[2024-07-22 13:33] LABS: Cholesterol 156 mg/dL (140-199); HDL Cholesterol 76 mg/dL (40-60); LDL Cholesterol Calculated 58 mg/dL (<100); Triglycerides 110 mg/dL (35-150)
== END ==
PROVIDERS: PCP Internal Medicine; Referring Provider Internal Medicine Cardiovascular Disease; Visit Provider Internal Medicine Cardiovascular Disease
DX: E78.5 Hyperlipidemia, unspecified (principal)
CPT/HCPCS: 36415; 80061

== ENCOUNTER 2024-08-03 14:01 | Outpatient (CLI) | payer MEDICARE, OTHER, SELFPAY ==
[2024-03-09 16:23] VITALS: BMI 20.5
[2024-08-03] VITALS (9 sets, daily range): BP systolic 131–176; BP diastolic 64–102; PULSE 53–109; RESP 14–19; TEMP 36.7; O2SAT 95–100
--- NOTE | 2024-08-03 14:30 | DI.RAD.S_ITS ---
PROCEDURE: PAIN L/S FACET INJ/BLK 1ST SAGAR INDICATIONS: SPONDYLOSIS COMPARISON: [facility], , PAIN L/S FACET INJ/BLK 1ST SAGAR, 04/07/2022, 13:55. FINDINGS: Fluoroscopic spot filming was performed to verify placement of spinal needles at the L4, L5 and S1 level(s), as labeled on the films. Appropriate location(s) of the needle tip(s) was confirmed by injection of iodinated contrast. IMPRESSION: Fluoroscopic guidance. Dictated by: Jose Barbosa M.D. on 08/03/2024 at 17:11 Approved by: Jose Barbosa M.D. on 08/03/2024 at 17:12
[2024-08-03] MEDS: MIDAZOLAM 2 MG/2 ML VIAL IV (15:45)
[2024-08-03] MEDS: BUPIVACAINE 0.5% (PF) 10 ML VIAL 5 ML INJ (15:49)
[2024-08-03] MEDS: iopamidoL 15 ML VIAL 3 ML INJ (15:49)
[2024-08-03] MEDS: LIDOCAINE 1% 20 ML 5 ML INJ (15:49)
--- NOTE | 2024-08-03 16:06 | P.PCN_ITS ---
Date/Time/Diagnoses Date of procedure: 08/03/24 Time of procedure: 16:06 Pre-procedure diagnosis: 1. FACET ARTHROPATHY Post-procedure diagnosis: same Procedure Notes Procedure: 1. BILATERAL- L4, L5 and S1 DIAGNOSTIC MB BLOCKS with LA Anesthetic Indications: Analia is referred by Dr. Foster for treatment of Bilateral Axial LBP. Physician: Stewart Irwin Total Fluoroscopy time (seconds): 13 Total sedation minutes: 16 Complications: none Procedure in detail & Post-procedure care: DESCRIPTION OF PROCEDURE Fluoroscopically guided, contrast-controlled bilateral L4, L5 and S1 medial branch blocks with 0.5cc of 0.5% Marcaine. Following review of allergy and review of potential side effects and complications, including, but not necessarily limited to, infection, allergic reaction, local tissue breakdown, nerve injury, paralysis, stroke and possible , the patient indicated that the patient understood and agreed to proceed. An informed consent document was signed by the patient, witnessed by a nurse, and placed in the patient's chart. After review of previous anaesthesic history and IV conscious sedation the patient was deemed safe to proceed with today's procedure with IV conscious sedation as ASA class II designation. Safety time-out was performed to confirm patient ID, procedure to be performed and site of procedure. IV sedation was accomplished with a combination of 2mg of Versed was administered by the RN after DO order, titrated to patient comfort during the course of the procedure while the patient remained responsive to all verbal commands In the prone position, following sterile prep and drape of the lumbar region, the right L4, L5 and S1 anatomical location of the medial branch of the dorsal ramus was identified fluoroscopically. Subsequently an anesthetic skin wheal u sing 1% lidocaine solution was initiated at each of the anatomical spots. Subsequently then a 22-gauge 3.5-inch spinal needle was atraumatically introduced and advanced under fluoroscopic guidance at each of the corresponding sites at the right L4, L5 and S1 MB. After negative aspiration, 0.2cc of Isovue 200 was injected, confirming placement without vascular or intrathecal uptake. Subsequently then 0.5cc of 0.5% Marcaine solution was injected at each of the corresponding sites at the right L4, L5 and S1 medial branch locations. The identical procedure was replicated on the left. The patient tolerated the procedure well without signs or symptoms of complications prior to transfer to the recovery area continued monitoring without incident. Post-procedure, the patient was monitored initiating provocative activities to measure the amount of relief from block of the facetogenic pain. The patient reported a VAS of 7 prior to the procedure and a post-procedure VAS of 1. It has been a pleasure to assist in the diagnostic and therapeutic care of your patient. POST OP INSTRUCTIONS The patient was provided with a Pain Log to complete over the next several hours and subsequent days prior to the patient's follow up with the ordering physician. 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 The patient is aware, was provided, once again, with a Pain Log and will follow up with the referring physician for review and clinical correlation
== END 2024-08-03 16:18 | disposition home or self-care (01) ==
PROVIDERS: PCP Internal Medicine; Referring Provider Physical Medicine & Rehabilitation; Visit Provider Physical Medicine & Rehabilitation
DX: M47.816 Spondylosis without myelopathy or radiculopathy, lumbar region (principal); M47.817 Spondylosis without myelopathy or radiculopathy, lumbosacral region
CPT/HCPCS: 64493; 64494; 99152; J2250

== ENCOUNTER 2024-09-05 12:22 | Outpatient (CLI) | payer MEDICARE, OTHER, SELFPAY ==
[2024-03-09 16:23] VITALS: BMI 20.5
[2024-09-05] VITALS (10 sets, daily range): BP systolic 140–180; BP diastolic 66–82; PULSE 47–94; RESP 10–19; TEMP 36.5; O2SAT 97–100
--- NOTE | 2024-09-05 12:23 | DI.RAD.S_ITS ---
PROCEDURE: PAIN L/S FACET INJ/BLK 1ST SAGAR INDICATIONS: Bilateral L4, L5 S1 MBB-SA COMPARISON: [facility], , PAIN L/S FACET INJ/BLK 1ST SAGAR, 08/03/2024, 15:48. FINDINGS: Fluoroscopic spot filming was performed to verify placement of spinal needles at the L4-S1 level(s), as labeled on the films. Appropriate location(s) of the needle tip(s) was confirmed by injection of iodinated contrast. IMPRESSION: Bilateral L4-S1 fluoroscopic guidance. Please see operative note for full details. Dictated by: Isaias Yancey M.D. on 09/05/2024 at 20:34 Approved by: Isaias Yancey M.D. on 09/05/2024 at 20:34
[2024-09-05] MEDS: MIDAZOLAM 2 MG/2 ML VIAL IV (13:51)
[2024-09-05] MEDS: iopamidoL 15 ML VIAL 3 ML INJ (13:53)
[2024-09-05] MEDS: LIDOCAINE 2% INJ MDV 20ML 5 ML INJ (13:54)
[2024-09-05] MEDS: LIDOCAINE 1% 20 ML 5 ML INJ (13:54)
--- NOTE | 2024-09-05 14:11 | PM.PROC.IR.1 ---
Date/Time/Diagnoses Date of procedure: 09/05/24 Time of procedure: 14:11 Pre-procedure diagnosis: 1. FACET ARTHROPATHY Post-procedure diagnosis: same Procedure Notes Procedure: 1. BILATERAL- L4, L5 and S1 DIAGNOSTIC MB BLOCKS with SA Anesthetic Indications: Analia is referred by Dr. Foster for treatment of Bilateral Axial LBP. Physician: Stewart Irwin Total Fluoroscopy time (seconds): 13 Total sedation minutes: 15 Complications: none Procedure in detail & Post-procedure care: DESCRIPTION OF PROCEDURE Fluoroscopically guided, contrast-controlled bilateral L4, L5 and S1 medial branch blocks with 0.5cc of 2% Lidocaine. Following review of allergy and review of potential side effects and complications, including, but not necessarily limited to, infection, allergic reaction, local tissue breakdown, nerve injury, paralysis, stroke and possible , the patient indicated that the patient understood and agreed to proceed. An informed consent document was signed by the patient, witnessed by a nurse, and placed in the patient's chart. After review of previous anaesthesic history and IV conscious sedation the patient was deemed safe to proceed with today's procedure with IV conscious sedation as ASA class II designation. Safety time-out was performed to confirm patient ID, procedure to be performed and site of procedure. IV sedation was accomplished with a combination of 2mg of Versed was administered by the RN after DO order, titrated to patient comfort during the course of the procedure while the patient remained responsive to all verbal commands In the prone position, following sterile prep and drape of the lumbar region, the right L4, L5 and S1 anatomical location of the medial branch of the dorsal ramus was identified fluoroscopically. Subsequently an anesthetic skin wheal using 1% lidocaine solution was initiated at each of the anatomical spots. Subsequently then a 22-gauge 3.5-inch spinal needle was atraumatically introduced and advanced under fluoroscopic guidance at each of the corresponding sites at the right L4, L5 and S1 MB. After negative aspiration, 0.2cc of Isovue 200 was injected, confirming placement without vascular or intrathecal uptake. Subsequently then 0.5cc of 2% Lidocaine solution was injected at each of the corresponding sites at the right L4, L5 and S1 medial branch locations. The identical procedure was replicated on the left. The patient tolerated the procedure well without signs or symptoms of complications prior to transfer to the recovery area continued monitoring without incident. Post-procedure, the patient was monitored initiating provocative activities to measure the amount of relief from block of the facetogenic pain. The patient reported a VAS of 7 prior to the procedure and a post-procedure VAS of 1. It has been a pleasure to assist in the diagnostic and therapeutic care of your patient. POST OP INSTRUCTIONS The patient was provided with a Pain Log to complete over the next several hours and subsequent days prior to the patient's follow up with the ordering physician. If the patient has outreach liaison relief to the solution applied, then they may be a candidate for medial branch rhizotomy. The patient is aware, was provided, once again, with a Pain Log and will follow up with the referring physician for review and clinical correlation
== END 2024-09-05 15:00 | disposition home or self-care (01) ==
LOC: RAD 12:23
PROVIDERS: PCP Internal Medicine; Referring Provider Physical Medicine & Rehabilitation; Visit Provider Physical Medicine & Rehabilitation
DX: M47.816 Spondylosis without myelopathy or radiculopathy, lumbar region (principal); M47.817 Spondylosis without myelopathy or radiculopathy, lumbosacral region
CPT/HCPCS: 64493; 64494; 99152; J2250

== ENCOUNTER 2024-10-19 10:40 | Outpatient (CLI) | payer MEDICARE, OTHER, SELFPAY ==
[2024-09-11 07:37] VITALS: BMI 20.5
[2024-10-19] VITALS (15 sets, daily range): BP systolic 127–167; BP diastolic 59–83; PULSE 52–77; RESP 11–20; TEMP 36.8; O2SAT 97–100
--- NOTE | 2024-10-19 10:41 | DI.RAD.S_ITS ---
PROCEDURE: PAIN L/S FACET INJ/BLK 1ST SAGAR INDICATIONS: Bilateral L4, L5 and S1 MB RFA COMPARISON: [facility], , PAIN L/S FACET INJ/BLK 1ST SAGAR, 09/05/2024, 13:54. FINDINGS/IMPRESSION: Fluoroscopic spot filming was performed to verify placement of spinal needles at the L4, L5, and S1 level(s), as labeled on the films. Appropriate location(s) of the needle tip(s) was confirmed by injection of iodinated contrast. Dictated by: Isaias Yancey M.D. on 10/20/2024 at 10:32 Approved by: Isaias Yancey M.D. on 10/20/2024 at 10:32
[2024-10-19] MEDS: MIDAZOLAM 2 MG/2 ML VIAL IV (12:03)
[2024-10-19] MEDS: LIDOCAINE 1% 20 ML 5 ML INJ (12:10)
[2024-10-19] MEDS: BUPIVACAINE 0.5% (PF) 10 ML VIAL 5 ML INJ (12:10)
[2024-10-19] MEDS: MIDAZOLAM 2 MG/2 ML VIAL 1 MG IV ×2 (12:23→12:31)
--- NOTE | 2024-10-19 12:48 | P.PCN_ITS ---
Date/Time/Diagnoses Date of procedure: 10/19/24 Time of procedure: 12:49 Pre-procedure diagnosis: 1. RECALCITRANT FACET ARTHROPATHY Post-procedure diagnosis: same Procedure Notes Procedure: 1. BILATERAL L4 AND L5 MEDIAL BRANCH RADIOFREQUENCY NEUROTOMY AND S1 DORSAL RAMUS BRANCH RADIOFREQUENCY NEUROTOMY Indications: Analia is referred by Dr. Helms for treatment of facet arthropathy. Physician: Stewart Irwin Total Fluoroscopy time (seconds): 23 Total sedation minutes: 40 Complications: none Procedure in detail & Post-procedure care: DESCRIPTION OF PROCEDURE Bilateral L4 and L5 medial branch radiofrequency neurotomy and bilateral S1 dorsal ramus radiofrequency neurotomy under fluoroscopy with conscious sedation. The patient is well known to this clinic having undergone previous facet injections with good but temporary relief. The patient has experienced appropriate, concordant relief with previous facet and median branch blocks but the patient's pain has been recalcitrant to further conservative measures. Therefore, based upon the patient's relief and persistent symptoms, the patient is considered an appropriate candidate for facet rhizotomy. All of the patient's questions regarding the risks versus benefits of the procedure, including, but not limited to, bleeding, infection, temporary as well as lasting nerve injury, paralysis, stroke, and , as well treatment alternatives were answered to satisfaction. After obtaining informed consent, denial of pertinent drug allergies, as well as being made aware of the potential risks of bleeding, infection, spinal cord trauma, paralysis, temporary and permanent nerve damage, seizure, stroke, and possible , the patient was brought to the fluoroscopy suite and positioned prone on the fluoroscopy table. The lumbar region was prepped in usual sterile fashion and covered with a fenestrated drape in the usual sterile fashion. Appropriate monitors applied including pulse oximeter, pulse, and blood pressure for regular monitoring throughout the procedure. After review of previous anaesthesic history and IV conscious sedation the patient was deemed safe to proceed with today's procedure with IV conscious sedation as ASA class II designation. Safety time-out was performed to confirm patient ID, procedure to be performed and site of procedure. IV sedation was accomplished with a combination of 4mg of Versed administered by the RN after DO order, titrated to patient comfort during the course of the procedure while the patient remained responsive to all verbal commands. After local infiltration using 1% lidocaine, under fluoroscopic guidance, a 10- cm RF insulated needle with a 10-mm active tip was positioned parallel to the junction of the right sacral ala and the superior articulating process where the S1 dorsal ramus resides. Needle placement was confirmed with motor stimulation of .5v on the right which produced local stimulation without radicular component. The stimulation was then increased to 2v with, once again, only local multifidus stimulation without radicular component. The needle was then removed and the identical procedure was performed along the length of the right L5 medial branch with motor stimulation at .7v on the right. The identical procedure was once again performed along the length of the right L4 medial branch with motor stimulation of .5v on the right. The medial branches were then anesthetised with 0.5% Marcaine. This was then followed by two discreet lesions performed at 80 degrees Celsius for 90 seconds each. The identical procedure was repeated on the left. The patient tolerated the procedure well without signs or symptoms of complications prior to transfer to the recovery area continued monitoring without incident. The patient was then transferred to the recovery area where they were observed for an appropriate period of time after the injection. The patient reported a VAS score of 7 prior to the procedure and a post-procedure VAS of 2. POST OP INSTRUCTIONS The patient was provided a Pain Log to continue to record the patient's response to the target-specific procedure prior to the patient's follow-up visit with the referring physician. Additionally, specific post-injection care instructions and a contact number to our office were provided if concerns arise regarding possible complications associated with the procedure are suspected.
== END 2024-10-19 13:25 | disposition home or self-care (01) ==
LOC: RAD 10:41
PROVIDERS: PCP Internal Medicine; Referring Provider Physical Medicine & Rehabilitation; Visit Provider Physical Medicine & Rehabilitation
DX: M47.816 Spondylosis without myelopathy or radiculopathy, lumbar region (principal); M47.817 Spondylosis without myelopathy or radiculopathy, lumbosacral region
CPT/HCPCS: 64493; 64494; 64635; 64636; 99152; 99153; J2250

== ENCOUNTER → 2024-11-03 15:55 | Outpatient (CLI) | payer MEDICARE, OTHER, SELFPAY ==
[2024-09-11 07:37] VITALS: BMI 20.5
[2024-11-03 19:17] LABS: BUN Creatinine Ratio 30.9 (6-22); Blood Urea Nitrogen 25 mg/dL (7-17); Estimated Glomerular Filt Rate > 60 mL/min (>60)
== END ==
PROVIDERS: PCP Internal Medicine; Referring Provider Podiatrist; Visit Provider Podiatrist
DX: M25.571 Pain in right ankle and joints of right foot (principal)
CPT/HCPCS: 36415; 82565; 84520

== ENCOUNTER → 2024-11-15 15:19 | Outpatient (CLI) | payer MEDICARE, OTHER, SELFPAY ==
[2024-09-11 07:37] VITALS: BMI 20.5
--- NOTE | 2024-11-15 15:21 | DI.RAD.S_ITS ---
PROCEDURE: XR DEXA AXIAL SKELETON INDICATIONS: osteopenia COMPARISON: [facility], CR, XR DEXA AXIAL SKELETON, 10/28/2022, 14:53. FINDINGS: Lumbar Spine: Bone mineral density 0.793 g/cm2, T score -2.3, compared to -1.8. Left Femoral Neck: Bone mineral density 0.684 g/cm2, T score -1.5, compared to -1.4. Left Hip: Bone mineral density 0.736 g/cm2, T score -1.7, compared to -1.6. Fracture Risk Calculation (when applicable): 10-year fracture risk of a major osteoporotic fracture 9.5 percent and of a hip fracture 1.9 percent. (T score greater or equal to -1.0 to: NORMAL) (T score from -1.1 to -2.4: OSTEOPENIA) (T score less than or equal to -2.5: OSTEOPOROSIS) IMPRESSION: Progressive bone mineral density loss now with severe osteopenia in the lumbar spine. Follow-up guidelines as follows: Osteoporosis: Consider a repeat DEXA and Vertebral Fracture Assessment (VFA) exam in 2 years or sooner if medically necessary, to reassess this patient's status. Osteopenia: Consider a repeat DEXA in 2-3 years to reassess this patient's status, or if there is a new clinical indication. Normal: Consider a repeat DEXA in 5 years or sooner, or if there is a new clinical indication. All treatment decisions require clinical judgment and consideration of individual patient factors, including patient preferences, comorbidities, previous drug use, risk factors not captured in the FRAX model (e.g., frailty, falls, vitamin D deficiency, increased bone turnover, interval significant decline in bone density ) and possible under- or over-estimation of fracture risk by FRAX. In addition, the NOF Guide recommends that FDA-approved medical therapies be considered in postmenopausal women and men age >= 50 years with a: * Hip or vertebral (clinical or morphometric) fracture * T-score of <=-2.5 at the spine or hip * Ten-year fracture probability by FRAX of >= 3% for hip fracture or >=20% for major osteoporotic fracture. Dictated by: Shazia Canales M.D. on 11/15/2024 at 21:31 Approved by: Shazia Canales M.D. on 11/15/2024 at 21:32
== END ==
LOC: RAD 15:20
PROVIDERS: PCP Internal Medicine; Referring Provider Internal Medicine; Visit Provider Internal Medicine
DX: M85.89 Other specified disorders of bone density and structure, multiple sites
CPT/HCPCS: 77080

== ENCOUNTER → 2024-11-15 15:21 | Outpatient (CLI) | payer MEDICARE, OTHER, SELFPAY ==
[2024-09-11 07:37] VITALS: BMI 20.5
--- NOTE | 2024-11-15 15:23 | DI.MRI.S_ITS ---
PROCEDURE: MR ANKLE RT WO/W CON INDICATIONS: DISORDERS OF JOINT RT ANKLE AND FOOT TECHNIQUE: Noncontrast sagittal T1 spin echo and T2 fast spin echo with fat saturation, axial proton density fast spin echo and T2 fast spin echo with fat saturation, axial T1 spin echo with fat saturation, coronal T1 spin echo and T2 fast spin echo with fat saturation through the ankle/hindfoot. Post-contrast axial, coronal, and sagittal T1 spin echo with fat saturation through the ankle/hindfoot. COMPARISON: [facility], CR, XR ANKLE 3 VIEWS WEIGHT BEARING BILATERAL, 11/02/2024, 14:16. FINDINGS: Image quality: Excellent. Bones and joints: There is no marrow edema. No fracture or dislocation. Mild midfoot and hindfoot joint osteoarthritic changes are seen with joint space narrowing and subchondral sclerosis. Small tibiotalar and subtalar joint effusion, no loose bodies. Intraosseous cyst formation involving midportion of calcaneus measures up to 1.2 x 1.5 x 1.1 cm in size. No area of abnormal intraosseous enhancement. No suspicious bony lesions. Medial structures: The posterior tibialis tendon is thickened with small amount of fluid distending tendon sheath at the level of mid to distal talus and talonavicular joint. The flexor digitorum longus, and flexor hallucis longus tendons are intact. The posterior tibial neurovascular bundle appears normal within the tarsal tunnel, without extrinsic mass effect. The deltoid ligament and spring ligament are thickened near their distal insertion.. Lateral structures: The anterior talofibular ligament is thickened with intrasubstance T2 hyperintense signal. The calcaneofibular, and posterior talofibular ligaments appear intact. More superiorly, the anterior and posterior tibiofibular ligaments appear intact, as is the intermalleolar ligament. The tibiofibular syndesmosis is normal in width at 2 mm or less. The peroneus longus and brevis tendons are mildly thickened with small amount of fluid distending tendon sheath at the level of lateral malleolus extending to their distal insertions. No signal abnormality or area of abnormal enhancement is seen within the sinus tarsi. Anterior structures: Fiducial marker is placed over anterolateral aspect of right ankle at the level of extensor digitorum longus tendon. Mildly thickened tibialis anterior tendon and extensor digitorum longus tendon is seen at the level of tibiotalar joint extending to the level of talonavicular joint. The extensor hallucis longus tendon is intact. No enhancing soft tissue mass or drainable fluid collection. Posterior and plantar structures: Achilles tendon is intact. Medial and lateral bands of the plantar fascia are of normal thickness. No abductor digiti quinti muscle atrophy to suggest Kelly neuropathy. IMPRESSION: 1. [id number] tendinosis involving tibialis anterior tendon and extensor digitorum longus tendon at the level of tibiotalar joint extending to the level of talonavicular joint and corresponds to patient's reported area of symptom. No enhancing soft tissue mass or drainable fluid collection is seen. No ganglion cyst formation. 2. Mild midfoot and hindfoot joint osteoarthritis. No fracture or dislocation. No suspicious bony lesions or abnormal intraosseous enhancement. No osteochondral injuries of talar dome. Small joint effusion, no loose bodies. 3. Low-grade tenosynovitis involving posterior tibialis tendon at the level of distal talus and talonavicular joint. 4. Low-grade medial ankle ligament sprain. 5. Low to moderate grade sprain/intrasubstance partial-thickness tear involving anterior talofibular ligament. No full-thickness ligament rupture. 6. Low-grade tenosynovitis involving peroneus longus and brevis tendons at the level of lateral malleolus tip extending to their distal insertions. Dictated by: Devon Galeano M.D. on 11/16/2024 at 9:24 Approved by: Devon Galeano M.D. on 11/16/2024 at 9:54
== END ==
LOC: MRI 15:22
PROVIDERS: PCP Internal Medicine; Referring Provider Podiatrist; Visit Provider Podiatrist
DX: S93.491A Sprain of other ligament of right ankle, initial encounter (principal); M19.071 Primary osteoarthritis, right ankle and foot; M25.871 Other specified joint disorders, right ankle and foot; M65.971 Unspecified synovitis and tenosynovitis, right ankle and foot; M85.89 Other specified disorders of bone density and structure, multiple sites
CPT/HCPCS: 73723; 77080; A9579

== ENCOUNTER → 2024-11-28 14:13 | Outpatient (CLI) | payer MEDICARE, OTHER, SELFPAY ==
[2024-09-11 07:37] VITALS: BMI 20.5
[2024-11-28 16:01] LABS: Alanine Aminotransferase 34 IU/L (<35); Albumin 3.9 g/dL (3.5-5.0); Albumin Globulin Ratio 1.1 (1.0-2.8); Alkaline Phosphatase 56 U/L (38-126); Aspartate Aminotransferase 42 IU/L (14-36); BUN Creatinine Ratio 26.2 (6-22); Bilirubin Total 0.4 mg/dL (0.2-1.3); Blood Urea Nitrogen 27 mg/dL (7-17); Calcium 9.2 mg/dL (8.4-10.2); Carbon Dioxide 34 mmol/L (22-32); Chloride 99 mmol/L (98-107); Estimated Glomerular Filt Rate 57 mL/min (>60); Globulin 3.6 g/dL (1.7-4.1); Glucose 96 mg/dL (80-110); HEMOLYSIS < 15 (0-50); Potassium 3.9 mmol/L (3.4-5.1); Sodium 136 mmol/L (137-145); Total Protein 7.5 g/dL (6.3-8.2)
== END ==
LOC: LAB 14:14
PROVIDERS: PCP Internal Medicine; Referring Provider Internal Medicine; Visit Provider Internal Medicine
DX: M85.80 Other specified disorders of bone density and structure, unspecified site (principal)
CPT/HCPCS: 36415; 80053

== ENCOUNTER → 2024-12-05 12:52 | Outpatient (CLI) | payer MEDICARE, OTHER, SELFPAY ==
[2024-09-11 07:37] VITALS: BMI 20.5
--- NOTE | 2024-12-05 12:53 | DI.MG.S_ITS ---
BILATERAL DIGITAL SCREENING MAMMOGRAM 3D/2D WITH CAD: 12/05/2024 CLINICAL: Routine screening. Family history of breast cancer. Comparison is made to exams dated: 09/29/2023 mammogram, 10/18/2021 mammogram, and 06/10/2020 mammogram - [facility]. There are scattered areas of fibroglandular density (category b / 25%-50% glandular tissue). Current study was also evaluated with a Computer Aided Detection (CAD) system. No significant masses, calcifications, or other findings are seen in either breast. There has been no significant interval change. IMPRESSION: NEGATIVE There is no mammographic evidence of malignancy. A 1 year screening mammogram is recommended. Based on the Tyrer Cuzick model (a risk assessment model) the patient's lifetime risk is 2.4% and her 10 year risk is 2.4%. According to the ACR, ACS, and NCCN guidelines, an annual breast MRI exam along with mammogram is recommended if the patient's lifetime risk is 20% or greater. This exam was interpreted at Station ID: [id number]. NOTE: For mammograms, a report in lay terms will be sent to the patient. Approximately 15% of breast malignancies will not be visualized mammographically. In the management of a palpable breast mass, a negative mammogram must not discourage biopsy of a clinically suspicious lesion. Electronically Signed By: Alfredo vargas/shane:12/05/2024 17:20:17 letter sent: Normal Exam ACR BI-RADS Category 1: Negative
== END ==
PROVIDERS: PCP Internal Medicine; Referring Provider Internal Medicine; Visit Provider Internal Medicine
DX: Z12.31 Encounter for screening mammogram for malignant neoplasm of breast (principal); Z80.3 Family history of malignant neoplasm of breast
CPT/HCPCS: 77063; 77067

== ENCOUNTER → 2025-01-29 15:07 | Outpatient (CLI) | payer MEDICARE, OTHER, SELFPAY ==
[2024-09-11 07:37] VITALS: BMI 20.5
[2025-01-29 16:02] LABS: Add Manual Diff / Slide Review NO; Basophils Absolute Auto 0 /uL (0-100); Basophils Percent Auto 0.6 % (0-2); Eosinophils Absolute Auto 0 /uL (0-450); Eosinophils Percent Auto 0.3 % (2-4); Hematocrit 35.1 % (36-46); Hemoglobin 11.5 g/dL (12.0-16.0); Lymphocytes Absolute Auto 1000 /uL (1100-4500); Lymphocytes Percent Auto 14.8 % (25-40); Mean Corpuscular HGB Conc 32.8 % (30-36); Mean Corpuscular Hemoglobin 28.8 PG (26-34); Mean Corpuscular Volume 87.8 fL (80-100); Monocytes Absolute Auto 200 /uL (0-900); Monocytes Percent Auto 2.6 % (3-14); Neutrophils Absolute Auto 5500 /uL (1500-7000); Neutrophils Percent Auto 81.7 % (50-75); Platelet Count 238 X10^3/uL (150-400); Red Cell Distribution Width 16.1 % (11.6-14.8); White Blood Cell Count 6.7 X10^3/uL (4.5-11.0)
[2025-01-29 16:23] LABS: Erythrocyte Sedimentation Rate 28 MM/HR (0-20)
[2025-01-29 16:25] LABS: Alanine Aminotransferase 34 IU/L (<35); Albumin 4.1 g/dL (3.5-5.0); Albumin Globulin Ratio 1.2 (1.0-2.8); Alkaline Phosphatase 51 U/L (38-126); Aspartate Aminotransferase 46 IU/L (14-36); BUN Creatinine Ratio 29.4 (6-22); Bilirubin Total 0.5 mg/dL (0.2-1.3); Blood Urea Nitrogen 32 mg/dL (7-17); C-Reactive Protein Quant < 0.5 mg/dL (<1.0); Calcium 8.7 mg/dL (8.4-10.2); Carbon Dioxide 32 mmol/L (22-32); Chloride 93 mmol/L (98-107); Estimated Glomerular Filt Rate 53 mL/min (>60); Globulin 3.5 g/dL (1.7-4.1); Glucose 152 mg/dL (80-110); HEMOLYSIS < 15 (0-50); Potassium 3.9 mmol/L (3.4-5.1); Sodium 131 mmol/L (137-145); Total Protein 7.6 g/dL (6.3-8.2)
== END ==
PROVIDERS: PCP Internal Medicine; Referring Provider Internal Medicine Rheumatology; Visit Provider Internal Medicine Rheumatology
DX: M06.09 Rheumatoid arthritis without rheumatoid factor, multiple sites (principal)
CPT/HCPCS: 36415; 80053; 85025; 85651; 86140

== ENCOUNTER → 2025-02-02 15:12 | Outpatient (CLI) | payer MEDICARE, OTHER, SELFPAY ==
[2024-09-11 07:37] VITALS: BMI 20.5
--- NOTE | 2025-02-02 15:38 | DI.MRI.S_ITS ---
PROCEDURE: MR HIP RT WO CON INDICATIONS: osteoarthritis of right hip TECHNIQUE: Noncontrast coronal T1 spin echo and STIR through the bony pelvis. Coronal and axial T2 fast spin echo with fat saturation, sagittal T1 spin echo, and oblique axial T2 fast spin echo with fat saturation through the hip. COMPARISON: [facility], CR, XR PELVIS WITH BILATERAL LATERAL HIPS, 01/12/2025, 13:32. FINDINGS: Image quality: Diagnostic Bones: Pelvic ring: No acute pelvic ring disruption Femoral head and neck: No acute fracture Ligamentum teres: Unremarkable Lumbar spine and sacrum: Partially seen degenerative changes, at least moderate in severity Tendons: Abductors: Mild insertional tendinopathy and partial tears Adductors and rectus abdominis: Intact. No pubic symphyseal edema. IT band: Intact. Iliopsoas: Mild insertional tendinopathy Hamstrings: Mild tendinopathy and partial tears at the origin Rectus femoris: Intact. Sartorius: Intact. Joint: Joint space: Minimal effusion Labrum: Circumferential degeneration is suspected superior and anterior superior tear. Cartilage: Moderate arthrosis with cartilage thinning and fissuring. Soft tissues: Quadratus femoris: No edema or atrophy. Piriformis: Symmetric. Intrapelvic structures: Not well evaluated on this study. Uterus is not seen. IMPRESSION: Overall moderate hip joint arthrosis with cartilage thinning and cartilage fissuring. Minimal joint effusion. Mild gluteus medius/minimus insertion, iliopsoas insertion, and hamstrings origin tendinopathy and partial tears. Circumferential degeneration of the labrum with suspected superior and anterior superior tears. Dictated by: Isaias Yancey M.D. on 02/03/2025 at 6:28 Approved by: Isaias Yancey M.D. on 02/03/2025 at 6:33
== END ==
PROVIDERS: PCP Internal Medicine; Referring Provider Orthopaedic Surgery; Visit Provider Orthopaedic Surgery
DX: M16.11 Unilateral primary osteoarthritis, right hip (principal); M70.61 Trochanteric bursitis, right hip
CPT/HCPCS: 73721

== ENCOUNTER → 2025-04-04 15:06 | Outpatient (CLI) | payer MEDICARE, OTHER, SELFPAY ==
[2024-09-11 07:37] VITALS: BMI 20.5
--- NOTE | 2025-04-04 15:08 | DI.RAD.S_ITS ---
PROCEDURE: FL JOINT INJECTION LARGE RT INDICATIONS: FL guided glenohumeral joint inj COMPARISON: [facility], CR, XR SHOULDER RT 2+ VIEWS, 03/27/2025, 14:10. TECHNIQUE: The indications, alternatives, benefits, risks, and complications of the procedure were explained to the patient. Written informed consent was obtained and placed in the chart. The patient was placed in an appropriate position on the fluoroscopy table, and a site was chosen for percutaneous access under fluoroscopic guidance. The site was prepped and draped in a sterile fashion. Local anesthetic was administered using a 1% lidocaine solution. A hypodermic or spinal needle was then used to access the symptomatic joint. Intra-articular location of the needle tip was confirmed by injecting a small amount of contrast, followed by steroid administration. The needle was then withdrawn, and a bandage applied to the puncture site. FINDINGS: Joint injected: Right glenohumeral joint Medications injected: 4 mL of 40 mg/mL Kenalog and 0.5% Ropivacaine mixture. Patient's pain before injection: 8 out of 10. Patient's pain after injection: 2 out of 10. Complications: None. IMPRESSION: Successful fluoroscopically guided administration of steroid and anaesthetic solution into the right glenohumeral joint. Approved by: Ryan Stark M.D. on 04/04/2025 at 20:37
--- NOTE | 2025-04-04 15:08 | DI.RAD.S_ITS ---
PROCEDURE: FL JOINT INJECTION LARGE LT INDICATIONS: FL guided glenohumeral joint inj COMPARISON: [facility], CR, XR SHOULDER LT 2+ VIEWS, 03/27/2025, 14:10. [facility], , FL JOINT INJECTION LARGE RT, 04/04/2025, 14:30. TECHNIQUE: The indications, alternatives, benefits, risks, and complications of the procedure were explained to the patient. Written informed consent was obtained and placed in the chart. The patient was placed in an appropriate position on the fluoroscopy table, and a site was chosen for percutaneous access under fluoroscopic guidance. The site was prepped and draped in a sterile fashion. Local anesthetic was administered using a 1% lidocaine solution. A hypodermic or spinal needle was then used to access the symptomatic joint. Intra-articular location of the needle tip was confirmed by injecting a small amount of contrast, followed by steroid administration. The needle was then withdrawn, and a bandage applied to the puncture site. FINDINGS: Joint injected: Left glenohumeral joint Medications injected: 4 mL of 40 mg/mL Kenalog and 0.5% Ropivacaine mixture. Patient's pain before injection: 5 out of 10. Patient's pain after injection: 2-3 out of 10. Complications: None. IMPRESSION: Successful fluoroscopically guided administration of steroid and anaesthetic solution into the left glenohumeral joint. Approved by: Ryan Stark M.D. on 04/04/2025 at 20:38
[2025-04-04] MEDS: ROPIVACAINE 0.5% PF 5 MG/ML 20ML VIAL 20 ML INJ (16:19)
[2025-04-04] MEDS: LIDOCAINE 1% 20 ML INJ (16:19)
[2025-04-04] MEDS: TRIAMCINOLONE 40 MG/ML VIAL INTRA-ARTI ×2 (16:19→16:20)
== END ==
LOC: RAD 15:07
PROVIDERS: PCP Internal Medicine; Referring Provider Orthopaedic Surgery; Visit Provider Orthopaedic Surgery
DX: M19.011 Primary osteoarthritis, right shoulder (principal); M19.012 Primary osteoarthritis, left shoulder
CPT/HCPCS: 20610; 77002; Q9967

== ENCOUNTER → 2025-04-05 14:16 | Outpatient (CLI) | payer MEDICARE, OTHER, SELFPAY ==
[2024-09-11 07:37] VITALS: BMI 20.5
[2025-04-05 14:56] LABS: Add Manual Diff / Slide Review NO; Basophils Absolute Auto 0 /uL (0-100); Basophils Percent Auto 0.1 % (0-2); Eosinophils Absolute Auto 0 /uL (0-450); Hematocrit 33.7 % (36-46); Hemoglobin 11.1 g/dL (12.0-16.0); Lymphocytes Absolute Auto 900 /uL (1100-4500); Lymphocytes Percent Auto 12.5 % (25-40); Mean Corpuscular Hemoglobin 29.6 PG (26-34); Mean Corpuscular Volume 89.6 fL (80-100); Monocytes Absolute Auto 200 /uL (0-900); Monocytes Percent Auto 3.3 % (3-14); Neutrophils Absolute Auto 6200 /uL (1500-7000); Neutrophils Percent Auto 84.1 % (50-75); Platelet Count 215 X10^3/uL (150-400); Red Blood Cell Count 3.76 X10^6/uL (4.0-5.2); White Blood Cell Count 7.3 X10^3/uL (4.5-11.0)
[2025-04-05 15:32] LABS: Alanine Aminotransferase 35 IU/L (<35); Albumin 4.3 g/dL (3.5-5.0); Albumin Globulin Ratio 1.3 (1.0-2.8); Alkaline Phosphatase 57 U/L (38-126); Aspartate Aminotransferase 38 IU/L (14-36); BUN Creatinine Ratio 39.8 (6-22); Bilirubin Total 0.6 mg/dL (0.2-1.3); Blood Urea Nitrogen 35 mg/dL (7-17); C-Reactive Protein Quant < 0.5 mg/dL (<1.0); Calcium 9.3 mg/dL (8.4-10.2); Carbon Dioxide 26 mmol/L (22-32); Chloride 97 mmol/L (98-107); Estimated Glomerular Filt Rate > 60 mL/min (>60); Globulin 3.3 g/dL (1.7-4.1); Glucose 134 mg/dL (70-99); HEMOLYSIS < 15 (0-50); Potassium 4.2 mmol/L (3.4-5.1); Sodium 132 mmol/L (137-145); Total Protein 7.6 g/dL (6.3-8.2)
[2025-04-05 15:38] LABS: Erythrocyte Sedimentation Rate 43 MM/HR (0-20)
== END ==
PROVIDERS: PCP Internal Medicine; Referring Provider Internal Medicine Rheumatology; Visit Provider Internal Medicine Rheumatology
DX: M06.09 Rheumatoid arthritis without rheumatoid factor, multiple sites (principal)
CPT/HCPCS: 36415; 80053; 84155; 84165; 85025; 85651; 86140

== ENCOUNTER 2025-04-19 14:27 | Outpatient (CLI) | payer MEDICARE, OTHER, SELFPAY ==
[2024-09-11 07:37] VITALS: BMI 20.5
[2025-04-19] VITALS (8 sets, daily range): BP systolic 144–182; BP diastolic 58–78; PULSE 48–67; RESP 12–18; TEMP 36.3; O2SAT 97–100
[2025-04-19] MEDS: MIDAZOLAM 2 MG/2 ML VIAL IV (15:39)
[2025-04-19] MEDS: BUPIVACAINE 0.25% (PF) VIAL 2 ML INJ (15:43)
[2025-04-19] MEDS: DEXAMETHASONE 10 MG/ML VIAL 20 MG INJ (15:43)
[2025-04-19] MEDS: BETAMETHASONE 30 MG/5 ML MDV 12 MG INJ (15:44)
--- NOTE | 2025-04-19 15:58 | P.PCN_ITS ---
Date/Time/Diagnoses Date of procedure: 04/19/25 Time of procedure: 15:58 Pre-procedure diagnosis: 1. FORAMINAL STENOSIS WITH LE SYMPTOMS Post-procedure diagnosis: same Procedure Notes Procedure: 1. FLUOROSCOPICALLY GUIDED CONTRAST CONTROLLED TRANSFORAMINAL EPIDURAL STEROID INJECTION - RIGHT L4/5 TFESI Indications: Analia is referred by Dr. Foster for treatment of Foraminal Stenosis with Right LE Symptoms Physician: Stewart Irwin Total Fluoroscopy time (seconds): 9 Total sedation minutes: 12 Complications: none Procedure in detail & Post-procedure care: FINDINGS Foraminal Nerve Root Compression secondary to disc disease and facet hypertrophy DESCRIPTION OF PROCEDURE Following review of allergy and review of potential side effects and complications, including, but not necessarily limited to, infection, allergic reaction, local tissue breakdown, stroke, temporary or permanent nerve injury, paralysis, and possible , the patient indicated that the patient understood and agreed to proceed. An informed consent document was signed by the patient, witnessed by a nurse, and placed in the patient's chart. Additionally, other treatment options including medications, modalities, and physical therapy were reviewed with the patient. After review of previous anaesthesic history and IV conscious sedation the patient was deemed safe to proceed with today?s procedure with IV conscious sedation as ASA class II designation. Safety time-out was performed to confirm patient ID, procedure to be performed and site of procedure. IV sedation was accomplished with a combination of 2mg of Versed was administered by the RN after DO order, titrated to patient comfort during the course of the procedure while the patient remained responsive to all verbal commands In the prone position following sterile prep and drape of the lumbar region, the right L4/5 posterior neuroforamen was identified fluoroscopically. The skin was anesthetized via a 25-gauge 1.5-inch needle with 1% lidocaine solution. At this point, a 25-gauge 3.5-inch spinal needle was atraumatically introduced and advanced under fluoroscopic guidance through the posterior right L4/5 neuroforamen to approximately the anterior aspect of the canal. Depth was confirmed on lateral view. Following negative aspiration, injection of approximately 1.5cc of Isovue 200 under live fluoroscopy in the AP view confi rmed excellent flow along the nerve root, into the epidural space without vascular or intrathecal uptake observed Radiological data, including multiple fluoroscopic views of the lumbosacral spine, reveal a spinal needle at the right L4/5 posterior neuroforamen. Subsequent views show flow of contrast material flowing superiorly and inferiorly along the nerve root confirming epidural flow. Subsequently, a test dose of 1.5 cc of 0.25%marcaine solution was administered and patient was observed for two minutes for signs or symptoms of complications, including abdominal pain, shortness of breath, bilateral upper or lower extremity weakness, nausea and vomiting, prior to steroid injection. At this point, a total of 3cc or 10mg of dexamethasone and 12mg of betamethasone was injected without incident. The procedure tolerated the procedure well without signs or symptoms of complications prior to transfer to the recovery area continued monitoring without incident. The patient was then transferred to the recovery area where they were observed for an appropriate time after the injection. The patient reported a VAS score of 7 prior to the procedure and a post- procedure VAS of 0. POST OP INSTRUCTIONS The patient was provided a Pain Log to continue to record their response to the target-specific procedure prior to follow-up visit with their referring p hysician. Additionally, specific post-injection care instructions and a contact number to our office were provided if concerns arise regarding possible complications associated with the procedure are suspected.
== END 2025-04-19 16:37 | disposition home or self-care (01) ==
LOC: RAD 14:27
PROVIDERS: PCP Internal Medicine; Referring Provider Physical Medicine & Rehabilitation; Visit Provider Physical Medicine & Rehabilitation
DX: M48.061 Spinal stenosis, lumbar region without neurogenic claudication (principal); M51.16 Intervertebral disc disorders with radiculopathy, lumbar region; M47.26 Other spondylosis with radiculopathy, lumbar region
CPT/HCPCS: 64483; 99152; J0702; J1100; J2250

== ENCOUNTER → 2025-04-24 15:58 | Outpatient (CLI) | payer MEDICARE, OTHER, SELFPAY ==
[2024-09-11 07:37] VITALS: BMI 20.5
--- NOTE | 2025-04-24 16:01 | DI.RAD.S_ITS ---
PROCEDURE: XR CERVICAL SPINE 4V OR 5V INDICATIONS: NECK PAIN TECHNIQUE: Five views of the cervical spine acquired. COMPARISON: [facility], CR, XR CERVICAL SPINE 4V OR 5V, 12/19/2022, 14:10. FINDINGS: Cervical spine curvature and alignment: Normal. Bones: There are no osseous abnormalities. Disc spaces: Severe C3-4 C4-5 C5-6 and C6-7 degenerative disc disease noted. Moderate degenerative facet disease C3-4 through C7-T1. Intervertebral foramen: Severe narrowing of both C4-5 , left C5-6 and mild narrowing of both C6-7 IV foramen due to degenerative spurs noted Soft tissues: No soft tissue swelling, calcification or mass. IMPRESSION: Degeneration Dictated by: Vincent Martin M.D. on 04/25/2025 at 12:04 Approved by: Vincent Martin M.D. on 04/25/2025 at 12:05
--- NOTE | 2025-04-24 16:02 | DI.RAD.S_ITS ---
PROCEDURE: XR SHOULDER LT MIN 2V INDICATIONS: NECK PAIN TECHNIQUE: Three views of the shoulder were acquired. COMPARISON: [facility], CR, XR SHOULDER RT 2+ VIEWS, 03/27/2025, 14:10. FINDINGS: Bones: There are no osseous abnormalities. Acromioclavicular and glenohumeral joints: Normal in width and alignment without arthritic change Soft tissues: Two 1 cm calcification the axillary recess are likely loose bodies. Few dystrophic calcifications seen in the soft tissues over the left lateral chest wall IMPRESSION: Loose bodies in the axillary recess Dictated by: Vincent Martin M.D. on 04/25/2025 at 12:01 Approved by: Vincent Martin M.D. on 04/25/2025 at 12:02
--- NOTE | 2025-04-24 16:02 | DI.RAD.S_ITS ---
PROCEDURE: XR SHOULDER RT MIN 2V INDICATIONS: NECK PAIN TECHNIQUE: Three views of the right shoulder were acquired. COMPARISON: [facility], CR, XR SHOULDER LT 2+ VIEWS, 04/24/2025, 15:08. FINDINGS: Bones: Metallic fixation suture seen over the anatomic neck of the humerus. Acromioclavicular and glenohumeral joints: The humeral head is markedly superiorly subluxed suggesting recurrent rotator cuff tear/impingement. Severe glenohumeral degeneration noted. Acromioclavicular joint is normal. Soft tissues: No soft tissue swelling, calcification or mass. IMPRESSION: Marked superior humeral head subluxation suggesting recurrent rotator cuff tear. Anchoring sutures in the anatomic neck. Severe glenohumeral degeneration Dictated by: Vincent Martin M.D. on 04/25/2025 at 12:02 Approved by: Vincent Martin M.D. on 04/25/2025 at 12:04
== END ==
PROVIDERS: PCP Internal Medicine; Referring Provider Physical Medicine & Rehabilitation; Visit Provider Physical Medicine & Rehabilitation
DX: M47.22 Other spondylosis with radiculopathy, cervical region (principal); M50.31 Other cervical disc degeneration, high cervical region; M48.02 Spinal stenosis, cervical region; M19.011 Primary osteoarthritis, right shoulder; M24.012 Loose body in left shoulder; M25.519 Pain in unspecified shoulder
CPT/HCPCS: 72050; 73030

== ENCOUNTER → 2025-05-08 11:26 | Outpatient (CLI) | payer MEDICARE, OTHER, SELFPAY ==
[2024-09-11 07:37] VITALS: BMI 20.5
[2025-05-08 12:15] LABS: Appearance Urine UA SL CLOUDY; Bilirubin Urine UA NEGATIVE (NEGATIVE); Color Urine UA YELLOW; Glucose Urine UA NEGATIVE (Negative); Ketones Urine UA NEGATIVE (NEGATIVE); Leukocyte Esterase Urine UA NEGATIVE (NEGATIVE); Nitrite Urine UA NEGATIVE (Negative); Occult Blood Urine UA NEGATIVE (Negative); Protein Urine UA TRACE (Negative); Specific Gravity Urine UA 1.015 (1.000-1.035); Urobilinogen Urine UA 0.2 E.U./dL (0.2)
[2025-05-08 12:16] LABS: pH Urine UA 8.5 (4.5-8.0)
[2025-05-08 12:31] LABS: Culture Indicated Urine Cult Not Indicated
== END ==
PROVIDERS: PCP Internal Medicine; Referring Provider Internal Medicine; Visit Provider Internal Medicine
DX: R30.0 Dysuria (principal)
CPT/HCPCS: 81001

== ENCOUNTER 2025-05-11 14:59 | Emergency (ER) | payer MEDICARE, OTHER, SELFPAY ==
[2024-09-11 07:37] VITALS: BMI 20.5
[2025-05-11 15:05] VITALS: BP 208/94; PULSE 61; RESP 16; TEMP 36.9; O2SAT 100; BMI 20.3
--- NOTE | 2025-05-11 15:08 | DI.RAD.S_ITS ---
PROCEDURE: XR FOREARM LT 2V INDICATIONS: fall, swelling to humerus and forearm TECHNIQUE: 2 views of the forearm were acquired. COMPARISON: None. FINDINGS: Bones: No fractures or dislocations. 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 No suspicious bony lesions. Soft tissues: No suspicious soft tissue calcifications or masses. IMPRESSION: No acute forearm fracture or dislocation. Dictated by: Devon Galeano M.D. on 05/11/2025 at 15:42 Approved by: Devon Galeano M.D. on 05/11/2025 at 15:42
--- NOTE | 2025-05-11 15:08 | DI.RAD.S_ITS ---
PROCEDURE: XR HUMERUS LT 2V INDICATIONS: fall, swelling to humerus and forearm TECHNIQUE: 2 views of the humerus were acquired. COMPARISON: None. FINDINGS: Bones: No fractures or dislocations. No suspicious bony lesions. Soft tissues: No suspicious soft tissue calcifications. IMPRESSION: No acute left humeral fracture or dislocation. Dictated by: Devon Galeano M.D. on 05/11/2025 at 15:35 Approved by: Devon Galeano M.D. on 05/11/2025 at 15:42
--- NOTE | 2025-05-11 15:41 | ED.FALL ---
HPI - Fall <Rocío Coburn PA-C - Last Filed: 05/11/25 16:21> General Chief Complaint: Fall Stated Complaint: Lt arm pain, fell Time Seen by Provider: 05/11/25 15:41 History of Present Illness HPI Narrative: Ms. Rodriguez is a very pleasant 74-year-old female with a past medical history of hypertension, BPPV, Sjogren's, fibromyalgia, osteoarthritis who presents to the emergency department for left arm pain after a fall that occurred at home. Patient states that she was attempting to step over a box when she tripped causing her to scrape the outside of her left arm on a table. She did not hit her head. She now has 2 skin tears on the lateral left arm overlying the upper arm and the forearm with underlying bruising and swelling. She does not take blood thinners but she does take baby aspirin. At this time she denies headache, neck pain, chest pain, abdominal pain, lower extremity pain, right arm pain, back pain. She does have pain and swelling of the humerus and forearm but she has full range of motion (at her baseline) of the left wrist, elbow, shoulder. She declines need for pain medication. Tdap is up-to-date 02/23/2021. Related Data Home Medications ?Medication ?Instructions ?Recorded ?Confirmed ivermectin 1 % topical cream 1 applic topical BID Rosacea 11/21/19 04/26/25 (Soolantra) aspirin 81 mg chewable tablet 1 tab PO DAILY 09/17/23 04/26/25 cholecalciferol (vitamin D3) 25 25 mcg PO DAILY 09/17/23 04/26/25 mcg (1,000 unit) capsule rosuvastatin 20 mg tablet 20 mg PO ONCE PM 09/17/23 04/26/25 prednisone 5 mg tablet 5 mg PO DAILY 07/03/24 04/26/25 perfluorohexyloctane (PF) 100 % 1 drp EYE-BOTH BID 11/21/24 04/26/25 eye drops (Miebo (PF)) upadacitinib 15 mg tablet,extended 15 mg PO DAILY 11/21/24 04/26/25 release 24 hr (Rinvoq) hydroxychloroquine 200 mg tablet 200 mg PO DAILY 12/20/24 04/26/25 Previous Rx's ?Medication ?Instructions ?Recorded hydrochlorothiazide 25 mg tablet 25 mg PO DAILY 90 days #90 tabs 08/30/24 estradiol 1 mg tablet 1 mg PO DAILY #90 tabs 11/15/24 pantoprazole 40 mg tablet,delayed 40 mg PO DAILY #60 tabs 01/22/25 release terbinafine HCl 250 mg tablet 250 mg PO DAILY #3 tabs 05/08/25 Allergies Allergy/AdvReac Type Severity Reaction Status Date / Time Penicillins (PENICILLINS) Allergy Intermediate Hives Verified 04/26/25 16:25 Sulfa (Sulfonamide Allergy Intermediate don't Verified 04/26/25 16:25 Antibiotics) (SULFA remember (SULFONAMIDE ANTIBIOTICS)) tetracycline (TETRACYCLINE) Allergy Intermediate don't Verified 04/26/25 16:25 remember Review of Systems <Rocío Coburn PA-C - Last Filed: 05/11/25 16:21> Review of Systems ROS Unobtainable: All systems reviewed & are unremarkable except as noted in HPI and below Patient History <Rocío Coburn PA-C - Last Filed: 05/11/25 16:21> Medical History BPPV (benign paroxysmal positional vertigo) Palpitations Chronic bundle branch block DJD of both shoulders Chronic low back pain Do not resuscitate Essential hypertension Venous (peripheral) insufficiency History of colonic polyps Coronary artery calcification Osteopenia Primary osteoarthritis involving multiple joints Mixed hyperlipidemia Degenerative joint disease of both hips Rheumatoid arthritis Facet arthropathy, lumbar Tortuous colon Shoulder pain, right Esophagitis Leg edema Internal derangement of left knee Primary osteoarthritis of left knee Headache, migraine Hypertension Spinal stenosis Sacral back pain Vision disorder Rosacea Sjogren's syndrome Fibromyalgia Measles Chicken pox Hearing loss Endometriosis (~1979) Irritable bowel syndrome GERD (gastroesophageal reflux disease) Herniated nucleus pulposus, L4-5 MGUS (monoclonal gammopathy of unknown significance) DJD (degenerative joint disease) of knee Cervical spondylosis with radiculopathy Cervical stenosis of spinal canal DDD (degenerative disc disease), cervical Surgical History History of total left knee replacement S/P epidural steroid injection Anesthesia History of elbow surgery History of repair of right rotator cuff S/P arthroscopic surgery of left knee Status post appendectomy Status post hysterectomy History of tonsillectomy Family History Father Heart disease Grandfather Heart disease Grandmother Stroke Mother Cancer Heart disease Hypertension Mental health problem Social History details: 2013, no children; 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 Well-developed patient, in no acute distress. HEAD: Atraumatic. Normocephalic. EYES: PERRL. Extraocular motions intact. No scleral icterus. No injection or drainage. ENT: No hemotympanum bilaterally. Nose without bleeding, purulent drainage. Throat without erythema, tonsillar hypertrophy or exudate. Airway patent. NECK: Trachea midline. Cervical ROM intact. CARDIOVASCULAR: Regular rate and rhythm. RESPIRATORY: ?Nonlabored respirations. ?Speaking in clear, full sentences. ?Clear to auscultation. Breath sounds equal bilaterally. No wheezes, rales, or rhonchi. ? EXTREMITIES: Left arm with a 4 cm linear skin tear overlying mid lateral humerus and 4 cm curved skin tear on lateral forearm. No active bleeding. On the left upper arm there is a approximately 8 cm large hematoma below the skin tear there is mild edema below the skin tear on the forearm as well. Patient has full range of movement of the left upper extremity including the wrist, elbow, shoulder and no snuffbox tenderness. Strong radial pulses bilaterally, brisk capillary refill on all fingertips. BACK: Nontender without deformity or crepitance. No flank tenderness. NEURO: AOx3. ?Clear speech. ?Moves all 4 extremities appropriately. Sensation intact to light touch in the distribution of the median, radial, ulnar nerves bilaterally. SKIN: Left lateral upper arm with 4 cm linear skin tear with large underlying hematoma. No active bleeding. Lateral left forearm with 4 cm curved skin tear. Initial Vital Signs Initial Vital Signs: Vital Signs Temperature 98.4 F 05/11/25 15:05 Pulse Rate 61 05/11/25 15:05 Respiratory Rate 16 05/11/25 15:05 Blood Pressure 208/94 H 05/11/25 15:05 Pulse Oximetry 100 05/11/25 15:05 Oxygen Delivery Method Room Air 05/11/25 15:05 <Aaron Calle MD - Last Filed: 05/12/25 09:43> Initial Vital Signs Initial Vital Signs: Vital Signs Temperature 98.4 F 05/11/25 15:05 Pulse Rate 61 05/11/25 15:05 Respiratory Rate 16 05/11/25 15:05 Blood Pressure 208/94 H 05/11/25 15:05 Pulse Oximetry 100 05/11/25 15:05 Oxygen Delivery Method Room Air 05/11/25 15:05 Course <Rocío Coburn PA-C - Last Filed: 05/11/25 16:21> Orders Ordered: ED Orders 05/11/25 15:08 XR forearm LT 2V Stat XR humerus LT 2V Stat Vital Signs Vital signs: Vital Signs - 8 hr 05/11/25 15:05 05/11/25 15:59 Temperature 98.4 F 98.1 F Pulse Rate 61 52 L Respiratory Rate 16 16 Blood Pressure 208/94 H 199/91 H Pulse Oximetry 100 98 Oxygen Delivery Method Room Air Room Air <Aaron Calle MD - Last Filed: 05/12/25 09:43> Orders Ordered: ED Orders 05/11/25 15:08 XR forearm LT 2V Stat XR humerus LT 2V Stat Vital Signs Vital signs: Vital Signs - 8 hr 05/11/25 15:05 05/11/25 15:59 Temperature 98.4 F 98.1 F Pulse Rate 61 52 L Respiratory Rate 16 16 Blood Pressure 208/94 H 199/91 H Pulse Oximetry 100 98 Oxygen Delivery Method Room Air Room Air MDM - Fall <STEWART Peterson Last Filed: 05/11/25 16:21> Medical Records Attestation: I reviewed the patient's medical records. Imaging Data Left Humerus X-Ray: Radiologist's Impression: PROCEDURE: XR HUMERUS LT 2V INDICATIONS: fall, swelling to humerus and forearm TECHNIQUE: 2 views of the humerus were acquired. COMPARISON: None. FINDINGS: Bones: No fractures or dislocations. No suspicious bony lesions. Soft tissues: No suspicious soft tissue calcifications. IMPRESSION: No acute left humeral fracture or dislocation. Dictated by: Devon Galeano M.D. on 05/11/2025 at 15:35 Approved by: Devon Galeano M.D. on 05/11/2025 at 15:42 Left Forearm X-Ray: Radiologist's Impression: PROCEDURE: XR FOREARM LT 2V INDICATIONS: fall, swelling to humerus and forearm TECHNIQUE: 2 views of the forearm were acquired. COMPARISON: None. FINDINGS: Bones: No fractures or dislocations. 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 No suspicious bony lesions. Soft tissues: No suspicious soft tissue calcifications or masses. IMPRESSION: No acute forearm fracture or dislocation. Dictated by: Devon Galeano M.D. on 05/11/2025 at 15:42 Approved by: Devon Galeano M.D. on 05/11/2025 at 15:42 MDM Narrative Medical decision making narrative: 74-year-old female with a past medical history of hypertension, BPPV, Sjogren's, fibromyalgia, osteoarthritis who presents to the emergency department for left arm pain after a fall that occurred at home. Differential diagnosis includes but is not limited to left arm skin tear, laceration, hematoma, contusion, fracture, sprain, strain, dislocation, etc. On exam patient is in no acute distress, nontoxic appearing, vital signs appropriate except for elevated blood pressure. She does take hydrochlorothiazide to take it this morning, she has not experiencing any chest pain, shortness of breath, dizziness, lightheadedness or other symptoms. She is only experiencing left arm pain related to her skin tears and hematoma. She did not hit her head or injure anything else with the fall. Physical exam reveals two 4 cm superficial skin tears on the lateral left arm with underlying hematomas, most significant on the upper left arm. X-ray left humerus and forearm ordered in triage. Tdap is up-to-date. Patient declines need for any pain medication, she was provided with ice. Blood pressure was rechecked and was slightly lower than initial however discussed with the patient the importance of daily blood pressure monitoring to bring with her to her next PCP appointment. Skin tears were cleansed, irrigated and closed using Steri-Strips by PIEDAD Mancilla. Nonadherent dressing applied. Dimas wrap applied to left upper arm hematoma by myself and ice pack. Left forearm x-ray reveals no acute forearm fracture or dislocation. Left humerus x-ray reveals no acute left humeral fracture or dislocation. Discussed rice therapy, Tylenol for pain, proper wound care, signs and symptoms of skin infection, ED return precautions and PCP follow up. Patient verbalized understanding of all information and is happy with the plan. She is ambulatory and stable for discharge home. Discharge Plan Departure Patient Disposition: Home Clinical Impression: Hematoma of left upper extremity, Elevated blood pressure reading Fall from slip, trip, or stumble Qualifiers: Encounter type: initial encounter Qualified Code(s): W01.0XXA - Fall on same level from slipping, tripping and stumbling without subsequent striking against object, initial encounter Skin tear of left upper arm without complication Qualifiers: Encounter type: initial encounter Qualified Code(s): S41.112A - Laceration without foreign body of left upper arm, initial encounter Skin tear of left forearm without complication Qualifiers: Encounter type: initial encounter Qualified Code(s): S51.812A - Laceration without foreign body of left forearm, initial encounter Instructions: DI for Laceration Repair-Skin Closure Strips, DI for Hematoma (Bruise) Activity Restrictions/Additional Instructions: Dear Ruth Michael, Thank you for coming to the emergency department. Today you were evaluated for left arm injury after a fall. You have 2 skin tears on your arm that were repaired using Steri-Strips. Steri-Strips are skin tape. These will come off on their own and you should not pull them off. You can trim them with scissors if the edges start to peel. Please leave her dressing intact for the next 24-48 hours, after which time you can remove the dressing and gently clean the wounds with soap and water, then pat dry and cover them back up with the another bandage. Your x-rays do not reveal any broken bones. You do have a large hematoma in the upper arm though and I would like you to apply an Dimas wrap/compression to help with this. Your blood pressure was elevated today. Please take your blood pressure once daily at home, right down this value, and bring this blood pressure log with you to your next primary care doctor appointment. If you ever experiencing chest pain, dizziness, lightheadedness, shortness of breath or any other concerning symptoms with your high blood pressure, you should come to the ER. Please use RICE therapy for your pain in addition to acetaminophen. Rest the painful area. Ice the area of pain/swelling for at least 15 minutes, 4x a day. Compress the area of swelling using a brace, wrap, or splint if applied. Elevate the painful or swollen extremity by supporting it above the level of the heart with pillows when sitting or laying. Please follow up with your primary care doctor within the next 2-3 days for ER follow-up. (If you do not have a PCP you can call [phone]. ?to schedule an appointment with an [facility] Primary Care Provider) IF YOU DEVELOP ANY NEW OR WORSENING SYMPTOMS, RETURN TO THE ER! Please read the attached instructions, they highlight more specific treatments and interventions for you at home. Thank you for letting me participate in your care, Rocío Coburn PA-C Prescriptions: No Action hydrochlorothiazide 25 mg tablet 25 mg PO DAILY 90 Days Qty: 90 3RF estradiol 1 mg tablet 1 mg PO DAILY Qty: 90 3RF pantoprazole 40 mg tablet,delayed release (DR/EC) 40 mg PO DAILY Qty: 60 12RF cholecalciferol (vitamin D3) 25 mcg (1,000 unit) capsule 25 mcg PO DAILY rosuvastatin 20 mg tablet 20 mg PO ONCE PM aspirin 81 mg tablet,chewable 1 tab PO DAILY terbinafine HCl 250 mg tablet 250 mg PO DAILY Qty: 3 1RF Rinvoq 15 mg tablet extended release 24 hr 15 mg PO DAILY Miebo (PF) 100 % drops 1 drp EYE-BOTH BID Patient Comments: [NO ORIGINAL SIG] ivermectin [Soolantra] 1 % Cream 1 applic TOPICAL BID prednisone 5 mg tablet 5 mg PO DAILY hydroxychloroquine 200 mg tablet 200 mg PO DAILY Patient Comments: TAKE TWO TABLETS (400 MG) BY MOUTH DAILY Referrals: Sae Foster MD [Primary Care Provider, Internal Medicine] Stand Alone Forms: Patient Portal/API ED Sign-out <Aaron Calle MD - Last Filed: 05/12/25 09:43> Cosign ED Attending Cosignature Attestation: I was available for consultation during this patient's emergency department visit. This chart is signed by myself for administrative purposes only. I did not have direct contact with this patient during this visit. They were seen independently by the APC.
[2025-05-11 15:59] VITALS: BP 199/91; PULSE 52; RESP 16; TEMP 36.7; O2SAT 98
== END 2025-05-11 16:30 | disposition home or self-care (01) ==
PROVIDERS: Emergency Provider Physician Assistant; PCP Internal Medicine
DX: S41.112A Laceration without foreign body of left upper arm, initial encounter (principal); S51.812A Laceration without foreign body of left forearm, initial encounter; W01.190A Fall on same level from slipping, tripping and stumbling with subsequent striking against furniture, initial encounter
CPT/HCPCS: 73060; 73090; 99281; 99283

== ENCOUNTER → 2025-05-15 13:35 | Outpatient (CLI) | payer MEDICARE, OTHER, SELFPAY ==
[2024-09-11 07:37] VITALS: BMI 20.5
[2025-05-15 14:43] LABS: Appearance Urine UA CLEAR; Bilirubin Urine UA NEGATIVE (NEGATIVE); Color Urine UA YELLOW; Glucose Urine UA NEGATIVE (Negative); Ketones Urine UA NEGATIVE (NEGATIVE); Leukocyte Esterase Urine UA NEGATIVE (NEGATIVE); Nitrite Urine UA NEGATIVE (Negative); Occult Blood Urine UA NEGATIVE (Negative); Protein Urine UA NEGATIVE (Negative); Specific Gravity Urine UA 1.015 (1.000-1.035); Urobilinogen Urine UA 0.2 E.U./dL (0.2)
[2025-05-15 14:44] LABS: pH Urine UA 8.5 (4.5-8.0)
[2025-05-15 14:54] LABS: Culture Indicated Urine Specimen Cultured
== END ==
PROVIDERS: PCP Internal Medicine; Referring Provider Internal Medicine; Visit Provider Internal Medicine
DX: R30.0 Dysuria (principal)
CPT/HCPCS: 81001; 87086

== ENCOUNTER 2025-06-22 11:30 | Outpatient (RCR) | payer MEDICARE, OTHER, SELFPAY ==
[2024-09-11 07:37] VITALS: BMI 20.5
--- NOTE | 2025-06-15 16:58 | PT.OIE ---
Current Diagnoses Benign paroxysmal vertigo, unspecified ear (06/15/25) Past Medical History (Last Reviewed 05/11/25 @ 15:59 by Rocío Coburn PA-C) BPPV (benign paroxysmal positional vertigo) Cervical spondylosis with radiculopathy Cervical stenosis of spinal canal Chicken pox Chronic bundle branch block Chronic low back pain Coronary artery calcification DDD (degenerative disc disease), cervical Degenerative joint disease of both hips DJD (degenerative joint disease) of knee DJD of both shoulders Do not resuscitate Endometriosis (~1979) Esophagitis Essential hypertension Facet arthropathy, lumbar Fibromyalgia GERD (gastroesophageal reflux disease) Headache, migraine Hearing loss Herniated nucleus pulposus, L4-5 History of colonic polyps Hypertension Internal derangement of left knee Irritable bowel syndrome Leg edema Measles MGUS (monoclonal gammopathy of unknown significance) Mixed hyperlipidemia Osteopenia Palpitations Primary osteoarthritis involving multiple joints Primary osteoarthritis of left knee Rheumatoid arthritis Rosacea Sacral back pain Shoulder pain, right Sjogren's syndrome Spinal stenosis Tortuous colon Venous (peripheral) insufficiency Vision disorder Past Surgical History (Last Reviewed 05/11/25 @ 15:59 by Rocío Coburn PA-C) Anesthesia History of elbow surgery History of repair of right rotator cuff History of tonsillectomy History of total left knee replacement S/P arthroscopic surgery of left knee S/P epidural steroid injection Status post appendectomy Status post hysterectomy Visit Care Team Role Provider Type Sae Foster MD Attending Provider Physician Primary Care Provider Referring Provider Specialty: Internal Medicine Address: [address] [place] [address] Email: [email or web address] Physical Therapy Initial Evaluation PT OP: Balance, Vestibular, Neuro Start: 06/15/25 16:34 Freq: Status: Active Protocol: Document 06/15/25 14:30 DCW (Rec: 06/15/25 16:58 DCW [id number]) Out-Patient Physical Therapy Visit Information Visit Information Visit Type Initial Evaluation Visit Start Time 14:30 Visit Stop Time 15:15 Visit Number 1 Number of RN OPERATING ROOM Visits 0 Progress Note Due 07/15/25 Evaluation Information Evaluation Date 06/15/25 Current Condition History of Current Condition Current Complaints Instability/imbalance History of Current Pt is a 74 year old female presenting with a multi-year Condition history of poor balance and unsteadiness on her feel. Pt denies rotational vertigo, just that walking a straight line is impossible. 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 Reports she can't move my head while I'm walking. OP-PT Subjective Patient Comments Patient Comments It feels like my head goes one way, and my body goes another. Patient Reported Worse Progress Functional Tests Dynamic Gait Index (DGI) Score Vestibular Assessment Auditory Tests Martino Test Within normal limits Air Conduction Equal Results Visual Testing Smooth Pursuits WNL Horizontal Smooth Pursuits 30 seconds, Mild Sway Vertical Saccades Horizontal 30 seconds, Mild Sway Spontaneous Negative Nystagmus Vestibular Function Tests CTSIB Position 1 30 seconds, Mild Sway CTSIB Position 2 Fall Reaction CTSIB Position 3 30 seconds, Mild Sway CTSIB Position 4 30 seconds, Mild Sway CTSIB Position 5 Fall Reaction CTSIB Position 6 Not Tested Physical Therapy Assessment Rehab Potential Rehabilitation Fair Potential Evaluation Complexity Number of Personal 3 or More Factors/ Comorbidities Number of Body 4 or More Systems Impaired Clinical Unstable Presentation at Evaluation Impairments Impairments Activity Tolerance,Balance,Functional Activities, Functional Mobility,Gait,Soft Tissue Mobility, Vestibular Goals Two Impairment Pt exhibits falls reaction in CTSIB positions II and V. Scallop Dredger Goal (LTG) Pt to demonstrate ability to tolerate CTSIB position II for 30 seconds with moderate sway or better to demonstrate decrease reliance on vision for balance. LTG Duration 09/13/25 One Impairment Pt scores as a falls risk on the DGI () Jail Goal (LTG) Pt to improve DGI score to >20/24 in order to demonstrate decreased risk of falls. LTG Duration 09/13/25 Assessment Summary Assessment Pt presents with non-specific complaints of unsteadiness and imbalance, denies rotational vertigo. Testing very difficult, due to pt's other ongoing medical complaints, vestibular testing hard to interpret. Pt has diplopia at baseline, and unable to tolerate head movements, so could not tolerate head impulse testing to check for unilateral vestibular hypofunction. DGI does suggest increased falls risk, however at 18/, it does not appear to be severe, and may have lost some points more due to hip/knee/foot pain than actual imbalance. Pt will likely benefit from skilled therapeutic intervention focusing on improving balance, increasing confidence, and decreasing fear of falling, however if pt does not improve, may benefit from referral for ENT for further specific testing and potential VNG. Physical Therapy Plan Frequency and Duration Frequency of 2x/Week Treatment Plan of Care Start 06/15/25 Date Plan of Care End 09/13/25 Date Next Visit Focus/Plan Next Note Type Treatment Note Next Visit Plan Balance challenges, limit head turn activities
--- NOTE | 2025-06-22 11:54 | PT.OPDS ---
Current Diagnoses Benign paroxysmal vertigo, unspecified ear (06/22/25) Visit Care Team Role Provider Type Sae Foster MD Attending Provider Physician Primary Care Provider Referring Provider Specialty: Internal Medicine Address: [address] [place] [address], [facility] Email: [email or web address] Visit Number Visit Number 2 Discharge Summary PT OP: Balance, Vestibular, Neuro Start: 06/15/25 16:34 Freq: Status: Active Protocol: Document 06/22/25 11:31 DCW (Rec: 06/22/25 11:54 DCW [id number]) Out-Patient Physical Therapy Visit Information Visit Information Visit Type Treatment Note Visit Start Time 11:31 Visit Stop Time 11:51 Visit Number 2 Number of DESK LIEUTENANT Visits 0 Progress Note Due 07/15/25 Evaluation Information Evaluation Date 06/15/25 OP-PT Subjective Patient Comments Patient Comments Pt reports symptoms are okay today. Neuro Re-Education Treatment Balance Activities Hurdles Details Hurdles/Foam Equipment // bars Comments complaints of hip pain Cone Tap Details Cone Taps Equipment // bars Comments Stopping due to low back pain Tandem Stance Details Tandem Stance Comments Stopped due to hip pain Foam Details EO/EC, Horizontal Head turns Comments Small head turns secondary to cervical limitations, then stopped due to neck pain Physical Therapy Assessment Goals Two Impairment Pt exhibits falls reaction in CTSIB positions II and V. Retirement Goal (LTG) Pt to demonstrate ability to tolerate CTSIB position II for 30 seconds with moderate sway or better to demonstrate decrease reliance on vision for balance. LTG Duration 09/13/25 One Impairment Pt scores as a falls risk on the DGI (18/24) Retirement Goal (LTG) Pt to improve DGI score to >20/24 in order to demonstrate decreased risk of falls. LTG Duration 09/13/25 Assessment Summary Assessment Pt unable to tolerate any challenges to her balance at this time. Can only participate in balance activities for 2-3 seconds before needing to take a break for her neck, low back, hip, or foot. Pt appears to be inappropriate for balance rehabilitation at this time. Pt will be discharged from skilled PT. Patient is in agreement. Physical Therapy Plan Frequency and Duration Frequency of 2x/Week Treatment Plan of Care Start 06/15/25 Date Plan of Care End 09/13/25 Date Discharge Physical Therapy Discharge Comments Pt is not currently appropriate for rehabilitation for balance. Next Visit Focus/Plan Next Note Type Discharge Summary
== END 2025-06-25 14:24 | disposition home or self-care (01) ==
LOC: PHYS 11:30
PROVIDERS: PCP Internal Medicine; Referring Provider Internal Medicine; Visit Provider Internal Medicine
DX: H81.10 Benign paroxysmal vertigo, unspecified ear (principal)
CPT/HCPCS: 97112; 97163

== ENCOUNTER → 2025-06-28 15:48 | Outpatient (CLI) | payer MEDICARE, OTHER, SELFPAY ==
[2024-09-11 07:37] VITALS: BMI 20.5
--- NOTE | 2025-06-28 15:51 | DI.MRI.S_ITS ---
PROCEDURE: MR LUMBAR SPINE WO CON INDICATIONS: pain TECHNIQUE: Noncontrast sagittal T1 spin echo and T2 fast echo, sagittal STIR, and T2 fast spin echo through the lumbar spine. In cases with scoliosis, additional coronal T2 fast spin echo may be performed. COMPARISON: CT, CT ABDOMEN WO/W CON, 10/16/2019, 14:48. [facility], MR, MR LUMBAR SPINE WO CON, 09/23/2019, 10:57. FINDINGS: Image quality: Excellent. Alignment and Curvature: Leftward curvature with apex at L2-3. There is trace retrolisthesis of L1 on L2, L2 on L3, L3 on L4 and trace anterolisthesis of L5 on S1. Bone Marrow: Marrow is of normal overall signal. No acute vertebral body compression fractures. Spinal Cord: Conus medullaris terminates at the L1 level. Visualized cord demonstrates normal signal and size. Paraspinous Soft Tissues: No paravertebral masses. Multilevel T2 hyperintensities within the kidneys. There is a hypointense focus on T2 in the posterior right kidney measuring 1.2 cm compared to 0.4 cm in 2019. Discs: Multilevel disc desiccation most severe at L2-3, L4-5. T12-L1: Minimal bulge/protrusion is stable. No spinal stenosis or foraminal narrowing. No significant interval progression. L1-L2: No disc bulge, spinal stenosis. Minimal interval left foraminal narrowing secondary to facet hypertrophy. L2-L3: Mild disc bulge without spinal stenosis. Moderate right foraminal narrowing without change. Facet and ligamentum flavum hypertrophy are present. No significant interval change. L3-L4: Mild disc bulge with increased T2 signal posteriorly most consistent with annular fissure. No spinal stenosis. Questionable minimal foraminal narrowing relatively unchanged. L4-L5: Mild disc bulge with minimal canal narrowing slightly more prominent. [id number] left and mild right foraminal narrowing with facet and ligamentum flavum hypertrophy. No significant interval change. L5-S1: Mild disc bulge without spinal stenosis. Questionable minimal interval left foraminal narrowing. Facet hypertrophy. IMPRESSION: Multilevel degenerative changes with no to minimal interval progression as above. Enlarging focus within the right kidney now more hypointense compared to prior exam. This could represent an evolving complex cyst, when compared to 2020 exam. However, other etiologies cannot be excluded. As indicated, limited renal ultrasound may be helpful for additional characterization. Dictated by: Shazia Canales M.D. on 06/29/2025 at 11:11 Approved by: Shazia Canales M.D. on 06/29/2025 at 11:30
== END ==
PROVIDERS: PCP Internal Medicine; Referring Provider Physician Assistant Surgical; Visit Provider Physician Assistant Surgical
DX: M47.26 Other spondylosis with radiculopathy, lumbar region (principal); M47.27 Other spondylosis with radiculopathy, lumbosacral region; M48.061 Spinal stenosis, lumbar region without neurogenic claudication; N28.9 Disorder of kidney and ureter, unspecified
CPT/HCPCS: 72148

== ENCOUNTER → 2025-07-02 14:08 | Outpatient (CLI) | payer MEDICARE, OTHER, SELFPAY ==
[2024-09-11 07:37] VITALS: BMI 20.5
--- NOTE | 2025-07-02 14:10 | DI.RAD.S_ITS ---
PROCEDURE: [place] JOINT INJECTION MEDIUM RT INDICATIONS: cortisone injection into glenohumeral joint COMPARISON: [facility], , [place] JOINT INJECTION LARGE LT, 04/04/2025, 14:57. TECHNIQUE: The indications, alternatives, benefits, risks, and complications of the procedure were explained to the patient. Written informed consent was obtained and placed in the chart. The patient was placed in an appropriate position on the fluoroscopy table, and a site was chosen for percutaneous access under fluoroscopic guidance. The site was prepped and draped in a sterile fashion. Local anesthetic was administered using a 1% lidocaine solution. A hypodermic or spinal needle was then used to access the symptomatic joint. Intra-articular location of the needle tip was confirmed by injecting a small amount of contrast, followed by steroid administration. The needle was then withdrawn, and a bandage applied to the puncture site. FINDINGS: Joint injected: Right glenohumeral joint Medications injected: 4 mL of 40 mg/mL Kenalog and 0.5% Ropivacaine mixture. Complications: None. IMPRESSION: Successful fluoroscopically guided administration of steroid and anaesthetic solution into the right glenohumeral joint. Dictated by: Wes Jacob M.D. on 07/02/2025 at 16:07 Approved by: Wes Jacob M.D. on 07/02/2025 at 16:09
--- NOTE | 2025-07-02 14:10 | DI.RAD.S_ITS ---
PROCEDURE: [place] JOINT INJECTION MEDIUM LT INDICATIONS: cortisone injection into glenohumeral joint COMPARISON: [facility], , [place] JOINT INJECTION MEDIUM RT, 07/02/2025, 13:37. TECHNIQUE: The indications, alternatives, benefits, risks, and complications of the procedure were explained to the patient. Written informed consent was obtained and placed in the chart. The patient was placed in an appropriate position on the fluoroscopy table, and a site was chosen for percutaneous access under fluoroscopic guidance. The site was prepped and draped in a sterile fashion. Local anesthetic was administered using a 1% lidocaine solution. A hypodermic or spinal needle was then used to access the symptomatic joint. Intra-articular location of the needle tip was confirmed by injecting a small amount of contrast, followed by steroid administration. The needle was then withdrawn, and a bandage applied to the puncture site. FINDINGS: Joint injected: Left glenohumeral joint Medications injected: 4 mL of 40 mg/mL Kenalog and 0.5% Ropivacaine mixture. Complications: None. IMPRESSION: Successful fluoroscopically guided administration of steroid and anaesthetic solution into the left glenohumeral joint. Dictated by: Wes Jacob M.D. on 07/02/2025 at 16:09 Approved by: Wes Jacob M.D. on 07/02/2025 at 16:10
[2025-07-02] MEDS: LIDOCAINE 1% 20 ML INJ ×2 (15:59)
[2025-07-02] MEDS: TRIAMCINOLONE 40 MG/ML VIAL INTRA-ARTI ×2 (16:00)
== END ==
PROVIDERS: PCP Internal Medicine; Referring Provider Orthopaedic Surgery; Visit Provider Orthopaedic Surgery
DX: M19.012 Primary osteoarthritis, left shoulder (principal); M19.011 Primary osteoarthritis, right shoulder
CPT/HCPCS: 20605; 77002

== ENCOUNTER → 2025-07-09 15:11 | Outpatient (CLI) | payer MEDICARE, OTHER, SELFPAY ==
[2024-09-11 07:37] VITALS: BMI 20.5
--- NOTE | 2025-07-09 15:12 | DI.US.S_ITS ---
PROCEDURE: US RENAL COMPLETE INDICATIONS: right renal mass seen on lumbar MRI TECHNIQUE: Real-time scanning was performed of the kidneys and bladder, with image documentation. COMPARISON: [facility], MR, MR LUMBAR SPINE WO CON, 06/28/2025, 16:01. FINDINGS: Kidneys: Kidneys are normal in size. Right kidney measures 9.3 cm long; left kidney measures 10.5 cm long. Right renal cortical thickness is 1.4 cm; left renal cortical thickness is 1.2 cm. Renal cortices are diffusely hyperechoic, left more so than right. There is a simple cyst arising from the lower pole left kidney measuring 3.2 cm. A simple cyst arises from the superolateral right kidney measuring 1.2 cm, corresponding well to the MRI finding. No hydronephrosis or nephrolithiasis. No suspicious solid mass lesions. Bladder: Pre-void bladder volume is 84 mL. Post-void residual is 36 mL. Pre- void images demonstrate no intraluminal masses or stones. On pre-void images, bilateral ureteral jets are noted with color Doppler interrogation. (Of note, ureteral jets may not be detectable in up to 25% of cases due to insufficient differences in specific gravity between ureteral and bladder urine). Miscellaneous: No free pelvic fluid. IMPRESSION: Right renal lesions seen on MRI corresponds to a cyst on ultrasound, probably proteinaceous. Lower pole simple cyst on the left kidney. Mildly increased cortical echogenicity can be seen in chronic medical renal disease. Incomplete emptying of the urinary bladder. Dictated by: Darling Arzola M.D. on 07/09/2025 at 18:04 Approved by: Darling Arzola M.D. on 07/09/2025 at 18:07
== END ==
LOC: US 15:11
PROVIDERS: PCP Internal Medicine; Referring Provider Internal Medicine; Visit Provider Internal Medicine
DX: N28.89 Other specified disorders of kidney and ureter (principal); N28.1 Cyst of kidney, acquired; R33.9 Retention of urine, unspecified
CPT/HCPCS: 76770

== ENCOUNTER → 2025-07-12 16:00 | Outpatient (CLI) | payer MEDICARE, OTHER, SELFPAY ==
[2024-09-11 07:37] VITALS: BMI 20.5
[2025-07-12 18:02] LABS: Add Manual Diff / Slide Review NO; Hematocrit 32.2 % (36-46); Hemoglobin 10.8 g/dL (12.0-16.0); Lymphocytes Absolute Auto 1000 /uL (1100-4500); Mean Corpuscular HGB Conc 33.6 % (30-36); Mean Corpuscular Hemoglobin 29.2 PG (26-34); Mean Corpuscular Volume 87.0 fL (80-100); Platelet Count 238 X10^3/uL (150-400)
[2025-07-12 18:23] LABS: Alanine Aminotransferase 27 IU/L (<35); Albumin 3.9 g/dL (3.5-5.0); Albumin Globulin Ratio 1.3 (1.0-2.8); Alkaline Phosphatase 50 U/L (38-126); Blood Urea Nitrogen 31 mg/dL (7-17); Calcium 10.2 mg/dL (8.4-10.2); Carbon Dioxide 28 mmol/L (22-32); Chloride 96 mmol/L (98-107); Estimated Glomerular Filt Rate 50 mL/min (>60); Globulin 3.1 g/dL (1.7-4.1); Glucose 113 mg/dL (70-99); HEMOLYSIS < 15 (0-50); Potassium 4.8 mmol/L (3.4-5.1); Sodium 133 mmol/L (137-145); Total Protein 7.0 g/dL (6.3-8.2)
== END ==
PROVIDERS: PCP Internal Medicine; Referring Provider Internal Medicine Rheumatology; Visit Provider Internal Medicine Rheumatology
DX: M06.9 Rheumatoid arthritis, unspecified (principal); M06.09 Rheumatoid arthritis without rheumatoid factor, multiple sites
CPT/HCPCS: 36415; 80053; 85025; 85651; 86140

== ENCOUNTER → 2025-07-30 13:44 | Outpatient (CLI) | payer MEDICARE, OTHER, SELFPAY ==
[2024-09-11 07:37] VITALS: BMI 20.5
--- NOTE | 2025-07-30 13:45 | DI.RAD.S_ITS ---
PROCEDURE: [place] JOINT INJECTION LARGE RT INDICATIONS: cortisone injection for right hip COMPARISON: [facility], , [place] JOINT INJECTION MEDIUM LT, 07/02/2025, 13:56. TECHNIQUE: The indications, alternatives, benefits, risks, and complications of the procedure were explained to the patient. Written informed consent was obtained and placed in the chart. The patient was placed in an appropriate position on the fluoroscopy table, and a site was chosen for percutaneous access under fluoroscopic guidance. The site was prepped and draped in a sterile fashion. Local anesthetic was administered using a 1% lidocaine solution. A hypodermic or spinal needle was then used to access the symptomatic joint. Intra-articular location of the needle tip was confirmed by injecting a small amount of contrast, followed by steroid administration. The needle was then withdrawn, and a bandage applied to the puncture site. FINDINGS: Joint injected: Right hip Medications injected: 5 mL of 40 mg/mL Kenalog and 0.5% Ropivacaine mixture. Patient's pain before injection: 7 out of 10. Patient's pain after injection: 4 out of 10. Complications: None. IMPRESSION: Successful fluoroscopically guided administration of steroid and anaesthetic solution into the right hip joint. Dictated by: Vickey Ball M.D. on 07/30/2025 at 17:39 Approved by: Vickey Ball M.D. on 07/30/2025 at 17:39
[2025-07-30] MEDS: LIDOCAINE 1% 20 ML INJ (14:50)
[2025-07-30] MEDS: TRIAMCINOLONE 40 MG/ML VIAL INTRA-ARTI (14:50)
== END ==
LOC: RAD 13:44
PROVIDERS: PCP Internal Medicine; Referring Provider Internal Medicine; Visit Provider Orthopaedic Surgery
DX: M25.551 Pain in right hip (principal)
CPT/HCPCS: 20610; 77002

== ENCOUNTER 2025-09-20 08:39 | Outpatient (CLI) | payer MEDICARE, OTHER, SELFPAY ==
[2024-09-11 07:37] VITALS: BMI 20.5
[2025-09-20] VITALS (7 sets, daily range): BP systolic 134–184; BP diastolic 64–81; PULSE 49–74; RESP 14–16; TEMP 36.6; O2SAT 97–100
[2025-09-20] MEDS: MIDAZOLAM 2 MG/2 ML VIAL IV (10:07)
--- NOTE | 2025-09-20 10:29 | P.PCN_ITS ---
Date/Time/Diagnoses Date of procedure: 09/20/25 Time of procedure: 10:29 Pre-procedure diagnosis: 1. CERVICAL STENOSIS, 2. CERVICAL HNP WITH UPPER EXTREMITY RADICULAR FEATURES Post-procedure diagnosis: same Procedure Notes Procedure: 1. FLUORSCOPICALLY GUIDED CONTRAST CONTROLLED INTERLAMINAR EPIDURAL STEROID INJECTION - C6/7 TL DEYANIRA Indications: Analia is referred by Dr. Foster for treatment of Cervical HNP with Upper Extremity Paresthesias. Physician: Stewart Iriwn Total Fluoroscopy time (seconds): 22 Total sedation minutes: 17 Complications: none Procedure in detail & Post-procedure care: FINDINGS Cervical Stenosis due to disc deterioration and nerve root irritation and nerve root irritation DESCRIPTION OF PROCEDURE Fluoroscopically guided, contrast-controlled C6/7 translaminar epidural steroid injection with conscious sedation. Following review of allergy and review of potential side effects and complications, including, but not necessarily limited to, infection, allergic reaction, local tissue breakdown, temporary as well as permanent nerve injury, stroke, paralysis, and possible , the patient indicated that patient understood and agreed to proceed. An informed consent document was signed by the patient, witnessed by a nurse, and placed in the patient's chart. Additionally, other treatment options including modalities, medications, and physical therapy were reviewed with the patient. After review of previous anaesthesic history and IV conscious sedation the patient was deemed safe to proceed with today?s procedure with IV conscious sedation as ASA class II designation. Safety time-out was performed to confirm patient ID, procedure to be performed and site of procedure. IV sedation was accomplished with a combination of 2mg of Versed administered by the RN after DO order, titrated to patient comfort during the course of the procedure while the patient remained responsive to all verbal commands. In the prone position, following sterile prep and drape of the cervical region, the C6/7 translaminar space was identified fluoroscopically. The skin was anesthetized via a 25-gauge 1.5-inch needle with 1% lidocaine solution. At this point, a 25-gauge, 2.5-inch short bevel spinal needle was atraumatically introduced and advanced under fluoroscopic guidance into epidural space at the C6/7 translaminar space. Depth was confirmed on lateral view. Radiological data, including multiple fluoroscopic views of the cervical spine, reveal a spinal needle at the C6/7 translaminar space. Lateral views then show placement of the needle in the epidural space. Subsequent views show contrast material flowing superiorly and inferiorly in the epidural space. DSA fluoroscopy with live contrast injection, once again, confirmed no vascular or intrathecal uptake. At this point, using loss of resistance technique with saline and air, the epidural space was entered. Following negative aspiration, injection of approximately 1.5 cc of Isovue-200 with live fluoroscopy in the AP view confirmed epidural flow in the epidural space without vascular or intrathecal uptake observed. Subsequently, a test dose of 1 cc of 1% lidocaine solution was injected and patient was observed for two minutes without signs or symptoms of complications, including abdominal pain, shortness of breath, bilateral upper or lower extremity weakness, nausea and vomiting, prior to steroid injection. At this point, 3cc or 30mg of dexamethasone was then injected without incident. The patient tolerated the procedure well without signs or symptoms of complica tions prior to being transferred to the recovery area for further monitoring, The patient was then transferred to the recovery area where they were observed for an appropriate period of time after the injection. The patient reported a VAS score of 6 prior to the procedure and a post-procedure VAS of 0. POST OP INSTRUCTIONS The patient was provided a Pain Log to continue to record their response to the target-specific procedure prior to follow-up visit with the referring provider. Additionally, specific post-injection care instructions and a contact number to our office were provided if concerns arise regarding possible complications associated with the procedure are suspected.
== END 2025-09-20 11:20 | disposition home or self-care (01) ==
LOC: RAD 08:42
PROVIDERS: PCP Internal Medicine; Referring Provider Internal Medicine; Visit Provider Physical Medicine & Rehabilitation
DX: M50.123 Cervical disc disorder at C6-C7 level with radiculopathy (principal); M48.02 Spinal stenosis, cervical region
CPT/HCPCS: 62321; 99152; J1100; J2250

== ENCOUNTER → 2025-09-26 13:39 | Outpatient (CLI) | payer MEDICARE, OTHER, SELFPAY ==
[2024-09-11 07:37] VITALS: BMI 20.5
[2025-09-26 14:25] LABS: Hematocrit 32.7 % (36-46); Hemoglobin 11.1 g/dL (12.0-16.0); Mean Corpuscular HGB Conc 34.0 % (30-36); Mean Corpuscular Hemoglobin 29.1 PG (26-34); Mean Corpuscular Volume 85.6 fL (80-100); Platelet Count 232 X10^3/uL (150-400)
[2025-09-26 14:56] LABS: Blood Urea Nitrogen 24 mg/dL (7-17); Calcium 9.6 mg/dL (8.4-10.2); Carbon Dioxide 27 mmol/L (22-32); Chloride 96 mmol/L (98-107); Cholesterol 187 mg/dL (140-199); Estimated Glomerular Filt Rate > 60 mL/min (>60); Glucose 110 mg/dL (70-99); HDL Cholesterol 99 mg/dL (40-60); HEMOLYSIS < 15 (0-50); Potassium 3.8 mmol/L (3.4-5.1); Sodium 133 mmol/L (137-145); Triglycerides 129 mg/dL (35-150)
[2025-09-26 15:27] LABS: TSH w/ Reflex to FT4 1.39 uIU/mL (0.47-4.68)
== END ==
PROVIDERS: PCP Internal Medicine; Referring Provider Internal Medicine; Visit Provider Internal Medicine
DX: E78.2 Mixed hyperlipidemia (principal); I25.10 Atherosclerotic heart disease of native coronary artery without angina pectoris; I25.84 Coronary atherosclerosis due to calcified coronary lesion
CPT/HCPCS: 36415; 80048; 80061; 84443; 84450; 85027